=== PATIENT | male | born 1950 | race Caucasian/White ===

== ENCOUNTER → 2020-06-29 07:41 | Outpatient (BNVA) | payer BC, SELFPAY | PROVIDERS: Family Provider Electrodiagnostic Medicine; PCP Electrodiagnostic Medicine; Referring Provider Electrodiagnostic Medicine; Visit Provider Urology | DX: C61 Malignant neoplasm of prostate (principal); R39.11 Hesitancy of micturition; N40.1 Benign prostatic hyperplasia with lower urinary tract symptoms | CPT/HCPCS: 81003; 84153 ==

== ENCOUNTER 2020-08-25 13:22 | Outpatient (CLI) | payer MEDICARE, OTHER, SELFPAY ==
--- NOTE | 2020-08-25 13:41 | XR_ITS ---
WS: [id number] Exam: XR chest 2V* [id number] Date/Time of Exam: 08/25/2020 1:45 PM Reason For Exam: CAD/CONGESTIVE HEART FAILURE/HTN Comparison 10/06/2015. The lungs are clear and fully expanded. Unremarkable cardiomediastinal structures. Signs of previous CABG surgery. No pleural effusion. Moderate degenerative changes in the right shoulder. Orthopedic st aple seen in the right humeral neck. XR/XR chest 2V* [id number] IMPRESSION: 1. No acute cardiopulmonary finding. No change.
== END 2020-08-25 13:23 | disposition home or self-care (01) ==
PROVIDERS: Family Provider Electrodiagnostic Medicine; PCP Electrodiagnostic Medicine; Visit Provider Electrodiagnostic Medicine
DX: I25.10 Atherosclerotic heart disease of native coronary artery without angina pectoris (principal); I11.0 Hypertensive heart disease with heart failure; I50.9 Heart failure, unspecified
CPT/HCPCS: 71046

== ENCOUNTER 2020-09-14 09:59 | Outpatient (CLI) | payer MEDICARE, OTHER, SELFPAY ==
--- NOTE | 2020-09-14 10:02 | USCV_ITS ---
Italo Cummings Age: 70 Gender: M : 1950 Exam Date: 09/14/2020 10:20 Ordering Phys: Priyank Kaur DO Technologist: Candida Lin Exam Location: [facility] – [place] Indication: FATIGUE CAD BP: 117 / 71 HR: 96 Rhythm: Sinus Technical Quality: Adequate MEASUREMENTS (Male / Female) Normal Values 2D ECHO LV Diastolic Diameter PLAX 5.6 cm 4.2 - 5.9 / 3.9 - 5.3 cm LV Systolic Diameter PLAX 4.5 cm LV Chamber Size 3.9 cm IVS Diastolic Thickness 1.2 cm 0.6 - 1.0 / 0.6 - 0.9 cm IVS Systolic Thickness 1.2 cm LVPW Diastolic Thickness 1.3 cm 0.6 - 1.0 / 0.6 - 0.9 cm LVPW Systolic Thickness 1.7 cm RV Chamber Size 3.5 cm LVOT Diameter 2.0 cm LV Ejection Fraction 2D Teich 41.0 % LV Ejection Fraction MOD 2C 14.9 % LV Ejection Fraction 2C AL 14.6 % LA Diameter 3.6 cm LA Width 4.2 cm LA Height 5.0 cm RA Width 3.6 cm RA Height 4.2 cm Aorta at Sinotubular Diameter 3.4 cm M-MODE LV Diastolic Diameter MM 6.1 cm 4.2 - 5.9 / 3.9 - 5.3 cm LV Systolic Diameter MM 5.1 cm LV Ejection Fraction MM Teich 33.1 % IVS Diastolic Thickness MM 0.9 cm 0.6 - 1.0 / 0.6 - 0.9 cm IVS Systolic Thickness MM 1.3 cm LVPW Diastolic Thickness MM 1.4 cm 0.6 - 1.0 / 0.6 - 0.9 cm LVPW Systolic Thickness MM 1.6 cm RV Diastolic Diameter MM 1.1 cm Aortic Annulus Diameter 3.4 cm LA Ao Ratio MM 1.1 DOPPLER AV Peak Velocity 228.3 cm/s LVOT Peak Velocity 58.0 cm/s AV Area Cont Eq vti 0.8 cm squared AV Area Cont Eq pk 0.8 cm squared MV Area PHT 8.1 cm squared Mitral E to A Ratio 1.0 MV E' Velocity 43.5 cm/s Mitral E to MV E' Ratio 9.1 Mitral E to LV E' Lateral Ratio 8.4 Mitral E to LV E' Septal Ratio 10.1 TR Peak Velocity 180.6 cm/s TR Peak Gradient 13.1 mmHg TR Mean Velocity 125.9 cm/s TR Mean Gradient 8.0 mmHg TR Velocity Time Integral 39.7 cm TV Peak E Velocity 75.0 cm/s Right Atrial Pressure 3.0 mmHg Pulmonary Artery Systolic Pressu 16.1 mmHg PV Peak Velocity 69.0 cm/s RV Acceleration Time 0.2 s RV Ejection Time 0.3 s RV AcT/ET 0.5 FINDINGS Left Ventricle Diffuse hypokinesia left ventricle with ejection fraction of 41%. Mildly dilated LV cavity. Right Ventricle Normal right ventricular size and systolic function. Right Atrium Normal right atrial size. Left Atrium Mildly increased left atrial size. Mitral Valve Thickened mitral valve. Mild to moderate mitral valve regurgitation. Aortic Valve Thickened aortic valve. Tricuspid Valve Mild tricuspid valve regurgitation. Pulmonic Valve No gross abnormalities noted Pericardium No pericardial effusion. Aorta Normal aortic annulus size. CONCLUSIONS Diffuse hypokinesia left ventricle with ejection fraction of 41%. Mildly dilated left ventricle. Mildly increased left atrial size. Thickened mitral valve. Mild to moderate mitral valve regurgitation. Features of aortic valve sclerosis with a peak velocity of 2.28 m/s Mild tricuspid valve regurgitation. There is no pericardial effusion. There are no intracardiac masses. Estimated pulmonary artery peak systolic pressure of 16 mmHg. Compared to the previous study from 01/21/2018, there is a significant decline in the LV ejection fraction from 70% to 41% Dr Jose Nj MD [facility] (Electronically Signed) Final Date: 14 September 2020 23:52 S
== END 2020-09-14 10:00 | disposition home or self-care (01) ==
LOC: US 10:01
PROVIDERS: PCP Electrodiagnostic Medicine; Visit Provider Electrodiagnostic Medicine
DX: I25.10 Atherosclerotic heart disease of native coronary artery without angina pectoris (principal); R53.83 Other fatigue; I08.3 Combined rheumatic disorders of mitral, aortic and tricuspid valves
CPT/HCPCS: 93306

== ENCOUNTER → 2020-11-02 11:19 | Outpatient (BNVA) | payer MEDICARE, OTHER, SELFPAY | PROVIDERS: PCP Electrodiagnostic Medicine; Visit Provider Internal Medicine Cardiovascular Disease | DX: I50.33 Acute on chronic diastolic (congestive) heart failure (principal); R06.02 Shortness of breath; R53.1 Weakness; Z79.01 Long term (current) use of anticoagulants; I25.5 Ischemic cardiomyopathy; R07.9 Chest pain, unspecified; N18.9 Chronic kidney disease, unspecified; R60.0 Localized edema; E78.2 Mixed hyperlipidemia; E78.00 Pure hypercholesterolemia, unspecified; Z86.79 Personal history of other diseases of the circulatory system | CPT/HCPCS: 80053; 83880; 84443; 85025; 85610 ==

== ENCOUNTER 2020-12-16 07:33 | Outpatient (CLI) | payer MEDICARE, OTHER, SELFPAY ==
[2020-12-16 07:43] VITALS: BMI 29.4
--- NOTE | 2020-12-16 07:57 | ECG_ITS ---
[facility] Test Date: 2020-12-16 Pat Name: Italo Cummings Department: Room: Gender: Male Control Specialist: Lauryn Sylvester : 1950 Requested By: Jose Nj Order Number: [id number] Reddy MD: Jose Nj M.D. Interpretive Statements NAME OF STUDY: LEXISCAN SESTAMIBI STRESS TEST INDICATION: Chest Pain, PROCEDURE: At the baseline, the EKG revealed normal sinus rhythm with frequent supraventricular ectopics. No significant ST-T changes. The baseline blood pressure was 127/94 mm Hg with a heart rate of 89 beats/min. Lexiscan was infused over a period of 20 seconds. A total of 0.4 milligrams of Lexiscan was infused. The stress phase was continued for a total of 5 minutes. Heart rate at the end of the stress phase was 94 with a blood pressure 121/89. The EKG at the peak infusion revealed no significant changes. Sestamibi was injected 20 seconds after the Lexiscan infusion. Blood pressure at the end of the recovery phase was 123/89 with a heart rate of 94 per minute. CONCLUSION: 1. No significant EKG changes with the LexiScan infusion 2. No LexiScan induced chest pain or cardiac arrhythmia 3. Normal blood pressure and heart rate response 4. Sestamibi/sestamibi perfusion scan pending; see separate report. Electronically Signed On 12-17-2020 16:21:43 CDT by Jose Nj M.D. [id number]
--- NOTE | 2020-12-16 07:57 | NMCV_ITS ---
NM vandana perf SPECT r/s* [id number] Italo Cummings Age: 70 Gender: M : 1950 Exam Date: 12/16/2020 08:46 Ordering Phys: Jose Nj MD ([email or web address]) Technologist: CARLA Adams Exam Location: [facility] [place] Indications: SHORTNESS OF BREATH STRESS TEST Please see separate stress test report in [facility] for full findings IMAGE PROTOCOL Rest/Stress 1 Lexiscan Day Radiopharmaceutical Dose (mCi) Administration Site Administered by Rest: Tc-99m 10.7 IV CARLA Adams Sestamibi Stress:Tc-99m 32.8 IV CARLA Rojas Sestamibi Rest: 16-Dec-2020 60 Discovery 630 Stress: 16-Dec-2020 30 Discovery 630 0.4mg Lexiscan. Images obtained in supine and prone position. SPECT RESULTS Technical Quality: Excellent Raw Data Analysis: Normal Image Corrections: No attenuation or motion correction applied Summed Stress Score: 18 Summed Rest Score: 16 Summed Difference Score: 3 PERFUSION FINDINGS Moderate area of severely decreases uptake was noted in the basal and mid inferior and inferolateral regions. No significant reversibility was noted in these regions. Small to moderate area of slightly decreased aseptic was noted in the basal and mid anterolateral, apical lateral, apical anterior and the LV apex. Subtle areas of reversibility was noted in the anterolateral, apical lateral and apical anterior regions. FUNCTIONAL RESULTS (calculated via Gated SPECT) Stress Image LV EF (%): 31 Stress EDV (mL):249 TID: 1 Stress ESV (mL):171 FUNCTIONAL FINDINGS: Normal wall motion analysis revealed a severe hypokinesia of the septum and moderate diffuse hypokinesia of the LV apex. IMPRESSIONS 1. Myocardial perfusion may revealing moderate area of persistent decreased tracer uptake in the inferior and inferolateral regions, suggestive of myocardial scarring the distribution of the right coronary artery and circumflex artery. There is a slightly decreased tracer uptake in the anterolateral, apical lateral , apical anterior and LV apex with some reversibility, suggestive of myocardial scarring with small areas of octaviano- infarction ischemia in the distribution of the circumflex artery and distal left anterior descending artery.(Total area of fixed defect was 24% ; ischemic burden was 6%) 2. Moderately diminished LV ejection fraction of 31%. 3. LV wall motion normalities as mentioned above. 4. Moderately dilated LV cavity with an end-systolic volume of 171 ml. No similar previous studies are available for comparison Dr Jose Nj MD [facility] (Electronically Signed) Final Date: 17 December 2020 09:07 S
[2020-12-16 09:17] VITALS: BP 117/86; PULSE 95
[2020-12-16] MEDS: regadenoson 0.4 Mg/5 ml Syringe IVP (09:17)
== END 2020-12-16 07:34 | disposition home or self-care (01) ==
PROVIDERS: PCP Electrodiagnostic Medicine; Visit Provider Internal Medicine Cardiovascular Disease
DX: R07.9 Chest pain, unspecified (principal); R06.02 Shortness of breath
CPT/HCPCS: 78452; A9500; J2785

== ENCOUNTER → 2021-01-04 10:53 | Outpatient (BNVA) | payer MEDICARE, OTHER, SELFPAY | PROVIDERS: PCP Electrodiagnostic Medicine; Visit Provider Internal Medicine Cardiovascular Disease | DX: I50.33 Acute on chronic diastolic (congestive) heart failure (principal); R06.02 Shortness of breath; R53.1 Weakness; R07.9 Chest pain, unspecified; I25.5 Ischemic cardiomyopathy; Z79.01 Long term (current) use of anticoagulants; N18.9 Chronic kidney disease, unspecified; I49.9 Cardiac arrhythmia, unspecified; E78.2 Mixed hyperlipidemia | CPT/HCPCS: 80048; 80061; 82728; 83550; 83880 ==

== ENCOUNTER 2021-02-15 13:18 | Outpatient (CLI) | payer MEDICARE, OTHER, SELFPAY ==
--- NOTE | 2021-02-15 13:32 | XRR_ITS ---
PROCEDURE INFORMATION: Exam: XR Right Shoulder Exam date and time: 02/15/2021 1:32 PM Age: 70 years old Clinical indication: Condition or disease; Other: Right rotator cuff syndrome; Prior surgery; Surgery type: Bilat shoulder; Patient HX: Limited movement of RT shoulder. No known injury. PT stated he has had multiple surgeries on that shoulder and has had trouble with it for the past 2 years but the limited ability to move it has gotten worse these past TECHNIQUE: Imaging protocol: XR Right shoulder. Views: 2 or more views. COMPARISON: CR XR chest 2V* [id number] 08/25/2020 1:45 PM FINDINGS: Tubes, catheters and devices: Orthopedic staple again projecting over the proximal right humerus at the distal neck. 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 Evaluation of the glenohumeral joint is limited given positioning, no significant marginal osteophyte formation of the humerus or glenoid. No evidence of fracture. Soft tissues: Normal. XR/XR shoulder RT min 2V* [id number] IMPRESSION: Postsurgical and degenerative changes of the right shoulder as described in the body of the report.
== END 2021-02-15 13:19 | disposition home or self-care (01) ==
LOC: RAD 13:28
PROVIDERS: PCP Electrodiagnostic Medicine; Visit Provider Electrodiagnostic Medicine
DX: M75.101 Unspecified rotator cuff tear or rupture of right shoulder, not specified as traumatic (principal)
CPT/HCPCS: 73030

== ENCOUNTER 2021-03-09 06:59 | Outpatient (CLI) | payer MEDICARE, OTHER, SELFPAY ==
[2021-03-09 07:52] VITALS: BP 134/84; PULSE 99; RESP 24; TEMP 39.5; O2SAT 93; BMI 27.9
[2021-03-09 08:14] VITALS: BP 112/79; PULSE 57; RESP 20; TEMP 37.9; O2SAT 93
[2021-03-09 09:10] VITALS: BP 131/71; PULSE 53; RESP 20; TEMP 38.2; O2SAT 95
== END 2021-03-09 07:00 | disposition home or self-care (01) ==
PROVIDERS: PCP Electrodiagnostic Medicine; Visit Provider Nurse Practitioner
DX: U07.1 COVID-19 (principal)
CPT/HCPCS: 96365

== ENCOUNTER → 2021-04-06 10:01 | Outpatient (BNVA) | payer MEDICARE, OTHER, SELFPAY | PROVIDERS: PCP Electrodiagnostic Medicine; Referring Provider Electrodiagnostic Medicine; Visit Provider Specialist | DX: M25.511 Pain in right shoulder (principal); M19.011 Primary osteoarthritis, right shoulder | CPT/HCPCS: 73030 ==

== ENCOUNTER → 2021-04-19 10:20 | Outpatient (BNVA) | payer MEDICARE, OTHER, SELFPAY | PROVIDERS: PCP Electrodiagnostic Medicine; Visit Provider Internal Medicine Cardiovascular Disease | DX: R06.02 Shortness of breath (principal); R60.0 Localized edema; E78.00 Pure hypercholesterolemia, unspecified; E78.2 Mixed hyperlipidemia; I25.5 Ischemic cardiomyopathy; I50.9 Heart failure, unspecified; I42.9 Cardiomyopathy, unspecified; I10 Essential (primary) hypertension | CPT/HCPCS: 80048; 83735; 83880 ==

== ENCOUNTER → 2021-04-22 09:14 | Outpatient (BNVA) | payer MEDICARE, OTHER, SELFPAY | PROVIDERS: PCP Electrodiagnostic Medicine; Visit Provider Internal Medicine Cardiovascular Disease | DX: I48.91 Unspecified atrial fibrillation (principal); I48.92 Unspecified atrial flutter; R06.02 Shortness of breath; I50.9 Heart failure, unspecified; I49.9 Cardiac arrhythmia, unspecified; I42.9 Cardiomyopathy, unspecified | CPT/HCPCS: 85025; 85610 ==

== ENCOUNTER 2021-04-23 13:59 | Inpatient (IN) | payer MEDICARE, OTHER, SELFPAY ==
[2021-04-23] VITALS (40 sets, daily range): BP systolic 85–122; BP diastolic 45–77; PULSE 65–125; RESP 0–31; TEMP 36.6–37; O2SAT 80–97; BMI 27.2
--- NOTE | 2021-04-23 14:15 | ECG_ITS ---
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 Measurements Intervals [place] Rate: 122 P: [place]: QRS: 80 QRSD: 138 T: 269 QT: 333 QTc: 475 Interpretive Statements ATRIAL FLUTTER WITH RAPID VENTRICULAR RESPONSE INTRAVENTRICULAR CONDUCTION DELAY [130+ ms QRS DURATION] Compared to ECG 10/07/2015 00:35:45 Intraventricular conduction delay now present Sinus rhythm no longer present T-wave abnormality no longer present Electronically Signed On 04-24-2021 0:27:03 CDT by Joel Campos M.D. [email or web address].-[employer]/store/NU/[id number] f
--- NOTE | 2021-04-23 14:21 | XRR_ITS ---
PROCEDURE INFORMATION: Exam: XR Chest Exam date and time: 04/23/2021 2:21 PM Age: 70 years old Clinical indication: Cough and dyspnea; Additional info: Dyspnea/cough TECHNIQUE: Imaging protocol: XR of the chest. Views: 1 view. COMPARISON: CR XR chest 2V* [id number] 08/25/2020 1:45 PM FINDINGS: Lungs: Lungs are clear bilaterally. Pleural spaces: No pleural effusion. No pneumothorax. Heart/Mediastinum: Stable moderate enlargement of the cardiac silhouette. Mediastinal contours are unremarkable. Bones/joints: Poststernotomy changes in the chest. Degenerative changes in the spine and shoulders. Osseous findings are stable. XR/XR chest 1V portable [id number] IMPRESSION: 1. No acute cardiopulmonary process. 2. Incidental/nonacute findings are listed in the report. Radiation Dose CTDIVOL = (mGy): DLP = (mGy-cm)
[2021-04-23 14:54] LABS: Basophils % 0.2 %; Hematocrit 45.4 % (42.0-52.0); Hemoglobin 14.6 g/dL (11.7-16.6); Lymphocytes # 0.7 10^3/uL (0.8-4.8); Lymphocytes % 3.8 %; Mean Corpuscular HGB Conc 32.2 g/dL (30.0-36.0); Mean Corpuscular Hemoglobin 29.3 pg (28.0-34.0); Mean Corpuscular Volume 91.2 fl (80-94); Mean Platelet Volume 13.3 fL (7.4-10.4); Monocytes # 0.9 10^3/uL (0.2-0.9); Monocytes % 4.7 %; Neutrophils # 17.29 10^3/uL (1.8-7.7); Neutrophils % 90.7 %; Nucleated Red Blood Cells % 0 %; Platelet Count 119 10^3/cmm (130-400); Red Blood Count 4.98 10^6/uL (4.1-5.3); Red Cell Distribution Width 15.5 % (12.1-15.1); White Blood Count 19.1 10^3/uL (4.0-10.0)
[2021-04-23] MEDS: digoxin 250 mcg/ml INJ 2 mL IVP (15:00)
--- NOTE | 2021-04-23 15:01 | ED_ITS ---
HPI - Weakness General: Chief complaint: Weakness Stated complaint: N/V, WEAK, NOT SLEEPING, SENT BY DR MACHADO Time Seen by Provider: 04/23/21 14:11 History of Present Illness: HPI Narrative: 70-year-old male presents emergency room complaining of weakness shortness of breath nausea dry heaves over the last couple of days. He has a known history of atrial fibrillation his heart rate has been poorly controlled the last few weeks. He was started on amiodarone earlier this week he is taken several doses but is not controlled his heart rate. He denies any chest pain. He has been short of breath feels very bloated. He is also noticed he has been significantly orthopneic. MD Complaint: generalized weakness Onset (ago): day(s) Duration: intermittent Severity: moderate Quality: tingling Relieving factors: rest Exacerbating factors: exertion Associated symptoms: Denies chest pain, chills, confusion, melena, decreased appetite, diaphoresis, dysuria, easy bruising, fever(s), headache(s), myalgias, nausea, rash, short of breath, syncope or vomiting Review of Systems Const: Denies: fever(s), chills or diaphoresis ENMT: Denies: throat pain, ear or mastoid pain, nasal discharge or nasal congestion Card: Denies: chest pain or syncope Resp: Denies: dyspnea, productive cough or non-productive cough GI: Denies: nausea, vomiting or melena : Denies: dysuria Skin/Breast: Denies: rash or pruritus Neuro: Denies: headache(s) or confusion Butch/Lymph: Denies: easy bruising PFS ED PFSH: Medical History (Updated 04/23/21 @ 16:46 by Vadim Dominguez MD) Afib Atrial flutter BPH loc w urin obs/LUTS COVID-19 Mar 2021 Elevated PSA Essential hypertension 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 Radiation therapy. Slowly rising PSA with benign RALPH. 6.June. SOB (shortness of breath) Traumatic tear of right rotator cuff Urinary hesitancy Surgical History H/O shoulder surgery LEFT H/O total knee replacement RIGHT History of back surgery History of carpal tunnel release BILATERAL History of tonsillectomy and adenoidectomy Hx of coronary artery bypass graft Family History Father , AT AGE 91 Bowel obstruction Mother , AT AGE 84 Heart attack CAD (coronary artery disease) Hypertension Diabetes Brother Cancer Family/Other Cancer Son Chronic kidney disease (CKD) Cancer Grandfather Stroke Denies family history of Clotting disorder Dementia Suicide Anesthesia complication Bleeding disorder Lung disease Social History Alcohol intake: never Marital status: Current occupational status: employed History of recent travel: No Physical Exam Const: COMMON NORMALS: no acute distress GENERAL APPEARANCE: cooperative and comfortable ORIENTATION/CONSCIOUSNESS: Yes awake, Yes oriented to person, Yes oriented to place and Yes oriented to time HENMT: COMMON NORMALS: normocephalic, atraumatic and hearing grossly normal bilaterally HEAD & SCALP: normocephalic and atraumatic Resp: AUSCULTATION: crackles Cardio: RATE: tachycardic RHYTHM: abnormal rhythm irregularly irregular GI: COMMON NORMALS: Soft to palpation and No hepatosplenomegaly present AUSCULTATION: Yes normoactive bowel sounds PALPATION: Yes Soft to palpation, No Tenderness to palpation present (GI), No Guarding due to palpation present (GI) and Yes No hepatosplenomegaly present Extremity: COMMON NORMALS: normal to inspection, capillary refill normal, no clubbing, cyanosis or edema, no calf tenderness and no pedal edema Neuro: SENSORIUM/ORIENTATION: Yes oriented to person, Yes oriented to place and Yes oriented to time Skin: COMMON NORMALS: no rashes or lesions noted GENERAL SKIN EXAM: no rashes or lesions noted Course Vital Signs: Vital signs: Vital Signs Temperature 97.9 F 04/23/21 14:06 Pulse Rate 123 H 04/23/21 16:31 Respiratory Rate 23 H 04/23/21 16:31 Blood Pressure 105/77 04/23/21 16:31 Pulse Oximetry 96 04/23/21 16:31 MDM - Weakness MDM Narrative: Medical decision making narrative: A. fib with RVR on EKG. Patient's heart rate is poorly controlled with attempts with Cardizem with low obstructive loading with digoxin amiodarone is not an option because of his elevated LFTs. He also has significant hyperkalemia. He has hepatorenal syndrome. Discussed with cardiology nephrology and the hospitalist will admit him to the ICU cardiology is anticipating cardioversion pretty good with a small fluid bolus to improve his blood pressure additionally will use calcium gluconate insulin and glucose and Kayexalate to lower his potassium. Lab Data: Labs: Lab Results 04/23/21 04/23/21 04/23/21 14:08 14:08 14:08 WBC Cancelled Corrected WBC Cancelled RBC Cancelled Hgb Cancelled Hct Cancelled MCV Cancelled MCH Cancelled MCHC Cancelled RDW Cancelled Plt Count Cancelled MPV Cancelled Gran % Cancelled Neut % (Auto) Cancelled Lymph % (Auto) Cancelled Pershing % (Auto) Cancelled Eos % (Auto) Cancelled Baso % (Auto) Cancelled Neut # (Auto) Cancelled Lymph # (Auto) Cancelled Pershing # (Auto) Cancelled Eos # (Auto) Cancelled Baso # (Auto) Cancelled Absolute Gran (aut o) Cancelled Nucleated RBC % (a uto) Cancelled Nucleated RBCs # Cancelled Sodium Cancelled Potassium Cancelled Chloride Cancelled Carbon Dioxide Cancelled Anion Gap Cancelled BUN Cancelled Creatinine Cancelled GFR Calculation Cancelled Glucose Cancelled Calculated Osmolal ity Cancelled Calcium Cancelled Total Bilirubin Cancelled AST Cancelled ALT Cancelled Alkaline Phosphata se Cancelled Creatine Kinase Cancelled Troponin T Baselin e Cancelled NT-Pro-B Natriuret Pep Total Protein Cancelled Albumin Cancelled Globulin Cancelled 04/23/21 04/23/21 04/23/21 14:45 14:45 14:45 WBC 19.1 10^3/uL H 10 ^3/uL (4.0-10.0) Corrected WBC RBC 4.98 10^6/uL 10^6 /uL (4.1-5.3) Hgb 14.6 g/dL g/dL (11.7-16.6) Hct 45.4 % % (42.0-52.0) MCV 91.2 fl fl (80-94) MCH 29.3 pg pg (28.0-34.0) MCHC 32.2 g/dL g/dL (30.0-36.0) RDW 15.5 % H % (12.1-15.1) Plt Count 119 10^3/cmm L 10 ^3/cmm (130-400) MPV 13.3 fL H fL (7.4-10.4) Gran % Neut % (Auto) 90.7 % % Lymph % (Auto) 3.8 % % Pershing % (Auto) 4.7 % % Eos % (Auto) 0.0 % % Baso % (Auto) 0.2 % % Neut # (Auto) 17.29 10^3/uL H 1 0^3/uL (1.8-7.7) Lymph # (Auto) 0.7 10^3/uL L 10^ 3/uL (0.8-4.8) Pershing # (Auto) 0.9 10^3/uL 10^3/ uL (0.2-0.9) Eos # (Auto) 0.0 10^3/uL 10^3/ uL (0.0-0.8) Baso # (Auto) 0.0 10^3/uL 10^3/ uL (0.0-0.1) Absolute Gran (aut o) Nucleated RBC % (a uto) 0 % % Nucleated RBCs # 0.0 /100WBC /100W BC Sodium Potassium Chloride Carbon Dioxide Anion Gap BUN Creatinine GFR Calculation Glucose Calculated Osmolal ity Calcium Total Bilirubin AST ALT Alkaline Phosphata se Creatine Kinase Troponin T Baselin e 174 ng/L H* ng/L (0-15) NT-Pro-B Natriuret Pep 33921 pg/mL H pg/ mL (0-125) Total Protein Albumin Globulin 04/23/21 04/23/21 14:45 14:45 WBC Corrected WBC RBC Hgb Hct MCV MCH MCHC RDW Plt Count MPV Gran % Neut % (Auto) Lymph % (Auto) Pershing % (Auto) Eos % (Auto) Baso % (Auto) Neut # (Auto) Lymph # (Auto) Pershing # (Auto) Eos # (Auto) Baso # (Auto) Absolute Gran (aut o) Nucleated RBC % (a uto) Nucleated RBCs # Sodium 134 mmol/L L mmol /L (136-145) Potassium 6.2 mmol/L H mmol /L (3.5-5.1) Chloride 97 mmol/L L mmol/ L (98-107) Carbon Dioxide 16 mmol/L L mmol/ L (22-29) Anion Gap 27.2 H (5-19) BUN 44 mg/dL H mg/dL (8-23) Creatinine 3.0 mg/dL H mg/dL (0.7-1.2) GFR Calculation 20.9 mL/min L mL/ min (90-130) Glucose 192 mg/dL H mg/dL (65-115) Calculated Osmolal ity 294 mOsm/kg mOsm/ kg (285-295) Calcium 9.2 mg/dL mg/dL (8.5-10.5) Total Bilirubin 1.2 mg/dL mg/dL (0.15-1.2) AST 5186 U/L H U/L (0-40) ALT 3156 U/L H U/L (0-41) Alkaline Phosphata se 58 IU/L IU/L (40-130) Creatine Kinase 141 U/L U/L Cancelled (39-308) Troponin T Baselin e NT-Pro-B Natriuret Pep Total Protein 6.1 g/dL L g/dL (6.6-8.7) Albumin 4.2 g/dL g/dL (3.5-5.2) Globulin 1.9 g/dL g/dL (1.3-4.6) Discharge Plan Discharge Patient Disposition: Admitted As Inpatient Admit Provider: Vadim Dominguez Clinical Impression: Atrial fibrillation with rapid ventricular response, Acute renal failure (ARF), Hepatorenal syndrome, Hyperkalemia Condition: Stable Coding Level of Care Code ED Coil Tier for g Fwd Exam Detailed
[2021-04-23 15:08] LABS: Slide Review Slide Review Perform
[2021-04-23 15:13] LABS: Albumin Level 4.2 g/dL (3.5-5.2); Alkaline Phosphatase 58 IU/L (40-130); Blood Urea Nitrogen 44 mg/dL (8-23); Calcium 9.2 mg/dL (8.5-10.5); Carbon Dioxide 16 mmol/L (22-29); Chloride 97 mmol/L (98-107); Creatine Phosphokinase 141 U/L (39-308); Globulin 1.9 g/dL (1.3-4.6); Glomerular Filtration Rate 20.9 mL/min (90-130); Glucose 192 mg/dL (65-115); Osmolality Calculated 294 mOsm/kg (285-295); Sodium 134 mmol/L (136-145); Total Bilirubin 1.2 mg/dL (0.15-1.2); Total Protein 6.1 g/dL (6.6-8.7)
[2021-04-23 15:24] LABS: Alanine Aminotransferase 3156 U/L (0-41)
[2021-04-23 15:29] LABS: NT Pro B Type Natriuretic Pept 16722 pg/mL (0-125)
[2021-04-23] MEDS: ondansetron 2 mg/ML SDV 2 mL 4 MG IVP ×2 (15:33→19:48)
[2021-04-23 15:36] LABS: Aspartate Amino Transferase 5186 U/L (0-40)
[2021-04-23 15:37] LABS: Anion Gap 27.2 (5-19); Potassium 6.2 mmol/L (3.5-5.1)
[2021-04-23 15:39] LABS: Troponin(5th) Baseline 174 ng/L (0-15)
--- NOTE | 2021-04-23 16:12 | USCV_ITS ---
Italo Cummings Age: 70 Gender: M : 1950 Exam Date: 04/23/2021 16:38 Ordering Phys: Danny Gill DO Technologist: Exam Location: [facility] [place] Indication: CHF BP: 105 / 77 HR: 47 Rhythm: Sinus Technical Quality: Good MEASUREMENTS (Male / Female) Normal Values 2D ECHO LV Diastolic Diameter PLAX 6.3 cm 4.2 - 5.9 / 3.9 - 5.3 cm LV Systolic Diameter PLAX 5.6 cm IVS Diastolic Thickness 1.2 cm 0.6 - 1.0 / 0.6 - 0.9 cm IVS Systolic Thickness 1.6 cm LVPW Diastolic Thickness 1.2 cm 0.6 - 1.0 / 0.6 - 0.9 cm LVPW Systolic Thickness 1.0 cm LVOT Diameter 2.0 cm LV Ejection Fraction 2D Teich 24.1 % LV Ejection Fraction MOD 2C 21.6 % LV Ejection Fraction 2C AL 20.4 % LA Diameter 5.8 cm LA Width 4.7 cm LA Height 7.0 cm RA Width 6.3 cm RA Height 6.5 cm Aorta at Sinotubular Diameter 3.0 cm DOPPLER AV Peak Velocity 201.0 cm/s LVOT Peak Velocity 75.0 cm/s AV Area Cont Eq vti 1.0 cm squared AV Area Cont Eq pk 1.2 cm squared TR Peak Velocity 306.3 cm/s TR Peak Gradient 37.5 mmHg TV Peak E Velocity 87.0 cm/s Right Atrial Pressure 3.0 mmHg Pulmonary Artery Systolic Pressu 40.5 mmHg FINDINGS Left Ventricle Severe diffuse hypokinesia of the left ventricle with ejection fraction of around 20%. Mildly increased left ventricular cavity size. Right Ventricle Normal right ventricular size and systolic function. Right Atrium Mildly increased right atrial size. Left Atrium Moderately increased left atrial size. Mitral Valve Thickened mitral valve. Moderately severe mitral regurgitation Aortic Valve Thickened aortic valve. Tricuspid Valve Mild tricuspid valve regurgitation. Pulmonic Valve No gross abnormalities noted Pericardium Normal pericardium without effusion. Aorta Normal aortic annulus size. CONCLUSIONS Severe diffuse hypokinesia of the left ventricle with ejection fraction of around 20%. Mildly increased left ventricular cavity size. Moderately severe mitral regurgitation. Thickened aortic and mitral valves. Mild tricuspid valve regurgitation. Estimated pulmonary artery peak systolic pressure of 41 mm of Hg. There is no pericardial effusion. There are no intracardiac masses. Compared to the study from 09/14/2020, there is worsening of the LV systolic function and mitral regurgitation Dr Jose Nj MD [facility] (Electronically Signed) Final Date: 23 April 2021 17:30 S
--- NOTE | 2021-04-23 16:15 | ECG_ITS ---
[facility] Test Date: 2021-04-23 Pat Name: Italo Cummings Department: Room: Gender: Male Registered Nurse Obstetrics: : 1950 Requested By: Danny Larson Order Number: [id number] Reddy MD: Jose Nj M.D. Measurements Intervals [place] Rate: 124 P: [place]: QRS: 85 QRSD: 146 T: 245 QT: 322 QTc: 464 Interpretive Statements ATRIAL FLUTTER/TACHYCARDIA WITH RAPID VENTRICULAR RESPONSE INTRAVENTRICULAR CONDUCTION DELAY [130+ ms QRS DURATION] Compared to ECG 04/23/2021 14:08:16 No significant changes Electronically Signed On 04-24-2021 18:38:54 CDT by Jose Nj M.D. [email or web address] centerMobile[email or web address].[email or web address]/store/[id number]
[2021-04-23] MEDS: sodium polystyrene sulfonate 15 gm/60 mL Btl PO ×2 (16:21→20:50)
[2021-04-23] MEDS: sodium chloride 0.9% 500 ML 999 ML IV (16:23)
[2021-04-23] MEDS: calcium gluconate 0.1 gm/mL 10% SDV 10mL 1 GM IVP (16:26)
--- NOTE | 2021-04-23 16:45 | P.HP_ITS ---
Providers/Chief Complaint Primary Care Provider: Priyank Kaur DO Chief Complaint: N/V, WEAK, NOT SLEEPING, SENT BY DR MACHADO History of Present Illness Italo Cummings is a 70 year old male with history of CAD post CABG, ischemic car diomyopathy, recent diagnosis of atrial fibrillation 2 days ago for which he is undergoing oral amiodarone load, recent COVID-19 in March 2021, history of hypertension presented to the ER today complaining of difficulty in breathing which has been progressively increasing for the last 10 days and progressed to level for last 7 days when he is not even able to lie down flat in the bed along with decreased oral intake because of nausea and poor taste. Patient states he is not passing as much urine as he usually does for last 3 days which he attributed to poor oral intake. He is denying any chest pain but complaining of dizziness and palpitations. Denies any fevers, headache, dizziness complaining of increasing swelling of his lower limbs for last 4 to 5 days. In the ER he was found to be in atrial fibrillation rapid ventricular response with heart rate going up to 130s for which he received 250 mcg of digoxin, Cardizem 10 mg stat followed by drip running at 15. His mean arterial pressure has usually remained between 65-68 for which he has received up to 100 cc of normal saline. Saturating 96% on room air. Blood work in the ER showed white count 19,000, hemoglobin of 14.6, sodium 134, potassium of 6.2, chloride of 97, anion gap of 21, creatinine of 3, BUN of 44, AST/ALT of 5186/3156, proBNP of 16,000 Review of Systems General: Reports: 10 or more systems reviewed and unremarkable except in HPI and below Const: Denies: fever(s), chills, body aches, change in appetite, change in weight, malaise, night sweats, diaphoresis, change in sleep pattern, daytime sleepiness or snoring Eyes: Denies: change in vision, blurry vision, photophobia, eye discomfort or eye discharge ENMT: Denies: throat pain, enlarged tonsils, hoarseness, mouth pain, oral sores, dry mouth, tinnitus, nasal congestion or post nasal drip Card: Denies: chest pain, palpitations, irregular heart rhythm, edema, swelling of feet/ankles, lightheadedness, syncope, pre-syncope, dyspnea on exertion, orthopnea, leg pain with exertion or acrocyanosis Resp: Denies: dyspnea, productive cough, non-productive cough, wheezing, strid or, pain on inspiration, change in phlegm color, hemoptysis or chest congestion GI: Denies: abdominal pain, nausea, vomiting, hematemesis, coffee ground emesis, dysphagia, heartburn, diarrhea, constipation, bloating, GI cramping, change in bowel habits, pain on defecation, hematochezia or melena : Denies: flank pain, difficulty urinating, dysuria, urinary frequency, urinary urgency, urinary hesitancy, urinary dribbling, difficulty starting urination, change in urine stream, nocturia or hematuria Musc: Denies: neck pain, back pain, extremity pain, joint pain, joint swelling, joint redness, joint stiffness or limited range of motion Neuro: Denies: headache(s), numbness in extremities, weakness in extremities, sensory changes, lack of coordination, difficulty walking, frequent falls, dizziness, vertigo, confusion, Slurred speech present, difficulty communicating thoughts or seizure-like activity Psych: Denies: anxiety, depression, mood swings, panic attacks, hopelessness or irritability Endo: Denies: polyuria, polydipsia, tired all the time, cold intolerance, excessive sweating, flushing or heat intolerance Butch/Lymph: Denies: easy bruising or easy bleeding All/Imm: Denies: tongue swelling, facial swelling or acute wheezing Medications/Allergies Home Medications Medication Instructions Recorded Confirmed Last Taken Type cetirizine 10 mg tablet 10 mg PO DAILY PRN tab 06/29/20 04/23/21 Unknown History cholecalciferol (vitamin D3) 50 50 mcg PO DAILY 06/29/20 04/23/21 04/23/21 History mcg (2,000 unit) capsule fluticasone propionate 50 1 spray INTRANASAL DAILY 06/29/20 04/23/21 Unknown History mcg/actuation nasal spray,suspension tramadol 50 mg tablet 50 mg PO TID PRN 06/29/20 04/23/21 04/23/21 History niacin 250 mg tablet,extended 500 mg PO DAILY tab 11/02/20 04/23/21 04/23/21 History release terazosin 10 mg capsule 10 mg PO BID cap 11/02/20 04/23/21 04/23/21 History alirocumab 150 mg/mL subcutaneous 150 mg SUBCUT Q14D #2 ml 02/22/21 04/23/21 Unknown Rx pen injector amiodarone 200 mg tablet See Rx Instructions .ROUTE 04/21/21 04/23/21 04/23/21 Rx .COMPLEX #197 tab 400 mg albuterol sulfate 2 puff INHALATION Q4H PRN 04/23/21 04/23/21 Unknown History budesonide-formoterol [Symbicort] 2 puff INHALATION BID 04/23/21 04/23/21 04/23/21 History furosemide 80 mg PO DAILY 04/23/21 04/23/21 04/23/21 History montelukast 10 mg PO DAILY 04/23/21 04/23/21 04/23/21 History potassium chloride 20 meq PO BID 04/23/21 04/23/21 04/23/21 History Allergies Allergy/AdvReac Type Severity Reaction Status Date / Time Penicillins Allergy Unknown Unknown Verified 04/06/21 09:45 Vwelbti-XKT-AlA Reductase Allergy couldn't Verified 04/06/21 09:45 Inhibitor function [Aybzdfk-Wif-Uyr Reductase Inhibitor] PFSH Acute PFSH: Medical History Afib Atrial flutter BPH loc w urin obs/LUTS COVID-20 Mar 2021 Elevated PSA Essential hypertension 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 Radiation therapy. Slowly rising PSA with benign RALPH. 6.June. SOB (shortness of breath) Traumatic tear of right rotator cuff Urinary hesitancy Surgical History H/O shoulder surgery LEFT H/O total knee replacement RIGHT History of back surgery History of carpal tunnel release BILATERAL History of tonsillectomy and adenoidectomy Hx of coronary artery bypass graft Family History Father , AT AGE 91 Bowel obstruction Mother , AT AGE 84 Heart attack CAD (coronary artery disease) Hypertension Diabetes Brother Cancer Family/Other Cancer Son Chronic kidney disease (CKD) Cancer Grandfather Stroke Denies family history of Clotting disorder Dementia Suicide Anesthesia complication Bleeding disorder Lung disease Social History Alcohol intake: never Marital status: Current occupational status: employed History of recent travel: No Vitals/I&O/Wt Last Vital Signs Temp 97.9 F 04/23/21 14:06 Pulse 123 H 04/23/21 16:31 Resp 23 H 04/23/21 16:31 BP 105/77 04/23/21 16:31 Pulse Ox 96 04/23/21 16:31 04/23/21 04/23/21 04/23/21 06:59 14:59 22:59 Intake Total 5.833 / 5.833 Balance 5.833 / 5.833 Weight last 48 hrs Weight 86.183 kg Physical Exam Narrative: EXAM NARRATIVE: General: No acute distress, AO x3, sitting up in bed, on room air HEENT: PERRLA, pupils bilaterally equal and reactive Chest: Bilateral no vesicular breath sounds, crackles present up to mid chest, equal good air entry bilaterally CVS: S1-S2 regular,, JVD elevated, pansystolic murmur at apex radiating to to anterior axillary line 3/6, pansystolic murmur at fourth intercostal space left parasternal, tachycardia, gallop present, no rubs Abdomen: Soft, soft mildly tender hepatomegaly present, bowel sounds present Neuro: No focal deficits, no facial deformity, AO x3, power 5/5 in all limbs Data : 04/24/21 02:45 04/24/21 10:58 A&P Assessment and plan (1) Cardiogenic shock: Status: Acute (2) Atrial fibrillation with rapid ventricular response: Status: Acute (3) Congestive heart failure due to cardiomyopathy: Status: Acute (4) Hepatorenal syndrome: Status: Acute (5) Acute renal failure (ARF): Status: Acute (6) Hyperkalemia: Status: Acute (7) Atherosclerosis of coronary artery of [place] heart without angina pectoris: Status: Acute Qualifiers: Coronary Disease-Associated Artery/Lesion type: unspecified vessel or lesion type Qualified Code(s): I25.10 - Atherosclerotic heart disease [place] coronary artery without angina pectoris (8) Metabolic acidosis, increased anion gap: Status: Acute Additional A&P Information Cardiogenic shock: Start on dobutamine as per severe LV dysfunction on echo results. Keep mean artery pressure over 65. Can wean off accordingly. Congestive heart failure: Ischemic cardiomyopathy: h/o CABG Check ECHO IV lasix 100 mg stat, f/b 60 mg BID Fluid restriction upto 1500 cc Strict I/O, daily weight. Robertson catheter. Afib with RVR: C/w cardizem drip. Wean keeping HR less than 100bpm. BP soft. Repeat digoxin 125 mcg once. Can not do amio given elevated AST/ALT. Can not do high dose digoxin given KRYSTINA. C/d/w Dr. Machado. Most likely will need cardioversion. Start on heparin drip. Check digoxin level. Hepatorenal syndrome: Elevated Transaminases: Most likely 2/2 CHF. Check hepatitis panel, HIV Once euvoluemic will get abd/pelvis CT. Continue monitor daily. Acute renal failure: Baseline creat norrmal. Renal ultrasound. Urinanalysis, Ucx, urine lytes, urine creat, urine eosinophil Med rec done for nephrotoxic meds. Robertson, I/o High anion gap metabolic acidosis: 2/2 KRYSTINA Check ABG. Check BMP Q4h Sepsis: Likely. On admit. Met with leukocytosis, tachycardia. MRSA swab, urine legionella, bacterial antigen, Bcx, Ucx. Start emperically on vancomycin and imipenem as per creatinine clearance. Will de-escalate quickly if remains afebrile. Recent COVID: O2 supplementation keeping saturation over 90% No isolation precaution as more than 3 weeks ago. CAD: No active chest pain. C/w ASA, Repatha Check iron panel, TSH, lipid panel. Code status: Full code Heparin drip Protonix for PUD PPx Admit to ICU Attestations Medical Necessity Statement*: More than 2 midnights for management of congestive heart failure, atrial fibrillation with rapid ventricular response, hepatorenal syndrome, acute renal failure, hyperkalemia, metabolic anion gap acidosis Critical Care Time: The high probability of a clinically significant, sudden or life threatening deterioration of the patient's [cardiac, pulmonary, renal, hepatic] system(s) required my full and direct attention, intervention and personal management. The critical care time is as shown. This time is in addition to time spent performing any reported procedures but includes the following: [x] Data and vital sign review and interpretation [x] Patient assessment, examination and intervention [x] Documentation [x] Medication orders and management Critical Care Time (min): 90 Coding Level of Care Code Acute [employer] for Chg Fwd Diagnoses Cardiogenic shock R57.0 Atrial fibrillation with rapid ventricular response I48.91 Congestive heart failure due to cardiomyopathy I50.9; I42.9 Hepatorenal syndrome K76.7 Acute renal failure (ARF) N17.9 Hyperkalemia E87.5 Atherosclerosis of coronary artery of [place] heart without angina pectoris I25.10 Coronary Disease-Associated Artery/Lesion type: unspecified vessel or lesion type Metabolic acidosis, increased anion gap E87.2
[2021-04-23 17:14] LABS: ABG PCO2 25.4 mmHg (35-45); ABG PH Result 7.39 (7.35-7.45); Alveolar-Arterial Oxygen Gradi 2.8 mmHg (5-10); Arterial Blood Gas Hematocrit 45.6 % (42-52); Base Excess ABG -7.6 mmol/L (-2.0-2.0); Blood Gas Allen Test Pos; Blood Gas Operator Identificat CAK; Blood Gas Sample Site Radial, left; Blood Gas Sample Type Arterial; Carboxyhemoglobin 0.8 %THgb (0.4-20.1); HCO3 ABG 15.4 mmol/L (22-26); Ionized Calcium Level - ABG 1.2 mmol/L (1.1-1.4); Methemoglobin 0.7 % (0.4-1.5); Oxygen Device ROOM AIR; Oxygen Saturation ABG 97.5; Potassium Level - ABG 5.7 mmol/L (3.5-5.0); Total Hemoglobin 14.9 g/dL (14-18)
[2021-04-23] MEDS: FUROsemide 10 mg/mL SDV 10mL 100 MG IVP (17:16)
[2021-04-23 17:17] LABS: Add Urine Microscopic? YES; Bilirubin Urine Neg (Negative); Blood Urine 2+ (Negative); Glucose Urine UA Norm (Normal); Ketones Urine 1+ (Negative); Leukocyte Esterase Urine Negative (Negative); Nitrate Urine Negative (Negative); Protein Urine Trace (Negative); Specific Gravity, Urine 1.025 (1.005-1.030); Urine Appearance Cloudy (CLEAR); Urine Color Yellow (Yellow); Urobilinogen Urine 1 mg/dL (Negative); pH Urine 5 (5-7)
[2021-04-23 17:17] LABS: Thyroid Stimulating Hormone 2.91 uIU/mL (0.27-4.20)
[2021-04-23 17:25] LABS: Amorphous Sediment Urine 1+ /hpf; Bacteria Urine 2+ /hpf; Hyaline Casts Urine 15-25 /lpf; WBC Urine RARE /hpf (0-5)
[2021-04-23 17:26] LABS: Add Urine Culture? Yes
[2021-04-23 17:28] LABS: Iron 118 ug/dL (59-158); Percent Saturation 35.4 % (20-50); Total Iron Binding Capacity 333 mcg/dl; Unsaturated Iron Binding 215 ug/dL (112-347)
--- NOTE | 2021-04-23 17:31 | P.CONIM_ITS ---
Providers/Reason For Consult Consulting Physician/Specialty*: COLT Nj MD/cardiology Reason for Consult*: Patient with atrial flutter and rapid ventricular rate/congestive heart failure/hypertension Attending Physician: Vadim Dominguez MD Primary Care Provider: Priyank Kaur DO History of Present Illness History of Present Illness Italo Cummings is a 70 year old male with a history of atherosclerotic heart disease, status post coronary artery bypass surgery, history of systolic heart failure, now presenting with complaints of progressive shortness of breath, generalized weakness and heart palpitation. He was found to be in atrial flutter with rapid ventricular rate. He also was found to be hypotensive with a systolic blood pressure in the 80s. Cardiology consult is requested for further cardiac evaluation recommendations. This patient had a four-vessel coronary bypass surgery in 2015. He been doing okay up until the early part of this year when he started having shortness of breath. His LV ejection fraction by echocardiogram was around 41% in August of this year. He was found to have features of congestive heart failure. Subsequently had a myocardial perfusion imaging which revealed areas of fixed defect with a very small areas of reversible defect. Since the patient did not have any chest pain, it was opted to treat him medically. He has been doing okay with the medications up until recently. We recommended Entresto but the patient refused. A month ago, he apparently contracted COVID-19. Since then, he has been getting progressively more short of breath. He was finding it difficult to navigate. He has been taking the Lasix 60 mg p.o. daily. Because of the elevated BNP, the dose was recently increased to 80 mg. He also was complaining of palpitation intermittently. For this he had a event monitor 4 days ago. The event monitor revealed episodes of atrial flutter/fibrillation. For this reason, he was started on Eliquis 3 days ago and on amiodarone 2 days ago. His BUN was 19 with a creatinine of 1.3 on 04/19/2021. The patient, for the last 2 nights, he been finding very difficult to lie down because of shortness of breath and heart pounding. He did not want to come to the hospital. But because of worsening of the symptoms, he has decided to come to the emergency room. He had some chills last night. He also has been coughing up some yellowish sputum off and on. Denies any other specific complaints. He has no abdominal pain, vomiting or diarrhea. No headache or blurring of vision. No other specific complaints. Was admitted to the hospital on 10/06/2015 with a features of unstable angina and non-ST elevation myocardial infarction. 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 He had a preserved LV ejection fraction. He was transferred to [facility] in [place] for coronary artery bypass surgery. Patient apparently had a 4 vessel coronary bypass surgery. He had a DELANEY to the LAD, venous graft to the diagonal, obtuse marginal and PDA, on 10/08/2015. Review of Systems Narrative: CONSTITUTIONAL: Might have had some chills last night. Poor appetite EYES: No blurring of vision or other visual disturbances lately. ENT: No hoarseness of voice, auditory disturbances or sore throat. CARDIOVASCULAR: As mentioned above. RESPIRATORY: No significant cough. GASTROINTESTINAL: No hematemesis or melena. GENITOURINARY: No dysuria or hematuria. INTEGUMENTARY: No skin rashes or history of skin cancer. NEURO: No transient ischemic attacks or amaurosis. PSYCHIATRIC: No history of psychosis or major depression. HEMATOLOGIC: No bleeding disorders or significant anemia. ENDOCRINE: No history of polyuria or polydipsia. MUSCULOSKELETAL: No recent joint pain or swelling. ALLERGY/IMMUNOLOGY: As mentioned above. Meds/Allergies Home Medications and Allergies Home Medications Medication Instructions Recorded Confirmed Last Taken Type cetirizine 10 mg tablet 10 mg PO DAILY PRN tab 06/29/20 04/23/21 Unknown History cholecalciferol (vitamin D3) 50 50 mcg PO DAILY 06/29/20 04/23/21 04/23/21 His tory mcg (2,000 unit) capsule fluticasone propionate 50 1 spray INTRANASAL DAILY 06/29/20 04/23/21 Unknown History mcg/actuation nasal spray,suspension tramadol 50 mg tablet 50 mg PO TID PRN 06/29/20 04/23/21 04/23/21 History niacin 250 mg tablet,extended 500 mg PO DAILY tab 11/02/20 04/23/21 04/23/21 History release terazosin 10 mg capsule 10 mg PO BID cap 11/02/20 04/23/21 04/23/21 History alirocumab 150 mg/mL subcutaneous 150 mg SUBCUT Q14D #2 ml 02/22/21 04/23/21 Unknown Rx pen injector amiodarone 200 mg tablet See Rx Instructions .ROUTE 04/21/21 04/23/21 04/23/21 Rx .COMPLEX #197 tab 400 mg albuterol sulfate 2 puff INHALATION Q4H PRN 04/23/21 04/23/21 Unknown History budesonide-formoterol [Symbicort] 2 puff INHALATION BID 04/23/21 04/23/21 04/23/21 History furosemide 80 mg PO DAILY 04/23/21 04/23/21 04/23/21 History montelukast 10 mg PO DAILY 04/23/21 04/23/21 04/23/21 History potassium chloride 20 meq PO BID 04/23/21 04/23/21 04/23/21 History Allergies Allergy/AdvReac Type Severity Reaction Status Date / Time Penicillins Allergy Unknown Unknown Verified 04/06/21 09:45 Ezmrmqj-NHE-GwA Reductase Allergy couldn't Verified 04/06/21 09:45 Inhibitor function [Hqgjhsz-Hyd-Ttw Reductase Inhibitor] Current Medications Current Medications Generic Name Dose Route Start Last Admin Trade Name Freq PRN Reason Stop Dose Admin Diltiazem HCl 125 mg/ Sodium 125 mls @ 0 mls/hr 04/23/21 14:30 04/23/21 16:03 Chloride IV 15 mg/hr .Q0M LYNNE 15 mls/hr Titration Protocol Per Protocol PFSH Acute PFSH: Medical History Afib Atrial flutter BPH loc w urin obs/LUTS COVID-20 Mar 2021 Elevated PSA Essential hypertension 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 Radiation therapy. Slowly rising PSA with benign RALPH. 6.June. SOB (shortness of breath) Traumatic tear of right rotator cuff Urinary hesitancy Surgical History H/O shoulder surgery LEFT H/O total knee replacement RIGHT History of back surgery History of carpal tunnel release BILATERAL History of tonsillectomy and adenoidectomy Hx of coronary artery bypass graft Family History Father , AT AGE 91 Bowel obstruction Mother , AT AGE 84 Heart attack CAD (coronary artery disease) Hypertension Diabetes Brother Cancer Family/Other Cancer Son Chronic kidney disease (CKD) Cancer Grandfather Stroke Denies family history of Clotting disorder Dementia Suicide Anesthesia complication Bleeding disorder Lung disease Social History Alcohol intake: never Marital status: Current occupational status: employed History of recent travel: No Vitals/I&O/Wt Last Vital Signs Temp 97.9 F 04/23/21 14:06 Pulse 101 H 04/23/21 17:31 Resp 23 H 04/23/21 17:31 BP 115/67 04/23/21 17:31 Pulse Ox 94 04/23/21 17:31 04/23/21 04/23/21 04/23/21 06:59 14:59 22:59 Intake Total 5.833 / 5.833 Balance 5.833 / 5.833 Weight last 48 hrs Weight 190 lb Physical Exam Narrative: EXAM NARRATIVE: GENERAL: The patient is alert and oriented times three. Slightly tachypneic HEENT: Minimal pallor with no, icterus or lymphadenopathy. The pupils are reactant to light. Oral cavity: There are no mucous membrane lesions. Funduscopic examination: The disk margins appear to be sharp with no exudates or hemorrhages. NECK: Trachea appears to be central. No masses noted. No JVD or thyromegaly appreciated. No carotid bruit. RESPIRATORY: Chest is symmetrical. No intercostals muscle retraction or any accessory muscle activation. There is no chest wall tenderness. Breath sounds are heard bilaterally. Few fine rales at the base. BREASTS: Deferred. HEART: PMI could not be palpated. No palpable precordial events. S1 is variable. S2 is normal. Soft S3 present. No pericardial rub or any click heard. ABDOMEN: No vessel pulsations or distention. No tenderness. No organomegaly appreciated. No abdominal bruit. Bowel sounds are normally heard. : Deferred. RECTAL: Deferred. LYMPHATIC: No lymphadenopathy noted in the neck or groin. EXTREMITIES: No significant edema or cyanosis. Peripheral pulses are palpable but weak bilaterally MUSCULOSKELETAL: No acute joint deformities or swelling SKIN: There are no significant scars or skin rash noted. NEUROPSYCHIATRIC: The patient is alert and oriented x3. Appears to be in a good mood. The higher functions are grossly within normal limits. No tremors or rigidity noted. Urinary Catheter Management^: Robertson: Cath Placed During This Visit: yes Urinary Catheter Date of Insertion: 04/23/21 Urinary Catheter Time of Insertion: 17:10 Data Labs: Other Labs: Laboratory Last Values WBC 19.1 10^3/uL (4.0 -10.0) H 04/23/21 14:45 Corrected WBC Cancelled 04/23/21 14:08 RBC 4.98 10^6/uL (4.1 -5.3) 04/23/21 14:45 Hgb 14.6 g/dL (11.7-1 6.6) 04/23/21 14:45 Hct 45.4 % (42.0-52.0 ) 04/23/21 14:45 MCV 91.2 fl (80-94) 04/23/21 14:45 MCH 29.3 pg (28.0-34. 0) 04/23/21 14:45 MCHC 32.2 g/dL (30.0-3 6.0) 04/23/21 14:45 RDW 15.5 % (12.1-15.1 ) H 04/23/21 14:45 Plt Count 119 10^3/cmm (130 -400) L 04/23/21 14:45 MPV 13.3 fL (7.4-10.4 ) H 04/23/21 14:45 Gran % Cancelled 04/23/21 14:08 Neut % (Auto) 90.7 % 04/23/21 14:45 Lymph % (Auto) 3.8 % 04/23/21 14:45 [place] % (Auto) 4.7 % 04/23/21 14:45 Eos % (Auto) 0.0 % 04/23/21 14:45 Baso % (Auto) 0.2 % 04/23/21 14:45 Neut # (Auto) 17.29 10^3/uL (1. 8-7.7) H 04/23/21 14:45 Lymph # (Auto) 0.7 10^3/uL (0.8- 4.8) L 04/23/21 14:45 [place] # (Auto) 0.9 10^3/uL (0.2- 0.9) 04/23/21 14:45 Eos # (Auto) 0.0 10^3/uL (0.0- 0.8) 04/23/21 14:45 Baso # (Auto) 0.0 10^3/uL (0.0- 0.1) 04/23/21 14:45 Absolute Gran (aut o) Cancelled 04/23/21 14:08 Nucleated RBC % (a uto) 0 % 04/23/21 14:45 Nucleated RBCs # 0.0 /100WBC 04/23/21 14:45 Specimen Type Arterial 04/23/21 17:03 Sample Site Radial, left 04/23/21 17:03 ABG pH 7.39 (7.35-7.45) 04/23/21 17:03 ABG pCO2 25.4 mmHg (35-45) L 04/23/21 17:03 ABG pO2 94.0 mmHg (80.0-1 00.0) 04/23/21 17:03 ABG HCO3 15.4 mmol/L (22-2 6) L 04/23/21 17:03 ABG O2 Saturation 97.5 04/23/21 17:03 ABG Base Excess -7.6 mmol/L (-2.0 -2.0) L 04/23/21 17:03 Cody Test Pos 04/23/21 17:03 A-a O2 Gradient 2.8 mmHg (5-10) L 04/23/21 17:03 Hematocrit 45.6 % (42-52) 04/23/21 17:03 Hgb O2 Saturation 96.0 % (95-100) 04/23/21 17:03 Carboxyhemoglobin 0.8 %THgb (0.4-20 .1) 04/23/21 17:03 Methemoglobin 0.7 % (0.4-1.5) 04/23/21 17:03 Total Hemoglobin 14.9 g/dL (14-18) 04/23/21 17:03 Sodium 136.0 mmol/L (131 -143) 04/23/21 17:03 Potassium 5.7 mmol/L (3.5-5 .0) H 04/23/21 17:03 Glucose 184.0 mg/dL (70-1 15) H 04/23/21 17:03 Ionized Calcium 1.2 mmol/L (1.1-1 .4) 04/23/21 17:03 O2 Delivery Device Room air 04/23/21 17:03 FiO2 21.0 % 04/23/21 17:03 Appliance Tester ID Cak 04/23/21 17:03 Sodium 134 mmol/L (136-1 45) L 04/23/21 14:45 Potassium 6.2 mmol/L (3.5-5 .1) H 04/23/21 14:45 Chloride 97 mmol/L (98-107 ) L 04/23/21 14:45 Carbon Dioxide 16 mmol/L (22-29) L 04/23/21 14:45 Anion Gap 27.2 (5-19) H 04/23/21 14:45 BUN 44 mg/dL (8-23) H 04/23/21 14:45 Creatinine 3.0 mg/dL (0.7-1. 2) H 04/23/21 14:45 GFR Calculation 20.9 mL/min (90-1 30) L 04/23/21 14:45 Glucose 192 mg/dL (65-115 ) H 04/23/21 14:45 Calculated Osmolal ity 294 mOsm/kg (285- 295) 04/23/21 14:45 Calcium 9.2 mg/dL (8.5-10 .5) 04/23/21 14:45 Iron 118 ug/dL (59-158 ) 04/23/21 14:45 TIBC 333 mcg/dl 04/23/21 14:45 % Saturation 35.4 % (20-50) 04/23/21 14:45 Unsat Iron Binding 215 ug/dL (112-34 7) 04/23/21 14:45 Total Bilirubin 1.2 mg/dL (0.15-1 .2) 04/23/21 14:45 AST 5186 U/L (0-40) H 04/23/21 14:45 ALT 3156 U/L (0-41) H 04/23/21 14:45 Alkaline Phosphata se 58 IU/L (40-130) 04/23/21 14:45 Creatine Kinase 141 U/L (39-308) 04/23/21 14:45 Creatine Kinase Cancelled 04/23/21 14:45 Troponin T Baselin e 174 ng/L (0-15) H* 04/23/21 14:45 Delta Troponin T 5.1 ABS# (0-10) 04/23/21 16:55 NT-Pro-B Natriuret Pep 99002 pg/mL (0-12 5) H 04/23/21 14:45 Total Protein 6.1 g/dL (6.6-8.7 ) L 04/23/21 14:45 Albumin 4.2 g/dL (3.5-5.2 ) 04/23/21 14:45 Globulin 1.9 g/dL (1.3-4.6 ) 04/23/21 14:45 TSH 2.91 uIU/mL (0.27 -4.20) 04/23/21 14:45 Urine Color Yellow (Yellow) 04/23/21 17:07 Urine Appearance Cloudy (CLEAR) 04/23/21 17:07 Urine pH 5 (5-7) 04/23/21 17:07 Ur Specific Gravit y 1.025 (1.005-1.0 30) 04/23/21 17:07 Urine Protein Trace (Negative) 04/23/21 17:07 Urine Glucose (UA) Norm (Normal) 04/23/21 17:07 Urine Ketones 1+ (Negative) H 04/23/21 17:07 Urine Blood 2+ (Negative) H 04/23/21 17:07 Urine Nitrate Negative (Negati ve) 04/23/21 17:07 Urine Bilirubin Neg (Negative) 04/23/21 17:07 Urine Urobilinogen 1 mg/dL (Negative ) H 04/23/21 17:07 Ur Leukocyte Gladys ase Negative (Negati ve) 04/23/21 17:07 Urine RBC 5-10 /hpf (0-2) H 04/23/21 17:07 Urine WBC Rare /hpf (0-5) 04/23/21 17:07 Ur Squamous Epith Cells None /hpf (0-5) 04/23/21 17:07 Amorphous Sediment 1+ /hpf 04/23/21 17:07 Urine Bacteria 2+ /hpf (NONE) H 04/23/21 17:07 Hyaline Casts 15-25 /lpf H 04/23/21 17:07 Micro: Micro: Microbiology 04/23/21 16:55 Blood Culture - Pr eliminary Blood [facility] 04/23/21 16:55 Blood Culture - Pr eliminary Blood [facility] Imaging^: Myocardial perfusion imaging in November 2020: My impression: 1. Myocardial perfusion may revealing moderate area of persistent decreased tracer uptake in the inferior and inferolateral regions, suggestive of myocardial scarring the distribution of the right coronary artery and circumflex artery. There is a slightly decreased tracer uptake in the anterolateral, apical lateral , apical anterior and LV apex with some reversibility, suggestive of myocardial scarring with small areas of octaviano- infarction ischemia in the distribution of the circumflex artery and distal left anterior descending artery.(Total area of fixed defect was 24% ; ischemic burden was 6%) 2. Moderately diminished LV ejection fraction of 31%. 3. LV wall motion normalities as mentioned above. 4. Moderately dilated LV cavity with an end-systolic volume of 171 ml. No similar previous studies are available for comparison Echo: My impression: Echocardiogram from today 04/23/2021 Severe diffuse hypokinesia of the left ventricle with ejection fraction of around 20%. Mildly increased left ventricular cavity size. Moderately severe mitral regurgitation. Thickened aortic and mitral valves. Mild tricuspid valve regurgitation. Estimated pulmonary artery peak systolic pressure of 41 mm of Hg. There is no pericardial effusion. There are no intracardiac masses. Compared to the study from 09/14/2020, there is worsening of the LV systolic function and mitral regurgitation EKG^: EKG 1: My Interpretation: EKG from today revealed a atrial flutter with a 2-1 block. Heart rate 224 bpm. Nonspecific IVCD. Diffuse nonspecific ST-T changes. A&P Assessment and plan (1) Acute on chronic systolic heart failure: There is seems to be a significant drop in the LV ejection fraction. I may start him on a low-dose of Dobutrex to improve the cardiac output. We will be closely monitoring the heart rate as well. Will be carefully treated with IV diuretics. I recommended Entresto in the past. Apparently the patient refused. Status: Acute (2) Atrial fibrillation with rapid ventricular response: Patient seems to have episodes of atrial flutter/fibrillation with rapid ventricular rate. He was given a dose of digoxin in the emergency room for rate control. If he continues to be in A. fib with rapid rate with a low blood pressure, we may consider electrical cardioversion. Status: Acute (3) Acute renal failure (ARF): Most likely related to some hypotensive episodes/low output state. Status: Acute Qualifiers: Acute renal failure type: unspecified Qualified Code(s): N17.9 - Acute kidney failure, unspecified (4) Elevated liver enzymes: Most likely related to ischemic liver. He started taking the amiodarone yesterday morning. This will be held at this point. We also may hold off on the Eliquis. We will check on the PT/INR. If they are satisfactory, may con preventive medicine officer IV heparin. Status: Acute (5) Hypercholesterolemia: Patient has been on the Repatha. That may be continued. Status: Acute (6) Atherosclerosis of coronary artery of [place] heart without angina pectoris: Patient may require a repeat cardiac colorization sometime down the line once the liver and the kidney functions are appropriate. Status: Acute Qualifiers: Coronary Disease-Associated Artery/Lesion type: unspecified vessel or lesion type Qualified Code(s): I25.10 - Atherosclerotic heart disease of [place] coronary artery without angina pectoris (7) Hyperkalemia: Needs need to be closely monitored Status: Acute (8) Moderate to severe mitral regurgitation: Patient may benefit from a AMERICA sometime down the line to better evaluate the mitral valve and decide on management. Status: Acute Additional A&P Information Other problems are Elevated white cell count Statin intolerance Based on the patient's clinical progress and the results of the above, further recommendations will be made. Thank you for the opportunity to evaluate this patient make these recommendation Consult Attestations Medical Necessity Statement: Patient may require at least 2 midnight stay, for further evaluation and management of his condition. Coding Level of Care Code Acute Barkeeper for Luis Carlos De Paz History Detailed Medical Decision Making High Complexity Diagnoses Acute on chronic systolic heart failure I50.23 Atrial fibrillation with rapid ventricular response I48.91 Acute renal failure (ARF) N17.9 Acute renal failure type: unspecified Elevated liver enzymes R74.8 Hypercholesterolemia E78.00 Atherosclerosis of coronary artery of [place] heart without angina pectoris I25.10 Coronary Disease-Associated Artery/Lesion type: unspecified vessel or lesion type Hyperkalemia E87.5 Moderate to severe mitral regurgitation I34.0
[2021-04-23 17:32] LABS: Troponin 5 2HR Delta 5.1 ABS# (0-10)
[2021-04-23 17:35] LABS: Troponin 5 2HR 179.1 ng/L (0-15)
[2021-04-23 17:43] LABS: HIV 1 & 2 Antibody Non-Reactive (Non-Reactiv); HIV 1 & 2 Antigen Non-Reactive (Non-Reactiv)
[2021-04-23] MEDS: dextrose 50% syringe 50 mL IVP (17:48)
[2021-04-23] MEDS: insulin regular-human 100 units/1 mL 10 UNIT IVP (17:49)
[2021-04-23 17:50] LABS: Hepatitis A Antibody IgM Non-Reactive (Nonreactive); Hepatitis B Core AB, Total Non-Reactive (Nonreactive); Hepatitis B Surface AB 46.5 (11.5-1000); Hepatitis B Surface Antigen Non-Reactive (Nonreactive); Hepatitis C Virus Antibody Non-Reactive (Nonreactive)
[2021-04-23] MEDS: digoxin 250 mcg/ml INJ 2 mL 125 MCG IVP (18:00)
[2021-04-23 18:04] LABS: Procalcitonin 0.45 ng/mL (0-0.5)
--- NOTE | 2021-04-23 19:14 | PC.PHAR ---
Pharmacokinetic dosing service Date: 04/23/21 Time: 1929 Objective: Patient: Italo Cummings Floor: ICU-4 Age: 70 yo Serum creatinine: 3.0 mg/dL Height: 70.0 Inches Weight (kg): 86.183 Diagnosis: Relevant medical/social history: Cultures and sensitivities: Other labs: Assessment: IBW (kg): 73.00 Dosing wt(kg): 86.183 Estimated Creatinine clearance (ml/min): 24.3 CRCL method: Cockcroft and Gault using ibw(default). Drug selected: Vancomycin Loading dose (mg): 0 Vd (liters): 77.6 (factor used: 0.9 L/kg) Silver (hr-1): 0.025 Half life (hrs): 27.73 Recommended dose: 1500 mg Interval: 36 hrs Infusion time (hrs): 1.5 Predicted peak (mcg/mL): 32.0 Predicted trough (mcg/mL): 13.51 Total body weight is being used for vancomycin dosing. Renal function is stable [ ] /unstable [ ] Recommendations: Give Vancomycin 1500 mg q 36 hrs with an expected Cpeak of 32.0 mcg/ml and an expected Ctrough of 13.51 mcg/ml Renal dosing of other antibiotics (review renal dosing of other medications and list guidelines here): Thank you for the consult, will continue to follow. Signature: Soraida Gandhi [facility]
--- NOTE | 2021-04-23 19:19 | PC.NURSE ---
Shift Note: Pt arrived to ICU at 1820.. Stillin A flutter. Cardizem infusing at 15mg/hr. Dr Nj , in unit, ordered Dobutamine gtt 3-5mcg/kg/min, no igher than 5. Heparin gtt noted in transfer orders. admission completed. Report dukeen to COLE Flood. Frequent safety and comfort rounds continue. Orders and/or nursing care completed as indicated. Patient monitored for response to intervention and treatment(s). Education provided includes Dobutamine, Heparin gtt, Cardioversion. Patient and/or sales support representative verbalized understanding. Will continue to monitor.
[2021-04-23 19:20] LABS: INR 1.77 (0.8-1.2)
[2021-04-23 19:21] LABS: Partial Thromboplastin Time 35.7 SECONDS (23.9-36.7)
[2021-04-23] MEDS: DOBUTamine drip 500 MG/250 ML PREMIX 7.76 MG IV (20:14)
--- NOTE | 2021-04-23 20:15 | ECG_ITS ---
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 Measurements Intervals Kendall Rate: 71 P: MI: QRS: 56 QRSD: 131 T: 132 QT: 457 QTc: 498 Interpretive Statements ATRIAL FLUTTER/TACHYCARDIA INTRAVENTRICULAR CONDUCTION DELAY [130+ ms QRS DURATION] INFERIOR MYOCARDIAL INFARCTION , OF INDETERMINATE AGE [40+ ms Q WAVE AND/OR ST/T ABNORMALITY IN II/aVF] Compared to ECG 04/23/2021 16:11:46 Myocardial infarct finding now present Electronically Signed On 04-24-2021 18:39:29 CDT by Jose Nj M.D. [id number]
[2021-04-23] MEDS: heparin drip 25,000 UNIT/500 ML PREMIX 24.13 UNIT IV (20:25)
[2021-04-23] MEDS: famotidine 20 mg/2 mL INJ IVP (20:27)
[2021-04-23] MEDS: budesonide 0.5 mg/2 mL Neb INHALATION (20:28)
[2021-04-23] MEDS: FUROsemide 10 mg/mL SDV 10mL 60 MG IVP (20:50)
[2021-04-23] MEDS: vancomycin 1,500 MG/300 ML PIGGYBACK 200 MG IV (20:50)
[2021-04-23 21:26] LABS: Anion Gap 24.9 (5-19); Blood Urea Nitrogen 48 mg/dL (8-23); Calcium 9.3 mg/dL (8.5-10.5); Carbon Dioxide 17 mmol/L (22-29); Chloride 99 mmol/L (98-107); Glomerular Filtration Rate 20.1 mL/min (90-130); Glucose 143 mg/dL (65-115); Osmolality Calculated 295 mOsm/kg (285-295); Potassium 5.9 mmol/L (3.5-5.1); Sodium 135 mmol/L (136-145)
[2021-04-23 21:30] LABS: Troponin 5 6HR 200.8 ng/L (0-15); Troponin 5 6HR Delta 26.8 ng/L (0-12)
[2021-04-24] VITALS (141 sets, daily range): BP systolic 83–130; BP diastolic 43–77; PULSE 69–116; RESP 0–37; TEMP 36.5–37.6; O2SAT 84–97; BMI 29.0
[2021-04-24 03:26] LABS: Basophils % 0.2 %; Hematocrit 43.1 % (42.0-52.0); Hemoglobin 13.9 g/dL (11.7-16.6); Lymphocytes % 4.8 %; Mean Corpuscular HGB Conc 32.3 g/dL (30.0-36.0); Mean Corpuscular Hemoglobin 29.6 pg (28.0-34.0); Mean Corpuscular Volume 91.7 fl (80-94); Mean Platelet Volume 13.7 fL (7.4-10.4); Monocytes # 0.8 10^3/uL (0.2-0.9); Neutrophils # 17.87 10^3/uL (1.8-7.7); Nucleated Red Blood Cells % 0 %; Platelet Count 112 10^3/cmm (130-400); Red Cell Distribution Width 15.4 % (12.1-15.1); White Blood Count 19.9 10^3/uL (4.0-10.0)
[2021-04-24 03:40] LABS: INR 1.66 (0.8-1.2)
[2021-04-24 03:48] LABS: Albumin Level 3.8 g/dL (3.5-5.2); Alkaline Phosphatase 53 IU/L (40-130); Anion Gap 21.9 (5-19); Blood Urea Nitrogen 49 mg/dL (8-23); Calcium 8.3 mg/dL (8.5-10.5); Carbon Dioxide 19 mmol/L (22-29); Chloride 100 mmol/L (98-107); Globulin 2.3 g/dL (1.3-4.6); Glomerular Filtration Rate 20.9 mL/min (90-130); Glucose 128 mg/dL (65-115); Magnesium 2.1 mg/dL (1.7-2.3); Osmolality Calculated 299 mOsm/kg (285-295); Phosphorus 5.7 mg/dL (2.5-4.5); Potassium 3.9 mmol/L (3.5-5.1); Sodium 137 mmol/L (136-145); Total Protein 6.1 g/dL (6.6-8.7)
[2021-04-24 03:57] LABS: Digoxin 0.6 ng/mL (0.6-1.2); NT Pro B Type Natriuretic Pept 9693 pg/mL (0-125)
[2021-04-24 04:13] LABS: Alanine Aminotransferase 2653 U/L (0-41)
[2021-04-24 04:15] LABS: Aspartate Amino Transferase 2588 U/L (0-40)
[2021-04-24] MEDS: heparin 5,000 unit/mL INJ 1 mL IV ×2 (05:08→11:54)
--- NOTE | 2021-04-24 06:35 | PC.NURSE ---
Shift Note Shift Note Frequent safety and comfort rounds continue. Orders and/or nursing care completed as indicated. Patient monitored for response to intervention and treatment(s). Education provided includes cardizem, dobutamine, and heparin drips. Patient verbalized understanding of teaching. Patient remains A & O x4, on room air, no wounds or skin issues noted at this time. No complaints of pain overnight. Patient IV located in the left wrist and right AC. Heparin, Dobutamine, and Cardizem are infusing, please see MAR for infusion rates. Robertson catheter drained 1630 mls of dark yellow urine overnight. Will continue to monitor.
[2021-04-24 06:40] LABS: Blood Urea Nitrogen 48 mg/dL (8-23); Calcium 8.6 mg/dL (8.5-10.5); Carbon Dioxide 20 mmol/L (22-29); Chloride 102 mmol/L (98-107); Glomerular Filtration Rate 22.6 mL/min (90-130); Glucose 109 mg/dL (65-115); Osmolality Calculated 301 mOsm/kg (285-295); Sodium 139 mmol/L (136-145)
[2021-04-24 06:45] LABS: Anion Gap 21.3 (5-19); Potassium 4.3 mmol/L (3.5-5.1)
[2021-04-24] MEDS: famotidine 20 mg/2 mL INJ IVP ×2 (08:06→20:00)
[2021-04-24] MEDS: budesonide 0.5 mg/2 mL Neb INHALATION (08:29)
[2021-04-24 08:39] LABS: Urine Creatinine 210 mg/dL (39-259); Urine Random Sodium 20 mmol/L
[2021-04-24 08:44] LABS: Creatinine Urine, Random 212 mg/dL (39-259); Microalbumin Random Urine 19 ug/dL (0-20)
[2021-04-24 08:54] LABS: Microalbum Creatinine Ratio Ur 90 mg/dL (0-20)
--- NOTE | 2021-04-24 08:55 | PM.CONSULT ---
Providers/Reason For Consult Consulting Physician/Specialty*: angela cabrera md/ telenephrology Reason for Consult*: KRYSTINA on cKD stage 3, hyperkalemia Attending Physician: Vadim Dominguez MD Primary Care Provider: Priyank Kaur DO History of Present Illness History of Present Illness Italo Cummings is a 70 year old male h/o CAD s/p CABG, chronic systolic CHF - recent dx of a fib, htn, CKD stage 3 ( baseline cr 1.3 mg/dl), DM, covid-19 one month ago. Pt was admitted on 04-23-21 w/ inc sob, orthopnea, SAUCEDO. In Er found to have A fib w/ RVR. Labs significant for k of 6.2, KRYSTINA- cr 3, , na 134, wbc 19, and very high lft's ast/ alt of 5186/3156. he was also hypotensive. pt was started on digoxin, cardizem, lasix, o2 and admitted tro ICU Review of Systems General: Reports: 10 or more systems reviewed and unremarkable except in HPI and below Narrative: sob, cp, palps, orthopnea, edema. no kline, no fevers, no itching, no n/v/leg pains. chronic nocturia Meds/Allergies Home Medications and Allergies Home Medications Medication Instructions Recorded Confirmed Last Taken Type cetirizine 10 mg tablet 10 mg PO DAILY PRN tab 06/29/20 04/23/21 Unknown History cholecalciferol (vitamin D3) 50 50 mcg PO DAILY 06/29/20 04/23/21 04/23/21 History mcg (2,000 unit) capsule fluticasone propionate 50 1 spray INTRANASAL DAILY 06/29/20 04/23/21 Unknown History mcg/actuation nasal spray,suspension tramadol 50 mg tablet 50 mg PO TID PRN 06/29/20 04/23/21 04/23/21 History niacin 250 mg tablet,extended 500 mg PO DAILY tab 11/02/20 04/23/21 04/23/21 History release terazosin 10 mg capsule 10 mg PO BID cap 11/02/20 04/23/21 04/23/21 History alirocumab 150 mg/mL subcutaneous 150 mg SUBCUT Q14D #2 ml 02/22/21 04/23/21 Unknown Rx pen injector amiodarone 200 mg tablet See Rx Instructions .ROUTE 04/21/21 04/23/21 04/23/21 Rx .COMPLEX #197 tab 400 mg albuterol sulfate 2 puff INHALATION Q4H PRN 04/23/21 04/23/21 Unknown History budesonide-formoterol [Symbicort] 2 puff INHALATION BID 04/23/21 04/23/21 04/23/21 History furosemide 80 mg PO DAILY 04/23/21 04/23/21 04/23/21 History montelukast 10 mg PO DAILY 04/23/21 04/23/21 04/23/21 History potassium chloride 20 meq PO BID 04/23/21 04/23/21 04/23/21 History Allergies Allergy/AdvReac Type Severity Reaction Status Date / Time Penicillins Allergy Unknown Unknown Verified 04/06/21 09:45 Oxsphza-LLY-ByO Reductase Allergy couldn't Verified 04/06/21 09:45 Inhibitor function [Freramt-Sfy-Obj Reductase Inhibitor] Current Medications Current Medications Generic Name Dose Route Start Last Admin Trade Name Freq PRN Reason Stop Dose Admin Albuterol Sulfate 2.5 mg 04/23/21 20:00 04/24/21 08:30 Albuterol 2.5 Mg/0.5 Ml Neb INHALATION 2.5 mg Q6H.RESPIRATORY PRN Administration SHORTNESS OF BREATH Budesonide 0.5 mg 04/23/21 18:00 04/24/21 08:29 Budesonide 0.5 Mg/2 Ml Neb INHALATION 0.5 mg BID LYNNE Administration Famotidine 20 mg 04/23/21 16:45 04/24/21 08:06 Famotidine 20 Mg/2 Ml Inj IVP 20 mg Q12H LYNNE Administration Furosemide 60 mg 04/23/21 21:00 04/23/21 20:50 Furosemide 10 Mg/Ml Sdv 10ml IVP 60 mg Q12H LYNNE Administration Heparin Sodium (Porcine) 0 unit 04/23/21 16:40 04/24/21 05:08 Heparin 5,000 Unit/Ml Inj 1 Ml IV 1,800 unit PRN PRN Administration Heparin weight-base protocol Protocol Diltiazem HCl 125 mg/ Sodium 125 mls @ 0 mls/hr 04/23/21 14:30 04/24/21 02:00 Chloride IV 10 mg/hr .Q0M LYNNE 10 mls/hr Titration Protocol Per Protocol Heparin Sodium/Sodium Chloride 25,000 unit in 500 mls @ 0 mls/hr 04/23/21 16:45 04/24/21 05:03 Heparin Drip IV 15.66 unit/kg/hr .Q0M LYNNE 27 mls/hr Titration Protocol Per Protocol Dobutamine HCl/Dextrose 500 mg in 250 mls @ 0 mls/hr 04/23/21 18:45 04/23/21 20:14 Dobutamine Drip IV 3 mcg/kg/min .Q0M LYNNE 7.76 mls/hr Administration Protocol Per Protocol Vancomycin/PEG/NADA/Lysine/Water 1,500 mg in 300 mls @ 200 mls/hr 04/23/21 20:00 04/23/21 22:20 Vancocin IV Infused Q36H LYNNE Infusion Imipenem/Cilastatin Sodium 250 100 mls @ 200 mls/hr 04/23/21 19:30 04/24/21 08:06 mg/ Sodium Chloride IV 200 mls/hr Q6H LYNNE Administration Protocol Ondansetron HCl 4 mg 04/23/21 16:46 04/23/21 19:48 Ondansetron 2 Mg/Ml Sdv 2 Ml IVP 4 mg Q8H PRN Administration vomiting, or N/V if npo Sodium Polystyrene Sulfonate 15 gm 04/23/21 21:00 04/23/21 20:50 Sodium Polystyrene Sulfonate 15 Gm/60 Ml Btl PO 15 gm Q12H LYNNE Administration PFSH Acute PFSH: Medical History Afib Atrial flutter BPH loc w urin obs/LUTS COVID-20 Mar 2021 Elevated PSA Essential hypertension 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 Radiation therapy. Slowly rising PSA with benign RALPH. 6.June. SOB (shortness of breath) Traumatic tear of right rotator cuff Urinary hesitancy Surgical History H/O shoulder surgery LEFT H/O total knee replacement RIGHT History of back surgery History of carpal tunnel release BILATERAL History of tonsillectomy and adenoidectomy Hx of coronary artery bypass graft Family History Father , AT AGE 91 Bowel obstruction Mother , AT AGE 84 Heart attack CAD (coronary artery disease) Hypertension Diabetes Brother Cancer Family/Other Cancer Son Chronic kidney disease (CKD) Cancer Grandfather Stroke Denies family history of Clotting disorder Dementia Suicide Anesthesia complication Bleeding disorder Lung disease Social History Alcohol intake: never Marital status: Current occupational status: employed History of recent travel: No Vitals/I&O/Wt Last Vital Signs Temp 99.3 F 04/24/21 08:10 Pulse 79 04/24/21 08:32 Resp 16 04/24/21 08:30 BP 95/67 04/24/21 08:10 Pulse Ox 94 04/24/21 08:30 04/23/21 04/24/21 04/24/21 22:59 06:59 14:59 Intake Total 505.833 / 505.833 539.989 / 1045.822 Output Total 1630 / 1630 Balance 505.833 / 505.833 -1090.011 / -584.178 Weight last 48 hrs Weight 91.852 kg Weight 86.183 kg Physical Exam Narrative: EXAM NARRATIVE: uncomfortable, sob on 0xygen- BP low heent- nc/at, eomi, anicteric neck supple lungs b/l crackles heart - irreg irreg, +s1, S2, +VERITO abd -soft, nt, nd, + bes ext min edema neuro- a,a, o x 3 Urinary Catheter Management^: Robertson: Cath Placed During This Visit: yes Reason for Continuing Indwelling Catheter: Accurate Measurement of Urinary Output in Critically Ill Patients Urinary Catheter Date of Insertion: 04/23/21 Urinary Catheter Time of Insertion: 17:10 Data Micro: Micro: Microbiology 04/23/21 16:55 Blood Culture - Pr eliminary Blood SPECIMEN [facility] EFRA 04/23/21 16:55 Blood Culture - Pr eliminary Blood SPECIMEN [facility] EFRA A&P Additional A&P Information 70 yr old man CAD, chronic systolic CHF, htn, ckd stage 3 ( baseline cr 1.3). COVID-19 in mar 2021, recent dx w/ a fib w/ rvr on amiodarone last couple of days. 1. KRYSTINA - likely CRS from new a fib w/ RVR and hypotension vs ATN from hypotension -normal renal us -u/a w/ 1+ketones, 2+ blood, 5-10 rbc- h/o stable pros ca - 2+ bact - less likely HRS- as i think KRYSTINA and inc LFT's came from hypotension -ur na 20- c/e Prerenal azotemia 2. leukocytosis- eval for infection- ua c/w UTI- monitor vanco level 3. acid base status- inc AG met acidosis w/ resp compensation- likely from infection and KRYSTINA -met acidosis improving -ketoacidosis- Q DKA vs startvation acidosis- repeat ua 4. hyperkalemia- from KRYSTINA and on potassium at home -improving. can d/c kayexalate 5. CKD stage 3- baseline cr1.3- likely from DM, HTN 6. inc lft's - improving -hep studies negative 7. a fib and acute on chronic systolic CHF- per cardiology -monitor dig level w/ krystina -normal at 0.6 today -normal tsh seen and examine dw/ rN- telehealth visit time spent 55 minutes+ Consult Attestations Medical Necessity Statement: a fib, KRYSTINA, SOB- per medicine Time Spent in Patient Care: Greater than 35 minutes (>than 50% of time spent in counselling and/or direct pt care on unit). Coding Level of Care Code Acute Aircraft Powerplant Repairer for Luis Carlos De Paz
[2021-04-24] MEDS: FUROsemide 10 mg/mL SDV 10mL 60 MG IVP ×2 (09:27→20:00)
[2021-04-24] MEDS: montelukast sodium 10 mg Tablet PO (09:27)
[2021-04-24] MEDS: fluticasone nasal spray 16gm Btl 1 SPRAY INTRANASAL (09:28)
[2021-04-24 09:30] LABS: Urine Random Chloride < 10 mmol/L
--- NOTE | 2021-04-24 09:48 | PC.NURSE ---
Rounded with Dr. Dominguez. Decreased Cardizem to 5 per doctor order. Dobutamine will be titrated by 0.5 per doctor order.
[2021-04-24 09:57] LABS: Potassium, Radom Urine > 124 mmol/L
[2021-04-24] MEDS: dilTIAZem 30 mg Tablet PO (10:02)
[2021-04-24 10:03] LABS: Eosinophil Urine No Eosinophils Seen; Urine Eosinophil Count 0 (0-0)
--- NOTE | 2021-04-24 10:56 | PC.NURSE ---
Dr. Nj rounded and wants to do AMERICA and cardioversion. Ultrasound not available today. Planned tomorrow. Ordered Digoxin if heart rate goes about 110 for more then [address] Nj is considering geotechnical laboratory technician after AMERICA. Notified Dr. Dominguez of Dr. Nj rounding. Received order to stop IV cardizem. Ordered to call Dr. Dominguez if heart rate increase and stays about 110 over 3 minutes.
[2021-04-24 11:55] LABS: Anion Gap 22.7 (5-19); Blood Urea Nitrogen 49 mg/dL (8-23); Carbon Dioxide 17 mmol/L (22-29); Chloride 102 mmol/L (98-107); Glomerular Filtration Rate 21.7 mL/min (90-130); Glucose 237 mg/dL (65-115); Osmolality Calculated 307 mOsm/kg (285-295); Potassium 3.7 mmol/L (3.5-5.1); Sodium 138 mmol/L (136-145); Uric Acid 15.3 mg/dL (3.4-7.0)
[2021-04-24 12:26] LABS: Estmated Average Glucose 131; Hemoglobin A1C 6.2 % (4.0-6.0)
--- NOTE | 2021-04-24 12:56 | PC.NURSE ---
Dr Worley called for update. VS and medications discussed. New orders to hold Cardizem PO, start weaning Dobutamine gtt but keep MAP 65 or greater. If pt's heart rate is 100 or higher go ahead and give the digoxin [address] Nj if his heart rate increases.
--- NOTE | 2021-04-24 13:14 | PM.PN ---
Subjective Subjective: Interval history: Patient is feeling better. He has a urine output seems to be responding to the IV Dobutrex. Denies any chest pain or chest tightness. No fever or chills. The white cell count is still elevated. Etiology is not clear. Medications: Reviewed: Yes Medication Review Details: Current Medications Albuterol Sulfate (Albuterol 2.5 Mg/0.5 Ml Neb) 2.5 mg INHALATION Q6H.RESPIRATORY PRN PRN Reason: SHORTNESS OF BREATH Last Admin: 04/24/21 08:30 Dose: 2.5 mg Documented by: Bisacodyl (Bisacodyl 5 Mg Tablet) 10 mg PO DAILY PRN; Protocol PRN Reason: Constipation (see protocol) Budesonide (Budesonide 0.5 Mg/2 Ml Neb) 0.5 mg INHALATION BID [facility] Last Admin: 04/24/21 08:29 Dose: 0.5 mg Documented by: Digoxin (Digoxin 250 Mcg/Ml Inj 2 Ml) 250 mcg IVP ONCE PRN PRN Reason: heart rate Diltiazem HCl (Diltiazem 30 Mg Tablet) 30 mg PO Q6H [facility] Last Admin: 04/24/21 10:02 Dose: 30 mg Documented by: Famotidine (Famotidine 20 Mg/2 Ml Inj) 20 mg IVP Q12H LYNNE Last Admin: 04/24/21 08:06 Dose: 20 mg Documented by: Fluticasone Propionate (Fluticasone Nasal [place] 16gm Btl) 1 spray INTRANASAL DAILY [facility] Last Admin: 04/24/21 09:28 Dose: 1 spray Documented by: Furosemide (Furosemide 10 Mg/Ml Sdv 10ml) 60 mg IVP Q12H LYNNE Last Admin: 04/24/21 09:27 Dose: 60 mg Documented by: Heparin Sodium (Porcine) (Heparin 5,000 Unit/Ml Inj 1 Ml) 0 unit IV PRN PRN; Protocol PRN Reason: Heparin weight-base protocol Last Admin: 04/24/21 11:54 Dose: 1,800 unit Documented by: Diltiazem HCl 125 mg/ Sodium (Chloride) 125 mls @ 0 mls/hr IV .Q0M LYNNE; Protocol Last Titration: 04/24/21 10:42 Dose: 0 mg/hr, 0 mls/hr Documented by: Heparin Sodium/Sodium Chloride (Heparin Drip) 25,000 unit in 500 mls @ 0 mls/hr IV .Q0M LYNNE; Protocol Last Titration: 04/24/21 11:54 Dose: 16.82 unit/kg/hr, 29 mls/hr Documented by: Dobutamine HCl/Dextrose (Dobutamine Drip) 500 mg in 250 mls @ 0 mls/hr IV .Q0M LYNNE; Protocol Last Titration: 04/24/21 13:02 Dose: 2.5 mcg/kg/min, 6.46 mls/hr Documented by: Vancomycin/PEG/NADA/Lysine/Water (Vancocin) 1,500 mg in 300 mls @ 200 mls/hr IV Q36H LYNNE Last Infusion: 04/23/21 22:20 Dose: Infused Documented by: Imipenem/Cilastatin Sodium 250 (mg/ Sodium Chloride) 100 mls @ 200 mls/hr IV Q6H [facility]; Protocol Last Infusion: 04/24/21 09:41 Dose: Infused Documented by: Magnesium Hydroxide (Magnesium Hydroxide 30 Ml Udc) 30 ml PO DAILY PRN; Protocol PRN Reason: Constipation (see protocol) Montelukast Sodium (Montelukast Sodium 10 Mg Tablet) 10 mg PO DAILY [facility] Last Admin: 04/24/21 09:27 Dose: 10 mg Documented by: Morphine Sulfate (Morphine 4 Mg/Ml Sdv 1 Ml) 1 mg IVP Q4H PRN PRN Reason: SEVERE PAIN Ondansetron HCl (Ondansetron 2 Mg/Ml Sdv 2 Ml) 4 mg IVP Q8H PRN PRN Reason: vomiting, or N/V if npo Last Admin: 04/23/21 19:48 Dose: 4 mg Documented by: Sodium Polystyrene Sulfonate (Sodium Polystyrene Sulfonate 15 Gm/60 Ml Btl) 15 gm PO Q12H [facility] Last Admin: 04/23/21 20:50 Dose: 15 gm Documented by: Vitals/I&O/Wt Last Vital Signs Temp 99.6 F 04/24/21 12:10 Pulse 95 04/24/21 12:10 Resp 29 H 04/24/21 12:10 BP 101/60 04/24/21 12:10 Pulse Ox 90 04/24/21 12:10 04/23/21 04/24/21 04/24/21 22:59 06:59 14:59 Intake Total 505.833 / 505.833 539.989 / 1045.822 995.484 / 995.484 Output Total 1630 / 1630 725 / 725 Balance 505.833 / 505.833 -1090.011 / -584.178 270.484 / 270.484 Weight last 48 hrs Weight 202 lb 8 oz Weight 190 lb Physical Exam Narrative: EXAM NARRATIVE: GENERAL: The patient is alert and oriented times three. Slightly tachypneic HEENT: Minimal pallor with no, icterus or lymphadenopathy. The pupils are reactant to light. Oral cavity: There are no mucous membrane lesions. NECK: Trachea appears to be central. No masses noted. No JVD or thyromegaly appreciated. No carotid bruit. RESPIRATORY: Chest is symmetrical. No intercostals muscle retraction or any accessory muscle activation. There is no chest wall tenderness. Breath sounds are heard bilaterally. No rales or rhonchi. BREASTS: Deferred. HEART: PMI could not be palpated. No palpable precordial events. S1 is variable. S2 is normal. Soft S3 present. No pericardial rub or any click heard. Systolic murmur grade 3/6 in the left sternal border. No diastolic murmurs. ABDOMEN: No vessel pulsations or distention. No tenderness. No organomegaly appreciated. No abdominal bruit. Bowel sounds are normally heard. : Deferred. RECTAL: Deferred. LYMPHATIC: No lymphadenopathy noted in the neck or groin. EXTREMITIES: No significant edema or cyanosis. Peripheral pulses are palpable but weak bilaterally MUSCULOSKELETAL: No acute joint deformities or swelling SKIN: There are no significant scars or skin rash noted. NEUROPSYCHIATRIC: The patient is alert and oriented x3. Appears to be in a good mood. The higher functions are grossly within normal limits. No tremors or rigidity noted. Urinary Catheter Management^: Robertson: Cath Placed During This Visit: yes Reason for Continuing Indwelling Catheter: Accurate Measurement of Urinary Output in Critically Ill Patients Urinary Catheter Date of Insertion: 04/23/21 Urinary Catheter Time of Insertion: 17:10 Data : 04/24/21 02:45 04/24/21 17:28 Other Labs: Laboratory Last Values WBC 19.9 10^3/uL (4.0-10.0) H 04/24/21 02:45 Corrected WBC Cancelled 04/23/21 14:08 RBC 4.70 10^6/uL (4.1-5.3) 04/24/21 02:45 Hgb 13.9 g/dL (11.7-16.6) 04/24/21 02:45 Hct 43.1 % (42.0-52.0) 04/24/21 02:45 MCV 91.7 fl (80-94) 04/24/21 02:45 MCH 29.6 pg (28.0-34.0) 04/24/21 02:45 MCHC 32.3 g/dL (30.0-36.0) 04/24/21 02:45 RDW 15.4 % (12.1-15.1) H 04/24/21 02:45 Plt Count 112 10^3/cmm (130-400) L 04/24/21 02:45 MPV 13.7 fL (7.4-10.4) H 04/24/21 02:45 Gran % Cancelled 04/23/21 14:08 Neut % (Auto) 90.0 % 04/24/21 02:45 Lymph % (Auto) 4.8 % 04/24/21 02:45 Marshall % (Auto) 4.0 % 04/24/21 02:45 Eos % (Auto) 0.0 % 04/24/21 02:45 Baso % (Auto) 0.2 % 04/24/21 02:45 Neut # (Auto) 17.87 10^3/uL (1.8-7.7) H 04/24/21 02:45 Lymph # (Auto) 1.0 10^3/uL (0.8-4.8) 04/24/21 02:45 Marshall # (Auto) 0.8 10^3/uL (0.2-0.9) 04/24/21 02:45 Eos # (Auto) 0.0 10^3/uL (0.0-0.8) 04/24/21 02:45 Baso # (Auto) 0.0 10^3/uL (0.0-0.1) 04/24/21 02:45 Absolute Gran (auto) Cancelled 04/23/21 14:08 Nucleated RBC % (auto) 0 % 04/24/21 02:45 Nucleated RBCs # 0.0 /100WBC 04/24/21 02:45 PT 20.00 SECONDS (12.1-14.9) H 04/24/21 02:45 INR 1.66 (0.8-1.2) H 04/24/21 02:45 APTT 51.0 SECONDS (23.9-36.7) H 04/24/21 10:58 Specimen Type Arterial 04/23/21 17:03 Sample Site Radial, left 04/23/21 17:03 ABG pH 7.39 (7.35-7.45) 04/23/21 17:03 ABG pCO2 25.4 mmHg (35-45) L 04/23/21 17:03 ABG pO2 94.0 mmHg (80.0-100.0) 04/23/21 17:03 ABG HCO3 15.4 mmol/L (22-26) L 04/23/21 17:03 ABG O2 Saturation 97.5 04/23/21 17:03 ABG Base Excess -7.6 mmol/L (-2.0-2.0) L 04/23/21 17:03 Cody Test Pos 04/23/21 17:03 A-a O2 Gradient 2.8 mmHg (5-10) L 04/23/21 17:03 Hematocrit 45.6 % (42-52) 04/23/21 17:03 Hgb O2 Saturation 96.0 % (95-100) 04/23/21 17:03 Carboxyhemoglobin 0.8 %THgb (0.4-20.1) 04/23/21 17:03 Methemoglobin 0.7 % (0.4-1.5) 04/23/21 17:03 Total Hemoglobin 14.9 g/dL (14-18) 04/23/21 17:03 Sodium 136.0 mmol/L (131-143) 04/23/21 17:03 Potassium 5.7 mmol/L (3.5-5.0) H 04/23/21 17:03 Glucose 184.0 mg/dL (70-115) H 04/23/21 17:03 Ionized Calcium 1.2 mmol/L (1.1-1.4) 04/23/21 17:03 O2 Delivery Device Room air 04/23/21 17:03 FiO2 21.0 % 04/23/21 17:03 Nuclear Operations Specialist ID Cak 04/23/21 17:03 Sodium 138 mmol/L (136-145) 04/24/21 10:58 Potassium 3.7 mmol/L (3.5-5.1) 04/24/21 10:58 Chloride 102 mmol/L (98-107) 04/24/21 10:58 Carbon Dioxide 17 mmol/L (22-29) L 04/24/21 10:58 Anion Gap 22.7 (5-19) H 04/24/21 10:58 BUN 49 mg/dL (8-23) H 04/24/21 10:58 Creatinine 2.9 mg/dL (0.7-1.2) H 04/24/21 10:58 GFR Calculation 21.7 mL/min (90-130) L 04/24/21 10:58 Glucose 237 mg/dL (65-115) H 04/24/21 10:58 Estimat Average Glucose 131 04/24/21 10:58 Hemoglobin A1c 6.2 % (4.0-6.0) H 04/24/21 10:58 Calculated Osmolality 307 mOsm/kg (285-295) H 04/24/21 10:58 Uric Acid 15.3 mg/dL (3.4-7.0) H 04/24/21 10:58 Calcium 8.0 mg/dL (8.5-10.5) L 04/24/21 10:58 Phosphorus 5.7 mg/dL (2.5-4.5) H 04/24/21 02:45 Magnesium 2.1 mg/dL (1.7-2.3) 04/24/21 02:45 Iron 118 ug/dL (59-158) 04/23/21 14:45 TIBC 333 mcg/dl 04/23/21 14:45 % Saturation 35.4 % (20-50) 04/23/21 14:45 Unsat Iron Binding 215 ug/dL (112-347) 04/23/21 14:45 Total Bilirubin 1.0 mg/dL (0.15-1.2) 04/24/21 02:45 AST 2588 U/L (0-40) H 04/24/21 02:45 ALT 2653 U/L (0-41) H 04/24/21 02:45 Alkaline Phosphatase 53 IU/L (40-130) 04/24/21 02:45 Creatine Kinase 141 U/L (39-308) 04/23/21 14:45 Creatine Kinase Cancelled 04/23/21 14:45 Troponin T Baseline 174 ng/L (0-15) H* 04/23/21 14:45 Troponin T 120 Minute 179.1 ng/L (0-15) H 04/23/21 16:55 Delta Troponin T 5.1 ABS# (0-10) 04/23/21 16:55 Troponin T Hi Sens 6Hr 200.8 ng/L (0-15) H 04/23/21 20:40 Troponin T Hi Sens 6Hr Delta 26.8 ng/L (0-12) H* 04/23/21 20:40 NT-Pro-B Natriuret Pep 9693 pg/mL (0-125) H 04/24/21 02:45 Total Protein 6.1 g/dL (6.6-8.7) L 04/24/21 02:45 Albumin 3.8 g/dL (3.5-5.2) 04/24/21 02:45 Globulin 2.3 g/dL (1.3-4.6) 04/24/21 02:45 Procalcitonin 0.45 ng/mL (0-0.5) 04/23/21 14:45 TSH 2.91 uIU/mL (0.27-4.20) 04/23/21 14:45 Urine Color Yellow (Yellow) 04/23/21 17:07 Urine Appearance Cloudy (CLEAR) 04/23/21 17:07 Urine pH 5 (5-7) 04/23/21 17:07 Ur Specific [place] 1.025 (1.005-1.030) 04/23/21 17:07 Urine Protein Trace (Negative) 04/23/21 17:07 Urine Glucose (UA) Norm (Normal) 04/23/21 17:07 Urine Ketones 1+ (Negative) H 04/23/21 17:07 Urine Blood 2+ (Negative) H 04/23/21 17:07 Urine Nitrate Negative (Negative) 04/23/21 17:07 Urine Bilirubin Neg (Negative) 04/23/21 17:07 Urine Urobilinogen 1 mg/dL (Negative) H 04/23/21 17:07 Ur Leukocyte Esterase Negative (Negative) 04/23/21 17:07 Urine RBC 5-10 /hpf (0-2) H 04/23/21 17:07 Urine WBC Rare /hpf (0-5) 04/23/21 17:07 Ur Eosinophil Smear 0 (0-0) 04/23/21 17:07 Ur Squamous Epith Cells None /hpf (0-5) 04/23/21 17:07 Amorphous Sediment 1+ /hpf 04/23/21 17:07 Urine Bacteria 2+ /hpf (NONE) H 04/23/21 17:07 Hyaline Casts 15-25 /lpf H 04/23/21 17:07 Urine Eosinophils No eosinophils seen 04/23/21 17:07 Ur Random Microalbumin 19 ug/dL (0-20) 04/23/21 17:07 Ur Random Sodium 20 mmol/L 04/23/21 17:07 Ur Random Potassium > 124 mmol/L 04/23/21 17:07 Ur Random Chloride < 10 mmol/L 04/23/21 17:07 Urine Creatinine 210 mg/dL (39-259) 04/23/21 17:07 Urine Creatinine 212 mg/dL (39-259) 04/23/21 17:07 Microalb/Creat Ratio 90 mg/dL (0-20) H 04/23/21 17:07 Digoxin 0.6 ng/mL (0.6-1.2) 04/24/21 02:45 Hepatitis A IgM Ab Non-reactive (Nonreactive) 04/23/21 16:55 Hep Bs Antigen Non-reactive (Nonreactive) 04/23/21 16:55 Hep Bs Antibody 46.5 (11.5-1000) 04/23/21 16:55 Hep B Core Total Ab Non-reactive (Nonreactive) 04/23/21 16:55 Hepatitis C Antibody Non-reactive (Nonreactive) 04/23/21 16:55 HIV 1&2 Ab & HIV 1 Ag Non-reactive (Non-Reactiv) 04/23/21 16:55 HIV 1&2 Antibody Non-reactive (Non-Reactiv) 04/23/21 16:55 Micro: Microbiology 04/23/21 19:00 MRSA Culture - Final Nose 04/23/21 17:07 Legionella Urinary Antigen - Final Urine Catheterized 04/23/21 16:55 Blood Culture - Preliminary Blood SPECIMEN COLLECTED 04/23/21 16:55 Blood Culture - Preliminary Blood SPECIMEN COLLECTED A&P Assessment and plan (1) Acute on chronic systolic heart failure: The patient seems to be responding to the IV Dobutrex. We will keep him on the 5 mics per KG per minute for a total of 48 hours. Status: Acute (2) Atrial fibrillation with rapid ventricular response: Patient continues to be in atrial flutter. The systolic blood pressure is in the 90s and low 100. Will consider electrical cardioversion tomorrow. Status: Acute (3) Acute renal failure (ARF): The BUN and creatinine is improving. Appreciate the nephrology input. We will continue on the careful IV diuretics Status: Acute Qualifiers: Acute renal failure type: unspecified Qualified Code(s): N17.9 - Acute kidney failure, unspecified (4) Elevated liver enzymes: Most likely related to ischemic liver. The liver enzymes are coming down. Status: Acute (5) Hypercholesterolemia: Patient has been on the Repatha. That may be continued. Status: Acute (6) Atherosclerosis of coronary artery of [place] heart without angina pectoris: We will consider a cardiac catheterization once the renal function improves. Status: Acute Qualifiers: Coronary Disease-Associated Artery/Lesion type: unspecified vessel or lesion type Qualified Code(s): I25.10 - Atherosclerotic heart disease of [place] coronary artery without angina pectoris (7) Hyperkalemia: Currently the patient is normokalemic. We will continue the current measures Status: Acute (8) Moderate to severe mitral regurgitation: We will consider a AMERICA cardioversion tomorrow. Based on the AMERICA findings, further management decisions will be made Status: Acute Additional A&P Information Other problems are Elevated white cell count Statin intolerance Schedule for AMERICA cardioversion tomorrow. Patient continue to progress, further management decisions will be made. Attestations Medical Necessity Statement*: Patient requires continued hospital stay for close monitoring and further management Coding Level of Care Code Acute Mushroom Cutter for Luis Carlos De Paz History Detailed Medical Decision Making Moderate Complexity Diagnoses Acute on chronic systolic heart failure I50.23 Atrial fibrillation with rapid ventricular response I48.91 Acute renal failure (ARF) N17.9 Acute renal failure type: unspecified Elevated liver enzymes R74.8 Hypercholesterolemia E78.00 Atherosclerosis of coronary artery of [place] heart without angina pectoris I25.10 Coronary Disease-Associated Artery/Lesion type: unspecified vessel or lesion type Hyperkalemia E87.5 Moderate to severe mitral regurgitation I34.0
--- NOTE | 2021-04-24 13:30 | PM.PN ---
Subjective Subjective: Interval history: No acute events overnight. Today morning on examination patient laying comfortably in bed in 30 degrees head elevation position. Looking more comfortable than yesterday. States he is feeling better than yesterday. Currently on room air saturating 92%. Currently he is on dobutamine of 3, Cardizem of 15 which was weaned down to 5 during my examination and then later turned off by around 11 AM. Documented urine output since admission over 2 L. Vitals/I&O/Wt Last Vital Signs Temp 99.6 F 04/24/21 12:10 Pulse 95 04/24/21 12:10 Resp 29 H 04/24/21 12:10 BP 101/60 04/24/21 12:10 Pulse Ox 90 04/24/21 12:10 04/23/21 04/24/21 04/24/21 22:59 06:59 14:59 Intake Total 505.833 / 505.833 539.989 / 1045.822 995.484 / 995.484 Output Total 1630 / 1630 725 / 725 Balance 505.833 / 505.833 -1090.011 / -584.178 270.484 / 270.484 Weight last 48 hrs Weight 91.852 kg Weight 86.183 kg Physical Exam Narrative: EXAM NARRATIVE: General: No acute distress, AO x3, sitting up in bed, on room air HEENT: PERRLA, pupils bilaterally equal and reactive Chest: Bilateral no vesicular breath sounds, crackles present up to mid chest, equal good air entry bilaterally CVS: S1-S2 regular,, JVD elevated, pansystolic murmur at apex radiating to to anterior axillary line 3/6, pansystolic murmur at fourth intercostal space left parasternal, tachycardia, gallop present, no rubs Abdomen: Soft, soft mildly tender hepatomegaly present, bowel sounds present Neuro: No focal deficits, no facial deformity, AO x3, power 5/5 in all limbs Urinary Catheter Management^: Robertson: Cath Placed During This Visit: yes Reason for Continuing Indwelling Catheter: Accurate Measurement of Urinary Output in Critically Ill Patients Urinary Catheter Date of Insertion: 04/23/21 Urinary Catheter Time of Insertion: 17:10 Data : 04/24/21 02:45 04/24/21 10:58 Micro: Microbiology 04/23/21 19:00 MRSA Culture - Final Nose 04/23/21 17:07 Legionella Urinary Antigen - Final Urine Catheterized 04/23/21 16:55 Blood Culture - Preliminary Blood SPECIMEN COLLECTED 04/23/21 16:55 Blood Culture - Preliminary Blood SPECIMEN COLLECTED A&P Assessment and plan (1) Cardiogenic shock: Status: Acute (2) Atrial fibrillation with rapid ventricular response: Status: Acute (3) Congestive heart failure due to cardiomyopathy: Status: Acute (4) Hepatorenal syndrome: Status: Acute (5) Acute renal failure (ARF): Status: Acute Qualifiers: Acute renal failure type: unspecified Qualified Code(s): N17.9 - Acute kidney failure, unspecified (6) Hyperkalemia: Status: Acute (7) Atherosclerosis of coronary artery of [place] heart without angina pectoris: Status: Acute Qualifiers: Coronary Disease-Associated Artery/Lesion type: unspecified vessel or lesion type Qualified Code(s): I25.10 - Atherosclerotic heart disease of [place] coronary artery without angina pectoris (8) Metabolic acidosis, increased anion gap: Status: Acute (9) Sepsis: Status: Acute Additional A&P Information Shock: Likely cardiogenic. Patient has remained afebrile even though has leukocytosis. Continue to wean dobutamine keeping mean arterial pressure over 65. Congestive heart failure: Ischemic cardiomyopathy: h/o CABG Echocardiogram results appreciated with severe diffuse hypokinesia with EF of 20%, mildly increased LV cavity size, moderately severe MR, mild TR, PASP of 41 Continue with IV Lasix 60 mg twice daily. Target 1 L negative in next 24-hour Fluid restriction upto 1500 cc Strict I/O, daily weight. Afib with RVR: Stop Cardizem. As per discussion with Dr. Nj will try to hold off on Cardizem given soft blood pressures. Plan for electrocardioversion most likely tomorrow. Cannot give amiodarone given transaminitis. We will try to use digoxin very cautiously given KRYSTINA while monitoring dig levels. Digoxin level today morning 0.6. Digoxin 125 mcg stat. Can give digoxin to 50 mcg once for heart rate of 110. Continue with heparin drip. Appreciate cardiology recommendations. History of CAD: Post CABG: No active chest pain. Most likely patient will need angiogram during hospitalization. For now continue with aspirin. Hold off on statin given transaminitis. Hepatorenal syndrome: Elevated Transaminases: Most likely 2/2 CHF and shock. Resolving but still elevated. Bilirubin, alkaline phosphatase normal. Hepatitis panel, HIV negative. Once euvoluemic will get abd/pelvis CT. Continue monitor daily. Acute renal failure: Most likely cardiorenal syndrome. Baseline creat norrmal. Renal ultrasound within normal limits, urinalysis, urine lites appreciated. Medical reconciliation done for nephrotoxic drugs. Appreciate nephrology recommendations. Robertson, I/o High anion gap metabolic acidosis: 2/2 KRYSTINA BMP every 12 hourly. Sepsis: Likely. Present on admit. Met with leukocytosis, tachycardia. MRSA swab, urine Legionella negative. Pro-Clay normal. Bacterial antigen, urine culture, blood culture pending. As MRSA negative can stop vancomycin. Continue with imipenem and azithromycin for now. Will de-escalate quickly if remains afebrile. Recent COVID: O2 supplementation keeping saturation over 90% No isolation precaution as more than 3 weeks ago. CAD: No active chest pain. C/w ASA, Repatha Code status: Full code Heparin drip Protonix for PUD PPx Cardiac diet. Attestations Medical Necessity Statement*: Requires further hospitalization for management of cardiogenic shock, atrial fibrillation with rapid ventricular response, hepatorenal syndrome with high number metabolic acidosis Critical Care Time: The high probability of a clinically significant, sudden or life threatening deterioration of the patient's cardiac, renal, hepatic system(s) required my full and direct attention, intervention and personal management. The critical care time is as shown. This time is in addition to time spent performing any reported procedures but includes the following: [x] Data and vital sign review and interpretation [x] Patient assessment, examination and intervention [x] Documentation [x] Medication orders and management Critical Care Time (min): 90 Coding Level of Care Code Acute Counter Stitcher for [facility] Fwd Diagnoses Cardiogenic shock R57.0 Atrial fibrillation with rapid ventricular response I48.91 Congestive heart failure due to cardiomyopathy I50.9; I42.9 Hepatorenal syndrome K76.7 Acute renal failure (ARF) N17.9 Acute renal failure type: unspecified Hyperkalemia E87.5 Atherosclerosis of coronary artery of [place] heart without angina pectoris I25.10 Coronary Disease-Associated Artery/Lesion type: unspecified vessel or lesion type Metabolic acidosis, increased anion gap E87.2 Sepsis A41.9
[2021-04-24] MEDS: digoxin 250 mcg/ml INJ 2 mL 125 MCG IVP (13:54)
--- NOTE | 2021-04-24 14:10 | PC.NURSE ---
Patient stated that Praluent Pen is due tomorrow. Family instructed to bring home med when they visit tomorrow.
--- NOTE | 2021-04-24 14:16 | PC.NURSE ---
Dr. Nj at bedside. AMERICA will be scheduled for tomorrow. Verbal order to keep Dobutamine at 3 and not titrate.
[2021-04-24] MEDS: azithromycin 250 mg Tablet 500 MG PO (14:25)
[2021-04-24] MEDS: heparin drip 25,000 UNIT/500 ML PREMIX 29 UNIT IV (15:24)
--- NOTE | 2021-04-24 16:46 | USR_ITS ---
PROCEDURE INFORMATION: Exam: US Retroperitoneal; Complete; Kidneys and Bladder Exam date and time: 04/24/2021 4:46 PM Age: 70 years old Clinical indication: Condition or disease; Other: Arf TECHNIQUE: Imaging protocol: Real-time ultrasound of the retroperitoneum with image documentation. Complete exam focused on the kidneys and bladder. COMPARISON: CT abdomen pelvis w con* [id number] 05/30/2014 8:53 PM FINDINGS: Right kidney: The right kidney measures 10.5 cm in length. No hydronephrosis, calculi, or masses identified involving the right kidney. Left kidney: The left kidney measures 9.7 cm in length. No hydronephrosis, calculi, or masses identified involving the left kidney. Urinary bladder: The bladder cannot be evaluated (collapsed due to presence of Robertson catheter). US/US renal BI* [id number] IMPRESSION: 1. The kidneys are sonographically unremarkable. Radiation Dose CTDIVOL = (mGy): DLP = (mGy-cm)
[2021-04-24 18:10] LABS: Anion Gap 20.6 (5-19); Blood Urea Nitrogen 45 mg/dL (8-23); Carbon Dioxide 20 mmol/L (22-29); Chloride 103 mmol/L (98-107); Digoxin 0.6 ng/mL (0.6-1.2); Glomerular Filtration Rate 24.7 mL/min (90-130); Glucose 77 mg/dL (65-115); Osmolality Calculated 300 mOsm/kg (285-295); Phosphorus 4.5 mg/dL (2.5-4.5); Potassium 3.6 mmol/L (3.5-5.1); Sodium 140 mmol/L (136-145)
[2021-04-24 18:18] LABS: Partial Thromboplastin Time 68.3 SECONDS (23.9-36.7)
[2021-04-24] MEDS: fixodent 39 gm Tube 1 APPLIC DENTAL (18:19)
--- NOTE | 2021-04-24 19:04 | PC.NURSE ---
Shift Note Frequent safety and comfort rounds continue. Orders and/or nursing care completed as indicated. Patient monitored for response to intervention and treatment(s). Education provided includes medication, upcoming procedures, and care plan. Patient and/or enrollment representative voiced understanding. APPT came back at 68.3. Heparin rate was not changed. Heparin and Dobutamine running.
[2021-04-25] VITALS (146 sets, daily range): BP systolic 75–144; BP diastolic 43–87; PULSE 83–124; RESP 2–37; TEMP 36.7–37.3; O2SAT 87–100; BMI 28.1
--- NOTE | 2021-04-25 | USCV_ITS ---
Italo Cummings Age: 70 Gender: M : 1950 Exam Date: 04/25/2021 08:42 Ordering Phys: Jose Nj MD Technologist: Seven Chanel [place] [facility] [place] ATRAIL FLUTTER WITH HYPOTENSION BP: / HR: Rhythm: Other Technical Quality: Good MEASUREMENTS (Male / Female) Normal Values Medications IV Versed was given with anesthesia service. Please refer to the anesthesia report Complications None Proc. Components The patient was performed to the ICU in a fasting state after obtaining an informed consent. The AMERICA probe was passed into the posterior pharynx , mid-esophagus, distal esophagus.AMERICA was performed at multiple levels. The patient tolerated the procedure well and there were no complications. . FINDINGS Left Ventricle Found to be mildly dilated with a diffuse hypokinesia. No intracavitary masses were noted. Right Ventricle Appears to be of normal size with diminished ejection fraction. Right Atrium Mildly increased right atrial size. Left Atrium Moderately increased left atrial size. LA Appendage Normal flow velocities in the left atrial appendage. No evidence of thrombus IA Septum Appears to be intact with no evidence of any ASD or patent foramen ovale, by color-flow Doppler examination or saline contrast injection Mitral Valve Moderate prolapse of the A2 P2 scallop. Moderate mitral regurgitation Aortic Valve Thickened aortic valve. Trace aortic valve regurgitation. Tricuspid Valve Mild tricuspid valve regurgitation. Pulmonic Valve No gross abnormalities noted Pericardium No pericardial effusion. Aorta Normal aortic root size. CONCLUSIONS 1. No intracavitary masses. 2. Good contractility of the left atrial appendage. 3. Moderate prolapse of the A2 P2 scallop. Moderate mitral regurgitation. 4. Mild tricuspid valve regurgitation. 5. Moderately dilated left atrium and mildly dilated right atrium 6. No ASD or patent foramen ovale by color-flow Doppler examination or by saline contrast injection 7. Mildly dilated left ventricle with moderately diminished ejection fraction. Dr Jose Nj MD [facility] (Electronically Signed) Final Date: 25 April 2021 23:23 S
[2021-04-25 01:06] LABS: Partial Thromboplastin Time 71.3 SECONDS (23.9-36.7)
[2021-04-25] MEDS: DOBUTamine drip 500 MG/250 ML PREMIX 7.76 MG IV (02:50)
[2021-04-25 05:07] LABS: Albumin Level 3.3 g/dL (3.5-5.2); Alkaline Phosphatase 58 IU/L (40-130); Anion Gap 19.1 (5-19); Blood Urea Nitrogen 41 mg/dL (8-23); Calcium 7.8 mg/dL (8.5-10.5); Calcium 7.9 mg/dL (8.5-10.5); Carbon Dioxide 24 mmol/L (22-29); Chloride 103 mmol/L (98-107); Chol HDL Ratio 2.08 mg/dL (1.0-5.00); Cholesterol 79 mg/dL (0-200); Digoxin 0.5 ng/mL (0.6-1.2); Globulin 2.1 g/dL (1.3-4.6); Glomerular Filtration Rate 31.6 mL/min (90-130); Glucose 100 mg/dL (65-115); HDL Cholesterol 38 mg/dL (60-100); LDL Cholesterol Calculated 31 mg/dL (50-129); Magnesium 1.9 mg/dL (1.7-2.3); NT Pro B Type Natriuretic Pept 6501 pg/mL (0-125); Osmolality Calculated 306 mOsm/kg (285-295); Phosphorus 3.3 mg/dL (2.5-4.5); Potassium 3.1 mmol/L (3.5-5.1); Sodium 143 mmol/L (136-145); Total Bilirubin 1.3 mg/dL (0.15-1.2); Total Protein 5.4 g/dL (6.6-8.7); Triglycerides 51 mg/dL (0-150); VLDL Cholestrol Calculation 10 mg/dL (0-30); Vancomycin Random 5.3 ug/mL (20.0-40.0)
[2021-04-25 05:10] LABS: Creatinine Clr Calc Pharmacy 38.3528
[2021-04-25 05:17] LABS: Parathyroid Hormone 147.1 pg/mL (15-65)
[2021-04-25 05:18] LABS: Alanine Aminotransferase 1660 U/L (0-41); Aspartate Amino Transferase 689 U/L (0-40)
--- NOTE | 2021-04-25 05:25 | PC.NURSE ---
Shift Summary Shift Note Frequent safety and comfort rounds continue. Orders and/or nursing care completed as indicated. Patient monitored for response to intervention and treatment(s). Education provided includes medications, treatment plan, and upcoming procedures. Patient verbalized understanding of teaching. Patient remains alert and oriented x4, on room air, and no wounds or skin issues noted at this time. Robertson catheter drained 2000 mls of bright yellow urine overnight. Heparin and Dobutamine are infusing, please see MAR for infusion rates. Will continue to monitor.
[2021-04-25 05:50] LABS: Ferritin 2429 ng/mL (30-400)
--- NOTE | 2021-04-25 07:40 | PM.PN ---
Subjective Subjective: Interval history: feels better. had a fib and other arrhythmias overnight. no n/v/d/cp/kline. dec sob, can lay flat Medications: Reviewed: Yes Medication Review Details: Current Medications Azithromycin (Azithromycin 250 Mg Tablet) 500 mg PO DAILY LYNNE; Protocol Last Admin: 04/24/21 14:25 Dose: 500 mg Documented by: Bisacodyl (Bisacodyl 5 Mg Tablet) 10 mg PO DAILY PRN; Protocol PRN Reason: Constipation (see protocol) Denture Adhesive (Fixodent 39 Gm Tube) 1 applic DENTAL PRN PRN PRN Reason: denture adhesive Last Admin: 04/24/21 18:19 Dose: 1 appful Documented by: Digoxin (Digoxin 250 Mcg/Ml Inj 2 Ml) 250 mcg IVP ONCE PRN PRN Reason: heart rate Diltiazem HCl (Diltiazem 30 Mg Tablet) 30 mg PO Q6H [facility] Last Admin: 04/24/21 10:02 Dose: 30 mg Documented by: Famotidine (Famotidine 20 Mg/2 Ml Inj) 20 mg IVP Q12H LYNNE Last Admin: 04/24/21 20:00 Dose: 20 mg Documented by: Fluticasone Propionate (Fluticasone Nasal [place] 16gm Btl) 1 spray INTRANASAL DAILY LYNNE Last Admin: 04/24/21 09:28 Dose: 1 spray Documented by: Furosemide (Furosemide 10 Mg/Ml Sdv 10ml) 40 mg IVP Q24H [facility] Heparin Sodium (Porcine) (Heparin 5,000 Unit/Ml Inj 1 Ml) 0 unit IV PRN PRN; Protocol PRN Reason: Heparin weight-base protocol Last Admin: 04/24/21 11:54 Dose: 1,800 unit Documented by: Heparin Sodium/Sodium Chloride (Heparin Drip) 25,000 unit in 500 mls @ 0 mls/hr IV .Q0M LYNNE; Protocol Last Admin: 04/24/21 15:24 Dose: 16.82 unit/kg/hr, 29 mls/hr Documented by: Dobutamine HCl/Dextrose (Dobutamine Drip) 500 mg in 250 mls @ 0 mls/hr IV .Q0M LYNNE; Protocol Last Admin: 04/25/21 02:50 Dose: 3 mcg/kg/min, 7.76 mls/hr Documented by: Imipenem/Cilastatin Sodium 250 (mg/ Sodium Chloride) 100 mls @ 200 mls/hr IV Q8H LYNNE; Protocol Last Infusion: 04/25/21 05:44 Dose: Infused Documented by: Magnesium Hydroxide (Magnesium Hydroxide 30 Ml Udc) 30 ml PO DAILY PRN; Protocol PRN Reason: Constipation (see protocol) Montelukast Sodium (Montelukast Sodium 10 Mg Tablet) 10 mg PO DAILY LYNNE Last Admin: 04/24/21 09:27 Dose: 10 mg Documented by: Morphine Sulfate (Morphine 4 Mg/Ml Sdv 1 Ml) 1 mg IVP Q4H PRN PRN Reason: SEVERE PAIN Non-Formulary Medication (Alirocumab [Praluent Pen]) 150 mg SUBCUT Q14D LYNNE Ondansetron HCl (Ondansetron 2 Mg/Ml Sdv 2 Ml) 4 mg IVP Q8H PRN PRN Reason: vomiting, or N/V if npo Last Admin: 04/23/21 19:48 Dose: 4 mg Documented by: Potassium Chloride (Potassium Chloride Er 20 Meq Tablet) 40 meq PO Q4H LYNNE Stop: 04/25/21 12:01 Fluticasone/Salmeterol (Fluticasone-Salmeterol 250-50 Diskus) 1 puff INHALATION BID.RESPIRATORY LYNNE Last Admin: 04/24/21 20:15 Dose: 1 puff Documented by: Sodium Polystyrene Sulfonate (Sodium Polystyrene Sulfonate 15 Gm/60 Ml Btl) 15 gm PO Q12H LYNNE Last Admin: 04/23/21 20:50 Dose: 15 gm Documented by: Vitals/I&O/Wt Last Vital Signs Temp 99.1 F 04/25/21 04:00 Pulse 84 04/25/21 06:00 Resp 28 H 04/25/21 05:10 BP 104/57 04/25/21 05:10 Pulse Ox 94 04/25/21 05:10 04/24/21 04/25/21 04/25/21 22:59 06:59 14:59 Intake Total 281.5 / 1620.444 549.328 / 2169.772 Output Total 750 / 1475 1999 / 3475 Balance -468.5 / 145.444 -1450.672 / -1305.228 Weight last 48 hrs Weight 88.995 kg Weight 91.852 kg Weight 86.183 kg Physical Exam Narrative: EXAM NARRATIVE: comfortable, on 0xygen- BP low heent- nc/at, eomi, anicteric neck supple lungs b/l dec crackles and improved air movement heart - irreg irreg, +s1, S2, +VERITO abd -soft, nt, nd, + bes ext -dec to no leg edema neuro- a,a, o x 3 Urinary Catheter Management^: Robertson: Cath Placed During This Visit: yes Reason for Continuing Indwelling Catheter: Accurate Measurement of Urinary Output in Critically Ill Patients Urinary Catheter Date of Insertion: 04/23/21 Urinary Catheter Time of Insertion: 17:10 Data : 04/24/21 02:45 04/25/21 03:14 Micro: Microbiology 04/23/21 16:55 Blood Culture - Preliminary Blood NEGATIVE TO DATE 04/23/21 16:55 Blood Culture - Preliminary Blood NEGATIVE TO DATE 04/23/21 19:00 MRSA Culture - Final Nose 04/23/21 17:07 Legionella Urinary Antigen - Final Urine Catheterized A&P Additional A&P Information 70 yr old man CAD, chronic systolic CHF, htn, ckd stage 3 ( baseline cr 1.3). COVID-19 in mar 2021, recent dx w/ a fib w/ rvr on amiodarone last couple of days. 1. KRYSTINA - likely CRS from new a fib w/ RVR and hypotension vs ATN from hypotension -normal renal us -u/a w/ 1+ketones, 2+ blood, 5-10 rbc- h/o stable pros ca - 2+ bact - less likely HRS- as i think KRYSTINA and inc LFT's came from hypotension -ur na 20- c/w Prerenal azotemia -cr improving to 2.1 mg/dl -pt will likely need a cardiac cath- renal risk decreases as renal fxn improves. however, his risk is elevated 2. leukocytosis- eval for infection- ua c/w UTI- monitor vanco level 3. acid base status- inc AG met acidosis w/ resp compensation- likely from infection and KRYSTINA -met acidosis improved -1+ ur ketone- could be astartvation acidosis or DKA 4. hyperkalemia- from KRYSTINA and on potassium at home -s/p lasix and kayexalate now hypokalemic- replete k and dec lasix 5. CKD stage 3- baseline cr1.3- likely from DM, HTN -pth 147 - repeat in 4- 6 weeks -f/u vit d studies 6. inc lft's - improving- ast dec from 5186 to 689, alt 3156 to 1660 -hep studies negative 7. a fib and acute on chronic systolic CHF- per cardiology -monitor dig level w/ krystina -normal at 0.5 today -normal tsh -worsening MR and dec EF- Severe diffuse hypokinesia of the left ventricle with ejection fraction of around 20%. Mildly increased left ventricular cavity size. Moderately severe mitral regurgitation. Thickened aortic and mitral valves. Mild tricuspid valve regurgitation. Estimated pulmonary artery peak systolic pressure of 41 mm of Hg. There is no pericardial effusion. There are no intracardiac masses. Compared to the study from 09/14/2020, there is worsening of the LV systolic function and mitral regurgitation seen and examined w/ rN- telehealth visit time spent 30+ minutes+ Attestations Medical Necessity Statement*: a fib, chf, mr, KRYSTINA Time Spent in Patient Care: 16 - 35 minutes Coding Level of Care Code Acute Belt Fixer for [facility]
[2021-04-25 08:12] LABS: Partial Thromboplastin Time 82.6 SECONDS (23.9-36.7)
--- NOTE | 2021-04-25 08:14 | P.ANESASSM_ITS ---
Pre-Anesthetic Assessment Pre-Anesthetic Assessment: Height/Weight: Height 1.78 m Weight 88.995 kg Temp Pulse Resp BP Pulse Ox 99.1 F 84 28 H 104/57 94 04/25/21 04:00 04/25/21 06:00 04/25/21 05:10 04/25/21 05:10 04/25/21 05:10 Preop Diagnosis: A-Fib Proposed Procedure: AMERICA/cardioversion Was Beta Terrance taken within 24 hours: N/A Was Clonidine taken within 24 hours: N/A Social: Social History: No alcohol and No tobacco Exam: Pre-Anes Outpt Exam: alert, oriented x 3, clear to auscultation bilaterally and regular rate & rhythm Airway: Submandibular: WNL Cervical ROM: WNL MP: 1 Dentition: False Pulmonary: Pulmonary: SOB (CHF) CV/HEM: CV/HEM: Afib, CAD, CHF and ID Comments: [id number] : : Chronic renal failure and Chronic renal Insufficiency Comments: stage 3 Hepatic: Comments: liver failure GI: GI: None reported Metabolic: Metabolic: Hyperlipidemia Musc/skel: Musc/skel: Lower Back Pain (back surgery 30 year ago) Comments: tramadol for pain Neuropsych: Neuropsych: None reported Anesthetic Plan: ASA status: 4 Anesthesia: MAC Risk of > 500 ml blood loss (7ml/kg in children): No Meds/Allergies Current Medications: Current Medications Generic Name Dose Route Start Last Admin Trade Name Freq PRN Reason Stop Dose Admin Azithromycin 500 mg 04/24/21 13:55 04/24/21 14:25 Azithromycin 250 Mg Tablet PO 500 mg DAILY LYNNE Administration Protocol Denture Adhesive 1 applic 04/24/21 18:00 04/24/21 18:19 Fixodent 39 Gm T ube DENTAL 1 appful PRN PRN Administration denture adhesive Diltiazem HCl 30 mg 04/24/21 10:00 04/24/21 10:02 Diltiazem 30 Mg Tablet PO 30 mg Q6H LYNNE Administration Famotidine 20 mg 04/23/21 16:45 04/24/21 20:00 Famotidine 20 Mg /2 Ml Inj IVP 20 mg Q12H LYNNE Administration Fluticasone Propio william 1 spray 04/24/21 09:00 04/24/21 09:28 Fluticasone Nasa l [place] 16gm Btl INTRANASAL 1 spray DAILY LYNNE Administration Heparin Sodium (Po rcine) 0 unit 04/23/21 16:40 04/24/21 11:54 Heparin 5,000 Un it/Ml Inj 1 Ml IV 1,800 unit PRN PRN Administration Heparin weight-ba se protocol Protocol Heparin Sodium/Sod ium Chloride 25,000 unit in 50 0 mls @ 0 mls/hr 04/23/21 16:45 04/24/21 15:24 Heparin Drip IV 16.82 unit/kg/hr .Q0M LYNNE 29 mls/hr Administration Protocol Per Protocol Dobutamine HCl/Dex trose 500 mg in 250 mls @ 0 mls/hr 04/23/21 18:45 04/25/21 02:50 Dobutamine Drip IV 3 mcg/kg/min .Q0M LYNNE 7.76 mls/hr Administration Protocol Per Protocol Imipenem/Cilastati n Sodium 250 100 mls @ 200 mls /hr 04/24/21 22:00 04/25/21 05:44 mg/ Sodium Chlor estephania IV Infused Q8H LYNNE Infusion Protocol Montelukast Sodium 10 mg 04/24/21 09:00 04/24/21 09:27 Montelukast Sodi um 10 Mg Tablet PO 10 mg DAILY LYNNE Administration Ondansetron HCl 4 mg 04/23/21 16:46 04/23/21 19:48 Ondansetron 2 Mg /Ml Sdv 2 Ml IVP 4 mg Q8H PRN Administration vomiting, or N/V if npo Fluticasone/Salmet maria luisa 1 puff 04/24/21 20:00 04/24/21 20:15 Fluticasone-Salm eterol 250-50 Disk us INHALATION 1 puff BID.RESPIRATORY S CH Administration Sodium Polystyrene Sulfonate 15 gm 04/23/21 21:00 04/23/21 20:50 Sodium Polystyre ne Sulfonate 15 Gm /60 Ml Btl PO 15 gm Q12H LYNNE Administration Additional Medication Information: Current Medications Azithromycin (Azithromycin 250 Mg Tablet) 500 mg PO DAILY LYNNE; Protocol Last Admin: 04/24/21 14:25 Dose: 500 mg Documented by: Bisacodyl (Bisacodyl 5 Mg Tablet) 10 mg PO DAILY PRN; Protocol PRN Reason: Constipation (see protocol) Denture Adhesive (Fixodent 39 Gm Tube) 1 applic DENTAL PRN PRN PRN Reason: denture adhesive Last Admin: 04/24/21 18:19 Dose: 1 appful Documented by: Digoxin (Digoxin 250 Mcg/Ml Inj 2 Ml) 250 mcg IVP ONCE PRN PRN Reason: heart rate Diltiazem HCl (Diltiazem 30 Mg Tablet) 30 mg PO Q6H [facility] Last Admin: 04/24/21 10:02 Dose: 30 mg Documented by: Famotidine (Famotidine 20 Mg/2 Ml Inj) 20 mg IVP Q12H LYNNE Last Admin: 04/24/21 20:00 Dose: 20 mg Documented by: Fluticasone Propionate (Fluticasone Nasal [place] 16gm Btl) 1 spray INTRANASAL DAILY [facility] Last Admin: 04/24/21 09:28 Dose: 1 spray Documented by: Furosemide (Furosemide 10 Mg/Ml Sdv 10ml) 40 mg IVP Q24H [facility] Heparin Sodium (Porcine) (Heparin 5,000 Unit/Ml Inj 1 Ml) 0 unit IV PRN PRN; Protocol PRN Reason: Heparin weight-base protocol Last Admin: 04/24/21 11:54 Dose: 1,800 unit Documented by: Heparin Sodium/Sodium Chloride (Heparin Drip) 25,000 unit in 500 mls @ 0 mls/hr IV .Q0M [facility]; Protocol Last Admin: 04/24/21 15:24 Dose: 16.82 unit/kg/hr, 29 mls/hr Documented by: Dobutamine HCl/Dextrose (Dobutamine Drip) 500 mg in 250 mls @ 0 mls/hr IV .Q0M [facility]; Protocol Last Admin: 04/25/21 02:50 Dose: 3 mcg/kg/min, 7.76 mls/hr Documented by: Imipenem/Cilastatin Sodium 250 (mg/ Sodium Chloride) 100 mls @ 200 mls/hr IV Q8H [facility]; Protocol Last Infusion: 04/25/21 05:44 Dose: Infused Documented by: Magnesium Hydroxide (Magnesium Hydroxide 30 Ml Udc) 30 ml PO DAILY PRN; Protocol PRN Reason: Constipation (see protocol) Montelukast Sodium (Montelukast Sodium 10 Mg Tablet) 10 mg PO DAILY [facility] Last Admin: 04/24/21 09:27 Dose: 10 mg Documented by: Morphine Sulfate (Morphine 4 Mg/Ml Sdv 1 Ml) 1 mg IVP Q4H PRN PRN Reason: SEVERE PAIN Non-Formulary Medication (Alirocumab [Praluent Pen]) 150 mg SUBCUT Q14D LYNNE Ondansetron HCl (Ondansetron 2 Mg/Ml Sdv 2 Ml) 4 mg IVP Q8H PRN PRN Reason: vomiting, or N/V if npo Last Admin: 04/23/21 19:48 Dose: 4 mg Documented by: Potassium Chloride (Potassium Chloride Er 20 Meq Tablet) 40 meq PO Q4H LYNNE Stop: 04/25/21 12:01 Fluticasone/Salmeterol (Fluticasone-Salmeterol 250-50 Diskus) 1 puff INHALATION BID.RESPIRATORY LYNNE Last Admin: 04/24/21 20:15 Dose: 1 puff Documented by: Sodium Polystyrene Sulfonate (Sodium Polystyrene Sulfonate 15 Gm/60 Ml Btl) 15 gm PO Q12H LYNNE Last Admin: 04/23/21 20:50 Dose: 15 gm Documented by: PFSH Anesthesia PFSH: Medical History Afib Atrial flutter BPH loc w urin obs/LUTS COVID-20 Mar 2021 Elevated PSA Essential hypertension 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 Radiation therapy. Slowly rising PSA with benign RALPH. 6.June. SOB (shortness of breath) Traumatic tear of right rotator cuff Urinary hesitancy Surgical History H/O shoulder surgery LEFT H/O total knee replacement RIGHT History of back surgery History of carpal tunnel release BILATERAL History of tonsillectomy and adenoidectomy Hx of coronary artery bypass graft Family History Father , AT AGE 91 Bowel obstruction Mother , AT AGE 84 Heart attack CAD (coronary artery disease) Hypertension Diabetes Brother Cancer Family/Other Cancer Son Chronic kidney disease (CKD) Cancer Grandfather Stroke Denies family history of Clotting disorder Dementia Suicide Anesthesia complication Bleeding disorder Lung disease Social History Alcohol intake: never Marital status: Current occupational status: employed History of recent travel: No Data Anesthesia CBC & Chem 7: 04/24/21 02:45 04/25/21 03:14 Other Labs: Laboratory Results - last 48 hr 04/23/21 04/23/21 04/23/21 14:08 14:08 14:08 WBC Cancelled Corrected WBC Cancelled RBC Cancelled Hgb Cancelled Hct Cancelled MCV Cancelled MCH Cancelled MCHC Cancelled RDW Cancelled Plt Count Cancelled MPV Cancelled Gran % Cancelled Neut % (Auto) Cancelled Lymph % (Auto) Cancelled [place] % (Auto) Cancelled Eos % (Auto) Cancelled Baso % (Auto) Cancelled Neut # (Auto) Cancelled Lymph # (Auto) Cancelled [place] # (Auto) Cancelled Eos # (Auto) Cancelled Baso # (Auto) Cancelled Absolute Gran (auto) Cancelled Nucleated RBC % (auto) Cancelled Nucleated RBCs # Cancelled PT INR APTT Specimen Type Sample Site ABG pH ABG pCO2 ABG pO2 ABG HCO3 ABG O2 Saturation ABG Base Excess [place] Test A-a O2 Gradient Hematocrit Hgb O2 Saturation Carboxyhemoglobin Methemoglobin Total Hemoglobin Ionized Calcium O2 Delivery Device FiO2 Seismograph Operator ID Sodium Cancelled Potassium Cancelled Chloride Cancelled Carbon Dioxide Cancelled Anion Gap Cancelled BUN Cancelled Creatinine Cancelled GFR Calculation Cancelled Glucose Cancelled Estimat Average Glucose Hemoglobin A1c Calculated Osmolality Cancelled Uric Acid Calcium Cancelled Phosphorus Magnesium Iron TIBC % Saturation Unsat Iron Binding Ferritin Total Bilirubin Cancelled AST Cancelled ALT Cancelled Alkaline Phosphatase Cancelled Creatine Kinase Cancelled Troponin T Baseline Cancelled Troponin T 120 Minute Delta Troponin T Troponin T Hi Sens 6Hr Troponin T Hi Sens 6Hr Delta NT-Pro-B Natriuret Pep Total Protein Cancelled Albumin Cancelled Globulin Cancelled Triglycerides Cholesterol LDL Cholesterol, Calc Total VLDL Cholesterol HDL Cholesterol Cholesterol/HDL Ratio Procalcitonin TSH PTH Intact Calcium (PTH Intact) Urine Color Urine Appearance Urine pH Ur Specific [place] Urine Protein Urine Glucose (UA) Urine Ketones Urine Blood Urine Nitrate Urine Bilirubin Urine Urobilinogen Ur Leukocyte Esterase Urine RBC Urine WBC Ur Eosinophil Smear Ur Squamous Epith Cells Amorphous Sediment Urine Bacteria Hyaline Casts Urine Eosinophils Ur Random Microalbumin Ur Random Sodium Ur Random Potassium Ur Random Chloride Urine Creatinine Microalb/Creat Ratio Random Vancomycin Digoxin Hepatitis A IgM Ab Hep Bs Antigen Hep Bs Antibody Hep B Core Total Ab Hepatitis C Antibody HIV 1&2 Ab & HIV 1 Ag HIV 1&2 Antibody 04/23/21 04/23/21 04/23/21 14:45 14:45 14:45 WBC 19.1 H Corrected WBC RBC 4.98 Hgb 14.6 Hct 45.4 MCV 91.2 MCH 29.3 MCHC 32.2 RDW 15.5 H Plt Count 119 L MPV 13.3 H Gran % Neut % (Auto) 90.7 Lymph % (Auto) 3.8 [place] % (Auto) 4.7 Eos % (Auto) 0.0 Baso % (Auto) 0.2 Neut # (Auto) 17.29 H Lymph # (Auto) 0.7 L [place] # (Auto) 0.9 Eos # (Auto) 0.0 Baso # (Auto) 0.0 Absolute Gran (auto) Nucleated RBC % (auto) 0 Nucleated RBCs # 0.0 PT INR APTT Specimen Type Sample Site ABG pH ABG pCO2 ABG pO2 ABG HCO3 ABG O2 Saturation ABG Base Excess [place] Test A-a O2 Gradient Hematocrit Hgb O2 Saturation Carboxyhemoglobin Methemoglobin Total Hemoglobin Ionized Calcium O2 Delivery Device FiO2 Seismograph Operator ID Sodium Potassium Chloride Carbon Dioxide Anion Gap BUN Creatinine GFR Calculation Glucose Estimat Average Glucose Hemoglobin A1c Calculated Osmolality Uric Acid Calcium Phosphorus Magnesium Iron TIBC % Saturation Unsat Iron Binding Ferritin Total Bilirubin AST ALT Alkaline Phosphatase Creatine Kinase Troponin T Baseline 174 H* Troponin T 120 Minute Delta Troponin T Troponin T Hi Sens 6Hr Troponin T Hi Sens 6Hr Delta NT-Pro-B Natriuret Pep 71188 H Total Protein Albumin Globulin Triglycerides Cholesterol LDL Cholesterol, Calc Total VLDL Cholesterol HDL Cholesterol Cholesterol/HDL Ratio Procalcitonin TSH PTH Intact Calcium (PTH Intact) Urine Color Urine Appearance Urine pH Ur Specific [place] Urine Protein Urine Glucose (UA) Urine Ketones Urine Blood Urine Nitrate Urine Bilirubin Urine Urobilinogen Ur Leukocyte Esterase Urine RBC Urine WBC Ur Eosinophil Smear Ur Squamous Epith Cells Amorphous Sediment Urine Bacteria Hyaline Casts Urine Eosinophils Ur Random Microalbumin Ur Random Sodium Ur Random Potassium Ur Random Chloride Urine Creatinine Microalb/Creat Ratio Random Vancomycin Digoxin Hepatitis A IgM Ab Hep Bs Antigen Hep Bs Antibody Hep B Core Total Ab Hepatitis C Antibody HIV 1&2 Ab & HIV 1 Ag HIV 1&2 Antibody 04/23/21 04/23/2104/23/21 14:45 14:45 14:45 WBC Corrected WBC RBC Hgb Hct MCV MCH MCHC RDW Plt Count MPV Gran % Neut % (Auto) Lymph % (Auto) [place] % (Auto) Eos % (Auto) Baso % (Auto) Neut # (Auto) Lymph # (Auto) [place] # (Auto) Eos # (Auto) Baso # (Auto) Absolute Gran (auto) Nucleated RBC % (auto) Nucleated RBCs # PT INR APTT Specimen Type Sample Site ABG pH ABG pCO2 ABG pO2 ABG HCO3 ABG O2 Saturation ABG Base Excess [place] Test A-a O2 Gradient Hematocrit Hgb O2 Saturation Carboxyhemoglobin Methemoglobin Total Hemoglobin Ionized Calcium O2 Delivery Device FiO2 Seismograph Operator ID Sodium 134 L Potassium 6.2 H Chloride 97 L Carbon Dioxide 16 L Anion Gap 27.2 H BUN 44 H Creatinine 3.0 H GFR Calculation 20.9 L Glucose 192 H Estimat Average Glucose Hemoglobin A1c Calculated Osmolality 294 Uric Acid Calcium 9.2 Phosphorus Magnesium Iron 118 TIBC 333 % Saturation 35.4 Unsat Iron Binding 215 Ferritin Total Bilirubin 1.2 AST 5186 H ALT 3156 H Alkaline Phosphatase 58 Creatine Kinase 141 Troponin T Baseline Troponin T 120 Minute Delta Troponin T Troponin T Hi Sens 6Hr Troponin T Hi Sens 6Hr Delta NT-Pro-B Natriuret Pep Total Protein 6.1 L Albumin 4.2 Globulin 1.9 Triglycerides Cholesterol LDL Cholesterol, Calc Total VLDL Cholesterol HDL Cholesterol Cholesterol/HDL Ratio Procalcitonin 0.45 TSH 2.91 PTH Intact Calcium (PTH Intact) Urine Color Urine Appearance Urine pH Ur Specific [place] Urine Protein Urine Glucose (UA) Urine Ketones Urine Blood Urine Nitrate Urine Bilirubin Urine Urobilinogen Ur Leukocyte Esterase Urine RBC Urine WBC Ur Eosinophil Smear Ur Squamous Epith Cells Amorphous Sediment Urine Bacteria Hyaline Casts Urine Eosinophils Ur Random Microalbumin Ur Random Sodium Ur Random Potassium Ur Random Chloride Urine Creatinine Microalb/Creat Ratio Random Vancomycin Digoxin Hepatitis A IgM Ab Hep Bs Antigen Hep Bs Antibody Hep B Core Total Ab Hepatitis C Antibody HIV 1&2 Ab & HIV 1 Ag HIV 1&2 Antibody 04/23/21 04/23/21 04/23/21 14:45 14:45 16:55 WBC Corrected WBC RBC Hgb Hct MCV MCH MCHC RDW Plt Count MPV Gran % Neut % (Auto) Lymph % (Auto) [place] % (Auto) Eos % (Auto) Baso % (Auto) Neut # (Auto) Lymph # (Auto) [place] # (Auto) Eos # (Auto) Baso # (Auto) Absolute Gran (auto) Nucleated RBC % (auto) Nucleated RBCs # PT 21.00 H INR 1.77 H APTT 35.7 Specimen Type Sample Site ABG pH ABG pCO2 ABG pO2 ABG HCO3 ABG O2 Saturation ABG Base Excess Cody Test A-a O2 Gradient Hematocrit Hgb O2 Saturation Carboxyhemoglobin Methemoglobin Total Hemoglobin Ionized Calcium O2 Delivery Device FiO2 Seismograph Operator ID Sodium Potassium Chloride Carbon Dioxide Anion Gap BUN Creatinine GFR Calculation Glucose Estimat Average Glucose Hemoglobin A1c Calculated Osmolality Uric Acid Calcium Phosphorus Magnesium Iron TIBC % Saturation Unsat Iron Binding Ferritin Total Bilirubin AST ALT Alkaline Phosphatase Creatine Kinase Cancelled Troponin T Baseline Troponin T 120 Minute 179.1 H Delta Troponin T 5.1 Troponin T Hi Sens 6Hr Troponin T Hi Sens 6Hr Delta NT-Pro-B Natriuret Pep Total Protein Albumin Globulin Triglycerides Cholesterol LDL Cholesterol, Calc Total VLDL Cholesterol HDL Cholesterol Cholesterol/HDL Ratio Procalcitonin TSH PTH Intact Calcium (PTH Intact) Urine Color Urine Appearance Urine pH Ur Specific [place] Urine Protein Urine Glucose (UA) Urine Ketones Urine Blood Urine Nitrate Urine Bilirubin Urine Urobilinogen Ur Leukocyte Esterase Urine RBC Urine WBC Ur Eosinophil Smear Ur Squamous Epith Cells Amorphous Sediment Urine Bacteria Hyaline Casts Urine Eosinophils Ur Random Microalbumin Ur Random Sodium Ur Random Potassium Ur Random Chloride Urine Creatinine Microalb/Creat Ratio Random Vancomycin Digoxin Hepatitis A IgM Ab Hep Bs Antigen Hep Bs Antibody Hep B Core Total Ab Hepatitis C Antibody HIV 1&2 Ab & HIV 1 Ag HIV 1&2 Antibody 04/23/21 04/23/21 04/23/21 16:55 16:55 17:03 WBC Corrected WBC RBC Hgb Hct MCV MCH MCHC RDW Plt Count MPV Gran % Neut % (Auto) Lymph % (Auto) [place] % (Auto) Eos % (Auto) Baso % (Auto) Neut # (Auto) Lymph # (Auto) [place] # (Auto) Eos # (Auto) Baso # (Auto) Absolute Gran (auto) Nucleated RBC % (auto) Nucleated RBCs # PT INR APTT Specimen Type Arterial Sample Site Radial, left ABG pH 7.39 ABG pCO2 25.4 L ABG pO2 94.0 ABG HCO3 15.4 L ABG O2 Saturation 97.5 ABG Base Excess -7.6 L Cody Test Pos A-a O2 Gradient 2.8 L Hematocrit 45.6 Hgb O2 Saturation 96.0 Carboxyhemoglobin 0.8 Methemoglobin 0.7 Total Hemoglobin 14.9 Ionized Calcium 1.2 O2 Delivery Device Room air FiO2 21.0 Seismograph Operator ID Cak Sodium 136.0 Potassium 5.7 H Chloride Carbon Dioxide Anion Gap BUN Creatinine GFR Calculation Glucose 184.0 H Estimat Average Glucose Hemoglobin A1c Calculated Osmolality Uric Acid Calcium Phosphorus Magnesium Iron TIBC % Saturation Unsat Iron Binding Ferritin Total Bilirubin AST ALT Alkaline Phosphatase Creatine Kinase Troponin T Baseline Troponin T 120 Minute Delta Troponin T Troponin T Hi Sens 6Hr Troponin T Hi Sens 6Hr Delta NT-Pro-B Natriuret Pep Total Protein Albumin Globulin Triglycerides Cholesterol LDL Cholesterol, Calc Total VLDL Cholesterol HDL Cholesterol Cholesterol/HDL Ratio Procalcitonin TSH PTH Intact Calcium (PTH Intact) Urine Color Urine Appearance Urine pH Ur Specific [place] Urine Protein Urine Glucose (UA) Urine Ketones Urine Blood Urine Nitrate Urine Bilirubin Urine Urobilinogen Ur Leukocyte Esterase Urine RBC Urine WBC Ur Eosinophil Smear Ur Squamous Epith Cells Amorphous Sediment Urine Bacteria Hyaline Casts Urine Eosinophils Ur Random Microalbumin Ur Random Sodium Ur Random Potassium Ur Random Chloride Urine Creatinine Microalb/Creat Ratio Random Vancomycin Digoxin Hepatitis A IgM Ab Non-reactive Hep Bs Antigen Non-reactive Hep Bs Antibody 46.5 Hep B Core Total Ab Non-reactive Hepatitis C Antibody Non-reactive HIV 1&2 Ab & HIV 1 Ag Non-reactive HIV 1&2 Antibody Non-reactive 04/23/21 04/23/21 04/23/21 17:07 17:07 17:07 WBC Corrected WBC RBC Hgb Hct MCV MCH MCHC RDW Plt Count MPV Gran % Neut % (Auto) Lymph % (Auto) [place] % (Auto) Eos % (Auto) Baso % (Auto) Neut # (Auto) Lymph # (Auto) [place] # (Auto) Eos # (Auto) Baso # (Auto) Absolute Gran (auto) Nucleated RBC % (auto) Nucleated RBCs # PT INR APTT Specimen Type Sample Site ABG pH ABG pCO2 ABG pO2 ABG HCO3 ABG O2 Saturation ABG Base Excess [place] Test A-a O2 Gradient Hematocrit Hgb O2 Saturation Carboxyhemoglobin Methemoglobin Total Hemoglobin Ionized Calcium O2 Delivery Device FiO2 Seismograph Operator ID Sodium Potassium Chloride Carbon Dioxide Anion Gap BUN Creatinine GFR Calculation Glucose Estimat Average Glucose Hemoglobin A1c Calculated Osmolality Uric Acid Calcium Phosphorus Magnesium Iron TIBC % Saturation Unsat Iron Binding Ferritin Total Bilirubin AST ALT Alkaline Phosphatase Creatine Kinase Troponin T Baseline Troponin T 120 Minute Delta Troponin T Troponin T Hi Sens 6Hr Troponin T Hi Sens 6Hr Delta NT-Pro-B Natriuret Pep Total Protein Albumin Globulin Triglycerides Cholesterol LDL Cholesterol, Calc Total VLDL Cholesterol HDL Cholesterol Cholesterol/HDL Ratio Procalcitonin TSH PTH Intact Calcium (PTH Intact) Urine Color Yellow Urine Appearance Cloudy Urine pH 5 Ur Specific [place] 1.025 Urine Protein Trace Urine Glucose (UA) Norm Urine Ketones 1+ H Urine Blood 2+ H Urine Nitrate Negative Urine Bilirubin Neg Urine Urobilinogen 1 H Ur Leukocyte Esterase Negative Urine RBC 5-10 H Urine WBC Rare Ur Eosinophil Smear 0 Ur Squamous Epith Cells None Amorphous Sediment 1+ Urine Bacteria 2+ H Hyaline Casts 15-25 H Urine Eosinophils No eosinophils seen Ur Random Microalbumin 19 Ur Random Sodium 20 Ur Random Potassium > 124 Ur Random Chloride < 10 Urine Creatinine 212 210 Microalb/Creat Ratio 90 H Random Vancomycin Digoxin Hepatitis A IgM Ab Hep Bs Antigen Hep Bs Antibody Hep B Core Total Ab Hepatitis C Antibody HIV 1&2 Ab & HIV 1 Ag HIV 1&2 Antibody 04/23/21 04/23/21 04/24/21 20:40 20:40 02:45 WBC Corrected WBC RBC Hgb Hct MCV MCH MCHC RDW Plt Count MPV Gran % Neut % (Auto) Lymph % (Auto) [place] % (Auto) Eos % (Auto) Baso % (Auto) Neut # (Auto) Lymph # (Auto) [place] # (Auto) Eos # (Auto) Baso # (Auto) Absolute Gran (auto) Nucleated RBC % (auto) Nucleated RBCs # PT INR APTT Specimen Type Sample Site ABG pH ABG pCO2 ABG pO2 ABG HCO3 ABG O2 Saturation ABG Base Excess [place] Test A-a O2 Gradient Hematocrit Hgb O2 Saturation Carboxyhemoglobin Methemoglobin Total Hemoglobin Ionized Calcium O2 Delivery Device FiO2 Seismograph Operator ID Sodium 135 L Potassium 5.9 H Chloride 99 Carbon Dioxide 17 L Anion Gap 24.9 H BUN 48 H Creatinine 3.1 H GFR Calculation 20.1 L Glucose 143 H Estimat Average Glucose Hemoglobin A1c Calculated Osmolality 295 Uric Acid Calcium 9.3 Phosphorus Magnesium Iron TIBC % Saturation Unsat Iron Binding Ferritin Total Bilirubin AST ALT Alkaline Phosphatase Creatine Kinase Troponin T Baseline Troponin T 120 Minute Delta Troponin T Troponin T Hi Sens 6Hr 200.8 H Troponin T Hi Sens 6Hr Delta 26.8 H* NT-Pro-B Natriuret Pep 9693 H Total Protein Albumin Globulin Triglycerides Cholesterol LDL Cholesterol, Calc Total VLDL Cholesterol HDL Cholesterol Cholesterol/HDL Ratio Procalcitonin TSH PTH Intact Calcium (PTH Intact) Urine Color Urine Appearance Urine pH Ur Specific [place] Urine Protein Urine Glucose (UA) Urine Ketones Urine Blood Urine Nitrate Urine Bilirubin Urine Urobilinogen Ur Leukocyte Esterase Urine RBC Urine WBC Ur Eosinophil Smear Ur Squamous Epith Cells Amorphous Sediment Urine Bacteria Hyaline Casts Urine Eosinophils Ur Random Microalbumin Ur Random Sodium Ur Random Potassium Ur Random Chloride Urine Creatinine Microalb/Creat Ratio Random Vancomycin Digoxin 0.6 Hepatitis A IgM Ab Hep Bs Antigen Hep Bs Antibody Hep B Core Total Ab Hepatitis C Antibody HIV 1&2 Ab & HIV 1 Ag HIV 1&2 Antibody 04/24/21 04/24/21 04/24/21 02:45 02:45 02:45 WBC 19.9 H Corrected WBC RBC 4.70 Hgb 13.9 Hct 43.1 MCV 91.7 MCH 29.6 MCHC 32.3 RDW 15.4 H Plt Count 112 L MPV 13.7 H Gran % Neut % (Auto) 90.0 Lymph % (Auto) 4.8 [place] % (Auto) 4.0 Eos % (Auto) 0.0 Baso % (Auto) 0.2 Neut # (Auto) 17.87 H Lymph # (Auto) 1.0 [place] # (Auto) 0.8 Eos # (Auto) 0.0 Baso # (Auto) 0.0 Absolute Gran (auto) Nucleated RBC % (auto) 0 Nucleated RBCs # 0.0 PT INR APTT 50.0 H Specimen Type Sample Site ABG pH ABG pCO2 ABG pO2 ABG HCO3 ABG O2 Saturation ABG Base Excess [place] Test A-a O2 Gradient Hematocrit Hgb O2 Saturation Carboxyhemoglobin Methemoglobin Total Hemoglobin Ionized Calcium O2 Delivery Device FiO2 Seismograph Operator ID Sodium 137 Potassium 3.9 Chloride 100 Carbon Dioxide 19 L Anion Gap 21.9 H BUN 49 H Creatinine 3.0 H GFR Calculation 20.9 L Glucose 128 H Estimat Average Glucose Hemoglobin A1c Calculated Osmolality 299 H Uric Acid Calcium 8.3 L Phosphorus 5.7 H Magnesium 2.1 Iron TIBC % Saturation Unsat Iron Binding Ferritin Total Bilirubin 1.0 AST 2588 H ALT 2653 H Alkaline Phosphatase 53 Creatine Kinase Troponin T Baseline Troponin T 120 Minute Delta Troponin T Troponin T Hi Sens 6Hr Troponin T Hi Sens 6Hr Delta NT-Pro-B Natriuret Pep Total Protein 6.1 L Albumin 3.8 Globulin 2.3 Triglycerides Cholesterol LDL Cholesterol, Calc Total VLDL Cholesterol HDL Cholesterol Cholesterol/HDL Ratio Procalcitonin TSH PTH Intact Calcium (PTH Intact) Urine Color Urine Appearance Urine pH Ur Specific [place] Urine Protein Urine Glucose (UA) Urine Ketones Urine Blood Urine Nitrate Urine Bilirubin Urine Urobilinogen Ur Leukocyte Esterase Urine RBC Urine WBC Ur Eosinophil Smear Ur Squamous Epith Cells Amorphous Sediment Urine Bacteria Hyaline Casts Urine Eosinophils Ur Random Microalbumin Ur Random Sodium Ur Random Potassium Ur Random Chloride Urine Creatinine Microalb/Creat Ratio Random Vancomycin Digoxin Hepatitis A IgM Ab Hep Bs Antigen Hep Bs Antibody Hep B Core Total Ab Hepatitis C Antibody HIV 1&2 Ab & HIV 1 Ag HIV 1&2 Antibody 04/24/21 04/24/21 04/24/21 02:45 06:07 10:58 WBC Corrected WBC RBC Hgb Hct MCV MCH MCHC RDW Plt Count MPV Gran % Neut % (Auto) Lymph % (Auto) [place] % (Auto) Eos % (Auto) Baso % (Auto) Neut # (Auto) Lymph # (Auto) [place] # (Auto) Eos # (Auto) Baso # (Auto) Absolute Gran (auto) Nucleated RBC % (auto) Nucleated RBCs # PT 20.00 H INR 1.66 H APTT Specimen Type Sample Site ABG pH ABG pCO2 ABG pO2 ABG HCO3 ABG O2 Saturation ABG Base Excess [place] Test A-a O2 Gradient Hematocrit Hgb O2 Saturation Carboxyhemoglobin Methemoglobin Total Hemoglobin Ionized Calcium O2 Delivery Device FiO2 Seismograph Operator ID Sodium 139 138 Potassium 4.3 3.7 Chloride 102 102 Carbon Dioxide 20 L 17 L Anion Gap 21.3 H 22.7 H BUN 48 H 49 H Creatinine 2.8 H 2.9 H GFR Calculation 22.6 L 21.7 L Glucose 109 237 H Estimat Average Glucose Hemoglobin A1c Calculated Osmolality 301 H 307 H Uric Acid 15.3 H Calcium 8.6 8.0 L Phosphorus Magnesium Iron TIBC % Saturation Unsat Iron Binding Ferritin Total Bilirubin AST ALT Alkaline Phosphatase Creatine Kinase Troponin T Baseline Troponin T 120 Minute Delta Troponin T Troponin T Hi Sens 6Hr Troponin T Hi Sens 6Hr Delta NT-Pro-B Natriuret Pep Total Protein Albumin Globulin Triglycerides Cholesterol LDL Cholesterol, Calc Total VLDL Cholesterol HDL Cholesterol Cholesterol/HDL Ratio Procalcitonin TSH PTH Intact Calcium (PTH Intact) Urine Color Urine Appearance Urine pH Ur Specific [place] Urine Protein Urine Glucose (UA) Urine Ketones Urine Blood Urine Nitrate Urine Bilirubin Urine Urobilinogen Ur Leukocyte Esterase Urine RBC Urine WBC Ur Eosinophil Smear Ur Squamous Epith Cells Amorphous Sediment Urine Bacteria Hyaline Casts Urine Eosinophils Ur Random Microalbumin Ur Random Sodium Ur Random Potassium Ur Random Chloride Urine Creatinine Microalb/Creat Ratio Random Vancomycin Digoxin Hepatitis A IgM Ab Hep Bs Antigen Hep Bs Antibody Hep B Core Total Ab Hepatitis C Antibody HIV 1&2 Ab & HIV 1 Ag HIV 1&2 Antibody 04/24/21 04/24/21 04/24/21 10:58 10:58 17:28 WBC Corrected WBC RBC Hgb Hct MCV MCH MCHC RDW Plt Count MPV Gran % Neut % (Auto) Lymph % (Auto) [place] % (Auto) Eos % (Auto) Baso % (Auto) Neut # (Auto) Lymph # (Auto) [place] # (Auto) Eos # (Auto) Baso # (Auto) Absolute Gran (auto) Nucleated RBC % (auto) Nucleated RBCs # PT INR APTT 51.0 H 68.3 H Specimen Type Sample Site ABG pH ABG pCO2 ABG pO2 ABG HCO3 ABG O2 Saturation ABG Base Excess Cody Test A-a O2 Gradient Hematocrit Hgb O2 Saturation Carboxyhemoglobin Methemoglobin Total Hemoglobin Ionized Calcium O2 Delivery Device FiO2 Seismograph Operator ID Sodium Potassium Chloride Carbon Dioxide Anion Gap BUN Creatinine GFR Calculation Glucose Estimat Average Glucose 131 Hemoglobin A1c 6.2 H Calculated Osmolality Uric Acid Calcium Phosphorus Magnesium Iron TIBC % Saturation Unsat Iron Binding Ferritin Total Bilirubin AST ALT Alkaline Phosphatase Creatine Kinase Troponin T Baseline Troponin T 120 Minute Delta Troponin T Troponin T Hi Sens 6Hr Troponin T Hi Sens 6Hr Delta NT-Pro-B Natriuret Pep Total Protein Albumin Globulin Triglycerides Cholesterol LDL Cholesterol, Calc Total VLDL Cholesterol HDL Cholesterol Cholesterol/HDL Ratio Procalcitonin TSH PTH Intact Calcium (PTH Intact) Urine Color Urine Appearance Urine pH Ur Specific [place] Urine Protein Urine Glucose (UA) Urine Ketones Urine Blood Urine Nitrate Urine Bilirubin Urine Urobilinogen Ur Leukocyte Esterase Urine RBC Urine WBC Ur Eosinophil Smear Ur Squamous Epith Cells Amorphous Sediment Urine Bacteria Hyaline Casts Urine Eosinophils Ur Random Microalbumin Ur Random Sodium Ur Random Potassium Ur Random Chloride Urine Creatinine Microalb/Creat Ratio Random Vancomycin Digoxin Hepatitis A IgM Ab Hep Bs Antigen Hep Bs Antibody Hep B Core Total Ab Hepatitis C Antibody HIV 1&2 Ab & HIV 1 Ag HIV 1&2 Antibody 04/24/21 04/25/21 04/25/21 17:28 00:34 03:14 WBC Corrected WBC RBC Hgb Hct MCV MCH MCHC RDW Plt Count MPV Gran % Neut % (Auto) Lymph % (Auto) [place] % (Auto) Eos % (Auto) Baso % (Auto) Neut # (Auto) Lymph # (Auto) [place] # (Auto) Eos # (Auto) Baso # (Auto) Absolute Gran (auto) Nucleated RBC % (auto) Nucleated RBCs # PT INR APTT 71.3 H Specimen Type Sample Site ABG pH ABG pCO2 ABG pO2 ABG HCO3 ABG O2 Saturation ABG Base Excess Cody Test A-a O2 Gradient Hematocrit Hgb O2 Saturation Carboxyhemoglobin Methemoglobin Total Hemoglobin Ionized Calcium O2 Delivery Device FiO2 Seismograph Operator ID Sodium 140 143 Potassium 3.6 3.1 L Chloride 103 103 Carbon Dioxide 20 L 24 Anion Gap 20.6 H 19.1 H BUN 45 H 41 H Creatinine 2.6 H 2.1 H GFR Calculation 24.7 L 31.6 L Glucose 77 100 Estimat Average Glucose Hemoglobin A1c Calculated Osmolality 300 H 306 H Uric Acid Calcium 8.0 L 7.9 L Phosphorus 4.5 3.3 Magnesium 2.0 1.9 Iron TIBC % Saturation Unsat Iron Binding Ferritin 2429 H Total Bilirubin 1.3 H AST 689 H ALT 1660 H Alkaline Phosphatase 58 Creatine Kinase Troponin T Baseline Troponin T 120 Minute Delta Troponin T Troponin T Hi Sens 6Hr Troponin T Hi Sens 6Hr Delta NT-Pro-B Natriuret Pep 6501 H Total Protein 5.4 L Albumin 3.3 L Globulin 2.1 Triglycerides 51 Cholesterol 79 LDL Cholesterol, Calc 31 L Total VLDL Cholesterol 10 HDL Cholesterol 38 L Cholesterol/HDL Ratio 2.08 Procalcitonin TSH PTH Intact Calcium (PTH Intact) Urine Color Urine Appearance Urine pH Ur Specific [place] Urine Protein Urine Glucose (UA) Urine Ketones Urine Blood Urine Nitrate Urine Bilirubin Urine Urobilinogen Ur Leukocyte Esterase Urine RBC Urine WBC Ur Eosinophil Smear Ur Squamous Epith Cells Amorphous Sediment Urine Bacteria Hyaline Casts Urine Eosinophils Ur Random Microalbumin Ur Random Sodium Ur Random Potassium Ur Random Chloride Urine Creatinine Microalb/Creat Ratio Random Vancomycin Digoxin 0.6 Hepatitis A IgM Ab Hep Bs Antigen Hep Bs Antibody Hep B Core Total Ab Hepatitis C Antibody HIV 1&2 Ab & HIV 1 Ag HIV 1&2 Antibody 04/25/21 04/25/21 03:14 07:20 WBC Corrected WBC RBC Hgb Hct MCV MCH MCHC RDW Plt Count MPV Gran % Neut % (Auto) Lymph % (Auto) [place] % (Auto) Eos % (Auto) Baso % (Auto) Neut # (Auto) Lymph # (Auto) [place] # (Auto) Eos # (Auto) Baso # (Auto) Absolute Gran (auto) Nucleated RBC % (auto) Nucleated RBCs # PT INR APTT 82.6 H Specimen Type Sample Site ABG pH ABG pCO2 ABG pO2 ABG HCO3 ABG O2 Saturation ABG Base Excess Cody Test A-a O2 Gradient Hematocrit Hgb O2 Saturation Carboxyhemoglobin Methemoglobin Total Hemoglobin Ionized Calcium O2 Delivery Device FiO2 Seismograph Operator ID Sodium Potassium Chloride Carbon Dioxide Anion Gap BUN Creatinine GFR Calculation Glucose Estimat Average Glucose Hemoglobin A1c Calculated Osmolality Uric Acid Calcium Phosphorus Magnesium Iron TIBC % Saturation Unsat Iron Binding Ferritin Total Bilirubin AST ALT Alkaline Phosphatase Creatine Kinase Troponin T Baseline Troponin T 120 Minute Delta Troponin T Troponin T Hi Sens 6Hr Troponin T Hi Sens 6Hr Delta NT-Pro-B Natriuret Pep Total Protein Albumin Globulin Triglycerides Cholesterol LDL Cholesterol, Calc Total VLDL Cholesterol HDL Cholesterol Cholesterol/HDL Ratio Procalcitonin TSH PTH Intact 147.1 H Calcium (PTH Intact) 7.8 L Urine Color Urine Appearance Urine pH Ur Specific [place] Urine Protein Urine Glucose (UA) Urine Ketones Urine Blood Urine Nitrate Urine Bilirubin Urine Urobilinogen Ur Leukocyte Esterase Urine RBC Urine WBC Ur Eosinophil Smear Ur Squamous Epith Cells Amorphous Sediment Urine Bacteria Hyaline Casts Urine Eosinophils Ur Random Microalbumin Ur Random Sodium Ur Random Potassium Ur Random Chloride Urine Creatinine Microalb/Creat Ratio Random Vancomycin 5.3 L Digoxin 0.5 L Hepatitis A IgM Ab Hep Bs Antigen Hep Bs Antibody Hep B Core Total Ab Hepatitis C Antibody HIV 1&2 Ab & HIV 1 Ag HIV 1&2 Antibody Micro: Microbiology 04/23/21 17:07 Urine Culture - Preliminary Urine,Clean Catch 04/23/21 16:55 Blood Culture - Preliminary Blood NEGATIVE TO DATE 04/23/21 16:55 Blood Culture - Preliminary Blood NEGATIVE TO DATE 04/23/21 19:00 MRSA Culture - Final Nose 04/23/21 17:07 Legionella Urinary Antigen - Final Urine Catheterized Cardiac Studies: Echocardiogram 04/23/21
[2021-04-25] MEDS: heparin drip 25,000 UNIT/500 ML PREMIX 29 UNIT IV (08:30)
--- NOTE | 2021-04-25 08:50 | P.PN_ITS ---
Subjective Subjective: Interval history: The patient is feeling better. He had some nausea through the night. The dose of the Lasix was cut back by the nephrology service. Patient denies any chest pain. His shortness of breath has significantly improved. Medications: Reviewed: Yes Medication Review Details: Current Medications Azithromycin (Azithromycin 250 Mg Tablet) 500 mg PO DAILY [facility]; Protocol Last Admin: 04/24/21 14:25 Dose: 500 mg Documented by: Bisacodyl (Bisacodyl 5 Mg Tablet) 10 mg PO DAILY PRN; Protocol PRN Reason: Constipation (see protocol) Denture Adhesive (Fixodent 39 Gm Tube) 1 applic DENTAL PRN PRN PRN Reason: denture adhesive Last Admin: 04/24/21 18:19 Dose: 1 appful Documented by: Digoxin (Digoxin 250 Mcg/Ml Inj 2 Ml) 250 mcg IVP ONCE PRN PRN Reason: heart rate Diltiazem HCl (Diltiazem 30 Mg Tablet) 30 mg PO Q6H [facility] Last Admin: 04/24/21 10:02 Dose: 30 mg Documented by: Famotidine (Famotidine 20 Mg/2 Ml Inj) 20 mg IVP Q12H [facility] Last Admin: 04/24/21 20:00 Dose: 20 mg Documented by: Fluticasone Propionate (Fluticasone Nasal [place] 16gm Btl) 1 spray INTRANASAL DAILY [facility] Last Admin: 04/24/21 09:28 Dose: 1 spray Documented by: Furosemide (Furosemide 10 Mg/Ml Sdv 10ml) 40 mg IVP Q24H [facility] Heparin Sodium (Porcine) (Heparin 5,000 Unit/Ml Inj 1 Ml) 0 unit IV PRN PRN; Protocol PRN Reason: Heparin weight-base protocol Last Admin: 04/24/21 11:54 Dose: 1,800 unit Documented by: Heparin Sodium/Sodium Chloride (Heparin Drip) 25,000 unit in 500 mls @ 0 mls/hr IV .Q0M [facility]; Protocol Last Admin: 04/25/21 08:30 Dose: 16.82 unit/kg/hr, 29 mls/hr Documented by: Dobutamine HCl/Dextrose (Dobutamine Drip) 500 mg in 250 mls @ 0 mls/hr IV .Q0M [facility]; Protocol Last Admin: 04/25/21 02:50 Dose: 3 mcg/kg/min, 7.76 mls/hr Documented by: Imipenem/Cilastatin Sodium 250 (mg/ Sodium Chloride) 100 mls @ 200 mls/hr IV Q8H [facility]; Protocol Last Infusion: 04/25/21 05:44 Dose: Infused Documented by: Magnesium Hydroxide (Magnesium Hydroxide 30 Ml Udc) 30 ml PO DAILY PRN; Protocol PRN Reason: Constipation (see protocol) Montelukast Sodium (Montelukast Sodium 10 Mg Tablet) 10 mg PO DAILY [facility] Last Admin: 04/24/21 09:27 Dose: 10 mg Documented by: Morphine Sulfate (Morphine 4 Mg/Ml Sdv 1 Ml) 1 mg IVP Q4H PRN PRN Reason: SEVERE PAIN Non-Formulary Medication (Alirocumab [Praluent Pen]) 150 mg SUBCUT Q14D [facility] Ondansetron HCl (Ondansetron 2 Mg/Ml Sdv 2 Ml) 4 mg IVP Q8H PRN PRN Reason: vomiting, or N/V if npo Last Admin: 04/23/21 19:48 Dose: 4 mg Documented by: Potassium Chloride (Potassium Chloride Er 20 Meq Tablet) 40 meq PO Q4H [facility] Stop: 04/25/21 12:01 Fluticasone/Salmeterol (Fluticasone-Salmeterol 250-50 Diskus) 1 puff INHALATION BID.RESPIRATORY [facility] Last Admin: 04/24/21 20:15 Dose: 1 puff Documented by: Sodium Polystyrene Sulfonate (Sodium Polystyrene Sulfonate 15 Gm/60 Ml Btl) 15 gm PO Q12H [facility] Last Admin: 04/23/21 20:50 Dose: 15 gm Documented by: Vitals/I&O/Wt Last Vital Signs Temp 98.4 F 04/25/21 08:00 Pulse 84 04/25/21 08:30 Resp 27 H 04/25/21 08:30 BP 100/58 04/25/21 08:30 Pulse Ox 94 04/25/21 08:30 04/24/21 04/25/21 04/25/21 22:59 06:59 14:59 Intake Total 281.5 / 1620.444 549.328 / 2169.772 495.9 / 495.9 Output Total 750 / 1475 2000 / 3475 Balance -468.5 / 145.444 -1450.672 / -1305.228 495.9 / 495.9 Weight last 48 hrs Weight 196 lb 3.2 oz Weight 202 lb 8 oz Weight 190 lb Physical Exam Narrative: EXAM NARRATIVE: GENERAL: The patient is alert and oriented times three. Slightly tachypneic HEENT: Minimal pallor with no, icterus or lymphadenopathy. The pupils are symmetrical. Oral cavity: There are no mucous membrane lesions. NECK: Trachea appears to be central. No masses noted. No JVD or thyromegaly appreciated. No carotid bruit. RESPIRATORY: Chest is symmetrical. No intercostals muscle retraction or any accessory muscle activation. There is no chest wall tenderness. Breath sounds are heard bilaterally. No rales or rhonchi. BREASTS: Deferred. HEART: PMI could not be palpated. No palpable precordial events. S1 is variable. S2 is normal. Soft S3 present. No pericardial rub or any click heard. Systolic murmur grade 3/6 in the left sternal border. No diastolic murmurs. ABDOMEN: No vessel pulsations or distention. No tenderness. No organomegaly appreciated. No abdominal bruit. Bowel sounds are normally heard. : Deferred. RECTAL: Deferred. LYMPHATIC: No lymphadenopathy noted in the neck or groin. EXTREMITIES: No significant edema or cyanosis. Peripheral pulses are palpable but weak bilaterally MUSCULOSKELETAL: No acute joint deformities or swelling SKIN: There are no significant scars or skin rash noted. NEUROPSYCHIATRIC: The patient is alert and oriented x3. Appears to be in a good mood. The higher functions are grossly within normal limits. No tremors or rigidity noted. Urinary Catheter Management^: Robertson: Cath Placed During This Visit: yes Reason for Continuing Indwelling Catheter: Accurate Measurement of Urinary Output in Critically Ill Patients Urinary Catheter Date of Insertion: 04/23/21 Urinary Catheter Time of Insertion: 17:10 Data : 04/24/21 02:45 04/25/21 03:14 Micro: Microbiology 04/23/21 17:07 Bacterial Antigens - Final Urine Kidney 04/23/21 17:07 Urine Culture - Preliminary Urine,Clean Catch 04/23/21 16:55 Blood Culture - Preliminary Blood NEGATIVE TO DATE 04/23/21 16:55 Blood Culture - Preliminary Blood NEGATIVE TO DATE 04/23/21 19:00 MRSA Culture - Final Nose 04/23/21 17:07 Legionella Urinary Antigen - Final Urine Catheterized A&P Assessment and plan (1) Acute on chronic systolic heart failure: We may taper him off the Dobutrex Status: Acute (2) Atrial fibrillation with rapid ventricular response: Patient had a AMERICA cardioversion today. He is back into sinus rhythm with a PACs and PVCs. We will start him on amiodarone. Status: Acute (3) Acute renal failure (ARF): The BUN and creatinine is improving. Appreciate the nephrology input. We will continue on the careful IV diuretics Status: Acute Qualifiers: Acute renal failure type: unspecified Qualified Code(s): N17.9 - Acute kidney failure, unspecified (4) Elevated liver enzymes: The liver enzymes continue to trend down. Status: Acute (5) Hypercholesterolemia: Patient has been on the Repatha. That may be continued. Status: Acute (6) Atherosclerosis of coronary artery of [place] heart without angina pectoris: We will consider a cardiac catheterization once the renal function improves. Status: Acute Qualifiers: Coronary Disease-Associated Artery/Lesion type: unspecified vessel or lesion type Qualified Code(s): I25.10 - Atherosclerotic heart disease of [place] coronary artery without angina pectoris (7) Hyperkalemia: Currently the patient is normokalemic. We will continue the current measures Status: Acute (8) Moderate to severe mitral regurgitation: The mitral regurgitation appears to be moderate by the AMERICA. Status: Acute Additional A&P Information Other problems are Elevated white cell count Statin intolerance Hypokalemia need to be corrected We will taper off the Dobutrex. If he continues to remain stable, may be transferred out of the ICU. The persistent white cell count elevation is a concern. Need to discuss. Attestations Medical Necessity Statement*: Patient requires continued hospital stay for close monitoring and further management Coding Level of Care Code Acute Interpreter Translator for Rafaelag Fwd History Detailed Exam Detailed Medical Decision Making Moderate Complexity Diagnoses Acute on chronic systolic heart failure I50.23 Atrial fibrillation with rapid ventricular response I48.91 Acute renal failure (ARF) N17.9 Acute renal failure type: unspecified Elevated liver enzymes R74.8 Hypercholesterolemia E78.00 Atherosclerosis of coronary artery of [place] heart without angina pectoris I25.10 Coronary Disease-Associated Artery/Lesion type: unspecified vessel or lesion type Hyperkalemia E87.5 Moderate to severe mitral regurgitation I34.0
--- NOTE | 2021-04-25 09:28 | PC.CHAP ---
Pastoral Care Encounter/Spiritual Assessment Type of Contact [] Declined renewable energy trader visit [] Patient/Family/Request visit [] Outpatient visit [] Follow-up visit [] Physician referral [] Code/Alert [x] Routine visit [] Staff referral [] Actively dying [] Patient sleeping [x] Family support [] [] Out of room [] Palliative care [] [x] Receiving care in room [] Pre-surgical visit [] Trauma [] Long length of stay [x] ICU visit [] Other: Relational/Emotional Strength [] Patient feels connected with others/family/visitors/staff [] Distress [] Loneliness/isolation [] Abandonment Spirituality of Patient [] Person of Delia [] Attends Yarsani of their Delia [] Believes in Prayer [] Reads Bible or Jewish materials [] There are Spiritual issues to be addressed 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 [x] Prayer [x] Active listening [x] Non-anxious presence [x] Spiritual/emotional support [] Crisis/trauma care [] Spiritual counseling [] Bereavement support [] Provided bereavement packet [] Provided Bible/devotional materials [] Provided toy/stuffed animal, coloring book to patient or family member [] Provided Communion [] Anointing/[place] [] Salvation [x] Completed spiritual assessment [] Other: Impact on Illness or Injury [] Angry [] Fearful [] Anxious [] Often cries [] Exhaustion [] Unable to work [] Unable to attend roman catholic [] Unable to walk/stand [] Unable to read [] Unable to drive [] Unable to eat/drink [] Unable to sleep [] Unable to be with family [] Patient intubated [] Other: Summary families presence giving patient comfort... doing some imaging in room Time spent with patient 5 min
--- NOTE | 2021-04-25 09:31 | ECG_ITS ---
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 Measurements Intervals [place] Rate: 100 P: 63 TX: 156 QRS: 80 QRSD: 131 T: 84 QT: 330 QTc: 427 Interpretive Statements SINUS TACHYCARDIA WITH OCCASIONAL SUPRAVENTRICULAR PREMATURE COMPLEXES INTRAVENTRICULAR CONDUCTION DELAY [130+ ms QRS DURATION] Diffuse nonspecific T wave changes Compared to ECG 04/23/2021 21:57:51 Atrial flutter no longer present Myocardial infarct finding no longer present Electronically Signed On 04-25-2021 23:44:21 CDT by Jose Nj M.D. [id number]
--- NOTE | 2021-04-25 09:31 | ANE.PACU2 ---
Inpatient post-anesthesia follow up: Airway intact: Yes Vital signs: Temperature 98.4 F Pulse Rate [Monito r] 123 Pulse Rate 84 Respiratory Rate 27 Blood Pressure [Le ft Arm] 92/74 Blood Pressure 100/58 Pulse Oximetry 94 Oxygen Delivery Me thod Room Air Oxygen Flow Rate Fraction of Inspir ed Oxygen Hydration adequate: Yes Nausea and vomiting: No
[2021-04-25] MEDS: fluticasone nasal spray 16gm Btl 1 SPRAY INTRANASAL (09:59)
[2021-04-25] MEDS: lidocaine 1% 5 ML in potassium chloride premix 100 ML 25 ML IV ×2 (10:01→14:39)
[2021-04-25] MEDS: FUROsemide 10 mg/mL SDV 10mL 40 MG IVP (10:01)
[2021-04-25] MEDS: famotidine 20 mg/2 mL INJ IVP ×2 (10:01→19:48)
--- NOTE | 2021-04-25 14:54 | PM.PN ---
Subjective Subjective: Interval history: No acute events overnight. Today morning patient was successfully cardioverted back to normal sinus rhythm after AMERICA. Dobutamine was weaned off keeping mean arterial pressure over 65. Patient continues to remain on room air. Mean arterial pressures have remained over 65. Documented urine output in last 24 hours around 3.4 L. Vitals/I&O/Wt Last Vital Signs Temp 98.1 F 04/25/21 12:20 Pulse 94 04/25/21 14:00 Resp 31 H 04/25/21 12:20 BP 109/73 04/25/21 12:20 Pulse Ox 98 04/25/21 12:20 04/24/21 04/25/21 04/25/21 22:59 06:59 14:59 Intake Total 281.5 / 1620.444 549.328 / 2169.772 1125.841 / 1125.841 Output Total 750 / 1475 2000 / 3475 Balance -468.5 / 145.444 -1450.672 / -4307.400 1655.841 / 1125.841 Weight last 48 hrs Weight 88.995 kg Weight 91.852 kg Physical Exam Narrative: EXAM NARRATIVE: General: No acute distress, AO x3, sitting up in bed, on room air HEENT: PERRLA, pupils bilaterally equal and reactive Chest: Bilateral no vesicular breath sounds, crackles present up to mid chest, equal good air entry bilaterally CVS: S1-S2 regular,, JVD elevated, pansystolic murmur at apex radiating to to anterior axillary line 3/6, pansystolic murmur at fourth intercostal space left parasternal, tachycardia, gallop present, no rubs Abdomen: Soft, soft mildly tender hepatomegaly present, bowel sounds present Neuro: No focal deficits, no facial deformity, AO x3, power 5/5 in all limbs Urinary Catheter Management^: Robertson: Cath Placed During This Visit: yes Reason for Continuing Indwelling Catheter: Accurate Measurement of Urinary Output in Critically Ill Patients Urinary Catheter Date of Insertion: 04/23/21 Urinary Catheter Time of Insertion: 17:10 Data : 04/24/21 02:45 04/25/21 03:14 Micro: Microbiology 04/23/21 17:07 Bacterial Antigens - Final Urine Kidney 04/23/21 17:07 Urine Culture - Preliminary Urine,Clean Catch 04/23/21 16:55 Blood Culture - Preliminary Blood NEGATIVE TO DATE 04/23/21 16:55 Blood Culture - Preliminary Blood NEGATIVE TO DATE 04/23/21 19:00 MRSA Culture - Final Nose A&P Assessment and plan (1) Cardiogenic shock: Status: Acute (2) Atrial fibrillation with rapid ventricular response: Status: Acute (3) Congestive heart failure due to cardiomyopathy: Status: Acute (4) Hepatorenal syndrome: Status: Acute (5) Acute renal failure (ARF): Status: Acute Qualifiers: Acute renal failure type: unspecified Qualified Code(s): N17.9 - Acute kidney failure, unspecified (6) Hyperkalemia: Status: Acute (7) Atherosclerosis of coronary artery of [place] heart without angina pectoris: Status: Acute Qualifiers: Coronary Disease-Associated Artery/Lesion type: unspecified vessel or lesion type Qualified Code(s): I25.10 - Atherosclerotic heart disease of [place] coronary artery without angina pectoris (8) Metabolic acidosis, increased anion gap: Status: Acute (9) Sepsis: Status: Acute Additional A&P Information Shock: Likely cardiogenic. Patient has remained afebrile even though has leukocytosis. Keep mean artery pressure 65 mmHg. Dobutamine weaned off. Oxygen supplementation keeping saturation over 90%. Congestive heart failure: Ischemic cardiomyopathy: h/o CABG Echocardiogram results appreciated with severe diffuse hypokinesia with EF of 20%, mildly increased LV cavity size, moderately severe MR, mild TR, PASP of 41 Continue with IV Lasix 40 mg twice daily. Target 1 L negative in next 24-hour. If continues to do well with improvement in KRYSTINA and liver functions can plan to wean down further tomorrow. Fluid restriction upto 1500 cc Strict I/O, daily weight. Afib with RVR: Post cardioversion April 25. Given remarkable improvement in liver functions with AST and ALT improving can start patient on amiodarone drip while monitoring LFTs. Digoxin level 0.5 today. Continue with heparin drip. Appreciate cardiology recommendations. History of CAD: Post CABG: No active chest pain. Most likely patient will need angiogram during hospitalization. For now continue with aspirin. Hold off on statin given transaminitis. Continue with home dose of Repatha Hepatorenal syndrome: Elevated Transaminases: Most likely 2/2 CHF and shock. Resolving but still elevated. AST down to 689 from more than 5000 on admission, ALT down to 1660 from more than 3000 on admission. Hepatitis panel, HIV negative. Check liver ultrasound. Continue monitor daily. Acute renal failure: Most likely cardiorenal syndrome. Baseline creat norrmal. Creatinine trending down. 2.1 today. Renal ultrasound within normal limits, urinalysis, urine lites appreciated. Medical reconciliation done for nephrotoxic drugs. Appreciate nephrology recommendations. Robertson, I/o Replete magnesium, calcium, potassium. Recheck BMP and magnesium in evening. High anion gap metabolic acidosis: 2/2 KRYSTINA BMP every 12 hourly. Sepsis: Unknown source currently. Present on admit. Criteria met with leukocytosis, tachycardia. MRSA swab, urine Legionella negative. Pro-Clay normal. Bacterial antigen, urine culture, blood culture pending. As MRSA negative can stop vancomycin. Continue with imipenem and azithromycin for now. Will de-escalate quickly if remains afebrile. If remains afebrile for next 24 hours can stop antibiotics and monitor. Recent COVID: O2 supplementation keeping saturation over 90% No isolation precaution as more than 3 weeks ago. CAD: No active chest pain. C/w ASA, Repatha Most likely patient has undiagnosed obstructive sleep apnea: Nightly oxygen as needed keeping saturation over 90%. Patient will benefit from sleep study as an outpatient. Code status: Full code Heparin drip Protonix for PUD PPx Cardiac diet. Attestations Medical Necessity Statement*: Further hospitalization for management of cardiogenic shock, congestive heart failure in setting of ischemic cardiomyopathy, A. fib with RVR post cardioversion, hepatorenal syndrome Critical Care Time: The high probability of a clinically significant, sudden or life threatening deterioration of the patient's [cardiac, renal, hepatic] system(s) required my full and direct attention, intervention and personal management. The critical care time is as shown. 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
[2021-04-25 14:58] LABS: Partial Thromboplastin Time 56.9 SECONDS (23.9-36.7)
[2021-04-25 19:47] LABS: Anion Gap 16.4 (5-19); Blood Urea Nitrogen 35 mg/dL (8-23); Calcium 7.8 mg/dL (8.5-10.5); Carbon Dioxide 23 mmol/L (22-29); Chloride 105 mmol/L (98-107); Glomerular Filtration Rate 46.5 mL/min (90-130); Glucose 143 mg/dL (65-115); Osmolality Calculated 302 mOsm/kg (285-295); Potassium 3.4 mmol/L (3.5-5.1); Sodium 141 mmol/L (136-145)
[2021-04-25 21:23] LABS: Partial Thromboplastin Time 59.9 SECONDS (23.9-36.7)
[2021-04-25 21:27] LABS: Total Bilirubin 1.1 mg/dL (0.15-1.2)
[2021-04-26] VITALS (42 sets, daily range): BP systolic 80–118; BP diastolic 45–79; PULSE 86–101; RESP 10–36; TEMP 36.6–37.2; O2SAT 87–99; BMI 28.3
[2021-04-26] MEDS: guaiFENesin 100 mg/5 mL UDC 10 mL 200 MG PO ×2 (00:31→23:27)
[2021-04-26] MEDS: heparin drip 25,000 UNIT/500 ML PREMIX 27 UNIT IV (02:15)
[2021-04-26] MEDS: FUROsemide 10 mg/mL SDV 4mL 40 MG IVP (05:20)
[2021-04-26 06:05] LABS: Basophils % 0.3 %; Eosinophils # 0.1 10^3/uL (0.0-0.8); Eosinophils % 0.9 %; Hematocrit 42.5 % (42.0-52.0); Hemoglobin 13.1 g/dL (11.7-16.6); Lymphocytes % 8.9 %; Mean Corpuscular HGB Conc 30.8 g/dL (30.0-36.0); Mean Corpuscular Hemoglobin 29.5 pg (28.0-34.0); Mean Corpuscular Volume 95.7 fl (80-94); Mean Platelet Volume 12.5 fL (7.4-10.4); Monocytes # 0.5 10^3/uL (0.2-0.9); Monocytes % 4.6 %; Neutrophils # 9.81 10^3/uL (1.8-7.7); Neutrophils % 84.6 %; Nucleated Red Blood Cells % 0 %; Platelet Count 104 10^3/cmm (130-400); Red Blood Count 4.44 10^6/uL (4.1-5.3); Red Cell Distribution Width 15.2 % (12.1-15.1); White Blood Count 11.6 10^3/uL (4.0-10.0)
--- NOTE | 2021-04-26 06:09 | PC.NURSE ---
Shift Note Frequent safety and comfort rounds continue. Orders and/or nursing care completed as indicated. Patient monitored for response to intervention and treatment(s). Education provided includes amiodarone and need for NPO diet. Patient verbalizes understanding of teaching. Patient remains A & O x4, on 2LNC, and has no wounds or skin issues. Right AC IV infusing Heparin and left wrist IV infusing Amiodarone please see MAR for infusion rates. Robertson catheter drained 750 mls of dark cayla urine overnight. Will continue to monitor.
[2021-04-26 06:25] LABS: Partial Thromboplastin Time 52.8 SECONDS (23.9-36.7)
[2021-04-26] MEDS: heparin 5,000 unit/mL INJ 1 mL IV ×2 (06:39→14:13)
--- NOTE | 2021-04-26 07:56 | P.PN_ITS ---
Subjective Subjective: Interval history: feels better. less sob, dec edema Medications: Reviewed: Yes Medication Review Details: Current Medications Azithromycin (Azithromycin 250 Mg Tablet) 500 mg PO DAILY LYNNE; Protocol Last Admin: 04/25/21 10:14 Dose: Not Given Documented by: Bisacodyl (Bisacodyl 5 Mg Tablet) 10 mg PO DAILY PRN; Protocol PRN Reason: Constipation (see protocol) Denture Adhesive (Fixodent 39 Gm Tube) 1 applic DENTAL PRN PRN PRN Reason: denture adhesive Last Admin: 04/24/21 18:19 Dose: 1 appful Documented by: Digoxin (Digoxin 250 Mcg/Ml Inj 2 Ml) 250 mcg IVP ONCE PRN PRN Reason: heart rate Famotidine (Famotidine 20 Mg/2 Ml Inj) 20 mg IVP Q12H LYNNE Last Admin: 04/25/21 19:48 Dose: 20 mg Documented by: Fluticasone Propionate (Fluticasone Nasal [place] 16gm Btl) 1 spray INTRANASAL DAILY [facility] Last Admin: 04/25/21 09:59 Dose: 1 spray Documented by: Furosemide (Furosemide 10 Mg/Ml Sdv 4ml) 40 mg IVP Q24H LYNNE Last Admin: 04/26/21 05:20 Dose: 40 mg Documented by: Guaifenesin (Guaifenesin 100 Mg/5 Ml Udc 10 Ml) 200 mg PO Q4H PRN PRN Reason: COUGH AND CONGESTION Last Admin: 04/26/21 00:31 Dose: 200 mg Documented by: Heparin Sodium (Porcine) (Heparin 5,000 Unit/Ml Inj 1 Ml) 0 unit IV PRN PRN; Protocol PRN Reason: Heparin weight-base protocol Last Admin: 04/26/21 06:39 Dose: 1,800 unit Documented by: Heparin Sodium/Sodium Chloride (Heparin Drip) 25,000 unit in 500 mls @ 0 mls/hr IV .Q0M LYNNE; Protocol Last Titration: 04/26/21 06:41 Dose: 16.82 unit/kg/hr, 29 mls/hr Documented by: Dobutamine HCl/Dextrose (Dobutamine Drip) 500 mg in 250 mls @ 0 mls/hr IV .Q0M LYNNE; Protocol Last Titration: 04/25/21 11:15 Dose: 0 mcg/kg/min, 0 mls/hr Documented by: Imipenem/Cilastatin Sodium 250 (mg/ Sodium Chloride) 100 mls @ 200 mls/hr IV Q8H LYNNE; Protocol Last Infusion: 04/26/21 05:59 Dose: Infused Documented by: Amiodarone HCl 900 mg/Dextrose/ IV Miscellaneous Supplies 518 mls @ 17.267 mls/hr IV CONT LYNNE Last Admin: 04/25/21 09:54 Dose: 0.5 mg/min, 17.27 mls/hr Documented by: Magnesium Hydroxide (Magnesium Hydroxide 30 Ml Udc) 30 ml PO DAILY PRN; Protocol PRN Reason: Constipation (see protocol) Montelukast Sodium (Montelukast Sodium 10 Mg Tablet) 10 mg PO DAILY LYNNE Last Admin: 04/25/21 09:43 Dose: Not Given Documented by: Morphine Sulfate (Morphine 4 Mg/Ml Sdv 1 Ml) 1 mg IVP Q4H PRN PRN Reason: SEVERE PAIN Non-Formulary Medication (Alirocumab [Praluent Pen]) 150 mg SUBCUT Q14D LYNNE Last Admin: 04/25/21 12:32 Dose: 150 mg Documented by: Ondansetron HCl (Ondansetron 2 Mg/Ml Sdv 2 Ml) 4 mg IVP Q8H PRN PRN Reason: vomiting, or N/V if npo Last Admin: 04/23/21 19:48 Dose: 4 mg Documented by: Fluticasone/Salmeterol (Fluticasone-Salmeterol 250-50 Diskus) 1 puff INHALATION BID.RESPIRATORY LYNNE Last Admin: 04/25/21 20:15 Dose: 1 puff Documented by: Vitals/I&O/Wt Last Vital Signs Temp 98.9 F 04/26/21 04:00 Pulse 87 04/26/21 06:00 Resp 16 04/26/21 05:20 BP 102/74 04/26/21 05:20 Pulse Ox 98 04/26/21 05:20 04/25/21 04/26/21 04/26/21 22:59 06:59 14:59 Intake Total 1246.5 / 2375.963 615.2 / 2991.163 Output Total 2250 / 2250 750 / 3000 Balance -1003.5 / 125.963 -134.8 / -8.837 Weight last 48 hrs Weight 89.443 kg Weight 88.995 kg Physical Exam Narrative: EXAM NARRATIVE: comfortable, on 0xygen- BP low heent- nc/at, eomi, anicteric neck supple lungs b/l improved air movement heart - irreg irreg, +s1, S2, +VERITO abd -soft, nt, nd, + bes ext -dec to no leg edema neuro- a,a, o x 3 Urinary Catheter Management^: Robertson: Cath Placed During This Visit: yes Reason for Continuing Indwelling Catheter: Accurate Measurement of Urinary Output in Critically Ill Patients Urinary Catheter Date of Insertion: 04/23/21 Urinary Catheter Time of Insertion: 17:10 Data : 04/26/21 05:04 04/25/21 18:58 Micro: Microbiology 04/23/21 17:07 Bacterial Antigens - Final Urine Kidney 04/23/21 17:07 Urine Culture - Preliminary Urine,Clean Catch A&P Additional A&P Information 70 yr old man CAD, chronic systolic CHF, htn, ckd stage 3 ( baseline cr 1.3). COVID-19 in mar 2021, recent dx w/ a fib w/ rvr on amiodarone last couple of days. 1. KRYSTINA - likely CRS from new a fib w/ RVR and hypotension vs ATN from hypotension -normal renal us -u/a w/ 1+ketones, 2+ blood, 5-10 rbc- h/o stable pros ca - 2+ bact - less likely HRS- as i think KRYSTINA and inc LFT's came from hypotension -ur na 20- c/w Prerenal azotemia -cr improving to 1.5 mg/dl - close to his baseline -pt will likely need a cardiac cath- renal risk decreases as renal fxn improves. however, his risk is still above normal 2. leukocytosis- eval for infection- ua c/w UTI- monitor vanco level -wbc improving 3. acid base status- inc AG met acidosis w/ resp compensation- likely from infection and KRYSTINA -met acidosis improved -1+ ur ketone- could be a startvation acidosis or DKA 4. hyperkalemia- from KRYSTINA and on potassium at home -s/p lasix and kayexalate now hypokalemic- replete k as needed 5. CKD stage 3- baseline cr1.3- likely from DM, HTN -pth 147 - repeat in 4- 6 weeks -f/u vit d studies 6. inc lft's - improving- ast dec from 5186 to 689, alt 3156 to 1660 -hep studies negative 7. a fib and acute on chronic systolic CHF- per cardiology -monitor dig level w/ krystina -normal at 0.5 today -normal tsh -worsening MR and dec EF- Severe diffuse hypokinesia of the left ventricle with ejection fraction of around 20%. Mildly increased left ventricular cavity size. Moderately severe mitral regurgitation. Thickened aortic and mitral valves. Mild tricuspid valve regurgitation. Estimated pulmonary artery peak systolic pressure of 41 mm of Hg. There is no pericardial effusion. There are no intracardiac masses. Compared to the study from 09/14/2020, there is worsening of the LV systolic function and mitral regurgitation seen and examined w/ rN- telehealth visit time spent 30+ minutes+ Attestations Medical Necessity Statement*: per medicine Time Spent in Patient Care: 16 - 35 minutes (>than 50% of time spent in counselling and/or direct pt care on unit) . 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
[2021-04-26 08:09] LABS: Albumin Level 3.2 g/dL (3.5-5.2); Alkaline Phosphatase 49 IU/L (40-130); Aspartate Amino Transferase 266 U/L (0-40); Blood Urea Nitrogen 34 mg/dL (8-23); Calcium 8.3 mg/dL (8.5-10.5); Carbon Dioxide 17 mmol/L (22-29); Chloride 103 mmol/L (98-107); Globulin 2.4 g/dL (1.3-4.6); Glomerular Filtration Rate 54.9 mL/min (90-130); Glucose 95 mg/dL (65-115); Magnesium 2.2 mg/dL (1.7-2.3); Osmolality Calculated 293 mOsm/kg (285-295); Phosphorus 1.7 mg/dL (2.5-4.5); Sodium 138 mmol/L (136-145); Total Bilirubin 1.7 mg/dL (0.15-1.2); Total Protein 5.6 g/dL (6.6-8.7)
[2021-04-26 08:11] LABS: Anion Gap 21.6 (5-19); Potassium 3.6 mmol/L (3.5-5.1)
[2021-04-26] MEDS: azithromycin 250 mg Tablet 500 MG PO (08:18)
[2021-04-26] MEDS: montelukast sodium 10 mg Tablet PO (08:18)
[2021-04-26] MEDS: famotidine 20 mg/2 mL INJ IVP (08:18)
[2021-04-26 08:21] LABS: Alanine Aminotransferase 1263 U/L (0-41)
[2021-04-26] MEDS: fluticasone nasal spray 16gm Btl 1 SPRAY INTRANASAL (08:22)
--- NOTE | 2021-04-26 09:39 | PM.PN ---
Subjective Subjective: Interval history: Patient is feeling okay. He continues to remain in sinus rhythm after the cardioversion. He is on amiodarone. So far it is tolerated well. Liver enzymes and the kidney functions continues to improve. No chest pain. Medications: Reviewed: Yes Medication Review Details: Current Medications Azithromycin (Azithromycin 250 Mg Tablet) 500 mg PO DAILY LYNNE; Protocol Last Admin: 04/26/21 08:18 Dose: 500 mg Documented by: Bisacodyl (Bisacodyl 5 Mg Tablet) 10 mg PO DAILY PRN; Protocol PRN Reason: Constipation (see protocol) Denture Adhesive (Fixodent 39 Gm Tube) 1 applic DENTAL PRN PRN PRN Reason: denture adhesive Last Admin: 04/24/21 18:19 Dose: 1 appful Documented by: Digoxin (Digoxin 250 Mcg/Ml Inj 2 Ml) 250 mcg IVP ONCE PRN PRN Reason: heart rate Famotidine (Famotidine 20 Mg/2 Ml Inj) 20 mg IVP Q12H LYNNE Last Admin: 04/26/21 08:18 Dose: 20 mg Documented by: Fluticasone Propionate (Fluticasone Nasal [place] 16gm Btl) 1 spray INTRANASAL DAILY [facility] Last Admin: 04/26/21 08:22 Dose: 1 spray Documented by: Furosemide (Furosemide 10 Mg/Ml Sdv 4ml) 40 mg IVP Q24H [facility] Last Admin: 04/26/21 05:20 Dose: 40 mg Documented by: Guaifenesin (Guaifenesin 100 Mg/5 Ml Udc 10 Ml) 200 mg PO Q4H PRN PRN Reason: COUGH AND CONGESTION Last Admin: 04/26/21 00:31 Dose: 200 mg Documented by: Heparin Sodium (Porcine) (Heparin 5,000 Unit/Ml Inj 1 Ml) 0 unit IV PRN PRN; Protocol PRN Reason: Heparin weight-base protocol Last Admin: 04/26/21 06:39 Dose: 1,800 unit Documented by: Heparin Sodium/Sodium Chloride (Heparin Drip) 25,000 unit in 500 mls @ 0 mls/hr IV .Q0M [facility]; Protocol Last Titration: 04/26/21 06:41 Dose: 16.82 unit/kg/hr, 29 mls/hr Documented by: Amiodarone HCl 900 mg/Dextrose/ IV Miscellaneous Supplies 518 mls @ 17.267 mls/hr IV CONT LYNNE Last Admin: 04/25/21 09:54 Dose: 0.5 mg/min, 17.27 mls/hr Documented by: Imipenem/Cilastatin Sodium 250 (mg/ Sodium Chloride) 100 mls @ 200 mls/hr IV Q6H LYNNE; Protocol Stop: 04/27/21 23:59 Magnesium Hydroxide (Magnesium Hydroxide 30 Ml Udc) 30 ml PO DAILY PRN; Protocol PRN Reason: Constipation (see protocol) Montelukast Sodium (Montelukast Sodium 10 Mg Tablet) 10 mg PO DAILY [facility] Last Admin: 04/26/21 08:18 Dose: 10 mg Documented by: Morphine Sulfate (Morphine 4 Mg/Ml Sdv 1 Ml) 1 mg IVP Q4H PRN PRN Reason: SEVERE PAIN Non-Formulary Medication (Alirocumab [Praluent Pen]) 150 mg SUBCUT Q14D [facility]YNNE Last Admin: 04/25/21 12:32 Dose: 150 mg Documented by: Ondansetron HCl (Ondansetron 2 Mg/Ml Sdv 2 Ml) 4 mg IVP Q8H PRN PRN Reason: vomiting, or N/V if npo Last Admin: 04/23/21 19:48 Dose: 4 mg Documented by: Fluticasone/Salmeterol (Fluticasone-Salmeterol 250-50 Diskus) 1 puff INHALATION BID.RESPIRATORY [facility] Last Admin: 04/26/21 09:29 Dose: 1 puff Documented by: Trazodone HCl (Trazodone 50 Mg Tablet) 50 mg PO BEDTIME PRN PRN Reason: INSOMNIA Vitals/I&O/Wt Last Vital Signs Temp 98.7 F 04/26/21 08:00 Pulse 89 04/26/21 09:35 Resp 16 04/26/21 09:29 BP 106/79 04/26/21 08:00 Pulse Ox 95 04/26/21 09:29 04/25/21 04/26/21 04/26/21 22:59 06:59 14:59 Intake Total 1246.5 / 2375.963 615.2 / 2991.163 387 / 387 Output Total 2250 / 2250 750 / 3000 Balance -1003.5 / 125.963 -134.8 / -8.837 387 / 387 Weight last 48 hrs Weight 197 lb 3 oz Weight 196 lb 3.2 oz Physical Exam Narrative: EXAM NARRATIVE: GENERAL: The patient is alert and oriented times three. Slightly tachypneic HEENT: Minimal pallor with no, icterus or lymphadenopathy. The pupils are symmetrical. Oral cavity: There are no mucous membrane lesions. NECK: Trachea appears to be central. No masses noted. No JVD or thyromegaly appreciated. No carotid bruit. RESPIRATORY: Chest is symmetrical. No intercostals muscle retraction or any accessory muscle activation. There is no chest wall tenderness. Breath sounds are heard bilaterally. No rales or rhonchi. BREASTS: Deferred. HEART: PMI could not be palpated. No palpable precordial events. S1 is variable. S2 is normal. Soft S3 present. No pericardial rub or any click heard. Systolic murmur grade 3/6 in the left sternal border. No diastolic murmurs. ABDOMEN: No vessel pulsations or distention. No tenderness. No organomegaly appreciated. No abdominal bruit. Bowel sounds are normally heard. : Deferred. RECTAL: Deferred. LYMPHATIC: No lymphadenopathy noted in the neck or groin. EXTREMITIES: No significant edema or cyanosis. Peripheral pulses are palpable but weak bilaterally MUSCULOSKELETAL: No acute joint deformities or swelling SKIN: There are no significant scars or skin rash noted. NEUROPSYCHIATRIC: The patient is alert and oriented x3. Appears to be in a good mood. The higher functions are grossly within normal limits. No tremors or rigidity noted. Urinary Catheter Management^: Robertson: Cath Placed During This Visit: yes Reason for Continuing Indwelling Catheter: Accurate Measurement of Urinary Output in Critically Ill Patients Urinary Catheter Date of Insertion: 04/23/21 Urinary Catheter Time of Insertion: 17:10 Data : 04/27/21 01:38 04/27/21 01:38 Other Labs: Laboratory Last Values WBC 11.6 10^3/uL (4.0-10.0) H 04/26/21 05:04 Corrected WBC Cancelled 04/23/21 14:08 RBC 4.44 10^6/uL (4.1-5.3) 04/26/21 05:04 Hgb 13.1 g/dL (11.7-16.6) 04/26/21 05:04 Hct 42.5 % (42.0-52.0) 04/26/21 05:04 MCV 95.7 fl (80-94) H 04/26/21 05:04 MCH 29.5 pg (28.0-34.0) 04/26/21 05:04 MCHC 30.8 g/dL (30.0-36.0) 04/26/21 05:04 RDW 15.2 % (12.1-15.1) H 04/26/21 05:04 Plt Count 104 10^3/cmm (130-400) L 04/26/21 05:04 MPV 12.5 fL (7.4-10.4) H 04/26/21 05:04 Gran % Cancelled 04/23/21 14:08 Neut % (Auto) 84.6 % 04/26/21 05:04 Lymph % (Auto) 8.9 % 04/26/21 05:04 [place] % (Auto) 4.6 % 04/26/21 05:04 Eos % (Auto) 0.9 % 04/26/21 05:04 Baso % (Auto) 0.3 % 04/26/21 05:04 Neut # (Auto) 9.81 10^3/uL (1.8-7.7) H 04/26/21 05:04 Lymph # (Auto) 1.0 10^3/uL (0.8-4.8) 04/26/21 05:04 [place] # (Auto) 0.5 10^3/uL (0.2-0.9) 04/26/21 05:04 Eos # (Auto) 0.1 10^3/uL (0.0-0.8) 04/26/21 05:04 Baso # (Auto) 0.0 10^3/uL (0.0-0.1) 04/26/21 05:04 Absolute Gran (auto) Cancelled 04/23/21 14:08 Nucleated RBC % (auto) 0 % 04/26/21 05:04 Nucleated RBCs # 0.0 /100WBC 04/26/21 05:04 PT 20.00 SECONDS (12.1-14.9) H 04/24/21 02:45 INR 1.66 (0.8-1.2) H 04/24/21 02:45 APTT 52.8 SECONDS (23.9-36.7) H 04/26/21 05:04 Specimen Type Arterial 04/23/21 17:03 Sample Site Radial, left 04/23/21 17:03 ABG pH 7.39 (7.35-7.45) 04/23/21 17:03 ABG pCO2 25.4 mmHg (35-45) L 04/23/21 17:03 ABG pO2 94.0 mmHg (80.0-100.0) 04/23/21 17:03 ABG HCO3 15.4 mmol/L (22-26) L 04/23/21 17:03 ABG O2 Saturation 97.5 04/23/21 17:03 ABG Base Excess -7.6 mmol/L (-2.0-2.0) L 04/23/21 17:03 Cody Test Pos 04/23/21 17:03 A-a O2 Gradient 2.8 mmHg (5-10) L 04/23/21 17:03 Hematocrit 45.6 % (42-52) 04/23/21 17:03 Hgb O2 Saturation 96.0 % (95-100) 04/23/21 17:03 Carboxyhemoglobin 0.8 %THgb (0.4-20.1) 04/23/21 17:03 Methemoglobin 0.7 % (0.4-1.5) 04/23/21 17:03 Total Hemoglobin 14.9 g/dL (14-18) 04/23/21 17:03 Sodium 136.0 mmol/L (131-143) 04/23/21 17:03 Potassium 5.7 mmol/L (3.5-5.0) H 04/23/21 17:03 Glucose 184.0 mg/dL (70-115) H 04/23/21 17:03 Ionized Calcium 1.2 mmol/L (1.1-1.4) 04/23/21 17:03 O2 Delivery Device Room air 04/23/21 17:03 FiO2 21.0 % 04/23/21 17:03 Cyber Forensics Analyst ID Cak 04/23/21 17:03 Sodium 138 mmol/L (136-145) 04/26/21 05:04 Potassium 3.6 mmol/L (3.5-5.1) 04/26/21 05:04 Chloride 103 mmol/L (98-107) 04/26/21 05:04 Carbon Dioxide 17 mmol/L (22-29) L 04/26/21 05:04 Anion Gap 21.6 (5-19) H 04/26/21 05:04 BUN 34 mg/dL (8-23) H 04/26/21 05:04 Creatinine 1.3 mg/dL (0.7-1.2) H 04/26/21 05:04 GFR Calculation 54.9 mL/min (90-130) L 04/26/21 05:04 Glucose 95 mg/dL (65-115) 04/26/21 05:04 Estimat Average Glucose 131 04/24/21 10:58 Hemoglobin A1c 6.2 % (4.0-6.0) H 04/24/21 10:58 Calculated Osmolality 293 mOsm/kg (285-295) 04/26/21 05:04 Uric Acid 15.3 mg/dL (3.4-7.0) H 04/24/21 10:58 Calcium 8.3 mg/dL (8.5-10.5) L 04/26/21 05:04 Phosphorus 1.7 mg/dL (2.5-4.5) L 04/26/21 05:04 Magnesium 2.2 mg/dL (1.7-2.3) 04/26/21 05:04 Iron 118 ug/dL (59-158) 04/23/21 14:45 TIBC 333 mcg/dl 04/23/21 14:45 % Saturation 35.4 % (20-50) 04/23/21 14:45 Unsat Iron Binding 215 ug/dL (112-347) 04/23/21 14:45 Ferritin 2429 ng/mL (30-400) H 04/25/21 03:14 Total Bilirubin 1.7 mg/dL (0.15-1.2) H 04/26/21 05:04 Direct Bilirubin 0.40 mg/dL (0.00-0.30) H 04/25/21 18:58 Indirect Bilirubin 0.70 04/25/21 18:58 AST 266 U/L (0-40) H 04/26/21 05:04 ALT 1263 U/L (0-41) H 04/26/21 05:04 Alkaline Phosphatase 49 IU/L (40-130) 04/26/21 05:04 Creatine Kinase 141 U/L (39-308) 04/23/21 14:45 Creatine Kinase Cancelled 04/23/21 14:45 Troponin T Baseline 174 ng/L (0-15) H* 04/23/21 14:45 Troponin T 120 Minute 179.1 ng/L (0-15) H 04/23/21 16:55 Delta Troponin T 5.1 ABS# (0-10) 04/23/21 16:55 Troponin T Hi Sens 6Hr 200.8 ng/L (0-15) H 04/23/21 20:40 Troponin T Hi Sens 6Hr Delta 26.8 ng/L (0-12) H* 04/23/21 20:40 NT-Pro-B Natriuret Pep 6501 pg/mL (0-125) H 04/25/21 03:14 Total Protein 5.6 g/dL (6.6-8.7) L 04/26/21 05:04 Albumin 3.2 g/dL (3.5-5.2) L 04/26/21 05:04 Globulin 2.4 g/dL (1.3-4.6) 04/26/21 05:04 Triglycerides 51 mg/dL (0-150) 04/25/21 03:14 Cholesterol 79 mg/dL (0-200) 04/25/21 03:14 LDL Cholesterol, Calc 31 mg/dL (50-129) L 04/25/21 03:14 Total VLDL Cholesterol 10 mg/dL (0-30) 04/25/21 03:14 HDL Cholesterol 38 mg/dL (60-100) L 04/25/21 03:14 Cholesterol/HDL Ratio 2.08 mg/dL (1.0-5.00) 04/25/21 03:14 Procalcitonin 0.45 ng/mL (0-0.5) 04/23/21 14:45 TSH 2.91 uIU/mL (0.27-4.20) 04/23/21 14:45 PTH Intact 147.1 pg/mL (15-65) H 04/25/21 03:14 Calcium (PTH Intact) 7.8 mg/dL (8.5-10.5) L 04/25/21 03:14 Urine Color Yellow (Yellow) 04/23/21 17:07 Urine Appearance Cloudy (CLEAR) 04/23/21 17:07 Urine pH 5 (5-7) 04/23/21 17:07 Ur Specific [place] 1.025 (1.005-1.030) 04/23/21 17:07 Urine Protein Trace (Negative) 04/23/21 17:07 Urine Glucose (UA) Norm (Normal) 04/23/21 17:07 Urine Ketones 1+ (Negative) H 04/23/21 17:07 Urine Blood 2+ (Negative) H 04/23/21 17:07 Urine Nitrate Negative (Negative) 04/23/21 17:07 Urine Bilirubin Neg (Negative) 04/23/21 17:07 Urine Urobilinogen 1 mg/dL (Negative) H 04/23/21 17:07 Ur Leukocyte Esterase Negative (Negative) 04/23/21 17:07 Urine RBC 5-10 /hpf (0-2) H 04/23/21 17:07 Urine WBC Rare /hpf (0-5) 04/23/21 17:07 Ur Eosinophil Smear 0 (0-0) 04/23/21 17:07 Ur Squamous Epith Cells None /hpf (0-5) 04/23/21 17:07 Amorphous Sediment 1+ /hpf 04/23/21 17:07 Urine Bacteria 2+ /hpf (NONE) H 04/23/21 17:07 Hyaline Casts 15-25 /lpf H 04/23/21 17:07 Urine Eosinophils No eosinophils seen 04/23/21 17:07 Ur Random Microalbumin 19 ug/dL (0-20) 04/23/21 17:07 Ur Random Sodium 20 mmol/L 04/23/21 17:07 Ur Random Potassium > 124 mmol/L 04/23/21 17:07 Ur Random Chloride < 10 mmol/L 04/23/21 17:07 Urine Creatinine 210 mg/dL (39-259) 04/23/21 17:07 Urine Creatinine 212 mg/dL (39-259) 04/23/21 17:07 Microalb/Creat Ratio 90 mg/dL (0-20) H 04/23/21 17:07 Random Vancomycin 5.3 ug/mL (20.0-40.0) L 04/25/21 03:14 Digoxin 0.5 ng/mL (0.6-1.2) L 04/25/21 03:14 Hepatitis A IgM Ab Non-reactive (Nonreactive) 04/23/21 16:55 Hep Bs Antigen Non-reactive (Nonreactive) 04/23/21 16:55 Hep Bs Antibody 46.5 (11.5-1000) 04/23/21 16:55 Hep B Core Total Ab Non-reactive (Nonreactive) 04/23/21 16:55 Hepatitis C Antibody Non-reactive (Nonreactive) 04/23/21 16:55 HIV 1&2 Ab & HIV 1 Ag Non-reactive (Non-Reactiv) 04/23/21 16:55 HIV 1&2 Antibody Non-reactive (Non-Reactiv) 04/23/21 16:55 Micro: Microbiology 04/23/21 17:07 Urine Culture - Final Urine,Clean Catch 04/23/21 17:07 Bacterial Antigens - Final Urine Kidney A&P Assessment and plan (1) Acute on chronic systolic heart failure: . switch the IV to p.o. Lasix. Status: Acute (2) Atrial fibrillation with rapid ventricular response: May start on p.o. amiodarone once the IV amiodarone is finished. May start him on 400 mg p.o. twice daily Status: Acute (3) Acute renal failure (ARF): Patient has significant improvement of the kidney function we will continue to monitor the kidney function closely. Status: Acute Qualifiers: Acute renal failure type: unspecified Qualified Code(s): N17.9 - Acute kidney failure, unspecified (4) Elevated liver enzymes: The liver enzymes continue to trend down. Status: Acute (5) Hypercholesterolemia: Patient has been on the Repatha. That may be continued. Status: Acute (6) Atherosclerosis of coronary artery of [place] heart without angina pectoris: Consider cardiac colorization tomorrow. 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 Status: Acute Qualifiers: Coronary Disease-Associated Artery/Lesion type: unspecified vessel or lesion type Qualified Code(s): I25.10 - Atherosclerotic heart disease of [place] coronary artery without angina pectoris (7) Hyperkalemia: Currently the patient is normokalemic. We will continue the current measures Status: Acute (8) Moderate to severe mitral regurgitation: The mitral regurgitation appears to be moderate by the [place]. Status: Acute Additional A&P Information Other problems are Elevated white cell count-improving. Statin intolerance Hypokalemia -currently normokalemic. Possible cardiac catheterization tomorrow. The risk of bleeding, hematoma, vascular injury, myocardial infarction, CVA, renal failure and other concomitant complications were explained in detail. Patient understood this well and consented to proceed. Attestations Medical Necessity Statement*: Patient requires continued hospital stay for close monitoring and further management Coding Level of Care Code Acute Training Associate for Rafaelag Fwd Diagnoses Acute on chronic systolic heart failure I50.23 Atrial fibrillation with rapid ventricular response I48.91 Acute renal failure (ARF) N17.9 Acute renal failure type: unspecified Elevated liver enzymes R74.8 Hypercholesterolemia E78.00 Atherosclerosis of coronary artery of [place] heart without angina pectoris I25.10 Coronary Disease-Associated Artery/Lesion type: unspecified vessel or lesion type Hyperkalemia E87.5 Moderate to severe mitral regurgitation I34.0
--- NOTE | 2021-04-26 09:54 | PC.SOCIAL ---
IMM Update Pg. 2 of IMM updated and reviewed with patient and his at bedside. Verbalized understanding. Copy provided.
--- NOTE | 2021-04-26 13:30 | PC.NURSE ---
Transfer Note Patient transferred to C[facility] 112-1 from ICu via wheelchair. Handoff received from Bib GALVAN. Patient oriented to environment and equipment. Covering service notified. Orders reviewed and will continue to monitor. Family and/or major account representative notified.
--- NOTE | 2021-04-26 13:38 | PC.NUTR ---
Nutrition note: Received verbal request from nurse to change supplement to chocolate Ensure Plus with meals per pt preference. Pt on renal diet, however given poor po intakes, agree with supplementation at this time. See full RD assessment from 04/25/21 for further details. Will follow up as appropriate.
--- NOTE | 2021-04-26 14:28 | PM.PN ---
Subjective Subjective: Interval history: No acute events overnight. Patient continues to remain in normal sinus rhythm post cardioversion so still having occasional VPCs. Continued on amnio drip. States he is feeling better. Sitting up in chair with family at bedside. Denies any nausea, vomiting, headache. Has remained hemodynamically stable off dobutamine drip. Continues to remain on room air. Vitals/I&O/Wt Last Vital Signs Temp 98.7 F 04/26/21 08:00 Pulse 89 04/26/21 09:35 Resp 16 04/26/21 09:29 BP 106/79 04/26/21 08:00 Pulse Ox 95 04/26/21 09:29 04/25/21 04/26/21 04/26/21 22:59 06:59 14:59 Intake Total 1246.5 / 2375.963 615.2 / 2991.163 587 / 587 Output Total 2250 / 2250 750 / 3000 1300 / 1300 Balance -1003.5 / 125.963 -134.8 / -8.837 -713 / -713 Weight last 48 hrs Weight 89.443 kg Weight 88.995 kg Physical Exam Narrative: EXAM NARRATIVE: General: No acute distress, AO x3, sitting up in bed, on room air HEENT: PERRLA, pupils bilaterally equal and reactive Chest: Bilateral normal vesicular breath sounds, fine crackles present in lower zones bilaterally, equal good air entry bilaterally CVS: S1-S2 regular, pansystolic murmur at apex radiating to to anterior axillary line 3/6, pansystolic murmur at fourth intercostal space left parasternal, tachycardia, gallop present, no rubs Abdomen: Soft, soft mildly tender hepatomegaly present, bowel sounds present Neuro: No focal deficits, no facial deformity, AO x3, power 5/5 in all limbs Urinary Catheter Management^: Robertson: Cath Placed During This Visit: yes Reason for Continuing Indwelling Catheter: Accurate Measurement of Urinary Output in Critically Ill Patients Urinary Catheter Date of Insertion: 04/23/21 Urinary Catheter Time of Insertion: 17:10 Data : 04/26/21 05:04 04/26/21 05:04 Micro: Microbiology 04/23/21 17:07 Urine Culture - Final Urine,Clean Catch A&P Assessment and plan (1) Cardiogenic shock: Status: Acute (2) Atrial fibrillation with rapid ventricular response: Status: Acute (3) Congestive heart failure due to cardiomyopathy: Status: Acute (4) Hepatorenal syndrome: Status: Acute (5) Acute renal failure (ARF): Status: Acute Qualifiers: Acute renal failure type: unspecified Qualified Code(s): N17.9 - Acute kidney failure, unspecified (6) Hyperkalemia: Status: Acute (7) Atherosclerosis of coronary artery of [place] heart without angina pectoris: Status: Acute Qualifiers: Coronary Disease-Associated Artery/Lesion type: unspecified vessel or lesion type Qualified Code(s): I25.10 - Atherosclerotic heart disease of [place] coronary artery without angina pectoris (8) Metabolic acidosis, increased anion gap: Status: Acute (9) Sepsis: Status: Acute Additional A&P Information Shock: Resolved. Likely cardiogenic. Patient has remained afebrile even though has leukocytosis. Keep mean artery pressure 65 mmHg. Dobutamine weaned off. Oxygen supplementation keeping saturation over 90%. Congestive heart failure: Ischemic cardiomyopathy: h/o CABG Echocardiogram results appreciated with severe diffuse hypokinesia with EF of 20%, mildly increased LV cavity size, moderately severe MR, mild TR, PASP of 41 Lasix 40 mg IV daily. We will try to switch over to oral tomorrow. Fluid restriction upto 1500 cc Strict I/O, daily weight. Afib with RVR: Post cardioversion April 25. Amiodarone 200 mg oral daily. Will wean off amiodarone drip as per protocol. Digoxin level 0.5 on April 25. Continue with heparin drip. Appreciate cardiology recommendations. History of CAD: Post CABG: No active chest pain. Most likely patient will need angiogram tomorrow. For now continue with aspirin. Hold off on statin given transaminitis. Continue with home dose of Repatha Hepatorenal syndrome: Elevated Transaminases: Most likely 2/2 CHF and shock. Resolving but still elevated. Hepatitis panel, HIV negative. Liver ultrasound appreciated. Continue monitor daily. Acute renal failure: Resolved. Creatinine down to baseline. Most likely cardiorenal syndrome. Baseline creat 1.2. Renal ultrasound within normal limits, urinalysis, urine lites appreciated. Medical reconciliation done for nephrotoxic drugs. Appreciate nephrology recommendations. Robertson, I/o Replete magnesium, calcium, potassium. Recheck BMP and magnesium in evening. High anion gap metabolic acidosis: 2/2 KRYSTINA BMP every 12 hourly. Sepsis: Unknown source currently. Present on admit. Criteria met with leukocytosis, tachycardia. MRSA swab, urine Legionella negative. Pro-Clay normal. Bacterial antigen, urine culture, blood culture pending. Continue with imipenem to finish a 5-day course. Imipenem as per creatinine clearance. Recent COVID: O2 supplementation keeping saturation over 90% No isolation precaution as more than 3 weeks ago. CAD: No active chest pain. C/w ASA, Repatha Most likely patient has undiagnosed obstructive sleep apnea: Nightly oxygen as needed keeping saturation over 90%. Patient will benefit from sleep study as an outpatient. Code status: Full code Heparin drip Protonix for PUD PPx Renal nondialysis diet. Transfer out of ICU. Attestations Medical Necessity Statement*: Requires further hospitalization for management of congestive heart failure with new EF of 20%, atrial fibrillation with rapid ventricular response, post cardioversion, hepatorenal syndrome Time Spent in Patient Care: Greater than 35 minutes (>than 50% of time spent in counselling and/or direct pt care on unit). Coding Level of Care Code Acute Historical Society Director for Chg Fwd Diagnoses Cardiogenic shock R57.0 Atrial fibrillation with rapid ventricular response I48.91 Congestive heart failure due to cardiomyopathy I50.9; I42.9 Hepatorenal syndrome K76.7 Acute renal failure (ARF) N17.9 Acute renal failure type: unspecified Hyperkalemia E87.5 Atherosclerosis of coronary artery of [place] heart without angina pectoris I25.10 Coronary Disease-Associated Artery/Lesion type: unspecified vessel or lesion type Metabolic acidosis, increased anion gap E87.2 Sepsis A41.9
--- NOTE | 2021-04-26 14:39 | PC.NURSE ---
call placed to Dr Nj to confirm amioderone instructions received by hospitalist instructions received to place patient on 400mg po BID and stop gtt 1 hour after admin of po
[2021-04-26] MEDS: amiodarone 200 mg Tablet 400 MG PO ×2 (15:06→21:14)
--- NOTE | 2021-04-26 15:15 | US_ITS ---
WS: [id number] RIGHT UPPER QUADRANT ULTRASOUND HISTORY: transaminitis COMPARISON: None available. Liver: 13.2 cm in length. Normal size liver. No bile duct dilatation or mass. Gallbladder: Very slightly contracted gallbladder. Stones within the gallbladder are identified. Ther e is mild diffuse wall thickening measuring 0.6 mm. CBD: 0.5 cm Pancreas: Not well visualized. Right kidney: 10.7 cm in length. Normal size and echogenicity. No hydronephrosis or mass. Aorta and IVC: Unremarkable abdominal aorta and IVC. No ascites. US/US liver [id number] IMPRESSION: 1. Cholelithiasis with diffusely thickened gallbladder wall. Thickened gallbla dder wall can be seen with acute and chronic etiologies and also liver disease. 2. No evidence for bile duct dilatation.
[2021-04-26] MEDS: famotidine 20 mg Tablet PO (18:38)
[2021-04-26 19:16] LABS: Partial Thromboplastin Time 63.8 SECONDS (23.9-36.7)
--- NOTE | 2021-04-26 19:49 | PC.NURSE ---
call placed to Dr Nj about next due amioderone po due now instructions to give 1800 dose at 2100
[2021-04-26] MEDS: temazepam 15 mg Capsule PO (21:14)
[2021-04-26] MEDS: heparin drip 25,000 UNIT/500 ML PREMIX 31 UNIT IV (23:59)
[2021-04-27] VITALS (71 sets, daily range): BP systolic 73–132; BP diastolic 60–98; PULSE 84–102; RESP 18–24; TEMP 36.6–36.9; O2SAT 80–100
[2021-04-27 01:47] LABS: Basophils % 0.4 %; Eosinophils # 0.2 10^3/uL (0.0-0.8); Eosinophils % 1.4 %; Hematocrit 40.6 % (42.0-52.0); Hemoglobin 13.2 g/dL (11.7-16.6); Lymphocytes % 9.1 %; Mean Corpuscular HGB Conc 32.5 g/dL (30.0-36.0); Mean Corpuscular Hemoglobin 29.1 pg (28.0-34.0); Mean Corpuscular Volume 89.6 fl (80-94); Mean Platelet Volume 12.4 fL (7.4-10.4); Monocytes # 0.7 10^3/uL (0.2-0.9); Monocytes % 6.6 %; Neutrophils # 8.97 10^3/uL (1.8-7.7); Nucleated Red Blood Cells % 0 %; Platelet Count 131 10^3/cmm (130-400); Red Blood Count 4.53 10^6/uL (4.1-5.3); White Blood Count 10.9 10^3/uL (4.0-10.0)
[2021-04-27 02:04] LABS: Partial Thromboplastin Time 68.2 SECONDS (23.9-36.7)
[2021-04-27] MEDS: zolpidem 5 mg Tablet PO ×2 (02:10→20:40)
[2021-04-27 02:12] LABS: Albumin Level 3.5 g/dL (3.5-5.2); Alkaline Phosphatase 54 IU/L (40-130); Anion Gap 12.1 (5-19); Aspartate Amino Transferase 127 U/L (0-40); Blood Urea Nitrogen 31 mg/dL (8-23); Calcium 8.6 mg/dL (8.5-10.5); Carbon Dioxide 27 mmol/L (22-29); Chloride 107 mmol/L (98-107); Globulin 2.1 g/dL (1.3-4.6); Glomerular Filtration Rate 60.2 mL/min (90-130); Glucose 120 mg/dL (65-115); Magnesium 2.2 mg/dL (1.7-2.3); Osmolality Calculated 304 mOsm/kg (285-295); Potassium 3.1 mmol/L (3.5-5.1); Sodium 143 mmol/L (136-145); Total Bilirubin 1.5 mg/dL (0.15-1.2); Total Protein 5.6 g/dL (6.6-8.7)
[2021-04-27 02:24] LABS: Alanine Aminotransferase 845 U/L (0-41)
--- NOTE | 2021-04-27 06:46 | PC.NURSE ---
Around 2030:Patient c/o difficulty getting sleep. Notified Dr. Nj. Orders received, see MAR. Per Dr. Nj, if patient continues to c/o difficulty with sleep, notify the Hospitalist. Around 129: Patient c/o difficulty sleeping. Notified Dr. Lino, Hospitalist. Order received, see MAR.
--- NOTE | 2021-04-27 07:36 | P.PN_ITS ---
Subjective Subjective: Interval history: still sob and cp- but oxygenating well. no other complains. 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 Medications: Reviewed: Yes Medication Review Details: Current Medications Amiodarone HCl (Amiodarone 200 Mg Tablet) 400 mg PO BID [facility] Last Admin: 04/26/21 21:14 Dose: 400 mg Documented by: Azithromycin (Azithromycin 250 Mg Tablet) 500 mg PO DAILY [facility]; Protocol Last Admin: 04/26/21 08:18 Dose: 500 mg Documented by: Bisacodyl (Bisacodyl 5 Mg Tablet) 10 mg PO DAILY PRN; Protocol PRN Reason: Constipation (see protocol) Denture Adhesive (Fixodent 39 Gm Tube) 1 applic DENTAL PRN PRN PRN Reason: denture adhesive Last Admin: 04/24/21 18:19 Dose: 1 appful Documented by: Digoxin (Digoxin 250 Mcg/Ml Inj 2 Ml) 250 mcg IVP ONCE PRN PRN Reason: heart rate Diphenhydramine HCl (Diphenhydramine 50 Mg Capsule) 50 mg PO ONCE ONE Stop: 04/27/21 15:31 Famotidine (Famotidine 20 Mg Tablet) 20 mg PO BID [facility] Last Admin: 04/26/21 18:38 Dose: 20 mg Documented by: Fluticasone Propionate (Fluticasone Nasal [place] 16gm Btl) 1 spray INTRANASAL DAILY [facility] Last Admin: 04/26/21 08:22 Dose: 1 spray Documented by: Furosemide (Furosemide 40 Mg Tablet) 40 mg PO DAILY@0800 [facility] Guaifenesin (Guaifenesin 100 Mg/5 Ml Udc 10 Ml) 200 mg PO Q4H PRN PRN Reason: COUGH AND CONGESTION Last Admin: 04/26/21 23:27 Dose: 200 mg Documented by: Heparin Sodium (Porcine) (Heparin 5,000 Unit/Ml Inj 1 Ml) 0 unit IV PRN PRN; Protocol PRN Reason: Heparin weight-base protocol Last Admin: 04/26/21 14:13 Dose: 1,800 unit Documented by: Heparin Sodium/Sodium Chloride (Heparin Drip) 25,000 unit in 500 mls @ 0 mls/hr IV .Q0M [facility]; Protocol Last Admin: 04/26/21 23:59 Dose: 17.98 unit/kg/hr, 31 mls/hr Documented by: Amiodarone HCl 900 mg/Dextrose/ IV Miscellaneous Supplies 518 mls @ 17.267 mls/hr IV CONT [facility]ENDING S[facility] TO [facility] Last Infusion: 04/26/21 16:30 Dose: Infused Documented by: Imipenem/Cilastatin Sodium 500 (mg/ Sodium Chloride) 100 mls @ 200 mls/hr IV Q8H [facility] Last Infusion: 04/27/21 01:57 Dose: Infused Documented by: Sodium Chloride (Sodium Chloride 0.9%) 1,000 mls @ 50 mls/hr IV .Q20H ONE Stop: 04/28/21 05:59 Magnesium Hydroxide (Magnesium Hydroxide 30 Ml Udc) 30 ml PO DAILY PRN; Protocol PRN Reason: Constipation (see protocol) Montelukast Sodium (Montelukast Sodium 10 Mg Tablet) 10 mg PO DAILY [facility] Last Admin: 04/26/21 08:18 Dose: 10 mg Documented by: Morphine Sulfate (Morphine 4 Mg/Ml Sdv 1 Ml) 1 mg IVP Q4H PRN PRN Reason: SEVERE PAIN Non-Formulary Medication (Alirocumab [Praluent Pen]) 150 mg SUBCUT Q14D [facility] Last Admin: 04/25/21 12:32 Dose: 150 mg Documented by: Ondansetron HCl (Ondansetron 2 Mg/Ml Sdv 2 Ml) 4 mg IVP Q8H PRN PRN Reason: vomiting, or N/V if npo Last Admin: 04/23/21 19:48 Dose: 4 mg Documented by: Fluticasone/Salmeterol (Fluticasone-Salmeterol 250-50 Diskus) 1 puff INHALATION BID.RESPIRATORY [facility] Last Admin: 04/26/21 21:04 Dose: 1 puff Documented by: Temazepam (Temazepam 15 Mg Capsule) 15 mg PO BEDTIME [facility] Last Admin: 04/26/21 21:14 Dose: 15 mg Documented by: Trazodone HCl (Trazodone 50 Mg Tablet) 50 mg PO BEDTIME PRN PRN Reason: INSOMNIA Zolpidem Tartrate (Zolpidem 5 Mg Tablet) 5 mg PO BEDTIME PRN PRN Reason: Insomnia after temazepam Last Admin: 04/27/21 02:10 Dose: 5 mg Documented by: Vitals/I&O/Wt Last Vital Signs Temp 98 F 04/27/21 04:00 Pulse 84 04/27/21 06:00 Resp 20 H 04/27/21 04:00 BP 112/76 04/27/21 04:00 Pulse Ox 94 04/27/21 04:00 04/26/21 04/27/21 04/27/21 22:59 06:59 14:59 Intake Total 1259.833 / 2065.300 100 / 2165.300 Output Total 600 / 1900 Balance 659.833 / 165.300 100 / 265.300 Weight last 48 hrs Weight 89.811 kg Weight 89.443 kg Physical Exam Narrative: EXAM NARRATIVE: uncomfortable, not on 0xygen- oxygensting well VSS heent- nc/at, eomi, anicteric neck supple lungs -diminshed bases b/l heart - irreg irreg, +s1, S2, +VERITO abd -soft, nt, nd, + bs ext -b/l trace leg edema neuro- a,a, o x 3 Urinary Catheter Management^: Robertson: Cath Placed During This Visit: yes Reason for Continuing Indwelling Catheter: Accurate Measurement of Urinary Output in Critically Ill Patients Urinary Catheter Date of Insertion: 04/23/21 Urinary Catheter Time of Insertion: 17:10 Data : 04/27/21 01:38 04/27/21 01:38 Micro: Microbiology 04/23/21 17:07 Urine Culture - Final Urine,Clean Catch A&P Additional A&P Information 70 yr old man CAD, chronic systolic CHF, htn, ckd stage 3 ( baseline cr 1.3). COVID-19 in mar 2021, recent dx w/ a fib w/ rvr on amiodarone last couple of days. 1. KRYSTINA - likely CRS from new a fib w/ RVR and hypotension vs ATN from hypotension -normal renal us -u/a w/ 1+ketones, 2+ blood, 5-10 rbc- h/o stable pros ca - 2+ bact - less likely HRS- as i think KRYSTINA and inc LFT's came from hypotension -ur na 20- c/w Prerenal azotemia -cr improving to 1.2 mg/dl - better than his baseline -pt is for cardiac cath today- I explained to him as he is DM w/ CKD and recent KRYSTINA- he is at in creased renal risk w/ cardiac cath. However, he is currently optimized for cardiac cath. Given persistent CP, low EF of 20%, and SOB- benefits of cardiac cath outweigh renal risk -fluids and lasix as per cardiology -aim for euvolemia 2. now in nsr -monitor dig level 3. replace k and mag 4. leukocytosis-wbc improving -on imipenim 5. CKD stage 3- baseline cr1.3- likely from DM, HTN -pth 147 - repeat in 4- 6 weeks -f/u vit d studies 6. inc lft's - improving- ast dec from 5186 to 127, alt 3156 to 845 -hep studies negative 7. a fib and acute on chronic systolic CHF- per cardiology -monitor dig level w/ ckd -normal tsh -worsening MR and dec EF- Severe diffuse hypokinesia of the left ventricle with ejection fraction of around 20%. Mildly increased left ventricular cavity size. Moderately severe mitral regurgitation. Thickened aortic and mitral valves. Mild tricuspid valve regurgitation. Estimated pulmonary artery peak systolic pressure of 41 mm of Hg. There is no pericardial effusion. There are no intracardiac masses. Compared to the study from 09/14/2020, there is worsening of the LV systolic function and mitral regurgitation seen and examined w/ rN- telehealth visit time spent 30 minutes Attestations Medical Necessity Statement*: chf per cardiology, electrolyte abnormalities on lasix Time Spent in Patient Care: 16 - 35 minutes Coding Level of Care Code Acute Sales Data Analyst for Chg Zandra
[2021-04-27 08:14] LABS: Partial Thromboplastin Time 72.4 SECONDS (23.9-36.7)
[2021-04-27 08:17] LABS: Vancomycin Random < 4.0 ug/mL (20.0-40.0)
--- NOTE | 2021-04-27 08:48 | PM.PN ---
Subjective Subjective: Interval history: Transfer to [facility] yesterday. Overnight no acute events. State he did have a rough night if not able to sleep. Denies any shortness of breath, chest pain. Has remained hemodynamically stable. Remains in sinus rhythm. Heart rate controlled under 100. Continues to remain on room air. This complain of occasional shortness of breath on lying down flat in bed. Vitals/I&O/Wt Last Vital Signs Temp 98 F 04/27/21 04:00 Pulse 84 04/27/21 06:00 Resp 20 H 04/27/21 04:00 BP 112/76 04/27/21 04:00 Pulse Ox 94 04/27/21 04:00 04/26/21 04/27/21 04/27/21 22:59 06:59 14:59 Intake Total 1259.833 / 2065.300 100 / 2165.300 Output Total 600 / 1900 Balance 659.833 / 165.300 100 / 265.300 Weight last 48 hrs Weight 89.811 kg Weight 89.443 kg Physical Exam Narrative: EXAM NARRATIVE: General: No acute distress, AO x3, sitting up in bed, on room air HEENT: PERRLA, pupils bilaterally equal and reactive Chest: Bilateral normal vesicular breath sounds, fine crackles present in lower zones bilaterally, equal good air entry bilaterally CVS: S1-S2 regular, pansystolic murmur at apex radiating to to anterior axillary line 3/6, pansystolic murmur at fourth intercostal space left parasternal, tachycardia, gallop present, no rubs Abdomen: Soft, soft mildly tender hepatomegaly present, bowel sounds present Neuro: No focal deficits, no facial deformity, AO x3, power 5/5 in all limbs Urinary Catheter Management^: Robertson: Cath Placed During This Visit: yes Reason for Continuing Indwelling Catheter: Accurate Measurement of Urinary Output in Critically Ill Patients Urinary Catheter Date of Insertion: 04/23/21 Urinary Catheter Time of Insertion: 17:10 Data : 04/27/21 01:38 04/27/21 01:38 Micro: Microbiology 04/23/21 17:07 Urine Culture - Final Urine,Clean Catch A&P Assessment and plan (1) Cardiogenic shock: Status: Acute (2) Atrial fibrillation with rapid ventricular response: Status: Acute (3) Congestive heart failure due to cardiomyopathy: Status: Acute (4) Hepatorenal syndrome: Status: Acute (5) Acute renal failure (ARF): Status: Acute Qualifiers: Acute renal failure type: unspecified Qualified Code(s): N17.9 - Acute kidney failure, unspecified (6) Hyperkalemia: Status: Acute (7) Atherosclerosis of coronary artery of [place] heart without angina pectoris: Status: Acute Qualifiers: Coronary Disease-Associated Artery/Lesion type: unspecified vessel or lesion type Qualified Code(s): I25.10 - Atherosclerotic heart disease of [place] coronary artery without angina pectoris (8) Metabolic acidosis, increased anion gap: Status: Acute (9) Sepsis: Status: Acute Additional A&P Information Shock: Resolved. Likely cardiogenic. Patient has remained afebrile even though has leukocytosis. Keep mean artery pressure 65 mmHg. Dobutamine weaned off. Oxygen supplementation keeping saturation over 90%. Congestive heart failure: Ischemic cardiomyopathy: h/o CABG Echocardiogram results appreciated with severe diffuse hypokinesia with EF of 20%, mildly increased LV cavity size, moderately severe MR, mild TR, PASP of 41 Lasix 40 mg oral daily. If creatinine remains stable post cardiac catheterization can even increase it to twice daily. Fluid restriction upto 1500 cc Strict I/O, daily weight. Afib with RVR: Post cardioversion April 25. Amiodarone 400 mg twice daily as per cardiology service. Digoxin level 0.5 on April 25. Continue with heparin drip. Appreciate cardiology recommendations. History of CAD: Post CABG: No active chest pain. Plan for cardiac angiogram today. For now continue with aspirin. Hold off on statin given transaminitis. Continue with home dose of Repatha Hepatorenal syndrome: Elevated Transaminases: Most likely 2/2 CHF and shock. Resolving but still elevated. Hepatitis panel, HIV negative. Liver ultrasound appreciated. Continue monitor daily. Acute renal failure: Resolved. Cardiorenal syndrome. Renal ultrasound within normal limits, urinalysis, urine lites appreciated. Medical reconciliation done for nephrotoxic drugs. Appreciate nephrology recommendations. Robertson, I/o Replete magnesium, calcium, potassium. Recheck BMP and magnesium in evening. High anion gap metabolic acidosis: Resolved. Sepsis: Unknown source currently. Present on admit. Criteria met with leukocytosis, tachycardia. MRSA swab, urine Legionella negative. Pro-Clay normal. Bacterial antigen, urine culture, blood culture pending. Continue with imipenem to finish a 5-day course. Imipenem as per creatinine clearance. Last dose April 28 Recent COVID: O2 supplementation keeping saturation over 90% No isolation precaution as more than 3 weeks ago. CAD: No active chest pain. C/w ASA, Repatha Most likely patient has undiagnosed obstructive sleep apnea: Nightly oxygen as needed keeping saturation over 90%. Patient will benefit from sleep study as an outpatient. Code status: Full code Heparin drip Protonix for PUD PPx Renal nondialysis diet. Out of bed to chair. Ambulate. Physical therapy evaluation. Attestations Medical Necessity Statement*: Requires further hospitalization for management of ischemic cardiomyopathy with an EF of 20%, atrial fibrillation with RVR, resolving hepatorenal syndrome, congestive heart failure Time Spent in Patient Care: Greater than 35 minutes (>than 50% of time spent in counselling and/or direct pt care on unit). Coding Level of Care Code Acute Credit Operations Processor for Chg Fwd Diagnoses Cardiogenic shock R57.0 Atrial fibrillation with rapid ventricular response I48.91 Congestive heart failure due to cardiomyopathy I50.9; I42.9 Hepatorenal syndrome K76.7 Acute renal failure (ARF) N17.9 Acute renal failure type: unspecified Hyperkalemia E87.5 Atherosclerosis of coronary artery of [place] heart without angina pectoris I25.10 Coronary Disease-Associated Artery/Lesion type: unspecified vessel or lesion type Metabolic acidosis, increased anion gap E87.2 Sepsis A41.9
[2021-04-27] MEDS: fluticasone nasal spray 16gm Btl 1 SPRAY INTRANASAL (10:12)
[2021-04-27] MEDS: FUROsemide 40 mg Tablet PO (10:12)
[2021-04-27] MEDS: famotidine 20 mg Tablet PO (10:12)
[2021-04-27] MEDS: amiodarone 200 mg Tablet 400 MG PO (10:13)
[2021-04-27] MEDS: potassium chloride ER 20 mEq Tablet 40 MEQ PO ×2 (10:14)
[2021-04-27] MEDS: montelukast sodium 10 mg Tablet PO (10:16)
[2021-04-27] MEDS: sodium chloride 0.9% 1,000 ML 50 ML IV ×3 (10:16→18:44)
--- NOTE | 2021-04-27 13:07 | PC.NURSE ---
Pt sitting in chair talking to and staff. Pt on Heparin drip at 31 ml/hr. IV patent no redness or swelling noted. Pts resp even and non-labored no distress noted. Pt had no c/o pain or discomfort at the present time. Call light in reach. at bedside. Will continue to monitor.
[2021-04-27 15:29] LABS: Partial Thromboplastin Time 64.2 SECONDS (23.9-36.7)
[2021-04-27] MEDS: diphenhydrAMINE 50 mg Capsule PO (16:09)
--- NOTE | 2021-04-27 16:24 | P.PN_ITS ---
Subjective Subjective: Interval history: Patient is feeling okay. He got some sleep last night. Denies any chest pain. Telemetry shows sinus rhythm. No recurrence of atrial fibrillation, since the cardioversion. Medications: Reviewed: Yes Medication Review Details: Current Medications Amiodarone HCl (Amiodarone 200 Mg Tablet) 400 mg PO BID [facility] Last Admin: 04/27/21 10:13 Dose: 400 mg Documented by: Bisacodyl (Bisacodyl 5 Mg Tablet) 10 mg PO DAILY PRN; Protocol PRN Reason: Constipation (see protocol) Denture Adhesive (Fixodent 39 Gm Tube) 1 applic DENTAL PRN PRN PRN Reason: denture adhesive Last Admin: 04/24/21 18:19 Dose: 1 appful Documented by: Digoxin (Digoxin 250 Mcg/Ml Inj 2 Ml) 250 mcg IVP ONCE PRN PRN Reason: heart rate Famotidine (Famotidine 20 Mg Tablet) 20 mg PO BID [facility] Last Admin: 04/27/21 10:12 Dose: 20 mg Documented by: Fluticasone Propionate (Fluticasone Nasal [place] 16gm Btl) 1 spray INTRANASAL DAILY [facility] Last Admin: 04/27/21 10:12 Dose: 1 spray Documented by: Furosemide (Furosemide 40 Mg Tablet) 40 mg PO DAILY@0800 [facility] Last Admin: 04/27/21 10:12 Dose: 40 mg Documented by: Guaifenesin (Guaifenesin 100 Mg/5 Ml Udc 10 Ml) 200 mg PO Q4H PRN PRN Reason: COUGH AND CONGESTION Last Admin: 04/26/21 23:27 Dose: 200 mg Documented by: Heparin Sodium (Porcine) (Heparin 5,000 Unit/Ml Inj 1 Ml) 0 unit IV PRN PRN; Protocol PRN Reason: Heparin weight-base protocol Last Admin: 04/26/21 14:13 Dose: 1,800 unit Documented by: Heparin Sodium/Sodium Chloride (Heparin Drip) 25,000 unit in 500 mls @ 0 mls/hr IV .Q0M [facility]; Protocol Last Admin: 04/26/21 23:59 Dose: 17.98 unit/kg/hr, 31 mls/hr Documented by: Imipenem/Cilastatin Sodium 500 (mg/ Sodium Chloride) 100 mls @ 200 mls/hr IV Q8H [facility] Stop: 04/28/21 23:59 Last Infusion: 04/27/21 10:44 Dose: Infused Documented by: Sodium Chloride (Sodium Chloride 0.9%) 1,000 mls @ 50 mls/hr IV .Q20H ONE Stop: 04/28/21 05:59 Last Infusion: 04/27/21 12:24 Dose: 0 mls/hr Documented by: Magnesium Hydroxide (Magnesium Hydroxide 30 Ml Udc) 30 ml PO DAILY PRN; Protocol PRN Reason: Constipation (see protocol) Montelukast Sodium (Montelukast Sodium 10 Mg Tablet) 10 mg PO DAILY [facility] Last Admin: 04/27/21 10:16 Dose: 10 mg Documented by: Morphine Sulfate (Morphine 4 Mg/Ml Sdv 1 Ml) 1 mg IVP Q4H PRN PRN Reason: SEVERE PAIN Non-Formulary Medication (Alirocumab [Praluent Pen]) 150 mg SUBCUT Q14D [facility] Last Admin: 04/25/21 12:32 Dose: 150 mg Documented by: Ondansetron HCl (Ondansetron 2 Mg/Ml Sdv 2 Ml) 4 mg IVP Q8H PRN PRN Reason: vomiting, or N/V if npo Last Admin: 04/23/21 19:48 Dose: 4 mg Documented by: Fluticasone/Salmeterol (Fluticasone-Salmeterol 250-50 Diskus) 1 puff INHALATION BID.RESPIRATORY [facility] Last Admin: 04/27/21 09:42 Dose: Not Given Documented by: Temazepam (Temazepam 15 Mg Capsule) 15 mg PO BEDTIME [facility] Last Admin: 04/26/21 21:14 Dose: 15 mg Documented by: Zolpidem Tartrate (Zolpidem 5 Mg Tablet) 5 mg PO BEDTIME PRN PRN Reason: Insomnia after temazepam Last Admin: 04/27/21 02:10 Dose: 5 mg Documented by: Vitals/I&O/Wt Last Vital Signs Temp 98.2 F 04/27/21 16:00 Pulse 91 04/27/21 16:00 Resp 20 H 04/27/21 16:00 BP 118/86 04/27/21 16:00 Pulse Ox 97 04/27/21 16:00 04/27/21 04/27/21 04/27/21 06:59 14:59 22:59 Intake Total 100 / 2165.300 206.667 / 206.667 Output Total 1000 / 1000 Balance 100 / 265.300 -793.333 / -793.333 Weight last 48 hrs Weight 198 lb Weight 197 lb 3 oz Physical Exam Narrative: EXAM NARRATIVE: GENERAL: The patient is alert and oriented times three. Slightly tachypneic HEENT: Minimal pallor with no, icterus or lymphadenopathy. The pupils are symmetrical. Oral cavity: There are no mucous membrane lesions. NECK: Trachea appears to be central. No masses noted. No JVD or thyromegaly appreciated. No carotid bruit. RESPIRATORY: Chest is symmetrical. No intercostals muscle retraction or any accessory muscle activation. There is no chest wall tenderness. Breath sounds are heard bilaterally. No rales or rhonchi. BREASTS: Deferred. HEART: PMI could not be palpated. No palpable precordial events. S1 is variable. S2 is normal. Soft S3 present. No pericardial rub or any click heard. Systolic murmur grade 3/6 in the left sternal border. No diastolic murmurs. ABDOMEN: No vessel pulsations or distention. No tenderness. No organomegaly appreciated. No abdominal bruit. Bowel sounds are normally heard. : Deferred. RECTAL: Deferred. LYMPHATIC: No lymphadenopathy noted in the neck or groin. EXTREMITIES: No significant edema or cyanosis. Peripheral pulses are palpable but weak bilaterally MUSCULOSKELETAL: No acute joint deformities or swelling SKIN: There are no significant scars or skin rash noted. NEUROPSYCHIATRIC: The patient is alert and oriented x3. Appears to be in a good mood. The higher functions are grossly within normal limits. No tremors or rigidity noted. Urinary Catheter Management^: Robertson: Cath Placed During This Visit: yes Reason for Continuing Indwelling Catheter: Accurate Measurement of Urinary Output in Critically Ill Patients Urinary Catheter Date of Insertion: 04/23/21 Urinary Catheter Time of Insertion: 17:10 Data : 04/27/21 01:38 04/27/21 01:38 A&P Assessment and plan (1) Acute on chronic systolic heart failure: The heart failure seems to be fairly compensated at this time. We will continue on the p.o. Lasix Status: Acute (2) Atrial fibrillation with rapid ventricular response: Will give amiodarone 400 mg p.o. twice daily for a week followed by daily for a week followed by 200 mg p.o. daily. Status: Acute (3) Acute renal failure (ARF): Patient has significant improvement of the kidney function we will continue to monitor the kidney function closely. Status: Acute Qualifiers: Acute renal failure type: unspecified Qualified Code(s): N17.9 - Acute kidney failure, unspecified (4) Elevated liver enzymes: The liver enzymes continue to trend down. Status: Acute (5) Hypercholesterolemia: Patient has been on the Repatha. That may be continued. Status: Acute (6) Atherosclerosis of coronary artery of [place] heart without angina pectoris: Patient had a DELANEY to the LAD, venous graft to the obtuse marginal ,diagonal and to the PDA. Based on the angiogram findings, further management decisions will be made Status: Acute Qualifiers: Coronary Disease-Associated Artery/Lesion type: unspecified vessel or lesion type Qualified Code(s): I25.10 - Atherosclerotic heart disease of [place] coronary artery without angina pectoris (7) Hyperkalemia: Potassium supplement Status: Acute (8) Moderate to severe mitral regurgitation: The mitral regurgitation appears to be moderate by the [place]. We may do an LV gram to evaluate the mitral regurgitation Status: Acute Additional A&P Information Other problems are Elevated white cell count-improving. Statin intolerance Based on the angiogram findings and the clinical progress, further management decisions will be made. We may start him on Entresto. Attestations Medical Necessity Statement*: Patient requires continued hospital stay for close monitoring and further management Coding Level of Care Code Acute Whipped Topping Finisher for Chg Fwd History Detailed Exam Detailed Medical Decision Making Moderate Complexity Diagnoses Acute on chronic systolic heart failure I50.23 Atrial fibrillation with rapid ventricular response I48.91 Acute renal failure (ARF) N17.9 Acute renal failure type: unspecified Elevated liver enzymes R74.8 Hypercholesterolemia E78.00 Atherosclerosis of coronary artery of [place] heart without angina pectoris I25.10 Coronary Disease-Associated Artery/Lesion type: unspecified vessel or lesion type Hyperkalemia E87.5 Moderate to severe mitral regurgitation I34.0
--- NOTE | 2021-04-27 16:30 | XACV_ITS ---
Exam Room: [facility] Ht: 178 cm Wt: 90 kg BSA: 2.12 m2 Gender: Male : 1950 Any Known Allergies: Other Exam Priority: Routine Procedure(s): Procedure Description: Diagnostic procedure Procedure Description: Left Heart Catheterization Procedure Description: Left ventriculography Procedure Description: Miscellaneous Procedure Description: ACT Procedure Description: Coronary Angiography Clem KAUR; Diagnostic Cath Status: Elective Diagnostic Findings * Left main is a medium caliber vessel with a mild to moderate diffuse disease. * The left anterior descending artery appears to be totally occluded at the ostium. * The left circumflex artery appears to be totally occluded at the ostium. * A small intermedius artery is present which was found to be bifurcating proximally. Diffuse disease was noted in this vessel. * The right coronary artery was found to have mild to moderate diffuse disease proximally. Right after the first RV branch, the artery appears to be totally occluded. * The saphenous venous graft to the PDA branches found to be totally occluded. * The saphenous venous graft to the obtuse marginal artery appears to be totally occluded proximally. * The saphenous venous graft to the diagonal artery was found to be widely patent. It appears to give left to left collaterals to the obtuse marginal arteries. Retrograde filling of the first diagonal moderate to severe ostial stenosis noted in these vessels. The mid LAD also was found to have severe diffuse disease.. * The DELANEY to the LAD was found to be patent. The distal LAD was found to have mild diffuse disease. Conclusions 1. Patient has prior CABG. 2. Severe left ventricular systolic dysfunction. Ejection fraction of 25%. 3. This is a 70-year-old white male four-vessel coronary bypass surgery, presenting with progressive shortness of breath, new onset of atrial fibrillation with rapid ventricular rate. His LV ejection fraction was markedly decreased based on the echocardiogram. He had a myocardial perfusion imaging done few months ago which revealed extensive myocardial scarring with a small areas of octaviano-infarction ischemia. In view of the markedly diminished LV ejection fraction, new onset of atrial fibrillation rapid ventricular rate and congestive heart failure, in order to further evaluate his coronary status as well as the graft status, a cardiac catheterization was recommended. Patient underwent left heart catheterization with left and right coronary angiogram, graft angiogram and LV gram today. The findings are as follows.. 4. Total occlusion of the left anterior descending artery and circumflex artery at the ostium. Mild to moderate diffuse disease in the left main. Small intermedius artery with a mild to moderate diffuse disease. Total occlusion of the right coronary artery after the first RV branch. Occlusion of the venous graft to the PDA and to the obtuse marginal artery. Patent venous graft to the diagonal with left to left collaterals. Patent DELANEY to the LAD. Gzqw-jc-[id number] collaterals also were noted. LV ejection fraction 25%. LVEDP of 26 mmHg. Based on the above angiographic findings, it was opted to treat her medically. Recommendations * Continue current medical management and risk factor modification. Diagnostic RX Recommendation: medical therapy and/or counseling LV EDP: 26 mmHg Ventriculography Ejection Fraction: 25.0 % Left Ventriculography Findings: * The LV gram was performed in the CROCKETT view. The LV cavity appeared to be dilated. There was diffuse hypokinesia of the left ventricle. LV ejection fraction was around 25%. Moderate to moderately severe mitral regurgitation was noted. The LVEDP was 26 mm Hg. the LV gram was a suboptimal quality. Pressures Phase:Rest AO : 102 / 68 ( 84 ) @ 4:01:00 PM 106 / 70 ( 85 ) @ 4:11:00 PM 113 / 61 ( 86 ) @ 4:11:00 PM LV : 127 / -6 / 26 @ 4:09:00 PM 127 / -7 / 26 @ 4:09:00 PM 125 / -5 / 27 @ 4:11:00 PM 124 / - @ 4:11:00 PM Valves Phase:DefaultPhase AV : 15.0 @ 5:18:14 PM 15.0 @ 5:18:14 PM AV Mean Gradient: 14.0 @ 5:18:14 PM Clinical Evaluation EBL: 5mL-10mL Procedural Details Current Diagnosis : NSTEMI. Pre-Procedure Time Out. Identified patient by full name and date of as verbalized by the patient/guarantor. Does the consent match the physician's order: Yes. Accurate & Complete Informed Consent: Yes. Inpatient/Outpatient History & Physical on Chart: Yes. If H&P is completed, is and addenduem needed: N/A; If yes, is the addendum complete: N/A. Relevant Radiology Images available: N/A. Pre-op teaching completed and patient verbalized understanding. The risks, benefits, and alternatives of sedation and/or procedure were discussed by physician. The patient agrees to continue. Procedure started. [facility] Clinical Fraility Score: 4: Vulnerable. Bobbin Disker Indications: Worsening Angina. Chest Pain Symptom Assessment: Atypical Angina. Cardiovascular Instability: No, if yes, Persistant Ischemic Symptoms. Correct patient, site and procedure confirmed by cath team. PERRLA. Strong, equal hand flatwork finisher bilaterally. Lungs clear x 5 lobes. IV Site on Arrival: 20 gauge in the left anticubital. IV Fluids: 0.9% NaCl at KVO. 100 mL infused prior to quality assurance lab technician. Oxygen started at 2liters/min via nasal canula. Pre Procedural Pulses: bilateral dorsalis pedis was 2+. right groin was prepped with chloroprep then draped in the usual sterile fashion. Physician notified. Baseline sample Acquired. HR: 88 BPM. Physician arrived. Physician scrubbed in. Immediate Pre-Procedure Time Out. Correct Patient: Yes; Correct Procedure: Yes; Correct Site: Yes; Correct Patient Position: Yes; Correct Supplies: Yes; Dried Flammable Prep: Yes; Blood Products Available: N/A;. Lidocaine 1% infiltrated to the right groin. Arterial access obtained with micropuncture set. A 5 [place] citizen JL4 catheter in over wire. ACT drawn. Results 130 seconds. Therapeutic limits - pre-heparin administration 90-150 seconds and monitoring heparin during a vascular procedure >250 seconds. Multiple views taken of left coronary artery. Catheter removed over the exchange wire. A 5 [place] citizen JR4 catheter in over wire. Multiple views taken of right coronary artery. SVG's to RCA occluded. SVG's to OM occluded. SVG's to Diaganol visualized and patent. Catheter out. A 5 [place] citizen IM catheter in over wire. DELANEY to LAD visualized. Catheter removed over the exchange wire. A 5 [place] citizen Angled Pig catheter in over wire. EDP Sample taken: LV 127/-8,26; HR: 85 BPM; SpO2: 96%. LV gram performed in CROCKETT @ 10 mL/second for a total of 30 mL. EDP Sample taken: LV 125/-6,27; HR: 83 BPM; SpO2: 96%. Pullback taken: LV 124/-6,27; AO 106/70(85); Mean: 14mmHg, Peak to Peak: 15mmHg, SEP: 17sec/min; HR: 84 BPM; SpO2: 96%. Catheter out. A Suture was successful obtaining hemostatsis at the Right Femoral artery insertion site. Sheath(s) sutured into position with 2-0 silk and sterile 4x4's and Op-site applied over the site. No oozing or signs and symptoms of hematoma noted. Post Procedure: Pulses reassessed and unchanged. PERRLA. Strong, equal hand flatwork finisher bilaterally. No VTE prophylaxis required. Medication's Wasted: Lidocaine 1% = 10 mL. Medication's Wasted: Heparin = 4000u. Total IV fluids: 48 mL. Complications: none. Estimated blood loss: 5mL-10mL. Procedure completed. Patient transferred by stretcher to 1st floor. Vital chart was stopped. Access Site Site: Right Femoral artery Sheath Size: 6 Fr Hemostasis Method: Suture Hemostasis Success: Successful Procedure Medications Start: 4:38 PM Stop: 4:38 PM Medication: Versed Amount: 1 mg Route: I.V. Start: 4:38 PM Stop: 4:38 PM Medication: Fentanyl Amount: 50 mcg Start: 4:44 PM Stop: 4:44 PM Medication: Fentanyl Amount: 50 mcg Route: I.V. Start: 4:44 PM Stop: 4:44 PM Medication: Versed Amount: 1 mg Route: I.V. Start: 4:50 PM Stop: 4:50 PM Medication: Versed Amount: 1 mg Route: I.V. Start: 4:56 PM Stop: 4:56 PM Medication: Versed Amount: 1 mg Route: I.V. I, the attending physician, have reviewed and verified all procedure medications. Yes, all medications given per verbal order History/Risk Factors Hypertension: Yes Dyslipidemia: Yes Peripheral Arterial Disease (PAD): No Myocardial Infarction (NE): Yes Obesity: No Renal Disease: No Tobacco Use: Never Prior Interventions PCI: No CABG: Yes Valve Surgery: No Report Signatures Finalized by Dr Jose Nj MD [facility] on 04/28/2021 10:01 AM
--- NOTE | 2021-04-27 16:31 | W.PM.OPSUD ---
Surgery/Procedure H&P Update DATE OF PROCEDURE: April 27, 2021 DATE H&P PERFORMED: 04/27/21 H&P UPDATE INFORMATION: I have reviewed H&P completed within last 30 days, I have examined patient prior to procedure and No changes to prior documentation PREOP DIAGNOSIS: ASHD PRIMARY INDICATION FOR PROCEDURE: CHF/ Abnormal stress test/ Cardiomyopathy PLANNED PROCEDURE: Operation Date: 04/27/21 16:30 Proposed Procedures p Cardiac Catheterization(Not Applicable) - Jose Nj MD PATIENT REASSESSED PRIOR TO SEDATION, WITH NO CHANGE NOTED: Yes PHYSICAL EXAM: alert, clear to auscultation bilaterally and regular rate & rhythm AIRWAY EVAL/ANESTHESIA PLAN: normal airway, see other exam findings, ASA III, Monitored Anesthesia, Local Anesthesia and Patient agrees to continue as planned
--- NOTE | 2021-04-27 16:59 | PC.NURSE ---
Pt was transferred to lab technician at approximately 1625.
--- NOTE | 2021-04-27 18:30 | PC.NURSE ---
Pt returned from geotechnical laboratory technician at approximately 1705. Pts had cardiac sheath to right groin connected to pressure bag. Drsg dry and intact no swelling, hematoma or bleeding noted at the present time. Pt had no c/o pain or discomfort at the present time. Pt teaching was done on the importance of keeping right leg flat and still and lying flat and still in bed. Pt verbalized understanding. Call light in reach. Will continue to monitor.
--- NOTE | 2021-04-27 19:21 | PC.NURSE ---
Patient requesting something to help with sleep tonight. Dr Nj present on the floor at this time. Received verbal or to give Restoril 15mg PO PRN bedtime. RBVO
[2021-04-27] MEDS: sacubitril/valsartan 24-26 mg Tablet 1 EACH PO (19:34)
[2021-04-27 20:22] LABS: Partial Thromboplastin Time 29.9 SECONDS (23.9-36.7)
[2021-04-27] MEDS: temazepam 15 mg Capsule PO (20:39)
[2021-04-27] MEDS: guaiFENesin 100 mg/5 mL UDC 10 mL 200 MG PO (20:39)
--- NOTE | 2021-04-27 20:43 | PC.NURSE ---
Initiated sheath removal as ordered per Dr Nj at 2008. Hemostasis achieved immediately. Maintained pressure to site for 20min. Patient tolerated well. VS remained WNL. Covered site with folded 4x4 and bio-occlusive dressing. No s/s of bleeding or hematoma formation observed. Administered medications as ordered and documented. Will continue to monitor.
--- NOTE | 2021-04-27 23:16 | PC.NURSE ---
Patient not leaving BP cuff in place. Patient reports feeling hot. Provided fan for comfort. Patient stated, I cannot get comfortable and sleep. Repositioned for comfort. Will continue to monitor.
--- NOTE | 2021-04-27 23:17 | PC.NURSE ---
Patient unable to lie still. Post LHC with right femoral access. Dressing to right groin remains c,d,i with no s/s of bleeding or hematoma formation. Patient denies pain to site. Will continue to monitor.
[2021-04-28] VITALS (53 sets, daily range): BP systolic 99–131; BP diastolic 34–90; PULSE 78–101; RESP 18–22; TEMP 36.6; O2SAT 89–98
[2021-04-28 05:43] LABS: Basophils % 0.4 %; Eosinophils # 0.2 10^3/uL (0.0-0.8); Eosinophils % 1.5 %; Hematocrit 43.4 % (42.0-52.0); Hemoglobin 13.6 g/dL (11.7-16.6); Lymphocytes # 1.1 10^3/uL (0.8-4.8); Lymphocytes % 11.2 %; Mean Corpuscular HGB Conc 31.3 g/dL (30.0-36.0); Mean Corpuscular Hemoglobin 28.2 pg (28.0-34.0); Mean Corpuscular Volume 89.9 fl (80-94); Mean Platelet Volume 12.5 fL (7.4-10.4); Monocytes # 0.8 10^3/uL (0.2-0.9); Monocytes % 8.2 %; Neutrophils # 7.69 10^3/uL (1.8-7.7); Nucleated Red Blood Cells % 0 %; Platelet Count 142 10^3/cmm (130-400); Red Blood Count 4.83 10^6/uL (4.1-5.3); Red Cell Distribution Width 15.4 % (12.1-15.1); White Blood Count 9.9 10^3/uL (4.0-10.0)
--- NOTE | 2021-04-28 05:44 | PC.NURSE ---
Shift Note Frequent safety and comfort rounds continue. Orders and/or nursing care completed as indicated. Patient monitored for response to intervention and treatment(s). Education provided includes post [facility] site care. Patient verbalized understanding. Patient had restless night. Patient unable to lie flat and was found to be sitting on edge of bed ~3hours post sheath removal. Dressing to right groin remains c,d,i with NO s/s of bleeding or hematoma formation observed. Patient finally got comfortable around midnight and was able to sleep until lab in this am. Patient denies pain or needs. No distress observed. Will continue to monitor.
[2021-04-28 06:13] LABS: Alanine Aminotransferase 541 U/L (0-41); Albumin Level 3.4 g/dL (3.5-5.2); Alkaline Phosphatase 51 IU/L (40-130); Anion Gap 14.3 (5-19); Aspartate Amino Transferase 73 U/L (0-40); Blood Urea Nitrogen 23 mg/dL (8-23); Calcium 8.8 mg/dL (8.5-10.5); Carbon Dioxide 24 mmol/L (22-29); Chloride 111 mmol/L (98-107); Globulin 2.1 g/dL (1.3-4.6); Glomerular Filtration Rate 74.3 mL/min (90-130); Glucose 118 mg/dL (65-115); Magnesium 2.2 mg/dL (1.7-2.3); Osmolality Calculated 307 mOsm/kg (285-295); Phosphorus 2.4 mg/dL (2.5-4.5); Potassium 3.3 mmol/L (3.5-5.1); Sodium 146 mmol/L (136-145); Total Bilirubin 1.1 mg/dL (0.15-1.2); Total Protein 5.5 g/dL (6.6-8.7)
[2021-04-28 07:28] LABS: Digoxin 0.3 ng/mL (0.6-1.2)
[2021-04-28] MEDS: sacubitril/valsartan 24-26 mg Tablet 1 EACH PO (08:00)
--- NOTE | 2021-04-28 08:21 | PM.PN ---
Subjective Subjective: Interval history: Patient is feeling much better. He is ambulating on telemetry. No arrhythmias are noted on monitor. Continues to remain in sinus rhythm. Had the cardiac catheterization yesterday. 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 Patent DELANEY to the LAD and venous graft to the diagonal. Left to left and left to right collaterals also were noted Medications: Reviewed: Yes Medication Review Details: Current Medications Acetaminophen (Acetaminophen 325 Mg Tablet) 650 mg PO Q6H PRN PRN Reason: MILD PAIN Al Hydrox/Mg Hydrox/Simethicone (Edbw-Fye-Jirxaptva-Nely 30 Ml Udc) 30 ml PO Q15M PRN PRN Reason: INDIGESTION Amiodarone HCl (Amiodarone 200 Mg Tablet) 400 mg PO BID [facility] Last Admin: 04/27/21 10:13 Dose: 400 mg Documented by: Atropine Sulfate (Atropine 1 Mg/Ml Sdv 1 Ml) 0.5 mg IVP PRN PRN PRN Reason: Symptomatic bradycardia Bisacodyl (Bisacodyl 5 Mg Tablet) 10 mg PO DAILY PRN; Protocol PRN Reason: Constipation (see protocol) Denture Adhesive (Fixodent 39 Gm Tube) 1 applic DENTAL PRN PRN PRN Reason: denture adhesive Last Admin: 04/24/21 18:19 Dose: 1 appful Documented by: Digoxin (Digoxin 250 Mcg/Ml Inj 2 Ml) 250 mcg IVP ONCE PRN PRN Reason: heart rate Famotidine (Famotidine 20 Mg Tablet) 20 mg PO BID [facility] Last Admin: 04/27/21 10:12 Dose: 20 mg Documented by: Fluticasone Propionate (Fluticasone Nasal [place] 16gm Btl) 1 spray INTRANASAL DAILY [facility] Last Admin: 04/27/21 10:12 Dose: 1 spray Documented by: Furosemide (Furosemide 40 Mg Tablet) 40 mg PO DAILY@0800 [facility] Last Admin: 04/27/21 10:12 Dose: 40 mg Documented by: Guaifenesin (Guaifenesin 100 Mg/5 Ml Udc 10 Ml) 200 mg PO Q4H PRN PRN Reason: COUGH AND CONGESTION Last Admin: 04/27/21 20:39 Dose: 200 mg Documented by: Heparin Sodium (Porcine) (Heparin 5,000 Unit/Ml Inj 1 Ml) 0 unit IV PRN PRN; Protocol PRN Reason: Heparin weight-base protocol Last Admin: 04/26/21 14:13 Dose: 1,800 unit Documented by: Heparin Sodium/Sodium Chloride (Heparin Drip) 25,000 unit in 500 mls @ 0 mls/hr IV .Q0M LYNNE; Protocol Last Admin: 04/26/21 23:59 Dose: 17.98 unit/kg/hr, 31 mls/hr Documented by: Imipenem/Cilastatin Sodium 500 (mg/ Sodium Chloride) 100 mls @ 200 mls/hr IV Q8H LYNNE Stop: 04/28/21 23:59 Last Infusion: 04/27/21 10:44 Dose: Infused Documented by: Magnesium Hydroxide (Magnesium Hydroxide 30 Ml Udc) 30 ml PO DAILY PRN; Protocol PRN Reason: Constipation (see protocol) Magnesium Hydroxide (Magnesium Hydroxide 30 Ml Udc) 30 ml PO DAILY PRN PRN Reason: CONSTIPATION Montelukast Sodium (Montelukast Sodium 10 Mg Tablet) 10 mg PO DAILY [facility] Last Admin: 04/27/21 10:16 Dose: 10 mg Documented by: Morphine Sulfate (Morphine 4 Mg/Ml Sdv 1 Ml) 1 mg IVP Q4H PRN PRN Reason: SEVERE PAIN Naloxone HCl (Naloxone 0.4 Mg/Ml Sdv) 0.1 mg IVP Q2M PRN PRN Reason: RESPIRATORY RATE < 8/MIN Nitroglycerin (Nitroglycerin 0.4 Mg Sublingual Tablet) 0.4 mg SUBLINGUAL Q5M PRN PRN Reason: CHEST PAIN Non-Formulary Medication (Alirocumab [Praluent Pen]) 150 mg SUBCUT Q14D [facility] Last Admin: 04/25/21 12:32 Dose: 150 mg Documented by: Ondansetron HCl (Ondansetron 2 Mg/Ml Sdv 2 Ml) 4 mg IVP Q8H PRN PRN Reason: vomiting, or N/V if npo Last Admin: 04/23/21 19:48 Dose: 4 mg Documented by: Sacubitril/Valsartan (Sacubitril/Valsartan 24-26 Mg Tablet) 1 each PO BID [facility] Last Admin: 04/28/21 08:00 Dose: 1 each Documented by: Fluticasone/Salmeterol (Fluticasone-Salmeterol 250-50 Diskus) 1 puff INHALATION BID.RESPIRATORY [facility] Last Admin: 04/27/21 09:42 Dose: Not Given Documented by: Temazepam (Temazepam 15 Mg Capsule) 15 mg PO BEDTIME [facility] Last Admin: 04/27/21 20:39 Dose: 15 mg Documented by: Zolpidem Tartrate (Zolpidem 5 Mg Tablet) 5 mg PO BEDTIME PRN PRN Reason: Insomnia after temazepam Last Admin: 04/27/21 20:40 Dose: 5 mg Documented by: Vitals/I&O/Wt Last Vital Signs Temp 98 F 04/28/21 04:00 Pulse 91 04/28/21 07:12 Resp 18 04/28/21 07:12 BP 128/86 04/28/21 07:12 Pulse Ox 97 04/28/21 07:12 04/27/21 04/28/21 04/28/21 22:59 06:59 14:59 Intake Total 480 / 986.426 7578.833 / 1902.500 Output Total 900 / 1900 Balance 480 / -313.333 315.833 / 2.500 Weight last 48 hrs Weight 197 lb Weight 198 lb Physical Exam Narrative: EXAM NARRATIVE: GENERAL: The patient is alert and oriented times three. Slightly tachypneic HEENT: Minimal pallor with no, icterus or lymphadenopathy. The pupils are symmetrical. Oral cavity: There are no mucous membrane lesions. NECK: Trachea appears to be central. No masses noted. No JVD or thyromegaly appreciated. No carotid bruit. RESPIRATORY: Chest is symmetrical. No intercostals muscle retraction or any accessory muscle activation. There is no chest wall tenderness. Breath sounds are heard bilaterally. No rales or rhonchi. BREASTS: Deferred. HEART: PMI could not be palpated. No palpable precordial events. S1 is variable. S2 is normal. Soft S3 present. No pericardial rub or any click heard. Systolic murmur grade 3/6 in the left sternal border. No diastolic murmurs. ABDOMEN: No vessel pulsations or distention. No tenderness. No organomegaly appreciated. No abdominal bruit. Bowel sounds are normally heard. : Deferred. RECTAL: Deferred. LYMPHATIC: No lymphadenopathy noted in the neck or groin. EXTREMITIES: No significant edema or cyanosis. Peripheral pulses are palpable but weak bilaterally MUSCULOSKELETAL: No acute joint deformities or swelling SKIN: There are no significant scars or skin rash noted. NEUROPSYCHIATRIC: The patient is alert and oriented x3. Appears to be in a good mood. The higher functions are grossly within normal limits. No tremors or rigidity noted. Const: COMMON NORMALS: alert Resp: COMMON NORMALS: clear to auscultation bilaterally AUSCULTATION: clear to auscultation bilaterally Neuro: SENSORIUM/ORIENTATION: Yes alert Urinary Catheter Management^: Robertson: Cath Placed During This Visit: yes Reason for Continuing Indwelling Catheter: Acute Urinary Retention or Obstruction Urinary Catheter Date of Insertion: 04/23/21 Urinary Catheter Time of Insertion: 17:10 Data : 04/28/21 04:20 04/28/21 04:20 Other Labs: Laboratory Last Values WBC 9.9 10^3/uL (4.0-10.0) 04/28/21 04:20 Corrected WBC Cancelled 04/23/21 14:08 RBC 4.83 10^6/uL (4.1-5.3) 04/28/21 04:20 Hgb 13.6 g/dL (11.7-16.6) 04/28/21 04:20 Hct 43.4 % (42.0-52.0) 04/28/21 04:20 MCV 89.9 fl (80-94) 04/28/21 04:20 MCH 28.2 pg (28.0-34.0) 04/28/21 04:20 MCHC 31.3 g/dL (30.0-36.0) 04/28/21 04:20 RDW 15.4 % (12.1-15.1) H 04/28/21 04:20 Plt Count 142 10^3/cmm (130-400) 04/28/21 04:20 MPV 12.5 fL (7.4-10.4) H 04/28/21 04:20 Gran % Cancelled 04/23/21 14:08 Neut % (Auto) 78.0 % 04/28/21 04:20 Lymph % (Auto) 11.2 % 04/28/21 04:20 [place] % (Auto) 8.2 % 04/28/21 04:20 Eos % (Auto) 1.5 % 04/28/21 04:20 Baso % (Auto) 0.4 % 04/28/21 04:20 Neut # (Auto) 7.69 10^3/uL (1.8-7.7) 04/28/21 04:20 Lymph # (Auto) 1.1 10^3/uL (0.8-4.8) 04/28/21 04:20 [place] # (Auto) 0.8 10^3/uL (0.2-0.9) 04/28/21 04:20 Eos # (Auto) 0.2 10^3/uL (0.0-0.8) 04/28/21 04:20 Baso # (Auto) 0.0 10^3/uL (0.0-0.1) 04/28/21 04:20 Absolute Gran (auto) Cancelled 04/23/21 14:08 Nucleated RBC % (auto) 0 % 04/28/21 04:20 Nucleated RBCs # 0.0 /100WBC 04/28/21 04:20 PT 20.00 SECONDS (12.1-14.9) H 04/24/21 02:45 INR 1.66 (0.8-1.2) H 04/24/21 02:45 APTT 29.9 SECONDS (23.9-36.7) D 04/27/21 20:00 Specimen Type Arterial 04/23/21 17:03 Sample Site Radial, left 04/23/21 17:03 ABG pH 7.39 (7.35-7.45) 04/23/21 17:03 ABG pCO2 25.4 mmHg (35-45) L 04/23/21 17:03 ABG pO2 94.0 mmHg (80.0-100.0) 04/23/21 17:03 ABG HCO3 15.4 mmol/L (22-26) L 04/23/21 17:03 ABG O2 Saturation 97.5 04/23/21 17:03 ABG Base Excess -7.6 mmol/L (-2.0-2.0) L 04/23/21 17:03 [place] Test Pos 04/23/21 17:03 A-a O2 Gradient 2.8 mmHg (5-10) L 04/23/21 17:03 Hematocrit 45.6 % (42-52) 04/23/21 17:03 Hgb O2 Saturation 96.0 % (95-100) 04/23/21 17:03 Carboxyhemoglobin 0.8 %THgb (0.4-20.1) 04/23/21 17:03 Methemoglobin 0.7 % (0.4-1.5) 04/23/21 17:03 Total Hemoglobin 14.9 g/dL (14-18) 04/23/21 17:03 Sodium 136.0 mmol/L (131-143) 04/23/21 17:03 Potassium 5.7 mmol/L (3.5-5.0) H 04/23/21 17:03 Glucose 184.0 mg/dL (70-115) H 04/23/21 17:03 Ionized Calcium 1.2 mmol/L (1.1-1.4) 04/23/21 17:03 O2 Delivery Device Room air 04/23/21 17:03 FiO2 21.0 % 04/23/21 17:03 Planishing Press Operator ID Cak 04/23/21 17:03 Sodium 146 mmol/L (136-145) H 04/28/21 04:20 Potassium 3.3 mmol/L (3.5-5.1) L 04/28/21 04:20 Chloride 111 mmol/L (98-107) H 04/28/21 04:20 Carbon Dioxide 24 mmol/L (22-29) 04/28/21 04:20 Anion Gap 14.3 (5-19) 04/28/21 04:20 BUN 23 mg/dL (8-23) 04/28/21 04:20 Creatinine 1.0 mg/dL (0.7-1.2) 04/28/21 04:20 GFR Calculation 74.3 mL/min (90-130) L 04/28/21 04:20 Glucose 118 mg/dL (65-115) H 04/28/21 04:20 Estimat Average Glucose 131 04/24/21 10:58 Hemoglobin A1c 6.2 % (4.0-6.0) H 04/24/21 10:58 Calculated Osmolality 307 mOsm/kg (285-295) H 04/28/21 04:20 Uric Acid 15.3 mg/dL (3.4-7.0) H 04/24/21 10:58 Calcium 8.8 mg/dL (8.5-10.5) 04/28/21 04:20 Phosphorus 2.4 mg/dL (2.5-4.5) L 04/28/21 04:20 Magnesium 2.2 mg/dL (1.7-2.3) 04/28/21 04:20 Iron 118 ug/dL (59-158) 04/23/21 14:45 TIBC 333 mcg/dl 04/23/21 14:45 % Saturation 35.4 % (20-50) 04/23/21 14:45 Unsat Iron Binding 215 ug/dL (112-347) 04/23/21 14:45 Ferritin 2429 ng/mL (30-400) H 04/25/21 03:14 Total Bilirubin 1.1 mg/dL (0.15-1.2) 04/28/21 04:20 Direct Bilirubin 0.40 mg/dL (0.00-0.30) H 04/25/21 18:58 Indirect Bilirubin 0.70 04/25/21 18:58 AST 73 U/L (0-40) H 04/28/21 04:20 ALT 541 U/L (0-41) H 04/28/21 04:20 Alkaline Phosphatase 51 IU/L (40-130) 04/28/21 04:20 Creatine Kinase 141 U/L (39-308) 04/23/21 14:45 Creatine Kinase Cancelled 04/23/21 14:45 Troponin T Baseline 174 ng/L (0-15) H* 04/23/21 14:45 Troponin T 120 Minute 179.1 ng/L (0-15) H 04/23/21 16:55 Delta Troponin T 5.1 ABS# (0-10) 04/23/21 16:55 Troponin T Hi Sens 6Hr 200.8 ng/L (0-15) H 04/23/21 20:40 Troponin T Hi Sens 6Hr Delta 26.8 ng/L (0-12) H* 04/23/21 20:40 NT-Pro-B Natriuret Pep 6501 pg/mL (0-125) H 04/25/21 03:14 Total Protein 5.5 g/dL (6.6-8.7) L 04/28/21 04:20 Albumin 3.4 g/dL (3.5-5.2) L 04/28/21 04:20 Globulin 2.1 g/dL (1.3-4.6) 04/28/21 04:20 Triglycerides 51 mg/dL (0-150) 04/25/21 03:14 Cholesterol 79 mg/dL (0-200) 04/25/21 03:14 LDL Cholesterol, Calc 31 mg/dL (50-129) L 04/25/21 03:14 Total VLDL Cholesterol 10 mg/dL (0-30) 04/25/21 03:14 HDL Cholesterol 38 mg/dL (60-100) L 04/25/21 03:14 Cholesterol/HDL Ratio 2.08 mg/dL (1.0-5.00) 04/25/21 03:14 Procalcitonin 0.45 ng/mL (0-0.5) 04/23/21 14:45 TSH 2.91 uIU/mL (0.27-4.20) 04/23/21 14:45 PTH Intact 147.1 pg/mL (15-65) H 04/25/21 03:14 Calcium (PTH Intact) 7.8 mg/dL (8.5-10.5) L 04/25/21 03:14 Urine Color Yellow (Yellow) 04/23/21 17:07 Urine Appearance Cloudy (CLEAR) 04/23/21 17:07 Urine pH 5 (5-7) 04/23/21 17:07 Ur Specific [place] 1.025 (1.005-1.030) 04/23/21 17:07 Urine Protein Trace (Negative) 04/23/21 17:07 Urine Glucose (UA) Norm (Normal) 04/23/21 17:07 Urine Ketones 1+ (Negative) H 04/23/21 17:07 Urine Blood 2+ (Negative) H 04/23/21 17:07 Urine Nitrate Negative (Negative) 04/23/21 17:07 Urine Bilirubin Neg (Negative) 04/23/21 17:07 Urine Urobilinogen 1 mg/dL (Negative) H 04/23/21 17:07 Ur Leukocyte Esterase Negative (Negative) 04/23/21 17:07 Urine RBC 5-10 /hpf (0-2) H 04/23/21 17:07 Urine WBC Rare /hpf (0-5) 04/23/21 17:07 Ur Eosinophil Smear 0 (0-0) 04/23/21 17:07 Ur Squamous Epith Cells None /hpf (0-5) 04/23/21 17:07 Amorphous Sediment 1+ /hpf 04/23/21 17:07 Urine Bacteria 2+ /hpf (NONE) H 04/23/21 17:07 Hyaline Casts 15-25 /lpf H 04/23/21 17:07 Urine Eosinophils No eosinophils seen 04/23/21 17:07 Ur Random Microalbumin 19 ug/dL (0-20) 04/23/21 17:07 Ur Random Sodium 20 mmol/L 04/23/21 17:07 Ur Random Potassium > 124 mmol/L 04/23/21 17:07 Ur Random Chloride < 10 mmol/L 04/23/21 17:07 Urine Creatinine 210 mg/dL (39-259) 04/23/21 17:07 Urine Creatinine 212 mg/dL (39-259) 04/23/21 17:07 Microalb/Creat Ratio 90 mg/dL (0-20) H 04/23/21 17:07 Random Vancomycin < 4.0 ug/mL (20.0-40.0) L 04/27/21 07:35 Digoxin 0.3 ng/mL (0.6-1.2) L 04/28/21 04:20 Hepatitis A IgM Ab Non-reactive (Nonreactive) 04/23/21 16:55 Hep Bs Antigen Non-reactive (Nonreactive) 04/23/21 16:55 Hep Bs Antibody 46.5 (11.5-1000) 04/23/21 16:55 Hep B Core Total Ab Non-reactive (Nonreactive) 04/23/21 16:55 Hepatitis C Antibody Non-reactive (Nonreactive) 04/23/21 16:55 HIV 1&2 Ab & HIV 1 Ag Non-reactive (Non-Reactiv) 04/23/21 16:55 HIV 1&2 Antibody Non-reactive (Non-Reactiv) 04/23/21 16:55 A&P Assessment and plan (1) Acute on chronic systolic heart failure: The heart failure seems to be fairly compensated at this time. We will continue on the p.o. Lasix 60 mg daily. Continue the Entresto twice daily. Status: Resolved (2) Atrial fibrillation with rapid ventricular response: Will give amiodarone 400 mg p.o. twice daily for a week followed by daily for a week followed by 200 mg p.o. daily. Status: Acute (3) Acute renal failure (ARF): Patient has significant improvement of the kidney function we will continue to monitor the kidney function closely. Status: Acute Qualifiers: Acute renal failure type: unspecified Qualified Code(s): N17.9 - Acute kidney failure, unspecified (4) Elevated liver enzymes: The liver enzymes continue to trend down. Status: Acute (5) Hypercholesterolemia: Patient has been on the Repatha. That may be continued. Status: Acute (6) Atherosclerosis of coronary artery of [place] heart without angina pectoris: Since the patient has no revascularizable lesions, optimizing the medical treatment would be the plan of action. Status: Acute Qualifiers: Coronary Disease-Associated Artery/Lesion type: unspecified vessel or lesion type Qualified Code(s): I25.10 - Atherosclerotic heart disease of [place] coronary artery without angina pectoris (7) Hyperkalemia: Potassium supplement Status: Acute (8) Moderate to severe mitral regurgitation: The mitral regurgitation is moderate to moderately severe. At this point, patient may not require any specific intervention. Status: Acute (9) Ischemic cardiomyopathy: Optimize treatment as mentioned above. Status: Acute Additional A&P Information Other problems are Elevated white cell count-improving. Statin intolerance If the patient continues to remain stable, may be discharged home from a cardiac standpoint. We will see him in the clinic in a month. Will be seen by the nurse practitioner [facility] next week. Attestations Medical Necessity Statement*: Patient requires continued hospital stay for close monitoring and further management Coding Level of Care Code Acute Recovery Operator for [facility] Fwd History Detailed Exam Detailed Medical Decision Making Moderate Complexity Diagnoses Acute on chronic systolic heart failure I50.23 Atrial fibrillation with rapid ventricular response I48.91 Acute renal failure (ARF) N17.9 Acute renal failure type: unspecified Elevated liver enzymes R74.8 Hypercholesterolemia E78.00 Atherosclerosis of coronary artery of [place] heart without angina pectoris I25.10 Coronary Disease-Associated Artery/Lesion type: unspecified vessel or lesion type Hyperkalemia E87.5 Moderate to severe mitral regurgitation I34.0 Ischemic cardiomyopathy I25.5
--- NOTE | 2021-04-28 09:57 | PC.SOCIAL ---
IMM update: pg 2 of IMM updated and reviewed w/ patient. Copy provided.
--- NOTE | 2021-04-28 10:45 | PC.CHAP ---
Pastoral Care Encounter/Spiritual Assessment Type of Contact [] Declined pi/senior research associate visit [] Patient/Family/Request visit [] Outpatient visit [] Follow-up visit [] Physician referral [] Code/Alert [x] Routine visit [] Staff referral [] Actively dying [] Patient sleeping [] Family support [] [] Out of room [] Palliative care [] [x] Receiving care in room [] Pre-surgical visit [] Trauma [x] Long length of stay [] ICU visit [] Other: Relational/Emotional Strength [x] Patient feels connected with others/family/visitors/staff [] Distress [] Loneliness/isolation [] Abandonment Spirituality of Patient [x] Person of Delia [] Attends Catholic of their Delia [x] Believes in Prayer [] Reads Bible or Hinduism materials [] There are Spiritual issues to be addressed Sample Processor Interventions [x] Prayer [x] Active listening [x] Non-anxious presence [x] Spiritual/emotional support [] Crisis/trauma care [x] Spiritual counseling [] Bereavement support [] Provided bereavement packet [] Provided Bible/devotional materials [] Provided toy/stuffed animal, coloring book to patient or family member [] Provided Communion [] Anointing/[place] [] Salvation [x] Completed spiritual assessment [] Other: Impact on Illness or Injury [] Angry [] Fearful [x] Anxious [] Often cries [] Exhaustion [x] Unable to work [] Unable to attend advent [] Unable to walk/stand [] Unable to read [] Unable to drive [] Unable to eat/drink [] Unable to sleep [] Unable to be with family [] Patient intubated [] Other: Summary Weak had stent proceedsure feels better has a good attitude and is going home Time spent with patient 10 mins
[2021-04-28] MEDS: apixaban 5 mg Tablet PO (10:52)
--- NOTE | 2021-04-28 12:29 | P.DS_ITS ---
Discharge Providers Date of Admission: 04/23/21 16:28 Date of Discharge: April 28, 2021 Attending Provider at Admission: Vadim Dominguez MD Attending Provider at Discharge: Nathaniel Madrid MD Primary Care Provider: Priyank Kaur DO Diagnoses at Discharge Discharge Diagnosis (1) Acute on chronic systolic heart failure: Status: Resolved (2) Atrial fibrillation with rapid ventricular response: Status: Acute (3) Acute renal failure (ARF): Status: Acute Qualifiers: Acute renal failure type: unspecified Qualified Code(s): N17.9 - Acute kidney failure, unspecified (4) Elevated liver enzymes: Status: Acute (5) Hypercholesterolemia: Status: Acute (6) Atherosclerosis of coronary artery of [place] heart without angina pectoris: Status: Acute Qualifiers: Coronary Disease-Associated Artery/Lesion type: unspecified vessel or lesion type Qualified Code(s): I25.10 - Atherosclerotic heart disease of [place] coronary artery without angina pectoris (7) Hyperkalemia: Status: Acute (8) Moderate to severe mitral regurgitation: Status: Acute Reason for Visit Reason for Visit: N/V, WEAK, NOT SLEEPING, SENT BY DR MACHADO [facility] Course Hospital Course 70 year old male with history of CAD post CABG, ischemic cardiomyopathy, recent diagnosis of atrial fibrillation 2 days ago for which he is undergoing oral amiodarone load, recent COVID-19 in March 2021, history of hypertension presented to the ER today complaining of difficulty in breathing which has been progressively increasing for the last 10 days and progressed to level for last 7 days when he is not even able to lie down flat in the bed along with decreased oral intake because of nausea and poor taste. Patient states he is not passing as much urine as he usually does for last 3 days which he attributed to poor oral intake. He is denying any chest pain but complaining of dizziness and palpitations. Denies any fevers, headache, dizziness complaining of increasing swelling of his lower limbs for last 4 to 5 days. In the ER he was found to be in atrial fibrillation rapid ventricular response with heart rate going up to 130s for which he received 250 mcg of digoxin, Cardizem 10 mg stat followed by drip running at 15. His mean arterial pressure has usually remained between 65-68 for which he has received up to 100 cc of normal saline. Saturating 96% on room air. Blood work in the ER showed white count 19,000, hemoglobin of 14.6, sodium 134, potassium of 6.2, chloride of 97, anion gap of 21, creatinine of 3, BUN of 44, AST/ALT of 5186/3156, proBNP of 16,000. 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 Liver ultrasound: Cholelithiasis with diffusely thickened gallbladder wall. No evidence for bile duct dilatation. , Decompensated HFrEF resolved patient was euvolemic at the time of discharge, saturating well on room air, Echocardiogram results appreciated with severe diffuse hypokinesia with EF of 20%, mildly increased LV cavity size, moderately severe MR, mild TR, PASP of 41.He was discahrged on lasix 60 mg PO daily as well as entresto was started,lRadha is the process of arrangement. Afib with RVR: Post cardioversion. Is being discharged on po amiodarone as well as eliqiuis. For his h/o CAD: Post CABG:Underwent CAG : showed severe [place] three-vessel disease. Out of 4/4 seem to be chronically occluded.Plan is to continue medical management. For Sepsis: Unknown source . MRSA swab, urine Legionella negative. Pro-Clay normal. Bacterial antigen, urine culture, blood culture negative. Was on broad spectrum abxs.Patient responded well to the above medical management and is being discharged in stable condition to home.He will continue to follow cardiology as outpatient. Physical Exam Const: COMMON NORMALS: patient oriented x3 HENMT: COMMON NORMALS: normocephalic and atraumatic HEAD & SCALP: normocephalic and atraumatic Resp: COMMON NORMALS: clear to auscultation bilaterally EFFORT & INSPECTION: Yes symmetric chest movement AUSCULTATION: clear to auscultation bilaterally Cardio: COMMON NORMALS: regular rate, regular rhythm, S1 normal heart sound present, S2 normal heart sound present, No gallops present (Cardio), No murmurs present (Cardio), No rub (Cardio) and Peripheral pulses 2+ throughout RATE: regular rate RHYTHM: regular rhythm HEART SOUNDS: S1 normal heart sound present and S2 normal heart sound present PERIPHERAL PULSES: Peripheral pulses 2+ throughout GI: COMMON NORMALS: Normal to inspection, nondistended, normoactive bowel sounds present, Soft to palpation, non-tender, No hepatosplenomegaly present and no masses AUSCULTATION: Yes normoactive bowel sounds PALPATION: Yes Soft to palpation and Yes No hepatosplenomegaly present RECTAL EXAM: Yes deferred Extremity: COMMON NORMALS: no clubbing, cyanosis or edema and no pedal edema Neuro: COMMON NORMALS: patient oriented x3 Urinary Catheter Management^: Robertson: Cath Placed During This Visit: yes, but has since been removed by the nurse Reason for Continuing Indwelling Catheter: Not indwelling catheter Urinary Catheter Date of Insertion: 04/23/21 Urinary Catheter Time of Insertion: 17:10 Date Urinary Catheter Removed: 04/28/21 Time Urinary Catheter Discontinued: 10:35 Discharge Data Data Completed and Pending: Completed Studies During Hospitalization Category Date Time Status [employer]ER request for service Routin e Exams 04/27/21 16:30 Completed XR chest 1V oralia ble [id number] Stat Exams 04/23/21 14:21 Completed CV. echo complete * [id number] Stat Ultrasound 04/23/21 16:12 Completed CV. echo transeso phageal [id number] Rout ine Ultrasound 04/25/21 Completed US liver [id number] Ro utine Ultrasound 04/26/21 15:15 Completed US renal BI* [id number] Routine Ultrasound 04/24/21 16:46 Completed Pending at discharge Category Date Time Status Blood Culture Sta t Lab 04/23/21 16:55 Results Complete Blood Co unt w/Auto AM LABS Lab 04/29/21 04:00 Ordered Complete Blood Co unt w/Auto AM LABS Lab 04/30/21 04:00 Ordered Complete Blood Co unt w/Auto AM LABS Lab 05/01/21 04:00 Ordered Comprehensive Met abolic Panel AM LA BS Lab 04/29/21 04:00 Ordered Comprehensive Met abolic Panel AM LA BS Lab 04/30/21 04:00 Ordered Digoxin AM LABS Lab 04/29/21 04:00 Ordered Magnesium AM LABS Lab 04/29/21 04:00 Ordered Magnesium AM LABS Lab 04/30/21 04:00 Ordered Phosphorus AM LAB S Lab 04/29/21 04:00 Ordered Phosphorus AM LAB S Lab 04/30/21 04:00 Ordered Vitamin D 1,25 Di hydroxy Routine Lab 04/24/21 10:58 Received Labs from last 24 hours 04/28/21 04/28/21 04/27/21 04:20 04:20 20:00 WBC 9.9 RBC 4.83 Hgb 13.6 Hct 43.4 MCV 89.9 MCH 28.2 MCHC 31.3 RDW 15.4 H Plt Count 142 MPV 12.5 H Neut % (Auto) 78.0 Lymph % (Auto) 11.2 [place] % (Auto) 8.2 Eos % (Auto) 1.5 Baso % (Auto) 0.4 Neut # (Auto) 7.69 Lymph # (Auto) 1.1 [place] # (Auto) 0.8 Eos # (Auto) 0.2 Baso # (Auto) 0.0 Nucleated RBC % (a uto) 0 Nucleated RBCs # 0.0 APTT 29.9 D Sodium 146 H Potassium 3.3 L Chloride 111 H Carbon Dioxide 24 Anion Gap 14.3 BUN 23 Creatinine 1.0 GFR Calculation 74.3 L Glucose 118 H Calculated Osmolal ity 307 H Calcium 8.8 Phosphorus 2.4 L Magnesium 2.2 Total Bilirubin 1.1 AST 73 H ALT 541 H Alkaline Phosphata se 51 Total Protein 5.5 L Albumin 3.4 L Globulin 2.1 Digoxin 0.3 L 04/27/21 14:38 WBC RBC Hgb Hct MCV MCH MCHC RDW Plt Count MPV Neut % (Auto) Lymph % (Auto) [place] % (Auto) Eos % (Auto) Baso % (Auto) Neut # (Auto) Lymph # (Auto) [place] # (Auto) Eos # (Auto) Baso # (Auto) Nucleated RBC % (a uto) Nucleated RBCs # APTT 64.2 H Sodium Potassium Chloride Carbon Dioxide Anion Gap BUN Creatinine GFR Calculation Glucose Calculated Osmolal ity Calcium Phosphorus Magnesium Total Bilirubin AST ALT Alkaline Phosphata se Total Protein Albumin Globulin Digoxin Vitals: Last Vital Signs Temp 98 F 04/28/21 04:00 Pulse 91 04/28/21 07:12 Resp 18 04/28/21 07:12 BP 128/86 04/28/21 07:12 Pulse Ox 97 04/28/21 07:12 Discharge Plan Discharge Patient Disposition: Home Condition: Stable Prescriptions: New Eliquis 5 mg Tablet 5 mg PO BID@0900,2100 Qty: 60 RF: 3 Entresto 24-26 mg Tablet 1 tab PO BID Qty: 60 RF: 3 Lasix 40 mg tablet 60 mg PO DAILY Qty: 30 RF: 3 Continued tramadol 50 mg tablet 50 mg PO TID PRN (Reason: Pain) RF: 0 cetirizine 10 mg tablet 10 mg PO DAILY PRN (Reason: allergy symptoms) RF: 0 fluticasone propionate [Flonase Allergy Relief] 50 mcg/actuation spray,suspension 1 spray intranasal DAILY RF: 0 cholecalciferol (vitamin D3) 50 mcg (2,000 unit) capsule 50 mcg PO DAILY RF: 0 niacin [Slo-Niacin] 250 mg tablet extended release 500 mg PO DAILY RF: 0 terazosin 10 mg capsule 10 mg PO BID RF: 0 Praluent Pen 150 mg/mL pen injector 150 mg SUBCUT Q14D Qty: 2 RF: 11 amiodarone 200 mg tablet See Rx Instructions .ROUTE .COMPLEX Qty: 197 RF: 0 montelukast 10 mg Tablet 10 mg PO DAILY RF: 0 albuterol sulfate 90 mcg/actuation Hfa Aerosol Inhaler 2 puff INHALATION Q4H PRN (Reason: Shortness Of Breath) RF: 0 Symbicort 160-4.5 mcg/actuation Hfa Aerosol Inhaler 2 puff INHALATION BID RF: 0 potassium chloride 20 mEq tablet,ER particles/crystals 20 meq PO BID RF: 0 Discontinued furosemide 80 mg tablet 80 mg PO DAILY RF: 0 Discharge Orders: Discharge Order (Routine); Ordered 04/28/21 Ordered By: Nathaniel Madrid Other Ambulatory Orders: DME: Axel (Order) Location: None Selected Ordered By: Vadim Dominguez Referrals: Jose Machado MD [Physician] - 05/03/21 10:00 am (You have a followup with Dr. Machado on May.03 at 10:00 at [facility] ) Priyank Kaur DO [Primary Care Provider] - 05/04/21 8:20 am (You have a hosp ital followup with [facility]. Kaur at [facility] on May 04 at 8:20am) Discharge Diet: Cardiac Discharge Activity: Resume usual activity Patient Instructions: Furosemide (By mouth), Apixaban (By mouth), Sacubitril/Valsartan (By mouth), Opioid Safety Discharge Attestations Time Spent in Discharge Care*: less than 30 min Specific Discharge Activities: educating patient, educating and/or supporting family/caregiver, discussing with pcp/other providers, discussing with comp field case manager/social workers/dc planners, documenting/other paperwork and evaluating patient/reviewing data Status at Discharge: Cognitive status at discharge: cognitively intact , Behavioral status at discharge: cooperative , Functional status at discharge: independent ambulation Overall status at discharge: patient is back to baseline Quality Metrics Clinical Quality Measures During this hospital stay, did patient experience: None Coding Level of Care Code Acute Chg FW DC note Diagnoses Acute on chronic systolic heart failure I50.23 Atrial fibrillation with rapid ventricular response I48.91 Acute renal failure (ARF) N17.9 Acute renal failure type: unspecified Elevated liver enzymes R74.8 Hypercholesterolemia E78.00 Atherosclerosis of coronary artery of [place] heart without angina pectoris I25.10 Coronary Disease-Associated Artery/Lesion type: unspecified vessel or lesion type Hyperkalemia E87.5 Moderate to severe mitral regurgitation I34.0
[2021-04-28 14:57] LABS: Vit D 1,25 (Oh)2, Total 25 pg/mL (18-72); Vit D2 1,25 (Oh)2 <8 pg/mL; Vit D3 1,25 (Oh)2 25 pg/mL
== END 2021-04-28 14:25 | disposition home or self-care (01) | DRG 871 ==
LOC: ER 16:34 → ICU 16:48 → CSU 04-26 13:08
PROVIDERS: Hospitalist; Internal Medicine Cardiovascular Disease; Internal Medicine Nephrology; Student in an Organized Health Care Education/Training Program; Admitting Provider Student in an Organized Health Care Education/Training Program; Emergency Provider Family Medicine; PCP Electrodiagnostic Medicine; Visit Provider Internal Medicine
PROC: 4A023N7 Measurement of Cardiac Sampling and Pressure, Left Heart, Percutaneous Approach (ICD-10-PCS; principal; 2021-04-27 16:30)
DX: A41.9 Sepsis, unspecified organism (principal); R57.0 Cardiogenic shock; I50.23 Acute on chronic systolic (congestive) heart failure; K76.7 Hepatorenal syndrome; N13.8 Other obstructive and reflux uropathy; I13.0 Hypertensive heart and chronic kidney disease with heart failure and stage 1 through stage 4 chronic kidney disease, or unspecified chronic kidney disease; N17.9 Acute kidney failure, unspecified; I48.91 Unspecified atrial fibrillation; Z86.16 Personal history of COVID-19; N40.1 Benign prostatic hyperplasia with lower urinary tract symptoms; R39.11 Hesitancy of micturition; R35.1 Nocturia; N18.30 Chronic kidney disease, stage 3 unspecified; E11.22 Type 2 diabetes mellitus with diabetic chronic kidney disease; I25.10 Atherosclerotic heart disease of native coronary artery without angina pectoris; Z95.1 Presence of aortocoronary bypass graft; E78.00 Pure hypercholesterolemia, unspecified; I25.5 Ischemic cardiomyopathy; E78.2 Mixed hyperlipidemia; I08.1 Rheumatic disorders of both mitral and tricuspid valves; Z96.651 Presence of right artificial knee joint; E87.5 Hyperkalemia; Z79.51 Long term (current) use of inhaled steroids; G47.33 Obstructive sleep apnea (adult) (pediatric); I95.9 Hypotension, unspecified
CPT/HCPCS: 36415; 36600; 51702; 71045; 76705; 76770; 80048; 80051; 80053; 80061; 80162; 80202; 81001; 82044; 82247; 82248; 82310; 82330; 82436; 82550; 82570; 82652; 82728; 82805; 83036; 83540; 83550; 83735; 83880; 83970; 84100; 84133; 84145; 84300; 84443; 84484; 84550; 85025; 85347; 85610; 85730; 85999; 86403; 86705; 86706; 86709; 86803; 87040; 87086; 87340; 87449; 87641; 87806; 93005; 93306; 93312; 93320; 93325; 93459; 94640; 94664; 96372; 96374; 96375; 97161; 99291; C1769; C1887; C1894; J0282; J0610; J0743; J1160; J1250; J1644; J1815; J1940; J2250; J2370; J2405; J3010; J3370; J3475; J3480; J3490; J7030; J7040; J7060; J7611; J7626; Q0144; Q0163; Q3014; Q9967

== ENCOUNTER → 2021-05-03 11:09 | Outpatient (BNVA) | payer MEDICARE, OTHER, SELFPAY | PROVIDERS: PCP Electrodiagnostic Medicine; Visit Provider Internal Medicine Cardiovascular Disease | DX: I50.23 Acute on chronic systolic (congestive) heart failure (principal); E78.2 Mixed hyperlipidemia; I48.0 Paroxysmal atrial fibrillation; I25.10 Atherosclerotic heart disease of native coronary artery without angina pectoris; R60.0 Localized edema; R06.02 Shortness of breath | CPT/HCPCS: 80048; 83880 ==

== ENCOUNTER → 2021-06-02 08:40 | Outpatient (BNVA) | payer MEDICARE, OTHER, SELFPAY | PROVIDERS: PCP Electrodiagnostic Medicine; Visit Provider Internal Medicine Cardiovascular Disease | DX: R06.02 Shortness of breath (principal); R60.0 Localized edema; E78.2 Mixed hyperlipidemia | CPT/HCPCS: 80048; 83880 ==

== ENCOUNTER 2021-07-19 07:44 | Outpatient (CLI) | payer MEDICARE, OTHER, SELFPAY ==
--- NOTE | 2021-07-19 07:55 | USCV_ITS ---
Italo Cummings Age: 71 Gender: M : 1950 Exam Date: 07/19/2021 08:14 Ordering Phys: Jose Nj MD ([email or web address]) Technologist: Seven Chanle Exam Location: [facility] – [place] Indication: HX AK BP: 123 / 74 HR: 89 Rhythm: Sinus Technical Quality: Adequate MEASUREMENTS (Male / Female) Normal Values 2D ECHO LV Diastolic Diameter PLAX 5.4 cm 4.2 - 5.9 / 3.9 - 5.3 cm LV Systolic Diameter PLAX 4.5 cm IVS Diastolic Thickness 1.0 cm 0.6 - 1.0 / 0.6 - 0.9 cm IVS Systolic Thickness 1.6 cm LVPW Diastolic Thickness 1.2 cm 0.6 - 1.0 / 0.6 - 0.9 cm LVPW Systolic Thickness 1.3 cm LVOT Diameter 2.0 cm LV Ejection Fraction 2D Teich 32.8 % LV Ejection Fraction MOD 2C 47.0 % LV Ejection Fraction 2C AL 48.2 % LA Diameter 4.1 cm LA Width 5.2 cm LA Height 5.6 cm RA Width 3.9 cm RA Height 4.7 cm Aorta at Sinotubular Diameter 3.0 cm M-MODE LV Diastolic Diameter MM 5.6 cm 4.2 - 5.9 / 3.9 - 5.3 cm LV Systolic Diameter MM 4.6 cm LV Ejection Fraction MM Teich 36.9 % IVS Diastolic Thickness MM 1.1 cm 0.6 - 1.0 / 0.6 - 0.9 cm IVS Systolic Thickness MM 1.6 cm LVPW Diastolic Thickness MM 1.5 cm 0.6 - 1.0 / 0.6 - 0.9 cm LVPW Systolic Thickness MM 1.1 cm RV Diastolic Diameter MM 2.1 cm Aortic Annulus Diameter 3.4 cm LA Ao Ratio MM 1.0 MV E Point Septal Separation 2.0 cm DOPPLER AV Peak Velocity 264.0 cm/s LVOT Peak Velocity 84.0 cm/s AV Area Cont Eq vti 0.9 cm squared AV Area Cont Eq pk 1.0 cm squared MV Area PHT 5.0 cm squared Mitral E to A Ratio 0.5 MV E' Velocity 30.0 cm/s Mitral E to MV E' Ratio 5.9 Mitral E to LV E' Lateral Ratio 6.2 Mitral E to LV E' Septal Ratio 5.7 TR Peak Velocity 182.0 cm/s TR Peak Gradient 13.2 mmHg TV Peak E Velocity 119.0 cm/s Right Atrial Pressure 3.0 mmHg Pulmonary Artery Systolic Pressu 16.2 mmHg FINDINGS Left Ventricle Diffuse hypokinesia of the left ventricular ejection fraction of 35 to 40%(visual). LV cavity is mildly dilated Right Ventricle Normal right ventricular size and systolic function. Right Atrium Mildly increased right atrial size. Left Atrium Mildly increased left atrial size. Mitral Valve Thickened mitral valve. Mild-moderate mitral valve regurgitation. Aortic Valve Thickened aortic valve. Moderate calcification aortic valve.moderate aortic valve stenosis, mean gradient 11.1 mmHg, GIOVANNA 1.0 cm squared. Tricuspid Valve Trace tricuspid valve regurgitation. Pulmonic Valve Thickened pulmonic valve. Pericardium Normal pericardium without effusion. Aorta Plaque seen in the ascending aorta. CONCLUSIONS Diffuse hypokinesia of the left ventricular ejection fraction of 35 to 40%(visual). LV cavity is mildly dilated. Mild biatrial enlargement Moderate aortic valve stenosis, mean gradient 11.1 mmHg, GIOVANNA 1.0 cm squared-peak velocity of 2.64 m/s with a peak gradient of 28 mmHg and a mean gradient of 11 mmHg. Trace tricuspid valve regurgitation. Thickened mitral valve. Mild-moderate mitral valve regurgitation. Compared to the previous study of 04/23/2021, the LV size is decreased from 6.3-5.4cm Significant improvement of the LV ejection fraction (from 20% to 35-40%). Dr Jose Nj MD [facility] (Electronically Signed) Final Date: 20 July 2021 10:26 S
== END 2021-07-19 07:45 | disposition home or self-care (01) ==
LOC: RAD 07:46
PROVIDERS: PCP Electrodiagnostic Medicine; Visit Provider Internal Medicine Cardiovascular Disease
DX: I50.23 Acute on chronic systolic (congestive) heart failure (principal); I48.0 Paroxysmal atrial fibrillation; R06.02 Shortness of breath; I25.2 Old myocardial infarction; I08.3 Combined rheumatic disorders of mitral, aortic and tricuspid valves
CPT/HCPCS: 93306

== ENCOUNTER → 2021-11-30 10:39 | Outpatient (BNVA) | payer MEDICARE, OTHER, SELFPAY | PROVIDERS: PCP Electrodiagnostic Medicine; Visit Provider Internal Medicine Cardiovascular Disease | DX: I50.43 Acute on chronic combined systolic (congestive) and diastolic (congestive) heart failure (principal); I25.10 Atherosclerotic heart disease of native coronary artery without angina pectoris; I48.91 Unspecified atrial fibrillation; E78.2 Mixed hyperlipidemia | CPT/HCPCS: 80048; 83880; 99214 ==

== ENCOUNTER → 2022-06-06 11:09 | Outpatient (BNVA) | payer MEDICARE, OTHER, SELFPAY | PROVIDERS: PCP Electrodiagnostic Medicine; Visit Provider Internal Medicine Rheumatology | DX: Z79.899 Other long term (current) drug therapy (principal); M19.90 Unspecified osteoarthritis, unspecified site; M19.041 Primary osteoarthritis, right hand; M19.042 Primary osteoarthritis, left hand; E79.0 Hyperuricemia without signs of inflammatory arthritis and tophaceous disease; N18.30 Chronic kidney disease, stage 3 unspecified; M21.611 Bunion of right foot | CPT/HCPCS: 36415; 72170; 73130; 73630; 84550; 85651; 86140; 99204 ==

== ENCOUNTER → 2022-06-12 13:35 | Outpatient (BNVA) | payer MEDICARE, OTHER, SELFPAY | PROVIDERS: PCP Electrodiagnostic Medicine; Visit Provider Internal Medicine Cardiovascular Disease | DX: I13.0 Hypertensive heart and chronic kidney disease with heart failure and stage 1 through stage 4 chronic kidney disease, or unspecified chronic kidney disease (principal); N18.30 Chronic kidney disease, stage 3 unspecified; I50.23 Acute on chronic systolic (congestive) heart failure; I25.10 Atherosclerotic heart disease of native coronary artery without angina pectoris; I48.91 Unspecified atrial fibrillation; E78.5 Hyperlipidemia, unspecified; Z95.1 Presence of aortocoronary bypass graft | CPT/HCPCS: 99214 ==

== ENCOUNTER 2022-06-22 13:04 | Outpatient (CLI) | payer MEDICARE, OTHER, SELFPAY ==
--- NOTE | 2022-06-22 15:00 | USCV_ITS ---
Italo Cummings Age: 72 Gender: M : 1950 Exam Date: 06/22/2022 13:20 Ordering Phys: Jose Nj MD ([email or web address]) Technologist: Exam Location: [facility] [place] Indication: hx cad BP: 120 / 80 HR: 91 Rhythm: Sinus Technical Quality: Adequate MEASUREMENTS (Male / Female) Normal Values 2D ECHO LV Diastolic Diameter PLAX 5.4 cm 4.2 - 5.9 / 3.9 - 5.3 cm LV Systolic Diameter PLAX 4.3 cm IVS Diastolic Thickness 1.1 cm 0.6 - 1.0 / 0.6 - 0.9 cm IVS Systolic Thickness 1.3 cm LVPW Diastolic Thickness 1.2 cm 0.6 - 1.0 / 0.6 - 0.9 cm LVPW Systolic Thickness 1.4 cm LVOT Diameter 1.9 cm LV Ejection Fraction 2D Teich 40.4 % LV Ejection Fraction MOD 2C 44.9 % LV Ejection Fraction 2C AL 46.1 % LA Diameter 4.7 cm M-MODE Aortic Annulus Diameter 3.8 cm LA Ao Ratio MM 1.4 MV E Point Septal Separation 1.8 cm DOPPLER AV Peak Velocity 244.0 cm/s LVOT Peak Velocity 76.0 cm/s AV Area Cont Eq vti 1.4 cm squared AV Area Cont Eq pk 0.9 cm squared MV E' Velocity 5.0 cm/s TR Peak Velocity 235.7 cm/s TR Peak Gradient 22.2 mmHg TV Peak E Velocity 144.0 cm/s Right Atrial Pressure 3.0 mmHg Pulmonary Artery Systolic Pressu 25.2 mmHg FINDINGS Left Ventricle Diffuse hypokinesia of the left ventricle with an ejection fraction of 40%. Mildly dilated LV cavity. Right Ventricle Possibly of normal size ejection fraction Right Atrium Right atrium not well visualized. Left Atrium Mildly increased left atrial size. Mitral Valve Thickened mitral valve. Mild-moderate mitral valve regurgitation. Aortic Valve Thickened aortic valve. Tricuspid Valve Trace to mild tricuspid valve regurgitation. Pulmonic Valve Pulmonic valve not well visualized. Pericardium No pericardial effusion. Aorta Normal aortic annulus size. IVC Inferior vena cava not visualized. CONCLUSIONS Diffuse hypokinesia of the left ventricle with an ejection fraction of 40%. Mildly increased left atrial size. Thickened mitral valve. Mild-moderate mitral valve regurgitation. Trace to mild tricuspid valve regurgitation. Thickened aortic valve. Mildly dilated LV cavity. There is no pericardial effusion. There are no intracardiac masses. Compared to the study from 07/19/2021, there may not be significant change Dr Jose Nj MD [facility] (Electronically Signed) Final Date: 22 June 2022 21:01 S
== END 2022-06-22 13:05 | disposition home or self-care (01) ==
LOC: RAD 13:05
PROVIDERS: PCP Electrodiagnostic Medicine; Visit Provider Internal Medicine Cardiovascular Disease
DX: I50.9 Heart failure, unspecified (principal); I08.3 Combined rheumatic disorders of mitral, aortic and tricuspid valves
CPT/HCPCS: 93306

== ENCOUNTER → 2022-12-25 14:13 | Outpatient (BNVA) | payer MEDICARE, OTHER, SELFPAY | PROVIDERS: PCP Electrodiagnostic Medicine; Visit Provider Internal Medicine Cardiovascular Disease | DX: E78.2 Mixed hyperlipidemia (principal); I48.0 Paroxysmal atrial fibrillation; I25.10 Atherosclerotic heart disease of native coronary artery without angina pectoris; I13.0 Hypertensive heart and chronic kidney disease with heart failure and stage 1 through stage 4 chronic kidney disease, or unspecified chronic kidney disease; I50.23 Acute on chronic systolic (congestive) heart failure; N18.30 Chronic kidney disease, stage 3 unspecified; N17.9 Acute kidney failure, unspecified; Z79.01 Long term (current) use of anticoagulants | CPT/HCPCS: 99214 ==

== ENCOUNTER 2023-06-26 09:47 | Outpatient (CLI) | payer MEDICARE, OTHER, SELFPAY ==
--- NOTE | 2023-06-26 09:52 | CTR_ITS ---
PROCEDURE INFORMATION: Exam: CT Abdomen And Pelvis Without Contrast Exam date and time: 06/26/2023 10:54 AM Age: 73 years old Clinical indication: Other: Flank hematuria; Patient HX: HX of stones; Additional info: Flank hematuria, stat TECHNIQUE: Imaging protocol: Computed tomography of the abdomen and pelvis without contrast. Radiation optimization: All CT scans at this facility use at least one of these dose optimization techniques: automated exposure control; mA and/or kV adjustment per patient size (includes targeted exams where dose is matched to clinical indication); or iterative reconstruction. REPORTING DATA: Count of CT and Cardiac NM exams in prior 12 months: This patient has received 0 known CTs and 0 known cardiac nuclear medicine studies in the 12 months prior to the current study. COMPARISON: CR XR pelvis 1-2V* [id number] 06/06/2022 11:13 AM RADIATION DOSE METRICS: Total DLP (mGy-cm): 468.9 FINDINGS: Lungs: Lung bases are clear. Liver: There are few small hypodensities within the liver too small to adequately characterize but statistically likely representing small liver cysts. Gallbladder and bile ducts: There are multiple gallstones otherwise gallbladder is unremarkable. Bile ducts are not dilated. Pancreas: Unremarkable. Main pancreatic duct is not significantly dilated. Spleen: Spleen is borderline enlarged with scattered granulomatous calcifications. Adrenal glands: Normal. No mass. Kidneys and ureters: There are 2 distal ureteral stones situated just above the right ureterovesical junction largest which measures 6 mm without significant hydronephrosis. There are additional small nonobstructing left renal stones. Stomach and bowel: There are multiple diverticula sigmoid colon with some accompanying circumferential thickening of the colonic wall. There is a small irregular shaped air collection extending from the left lateral wall the sigmoid colon believed secondary to contained perforation from diverticulitis. There is also evidence of a colovesical fistula extending to the bladder dome resulting in asymmetric wall thickening of the bladder dome and moderate amount of intravesicular air. There is also mild diffuse bladder wall thickening that may be secondary to cystitis or chronic bladder outlet obstruction syndrome. Appendix: No evidence of appendicitis. Intraperitoneal space: Unremarkable. No free air. No significant fluid collection. Vasculature: Scattered atherosclerotic changes of the abdominal aorta and iliac vessels. No aortic aneurysm. Lymph nodes: Unremarkable. No enlarged lymph nodes. Urinary bladder: See Stomach and bowel finding. Reproductive: Prostate gland is mildly enlarged. Bones/joints: Moderate-advanced multilevel degenerative changes throughout the lumbar spine. No acute bony abnormalities detected. Soft tissues: Unremarkable. CT/CT kidney stone [id number] IMPRESSION: 1. Two nonobstructing ureteral stones right distal ureter just above the right ureterovesical junction. Additional small nonobstructing left renal stones. 2. Sigmoid diverticulitis with colovesical fistula and accompanying bladder wall thickening. 3. Small extraluminal air collection adjacent to the sigmoid colon likely secondary to perforated diverticulum. 4. Cholelithiasis without evidence of acute cholecystitis.
== END 2023-06-26 09:48 | disposition home or self-care (01) ==
LOC: RAD 09:48
PROVIDERS: PCP Electrodiagnostic Medicine; Visit Provider Family Medicine
DX: N20.2 Calculus of kidney with calculus of ureter (principal); R31.0 Gross hematuria; K57.32 Diverticulitis of large intestine without perforation or abscess without bleeding; N32.1 Vesicointestinal fistula; K80.20 Calculus of gallbladder without cholecystitis without obstruction
CPT/HCPCS: 74176

== ENCOUNTER → 2023-07-03 12:35 | Outpatient (BNVA) | payer MEDICARE, OTHER, SELFPAY | PROVIDERS: PCP Electrodiagnostic Medicine; Visit Provider Internal Medicine Cardiovascular Disease | DX: R07.9 Chest pain, unspecified (principal); I25.10 Atherosclerotic heart disease of native coronary artery without angina pectoris; I48.0 Paroxysmal atrial fibrillation; I25.5 Ischemic cardiomyopathy; I11.0 Hypertensive heart disease with heart failure; I50.23 Acute on chronic systolic (congestive) heart failure; E78.2 Mixed hyperlipidemia; I45.9 Conduction disorder, unspecified; R00.0 Tachycardia, unspecified | CPT/HCPCS: 93005; 99214 ==

== ENCOUNTER 2023-07-05 12:36 | Outpatient (CLI) | payer MEDICARE, OTHER, SELFPAY ==
--- NOTE | 2023-07-05 13:00 | USCV_ITS ---
Emiliano Italo Age: 73 Gender: M : 1950 Exam Date: 07/05/2023 13:08 Ordering Phys: Jose Nj MD ([email or web address]) Technologist: CHAN Exam Location: [facility] – [place] Indication: CARDIOMYOPATHY BP: 138 / 92 HR: 95 Rhythm: Sinus Technical Quality: Adequate MEASUREMENTS (Male / Female) Normal Values 2D ECHO LVOT Diameter 2.0 cm LV Ejection Fraction MOD 2C 32.8 % LV Ejection Fraction 2C AL 34.6 % LA Diameter 4.2 cm LA Width 3.9 cm LA Height 5.4 cm RA Width 3.2 cm RA Height 5.3 cm Aorta at Sinotubular Diameter 2.5 cm IVC Diameter 1.4 cm M-MODE Aortic Annulus Diameter 2.5 cm LA Ao Ratio MM 1.8 MV E Point Septal Separation 1.6 cm DOPPLER AV Peak Velocity 277.0 cm/s LVOT Peak Velocity 101.0 cm/s AV Area Cont Eq vti 1.1 cm squared AV Area Cont Eq pk 1.1 cm squared MV Peak Velocity 119.0 cm/s MV Area PHT 5.5 cm squared Mitral E to A Ratio 0.6 MV E' Velocity 35.0 cm/s Mitral E to MV E' Ratio 8.4 Mitral E to LV E' Lateral Ratio 6.9 Mitral E to LV E' Septal Ratio 10.8 TR Peak Velocity 232.8 cm/s TR Peak Gradient 21.7 mmHg TR Mean Velocity 205.1 cm/s TR Mean Gradient 17.0 mmHg TR Velocity Time Integral 62.4 cm TV Peak E Velocity 68.0 cm/s Right Atrial Pressure 3.0 mmHg Pulmonary Artery Systolic Pressu 24.7 mmHg PV Peak Velocity 127.0 cm/s RV Acceleration Time 0.1 s RV Ejection Time 0.2 s RV AcT/ET 0.5 FINDINGS Left Ventricle Mildly dilated left-ventricular left ventricle. Severe diffuse hypokinesia of the septum, anteroseptum and inferior wall segments. LV ejection fraction is around 34%.Grade I/IV diastolic dysfunction (abnormal relaxation filling pattern), normal to mildly elevated filling pressures. Right Ventricle Normal right ventricular size and systolic function. Right Atrium Normal right atrial size. No gross abnormalities noted Left Atrium Mildly increased left atrial size. Mitral Valve Moderate mitral valve regurgitation. Aortic Valve Moderate aortic valve stenosis, mean gradient 18.5 mmHg, GIOVANNA 1.1 cm squared. Tricuspid Valve No gross abnormalities noted Pulmonic Valve Pulmonic valve not well visualized. Pericardium No pericardial effusion. Aorta Normal aortic annulus size. IVC Normal inferior vena cava. CONCLUSIONS Mildly dilated left-ventricular with a moderately depressed ejection fraction of 34%. Multiple wall motion normalities as mentioned above. Mildly increased left atrial size. Moderate mitral valve regurgitation. Estimated pulmonary artery peak systolic pressure of 25 mmHg There is no pericardial effusion. There are no intracardiac masses. Compared to the study from 06/22/2022, the LV systolic function has slightly decreased Dr Jose Nj MD [facility] (Electronically Signed) Final Date: 06 July 2023 18:55 S
== END 2023-07-05 12:37 | disposition home or self-care (01) ==
LOC: RAD 12:37
PROVIDERS: PCP Electrodiagnostic Medicine; Visit Provider Internal Medicine Cardiovascular Disease
DX: R06.09 Other forms of dyspnea (principal); I42.9 Cardiomyopathy, unspecified; I51.7 Cardiomegaly; I34.0 Nonrheumatic mitral (valve) insufficiency
CPT/HCPCS: 93306

== ENCOUNTER → 2024-03-17 15:16 | Outpatient (BNVA) | payer MEDICARE, OTHER, SELFPAY | PROVIDERS: PCP Electrodiagnostic Medicine; Visit Provider Internal Medicine Cardiovascular Disease | DX: R07.9 Chest pain, unspecified (principal); I49.8 Other specified cardiac arrhythmias; I49.3 Ventricular premature depolarization; I45.89 Other specified conduction disorders | CPT/HCPCS: 93005; 99214 ==

== ENCOUNTER 2024-03-30 13:35 | Inpatient (IN) | payer MEDICARE, OTHER, SELFPAY ==
[2024-03-30] VITALS (22 sets, daily range): BP systolic 91–117; BP diastolic 68–97; PULSE 122–145; RESP 12–35; TEMP 36.7–38.8; O2SAT 91–97; BMI 30.2; BMI 30.4
--- NOTE | 2024-03-30 13:37 | ECG_ITS ---
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 Measurements Intervals [place] Rate: 145 P: 0 MA: 0 QRS: 105 QRSD: 113 T: 43 QT: 322 QTc: 501 Interpretive Statements ATRIAL FIBRILLATION WITH RAPID VENTRICULAR RESPONSE RIGHT AXIS DEVIATION [QRS AXIS > 100] MODERATE INTRAVENTRICULAR CONDUCTION DELAY [110+ ms QRS DURATION] ST ELEVATION, PROBABLY EARLY REPOLARIZATION [ST ELEVATION WITH NORMALLY INFLECTED T-WAVE] ST DEVIATION AND MODERATE T-WAVE ABNORMALITY, CONSIDER INFERIOR ISCHEMIA [-0.1+ mV T-WAVE IN II/aVF] Compared to ECG 03/17/2024 15:21:24 ST (T wave) deviation now present Early repolarization now present Possible ischemia now present Sinus rhythm no longer present Electronically Signed On 03-31-2024 18:47:24 CDT by Joel Campos M.D. [id number]
--- NOTE | 2024-03-30 13:55 | XRR_ITS ---
PROCEDURE INFORMATION: Exam: XR Chest Exam date and time: 03/30/2024 2:25 PM Age: 73 years old Clinical indication: Shortness of breath; Additional info: SOB TECHNIQUE: Imaging protocol: Radiologic exam of the chest. Views: 1 view. COMPARISON: CR (CHEST, ) 04/23/2021 2:53 PM FINDINGS: Lungs: Lungs are clear bilaterally. Pleural spaces: No pleural effusion. No pneumothorax. Heart/Mediastinum: Stable moderate enlargement of the cardiac silhouette. Mediastinal contours are unremarkable. Vasculature: Stable vascular calcifications in the aorta. Bones/joints: Patient has had a right reverse shoulder arthroplasty. Poststernotomy changes in the chest. Multilevel degenerative changes of varying severity in the visualized spine. Degenerative changes at the left shoulder. XR/XR chest 1V portable [id number] IMPRESSION: 1. No acute cardiopulmonary process. 2. Incidental/nonacute findings are listed in the report.
--- NOTE | 2024-03-30 14:10 | ED_ITS ---
HPI - Arrhythmia/Palpitations 2 General: Chief Complaint: Arrhythmia/Palpitations Stated Complaint: fast heart rate Time Seen by Provider: 03/30/24 13:46 Source: patient Mode of arrival: ambulatory Limitations: no limitations History of Present Illness: 73-year-old male has a history of A-fib he states he drank an energy drink on and he has been tachycardic since he states that he feels his heart racing he denies any chest pain or shortness of breath currently. He does take amiodarone. He denies any vomiting Associated symptoms: Deny nausea or vomiting Related Data Home Medications Medication Instructions Recorded Confirmed cetirizine 10 mg tablet 10 mg PO DAILY PRN allergy symptoms 06/29/20 06/12/22 fluticasone propionate 50 1 spray intranasal DAILY 06/29/20 06/12/22 mcg/actuation nasal spray,suspension (Flonase Allergy Relief) tramadol 50 mg tablet 50 mg PO TID PRN Pain 06/29/20 06/12/22 niacin 250 mg tablet,extended 500 mg PO DAILY 11/02/20 06/12/22 release (Slo-Niacin) terazosin 10 mg capsule 10 mg PO BID 11/02/20 06/12/22 Previous Rx's Medication Instructions Recorded furosemide 40 mg tablet 80 mg (2 x 40 mg) PO DAILY #180 04/09/23 tabs alirocumab 150 mg/mL subcutaneous 150 mg SUBCUT Q14D #2 mL 08/06/23 pen injector (Praluent Pen) amiodarone 200 mg tablet See Rx Instructions .Route 09/04/23 .COMPLEX #90 tabs montelukast 10 mg tablet See Rx Instructions .Route 10/12/23 .COMPLEX #90 tabs rivaroxaban 15 mg tablet (Xarelto) See Rx Instructions .Route 11/27/23 .COMPLEX #90 tabs potassium chloride 20 mEq See Rx Instructions .Route 01/01/24 tablet,extended release(part/cryst) .COMPLEX #180 tabs Allergies Allergy/AdvReac Type Severity Reaction Status Date / Time Penicillins Allergy Unknown Unknown Verified 03/17/24 14:31 Njxlklw-RNT-ToE Reductase Allergy couldn't Verified 03/17/24 14:31 Inhibitor function [Mmykeuv-Ejy-Wag Reductase Inhibitor] metoprolol AdvReac low bp Verified 03/17/24 14:31 Review of Systems 2 Const: Denies: fever(s), chills, body aches or change in appetite ENMT: Denies: throat pain or dental pain Card: Reports: palpitations; Denies: chest pain Resp: Denies: dyspnea GI: Denies: abdominal pain, nausea, vomiting or diarrhea Musc: Denies: neck pain or back pain Skin/Breast: Denies: rash Neuro: Denies: headache(s) PFSH ED 2 PFSH: Medical History CKD (chronic kidney disease) stage 3, GFR 30-59 ml/min Hyperuricemia Polyarthralgia Sepsis Cardiogenic shock Moderate to severe mitral regurgitation Acute on chronic systolic heart failure Elevated liver enzymes Metabolic acidosis, increased anion gap COVID-20 Mar 2021 Atrial flutter Hyperkalemia Hepatorenal syndrome Acute renal failure (ARF) Atrial fibrillation with rapid ventricular response Traumatic tear of right rotator cuff Fracture of glenoid process of right scapula with nonunion Congestive heart failure due to cardiomyopathy Atherosclerosis of coronary artery of [place] heart without angina pectoris Ischemic cardiomyopathy SOB (shortness of breath) Hx of coronary atherosclerosis Essential hypertension Non-rheumatic mitral regurgitation Mixed hyperlipidemia Afib Prostate cancer Diagnosed 2006. Radiation therapy. Slowly rising PSA with benign RALPH. 6.June. BPH loc w urin obs/LUTS Hypercholesterolemia Ischemic heart disease Elevated PSA Nocturia Urinary hesitancy Surgical History History of tonsillectomy and adenoidectomy Hx of coronary artery bypass graft H/O total knee replacement RIGHT H/O shoulder surgery LEFT History of back surgery History of carpal tunnel release BILATERAL Family History Father , AT AGE 91 Bowel obstruction Mother , AT AGE 84 Heart attack CAD (coronary artery disease) Hypertension Diabetes Brother Cancer Family/Other Cancer Son Chronic kidney disease (CKD) Cancer Grandfather Stroke Denies family history of Clotting disorder Dementia Suicide Anesthesia complication Bleeding disorder Lung disease Social History Smoking and tobacco/nicotine status: never used tobacco/nicotine Alcohol intake: never Substance/Drug Use: never Marital status: Current occupational status: employed Physical Exam 2 Const: COMMON NORMALS: no acute distress, patient oriented x3 and healthy appearing HENMT: COMMON NORMALS: normocephalic and atraumatic HEAD & SCALP: n ormocephalic and atraumatic Eye: COMMON NORMALS: conjunctivae normal CONJUNCTIVA: Yes conjunctivae normal Neck/C-Spine: COMMON NORMALS: full ROM and supple Chest: COMMONS NORMALS: normal inspection of the chest Resp: COMMON NORMALS: normal respiratory effort, No retractions, No use of accessory muscles and clear to auscultation bilaterally AUSCULTATION: clear to auscultation bilaterally Cardio: COMMON NORMALS: No murmurs present (Cardio) RATE: tachycardic R HYTHM: abnormal rhythm irregularly irregular Extremity: COMMON NORMALS: normal to inspection and full ROM Neuro: COMMON NORMALS: patient oriented x3, moves all extremities and no focal motor deficits Psych: COMMON NORMALS: mental status grossly normal, Normal thought process present and cooperative THOUGHT PROCESS: Normal thought process present Skin: COMMON NORMALS: no rashes or lesions noted and no wounds GENERAL SKIN EXAM: no rashes or lesions noted Course 2 Vital Signs: Vital signs: Vital Signs Temperature 98.1 F 03/30/24 13:42 Pulse Rate 141 H 03/30/24 14:46 Respiratory Rate 15 03/30/24 14:46 Blood Pressure 106/80 03/30/24 14:46 Pulse Oximetry 94 03/30/24 14:46 Oxygen Delivery Me thod Room Air 03/30/24 14:46 MDM - Arrhythmia/Palpitations Medical Decision Making Patient presents with A-fib with RVR he is continue to have heart rate in the 140s even after Cardizem bolus we will start him on amiodarone and amiodarone drip spoke to the hospitalist will admit at this time he has had no chest pain or shortness of breath. Medical Records I reviewed the patient's medical records. Lab Data 03/30/24 14:10 03/30/24 14:10 Laboratory Results WBC 8.14 10^3/uL (3.29-11.43) 03/30/24 14:10 RBC 4.88 10^6/uL (3.85-5.65) 03/30/24 14:10 Hgb 13.80 g/dL (11.27-16.99) 03/30/24 14:10 Hct 43.5 % (37-53) 03/30/24 14:10 MCV 89.1 fl (82-101) 03/30/24 14:10 MCH 28.3 pg (27-33) 03/30/24 14:10 MCHC 31.7 g/dL (30-55) 03/30/24 14:10 RDW 14.2 % (12.1-15.1) 03/30/24 14:10 Plt Count 118 10^3/cmm (157-399) L 03/30/24 14:10 MPV 13.4 fL (7.4-10.4) H 03/30/24 14:10 Neut % (Auto) 79.4 % 03/30/24 14:10 Lymph % (Auto) 8.5 % 03/30/24 14:10 [place] % (Auto) 11.5 % 03/30/24 14:10 Eos % (Auto) 0.0 % 03/30/24 14:10 Baso % (Auto) 0.4 % 03/30/24 14:10 Neut # (Auto) 6.46 10^3/uL (1.8-7.7) 03/30/24 14:10 Lymph # (Auto) 0.7 10^3/uL (0.8-4.8) L 03/30/24 14:10 [place] # (Auto) 0.9 10^3/uL (0.2-0.9) 03/30/24 14:10 Eos # (Auto) 0.0 10^3/uL (0.0-0.8) 03/30/24 14:10 Baso # (Auto) 0.0 10^3/uL (0.0-0.1) 03/30/24 14:10 Nucleated RBC % (auto) 0 % 03/30/24 14:10 Nucleated RBCs # 0.0 /100WBC 03/30/24 14:10 Sodium 139 mmol/L (136-145) 03/30/24 14:10 Potassium 4.1 mmol/L (3.5-5.1) 03/30/24 14:10 Chloride 101 mmol/L (98-107) 03/30/24 14:10 Carbon Dioxide 25 mmol/L (22-29) 03/30/24 14:10 Anion Gap 17.1 (5-19) 03/30/24 14:10 GFR Calculation Not Reportable 03/30/24 14:10 Calculated Osmolality 294 mOsm/kg (285-295) 03/30/24 14:10 Calcium 9.0 mg/dL (8.5-10.5) 03/30/24 14:10 Total Bilirubin 0.8 mg/dL (0.15-1.2) 03/30/24 14:10 AST 23 U/L (0-40) 03/30/24 14:10 ALT 14 U/L (0-41) 03/30/24 14:10 Alkaline Phosphatase 70 U/L (40-130) 03/30/24 14:10 Total Protein 7.0 g/dL (6.6-8.7) 03/30/24 14:10 Albumin 4.5 g/dL (3.5-5.2) 03/30/24 14:10 Globulin 2.5 g/dL (1.3-4.6) 03/30/24 14:10 All radiology interpretation(s) finalized by discharge EKG Data EKG 1: I personally reviewed and interpreted this EKG as follows: EKG interpretation date: 03/30/24 EKG interpretation time: 13:35 Interpretation: afib with rvr hr [address] elevation qrs 113 qtc 406 Discharge Plan Discharge Patient Disposition: Admitted As Inpatient Clinical Impression: Atrial fibrillation with RVR Condition: Stable Coding Level of Care Code ED [place] [employer] Group Leader for Luis Carlos De Paz
[2024-03-30] MEDS: sodium chloride 0.9% 1,000 ML 999 ML IV (14:11)
[2024-03-30] MEDS: dilTIAZem 5 mg/mL SDV 5 mL 10 MG IVP (14:14)
[2024-03-30 14:49] LABS: Basophils % 0.4 %; Hematocrit 43.5 % (37-53); Lymphocytes # 0.7 10^3/uL (0.8-4.8); Lymphocytes % 8.5 %; Mean Corpuscular HGB Conc 31.7 g/dL (30-55); Mean Corpuscular Hemoglobin 28.3 pg (27-33); Mean Corpuscular Volume 89.1 fl (82-101); Mean Platelet Volume 13.4 fL (7.4-10.4); Monocytes # 0.9 10^3/uL (0.2-0.9); Monocytes % 11.5 %; Neutrophils # 6.46 10^3/uL (1.8-7.7); Neutrophils % 79.4 %; Nucleated Red Blood Cells % 0 %; Platelet Count 118 10^3/cmm (157-399); Red Blood Count 4.88 10^6/uL (3.85-5.65); Red Cell Distribution Width 14.2 % (12.1-15.1); White Blood Count 8.14 10^3/uL (3.29-11.43)
[2024-03-30] MEDS: amiodarone 150 MG/100 ML PREMIX 400 MG IV (14:57)
[2024-03-30 15:05] LABS: Alanine Aminotransferase 14 U/L (0-41); Albumin Level 4.5 g/dL (3.5-5.2); Alkaline Phosphatase 70 U/L (40-130); Anion Gap 17.1 (5-19); Aspartate Amino Transferase 23 U/L (0-40); Blood Urea Nitrogen 25 mg/dL (8-23); Carbon Dioxide 25 mmol/L (22-29); Chloride 101 mmol/L (98-107); Creatinine Clr Calc Pharmacy 42.3873; Globulin 2.5 g/dL (1.3-4.6); Glucose 130 mg/dL (65-115); Osmolality Calculated 294 mOsm/kg (285-295); Potassium 4.1 mmol/L (3.5-5.1); Sodium 139 mmol/L (136-145); Total Bilirubin 0.8 mg/dL (0.15-1.2)
[2024-03-30 15:10] LABS: INR 3.29 (0.8-1.2)
--- NOTE | 2024-03-30 15:35 | PC.NURSE ---
Report called to Hyacinth Miryam at 1530.
--- NOTE | 2024-03-30 15:46 | P.HP_ITS ---
Providers/Chief Complaint 2 Admitting Physician: Nurys Smith MD Primary Care Provider: Priyank Kaur DO Chief Complaint: fast heart rate History of Present Illness Italo Cummings is a 73 year old male with past medical history of atrial fibrillation on amiodarone and Xarelto, s/p cardioversion 2020 CKD, hyperlipidemia, hypertension, ischemic cardiomyopathy, congestive heart failure, ischemic heart disease s/p CABG 2015, hepatorenal syndrome, BPH presented with complaint of heart rate in 140s to 170. As per the patient he started having increased heart rate on evening post Monster energy drink. Since then he has been varying between 1 40-1 70, associated with shortness of breath and orthopnea but no chest pain, palpitations, dizziness, nausea or vomiting. Denies any history of fever, cough, abdominal pain, diarrhea or urinary complaints. He has history of hypertension but has been hypertensive recently and off metoprolol for the same. He reports his blood pressure being sometimes as low as 80/60 and asymptomatic. He follows Dr. Nj, cardiology and was last seen 1 week ago. On arrival in ER he was found to have INR of 3.2, creatinine of 1.8, baseline is 1.5-2, BNP 1767 Chest x-ray showed no acute findings Review of Systems 2 General: Reports: 10 or more systems reviewed and unremarkable except in HPI and below Medications/Allergies Home Medications Medication Instructions Recorded Confirmed Last Taken Type cetirizine 10 mg tablet 10 mg PO DAILY PRN allergy symptoms 06/29/20 06/12/22 Unknown History fluticasone propionate 50 1 spray intranasal DAILY 06/29/20 06/12/22 Unknown History mcg/actuation nasal spray,suspension (Flonase Allergy Relief) tramadol 50 mg tablet 50 mg PO TID PRN Pain 06/29/20 06/12/22 04/23/21 History niacin 250 mg tablet,extended 500 mg PO DAILY 11/02/20 06/12/22 04/23/21 History release (Slo-Niacin) terazosin 10 mg capsule 10 mg PO BID 11/02/20 06/12/22 04/23/21 History furosemide 40 mg tablet 80 mg (2 x 40 mg) PO DAILY #180 04/09/23 Unknown Rx tabs alirocumab 150 mg/mL subcutaneous 150 mg SUBCUT Q14D #2 mL 08/06/23 Unknown Rx pen injector (Praluent Pen) amiodarone 200 mg tablet See Rx Instructions .Route 09/04/23 Unknown Rx .COMPLEX #90 tabs montelukast 10 mg tablet See Rx Instructions .Route 10/12/23 Unknown Rx .COMPLEX #90 tabs rivaroxaban 15 mg tablet (Xarelto) See Rx Instructions .Route 11/27/23 Unknown Rx .COMPLEX #90 tabs potassium chloride 20 mEq See Rx Instructions .Route 01/01/24 Unknown Rx tablet,extended release(part/cryst) .COMPLEX #180 tabs Allergies Allergy/AdvReac Type Severity Reaction Status Date / Time Penicillins Allergy Unknown Unknown Verified 03/17/24 14:31 Usetang-DLS-WoK Reductase Allergy couldn't Verified 03/17/24 14:31 Inhibitor function [Zzyqfod-Rkd-Duh Reductase Inhibitor] metoprolol AdvReac low bp Verified 03/17/24 14:31 PFSH Acute 2 PFSH: Medical History CKD (chronic kidney disease) stage 3, GFR 30-59 ml/min Hyperuricemia Polyarthralgia Sepsis Cardiogenic shock Moderate to severe mitral regurgitation Acute on chronic systolic heart failure Elevated liver enzymes Metabolic acidosis, increased anion gap COVID-20 Mar 2021 Atrial flutter Hyperkalemia Hepatorenal syndrome Acute renal failure (ARF) Atrial fibrillation with rapid ventricular response Traumatic tear of right rotator cuff Fracture of glenoid process of right scapula with nonunion Congestive heart failure due to cardiomyopathy Atherosclerosis of coronary artery of [place] heart without angina pectoris Ischemic cardiomyopathy SOB (shortness of breath) Hx of coronary atherosclerosis Essential hypertension Non-rheumatic mitral regurgitation Mixed hyperlipidemia Afib Prostate cancer Diagnosed 2006. Radiation therapy. Slowly rising PSA with benign RALPH. 6.June. BPH loc w urin obs/LUTS Hypercholesterolemia Ischemic heart disease Elevated PSA Nocturia Urinary hesitancy Surgical History History of tonsillectomy and adenoidectomy Hx of coronary artery bypass graft H/O total knee replacement RIGHT H/O shoulder surgery LEFT History of back surgery History of carpal tunnel release BILATERAL Family History Father , AT AGE 91 Bowel obstruction Mother , AT AGE 84 Heart attack CAD (coronary artery disease) Hypertension Diabetes Brother Cancer Family/Other Cancer Son Chronic kidney disease (CKD) Cancer Grandfather Stroke Denies family history of Clotting disorder Dementia Suicide Anesthesia complication Bleeding disorder Lung disease Social History Smoking and tobacco/nicotine status: never used tobacco/nicotine Alcohol intake: never Substance/Drug Use: never Marital status: Current occupational status: employed Vitals/I&O/Wt Last Vital Signs Temp 98.1 F 03/30/24 13:42 Pulse 141 H 03/30/24 14:46 Resp 15 03/30/24 14:46 BP 106/80 03/30/24 14:46 Pulse Ox 94 03/30/24 14:46 O2 Del Method Room Air 03/30/24 14:46 03/30/24 03/30/24 03/30/24 06:59 14:59 22:59 Intake Total 1000 / 1000 100 / 1100 Balance 1000 / 1000 100 / 1100 Weight last 48 hrs Weight 92.986 kg Physical Exam 2 Narrative: He is alert awake oriented x 3, not in acute distress Chest clear to auscultation bilaterally Cardiovascular normal heart sounds Abdomen soft nontender nondistended normal bowel sounds Extremities no edema noted bilateral lower extremities Data 03/30/24 14:10 03/30/24 14:10 A&P Assessment and plan (1) Atrial fibrillation with RVR: (2) Ischemic cardiomyopathy: (3) Dyslipidemia: (4) CKD (chronic kidney disease) stage 3, GFR 30-59 ml/min: (5) Hypotension: Qualifiers: Hypotension type: hypotension due to drug Qualified Code(s): I95.2 - Hypotension due to drugs (6) Congestive heart failure: Qualifiers: Heart failure type: systolic Heart failure chronicity: acute on chronic Qualified Code(s): I50.23 - Acute on chronic systolic (congestive) heart failure (7) Atherosclerosis of coronary artery of [place] heart without angina pectoris: Qualifiers: Coronary Disease-Associated Artery/Lesion type: unspecified vessel or lesion type Qualified Code(s): I25.10 - Atherosclerotic heart disease of [place] coronary artery without angina pectoris (8) BPH loc w urin obs/LUTS: Plan Italo Cummings is a 73 year old male with past medical history of atrial fibrillation on amiodarone and Xarelto, s/p cardioversion 2020 CKD, hyperlipidemia, hypertension, ischemic cardiomyopathy, congestive heart failure, ischemic heart disease s/p CABG 2016, hepatorenal syndrome, BPH presented with complaint of heart rate in 140s to 170 after ingestion of Monster energy drink, associated with shortness of breath and orthopnea and found to have atrial fibrillation with RVR. #Atrial fibrillation with RVR-admit to CSU current heart rate 135 Received IV Cardizem 20 mg in ER with no response Started on amiodarone drip, will continue. 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 Check troponin and serial EKG panel. Will monitor for now Last echo 07/25--Diffuse hypokinesia of the left ventricular ejection fraction of 35 to 40%(visual). LV cavity is mildly dilated. Mild biatrial enlargement Moderate aortic valve stenosis, mean gradient 11.1 mmHg, GIOVANNA 1.0 cm squared-peak velocity of 2.64 m/s with a peak gradient of 28 mmHg and a mean gradient of 11 mmHg. Trace tricuspid valve regurgitation. Thickened mitral valve. Mild-moderate mitral valve regurgitation. Compared to the previous study of 04/23/2021, the LV size is decreased from 6.3-5.4cm Significant improvement of the LV ejection fraction (from 20% to 35-40%). 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 He had a preserved LV ejection fraction.? He was transferred to [facility] in [place] for coronary artery bypass surgery #IHD/CHF/CABG-continue OPTICAL ENGINEERING MANAGER Lasix but at 40 mg daily, potassium chloride # Dyslipidemia-continue OPTICAL ENGINEERING MANAGER alirocumab # BPH-continue OPTICAL ENGINEERING MANAGER terazosin DVT prophylaxis-already on Xarelto GI prophylaxis with IV Pepcid 20 mg twice daily CODE STATUS discussed with patient and his , he is full code for now Diet-will do n.p.o. except chips sips and meds Attestations 2 Medical Necessity Statement*: He needs continued hospitalization likely crossing 2 midnights for management of atrial fibrillation with RVR Time Spent in Patient Care: 40 minutes Coding Level of Care Code Acute Code for Chg Fwd Diagnoses Atrial fibrillation with RVR I48.91 Ischemic cardiomyopathy I25.5 Dyslipidemia E78.5 CKD (chronic kidney disease) stage 3, GFR 30-59 ml/min N18.30 Hypotension due to drugs I95.2 Hypotension type: hypotension due to drug Acute on chronic systolic congestive heart failure I50.23 Heart failure type: systolic Heart failure chronicity: acute on chronic Atherosclerosis of coronary artery of [place] heart without angina pectoris, unspecified vessel or lesion type I25.10 Coronary Disease-Associated Artery/Lesion type: unspecified vessel or lesion type BPH loc w urin obs/LUTS N40.1 Time Spent (min) 40
[2024-03-30 16:22] LABS: Troponin(5th) Baseline 108 ng/L (0-15)
[2024-03-30 16:40] LABS: Troponin 5 2HR Delta -2.6 ABS# (0-10)
[2024-03-30 16:41] LABS: Troponin 5 2HR 105.4 ng/L (0-15)
[2024-03-30] MEDS: terazosin 5 mg Capsule 10 MG PO (17:28)
[2024-03-30] MEDS: famotidine 20 mg/2 mL INJ IVP (17:28)
[2024-03-30] MEDS: potassium chloride ER 20 mEq Tablet PO (17:31)
--- NOTE | 2024-03-30 17:56 | ECG_ITS ---
[facility] Test Date: 2024-03-30 Pat Name: Italo Cummings Department: Room: 107 Gender: Male Patient Service Associate: : 1950 Requested By: Nurys Smith Order Number: [id number] Reddy MD: Joel Campos M.D. Measurements Intervals [place] Rate: 137 P: 0 TN: 0 QRS: 105 QRSD: 149 T: -46 QT: 320 QTc: 484 Interpretive Statements ATRIAL FLUTTER/TACHYCARDIA WITH RAPID VENTRICULAR RESPONSE WITH ABERRANT CONDUCTION OR VENTRICULAR PREMATURE COMPLEXES RIGHT AXIS DEVIATION [QRS AXIS > 100] INTRAVENTRICULAR CONDUCTION DELAY [130+ ms QRS DURATION] Compared to ECG 03/30/2024 13:35:50 Ventricular premature complex(es) now present Aberrant conduction of supraventricular beat(s) now present Atrial fibrillation no longer present ST (T wave) deviation no longer present Early repolarization no longer present T-wave abnormality no longer present Possible ischemia no longer present Electronically Signed On 03-31-2024 18:56:29 CDT by Joel Campos M.D. [id number]
[2024-03-30] MEDS: ipratropium-albuterol 3 mL Neb INHALATION (18:08)
[2024-03-30 20:38] LABS: Troponin 5 6HR Delta 5.8 ng/L (0-12)
[2024-03-30 20:43] LABS: Troponin 5 6HR 113.8 ng/L (0-15)
--- NOTE | 2024-03-30 21:10 | ECG_ITS ---
[facility] Test Date: 2024-03-30 Pat Name: Italo Cummings Department: Room: 107 Gender: Male Microbiology Lab Technician: : 1950 Requested By: Nurys Smith Order Number: [id number] Reddy MD: Joel Campos M.D. Measurements Intervals [place] Rate: 138 P: 0 IA: 0 QRS: 80 QRSD: 145 T: 259 QT: 315 QTc: 479 Interpretive Statements ATRIAL FLUTTER/TACHYCARDIA WITH RAPID VENTRICULAR RESPONSE INTRAVENTRICULAR CONDUCTION DELAY [130+ ms QRS DURATION] Compared to ECG 03/30/2024 17:57:02 Ventricular premature complex(es) no longer present Aberrant conduction of supraventricular beat(s) no longer present Right-axis deviation no longer present Electronically Signed On 03-31-2024 18:56:11 CDT by Joel Campos M.D. [id number]
[2024-03-30 21:37] LABS: Lactic Sepsis W/Reflex 2.8 mmol/L (0.5-2.2)
[2024-03-30 22:32] LABS: Bilirubin Urine Negative (Negative); Blood Urine Negative (Negative); Glucose Urine UA Negative (Normal); Ketones Urine Trace (Negative); Leukocyte Esterase Urine 1+ (Negative); Nitrate Urine Negative (Negative); Protein Urine Negative (Negative); Specific Gravity, Urine 1.019 (1.005-1.030); Urine Appearance Clear (CLEAR); Urine Color Yellow (Yellow); Urobilinogen Urine 0.2 mg/dL (Negative)
[2024-03-30 22:37] LABS: Add Urine Microscopic? YES; Bacteria Urine None Seen /hpf; Hyaline Casts Urine 5.36 /lpf; RBC Urine 0-2 /hpf (0-2); Rapid Strep A Test Negative (Negative); Squamous Epithelial Cell Urine 0-5 /hpf (0-5); WBC Urine 0-5 /hpf (0-5)
[2024-03-30] MEDS: levoFLOXacin 750 mg Tablet PO (22:38)
[2024-03-30] MEDS: digoxin 250 mcg/ml INJ 2 mL IVP (22:39)
[2024-03-30 23:06] LABS: Reflex Lactate Order REFLEX LACTIC ORDERD
[2024-03-30 23:09] LABS: Influenza A NEGATIVE (Negative); Influenza B NEGATIVE (Negative); Respiratory Syncytial Virus Ce NEGATIVE (Negative)
[2024-03-30 23:11] LABS: Covid PCR Positive (Negative)
[2024-03-31] VITALS (17 sets, daily range): BP systolic 101–188; BP diastolic 68–93; PULSE 116–140; RESP 17–27; TEMP 36.8–37.6; O2SAT 91–98
[2024-03-31 00:45] LABS: Basophils % 0.5 %; Eosinophils % 0.1 %; Hematocrit 40.8 % (37-53); Lymphocytes # 0.7 10^3/uL (0.8-4.8); Lymphocytes % 8.4 %; Mean Corpuscular HGB Conc 32.4 g/dL (30-55); Mean Corpuscular Hemoglobin 28.7 pg (27-33); Mean Corpuscular Volume 88.7 fl (82-101); Mean Platelet Volume 13.5 fL (7.4-10.4); Monocytes # 0.9 10^3/uL (0.2-0.9); Monocytes % 11.3 %; Neutrophils % 79.5 %; Nucleated Red Blood Cells % 0 %; Platelet Count 116 10^3/cmm (157-399); Red Cell Distribution Width 14.3 % (12.1-15.1); White Blood Count 8.31 10^3/uL (3.29-11.43)
[2024-03-31] MEDS: remdesivir 200 MG in sodium chloride 0.9% (100 ml) 60 ML 100 MG IV (00:45)
[2024-03-31 00:58] LABS: Anion Gap 16.2 (5-19); Blood Urea Nitrogen 33 mg/dL (8-23); Calcium 8.9 mg/dL (8.5-10.5); Carbon Dioxide 22 mmol/L (22-29); Chloride 104 mmol/L (98-107); Creatinine Clr Calc Pharmacy 42.5261; Glucose 125 mg/dL (65-115); Magnesium 2.1 mg/dL (1.7-2.3); Osmolality Calculated 295 mOsm/kg (285-295); Phosphorus 2.5 mg/dL (2.5-4.5); Potassium 4.2 mmol/L (3.5-5.1); Sodium 138 mmol/L (136-145)
[2024-03-31 00:59] LABS: Lactic Acid level (Lactate) 1.9 mmol/L (0.5-2.2)
[2024-03-31] MEDS: famotidine 20 mg/2 mL INJ IVP ×2 (05:29→17:11)
[2024-03-31] MEDS: montelukast sodium 10 mg Tablet PO (08:33)
[2024-03-31] MEDS: potassium chloride ER 20 mEq Tablet PO ×2 (08:33→17:12)
[2024-03-31] MEDS: terazosin 5 mg Capsule 10 MG PO ×2 (08:34→17:12)
[2024-03-31] MEDS: rivaroxaban 10 mg Tablet PO (08:35)
[2024-03-31] MEDS: FUROsemide 40 mg Tablet PO (08:35)
[2024-03-31] MEDS: fluticasone nasal spray 16gm Btl 1 SPRAY INTRANASAL (08:35)
--- NOTE | 2024-03-31 11:05 | PC.NURSE ---
Provider is notified that patient is complaining that he is having a hard time breathing. His O2 is 94% on 2L. Nursing staff did turn the temperature is the patients room down since it was paragliding instructor there. He is currently sitting in a chair. Provider came to see patient and ordered Xanax 0.5mg TID PRN one right now. Also ordered Ambien 5mg at bedtime to help him sleep and to discontinue the remdesivir.
[2024-03-31] MEDS: ALPRAZolam 0.5 mg Tablet PO ×2 (11:19→22:03)
--- NOTE | 2024-03-31 13:13 | PM.PN ---
Subjective Subjective: No acute overnight events noted. He was found to be short of breath likely secondary to anxiety. Chest was clear to auscultation and chest x-ray was negative for acute findings. No history of asthma or COPD as per the patient. Medications: Reviewed: Yes Vitals/I&O/Wt Last Vital Signs Temp 98.4 F 03/31/24 11:47 Pulse 119 H 03/31/24 11:47 Resp 18 03/31/24 11:47 BP 123/68 03/31/24 11:47 Pulse Ox 97 03/31/24 11:47 O2 Del Method Nasal Cannula 03/31/24 11:47 O2 Flow Rate 2 03/31/24 11:47 03/30/24 03/31/24 03/31/24 22:59 06:59 14:59 Intake Total 640 / 1640 100 / 1740 800 / 800 Output Total 510 / 510 550 / 1060 350 / 350 Balance 130 / 1130 -450 / 680 450 / 450 Weight last 48 hrs Weight 93.638 kg Weight 92.986 kg Physical Exam Narrative: He is alert awake oriented x 3, not in acute distress Chest clear to auscultation bilaterally Cardiovascular normal heart sounds Abdomen soft nontender nondistended normal bowel sounds Extremities no edema noted bilateral lower extremities Data 03/31/24 00:21 03/31/24 00:21 Micro: Microbiology 03/30/24 21:14 Blood Culture - Preliminary Blood SPECIMEN COLLECTED 03/30/24 21:12 Blood Culture - Preliminary Blood SPECIMEN COLLECTED A&P Assessment and plan (1) Atrial fibrillation with RVR: (2) Ischemic cardiomyopathy: (3) Dyslipidemia: (4) CKD (chronic kidney disease) stage 3, GFR 30-59 ml/min: (5) Hypotension: Qualifiers: Hypotension type: hypotension due to drug Qualified Code(s): I95.2 - Hypotension due to drugs (6) Congestive heart failure: Qualifiers: Heart failure type: systolic Heart failure chronicity: acute on chronic Qualified Code(s): I50.23 - Acute on chronic systolic (congestive) heart failure (7) Atherosclerosis of coronary artery of [place] heart without angina pectoris: Qualifiers: Coronary Disease-Associated Artery/Lesion type: unspecified vessel or lesion type Qualified Code(s): I25.10 - Atherosclerotic heart disease of [place] coronary artery without angina pectoris (8) BPH loc w urin obs/LUTS: Plan Italo J Cummings is a 73 year old male with past medical history of atrial fibrillation on amiodarone and Xarelto, s/p cardioversion 2020 CKD, hyperlipidemia, hypertension, ischemic cardiomyopathy, congestive heart failure, ischemic heart disease s/p CABG 2015, hepatorenal syndrome, BPH presented with complaint of heart rate in 140s to 170 after ingestion of [employer] energy drink, associated with shortness of breath and orthopnea and found to have atrial fibrillation with RVR. #Atrial fibrillation with RVR-admit to [facility] current heart rate 135 Received IV Cardizem 20 mg in ER with no response Started on amiodarone drip, will continue. Hold [employer] amiodarone INR 3.2 today, on home medication Xarelto 15 mg daily Will reduce to Xarelto 10 mg daily. Check troponin and serial EKG panel. Will monitor for now Last echo 07/25--Diffuse hypokinesia of the left ventricular ejection fraction of 35 to 40%(visual). LV cavity is mildly dilated. Mild biatrial enlargement Moderate aortic valve stenosis, mean gradient 11.1 mmHg, GIOVANNA 1.0 cm squared-peak velocity of 2.64 m/s with a peak gradient of 28 mmHg and a mean gradient of 11 mmHg. Trace tricuspid valve regurgitation. Thickened mitral valve. Mild-moderate mitral valve regurgitation. Compared to the previous study of 04/23/2021, the LV size is decreased from 6.3-5.4cm Significant improvement of the LV ejection fraction (from 20% to 35-40%). 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 He had a preserved LV ejection fraction.? He was transferred to [facility] in [place] for coronary artery bypass surgery #IHD/CHF/CABG-continue [employer] Lasix but at 40 mg daily, potassium chloride # Dyslipidemia-continue [employer]ACH alirocumab # BPH-continue [employer] terazosin DVT prophylaxis-already on Xarelto GI prophylaxis with IV Pepcid 20 mg twice daily CODE STATUS discussed with patient and his , he is full code for now Diet-will do n.p.o. except chips sips and meds 03/31--Labs reviewed and are acceptable. Heart rate improved with IV amiodarone drip to 100-110's. Plan to call cardiology consult for further recommendations. He was also found to have COVID-19 infection, was started on remdesivir. . He was found to be short of breath this morning sitting at bedside, likely secondary to anxiety. Heart rate was in 132. Chest examination was clear to auscultation. With continuous discussion, he seemed to calm down and heart rate decreased to 110. But patient apprehensive about his CKD and does not intend to continue with remdesivir. Hence will discontinue remdesivir and continue to monitor respiratory status for now. Admission chest x-ray has been negative for any acute findings. Attestations Medical Necessity Statement*: He needs continued hospitalization likely crossing 2 midnights for management of atrial fibrillation with RVR Time Spent in Patient Care: 20 minutes Coding Level of Care Code Acute Code for [facility] Fwd Diagnoses Atrial fibrillation with RVR I48.91 Ischemic cardiomyopathy I25.5 Dyslipidemia E78.5 CKD (chronic kidney disease) stage 3, GFR 30-59 ml/min N18.30 Hypotension due to drugs I95.2 Hypotension type: hypotension due to drug Acute on chronic systolic congestive heart failure I50.23 Heart failure type: systolic Heart failure chronicity: acute on chronic Atherosclerosis of coronary artery of [place] heart without angina pectoris, unspecified vessel or lesion type I25.10 Coronary Disease-Associated Artery/Lesion type: unspecified vessel or lesion type BPH loc w urin obs/LUTS N40.1 Time Spent (min) 20
--- NOTE | 2024-03-31 17:06 | P.CONIM_ITS ---
Providers/Reason For Consult 2 Attending Physician: Nurys Smith MD Primary Care Provider: Priyank Kaur DO History of Present Illness History of Present Illness Italo Cummings is a 73 year old male Medications/Allergies Home Medications Medication Instructions Recorded Confirmed Last Taken Type cetirizine 10 mg tablet 10 mg PO DAILY PRN allergy symptoms 06/29/20 03/31/24 03/30/24 History fluticasone propionate 50 1 spray intranasal DAILY 06/29/20 03/31/24 03/30/24 History mcg/actuation nasal spray,suspension (Flonase Allergy Relief) tramadol 50 mg tablet 50 mg PO TID PRN Pain 06/29/20 03/31/24 03/30/24 History terazosin 10 mg capsule 10 mg PO BID 11/02/20 03/31/24 03/30/24 History furosemide 40 mg tablet 80 mg (2 x 40 mg) PO DAILY #180 04/09/23 03/31/24 03/30/24 Rx tabs alirocumab 150 mg/mL subcutaneous 150 mg SUBCUT Q14D #2 mL 08/06/23 03/31/24 03/30/24 Rx pen injector (Praluent Pen) amiodarone 200 mg tablet See Rx Instructions .Route 09/04/23 03/31/24 03/30/24 Rx .COMPLEX #90 tabs montelukast 10 mg tablet See Rx Instructions .Route 10/12/23 03/31/24 03/30/24 Rx .COMPLEX #90 tabs rivaroxaban 15 mg tablet (Xarelto) See Rx Instructions .Route 11/27/23 03/31/24 03/30/24 Rx .COMPLEX #90 tabs potassium chloride 20 mEq See Rx Instructions .Route 01/01/24 03/31/24 03/30/24 Rx tablet,extended release(part/cryst) .COMPLEX #180 tabs Allergies Allergy/AdvReac Type Severity Reaction Status Date / Time Penicillins Allergy Unknown Unknown Verified 03/17/24 14:31 Bdbncfc-PCP-YeO Reductase Allergy couldn't Verified 03/17/24 14:31 Inhibitor function [Itscouv-Ezz-Tfu Reductase Inhibitor] metoprolol AdvReac low bp Verified 03/17/24 14:31 Current Medications Generic Name Dose Route Start Last Admin Trade Name Freq PRN Reason Stop Dose Admin Albuterol/Ipratropium 3 ml 03/30/24 18:01 03/30/24 18:08 Ipratropium-Albuterol 3 Ml Neb INHALATION 3 ml Q6H PRN Administration SHORTNESS OF BREATH Alprazolam 0.5 mg 03/31/24 11:11 03/31/24 11:19 Alprazolam 0.5 Mg Tablet PO 0.5 mg TID PRN Administration ANXIETY Famotidine 20 mg 03/30/24 18:00 03/31/24 05:29 Famotidine 20 Mg/2 Ml Inj IVP 20 mg Q12H LYNNE Administration Fluticasone Propionate 1 spray 03/31/24 09:00 03/31/24 08:35 Fluticasone Nasal [place] 16gm Btl INTRANASAL 1 spray DAILY LYNNE Administration Furosemide 40 mg 03/31/24 09:00 03/31/24 08:35 Furosemide 40 Mg Tablet PO 40 mg DAILY LYNNE Administration Amiodarone HCl/Dextrose 360 mg in 200 mls @ 0 mls/hr 03/30/24 14:52 03/31/24 16:13 Nexterone IV Infused .Q0M LYNNE Titration Protocol Per Protocol Montelukast Sodium 1 mg 03/31/24 09:00 03/31/24 08:33 Montelukast Sodium 10 Mg Tablet PO 1 mg DAILY LYNNE Administration Non-Formulary Medication 150 mg 03/30/24 16:15 03/30/24 16:10 Alirocumab [Praluent Pen] SUBCUT Not Given Q14D LYNNE Potassium Chloride 20 meq 03/30/24 18:00 03/31/24 08:33 Potassium Chloride Er 20 Meq Tablet PO 20 meq BID LYNNE Administration Rivaroxaban 10 mg 03/31/24 09:00 03/31/24 08:35 Rivaroxaban 10 Mg Tablet PO 10 mg DAILY LYNNE Administration Terazosin HCl 10 mg 03/30/24 18:00 03/31/24 08:34 Terazosin 5 Mg Capsule PO 10 mg BID LYNNE Administration PFSH Acute 2 PFSH: Medical History CKD (chronic kidney disease) stage 3, GFR 30-59 ml/min Hyperuricemia Polyarthralgia Sepsis Cardiogenic shock Moderate to severe mitral regurgitation Acute on chronic systolic heart failure Elevated liver enzymes Metabolic acidosis, increased anion gap COVID-19 Mar 2021 Atrial flutter Hyperkalemia Hepatorenal syndrome Acute renal failure (ARF) Atrial fibrillation with rapid ventricular response Traumatic tear of right rotator cuff 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 Radiation therapy. Slowly rising PSA with benign RALPH. 6.June. BPH loc w urin obs/LUTS Hypercholesterolemia Ischemic heart disease Elevated PSA Nocturia Urinary hesitancy Surgical History History of tonsillectomy and adenoidectomy Hx of coronary artery bypass graft H/O total knee replacement RIGHT H/O shoulder surgery LEFT History of back surgery History of carpal tunnel release BILATERAL Family History Father , AT AGE 91 Bowel obstruction Mother , AT AGE 84 Heart attack CAD (coronary artery disease) Hypertension Diabetes Brother Cancer Family/Other Cancer Son Chronic kidney disease (CKD) Cancer Grandfather Stroke Denies family history of Clotting disorder Dementia Suicide Anesthesia complication Bleeding disorder Lung disease Social History Smoking and tobacco/nicotine status: never used tobacco/nicotine Alcohol intake: never Substance/Drug Use: never Marital status: Current occupational status: employed Vitals/I&O/Wt Last Vital Signs Temp 98.4 F 03/31/24 11:47 Pulse 119 H 03/31/24 11:47 Resp 18 03/31/24 11:47 BP 123/68 03/31/24 11:47 Pulse Ox 97 03/31/24 11:47 O2 Del Method Nasal Cannula 03/31/24 11:47 O2 Flow Rate 2 03/31/24 11:47 03/31/24 03/31/24 03/31/24 06:59 14:59 22:59 Intake Total 100 / 1740 920 / 920 0 / 920 Output Total 550 / 1060 350 / 350 Balance -450 / 680 570 / 570 0 / 570 Weight last 48 hrs Weight 206 lb 7 oz Weight 205 lb Data 03/31/24 00:21 03/31/24 00:21 Micro: Microbiology 03/30/24 21:14 Blood Culture - Preliminary Blood SPECIMEN COLLECTED 03/30/24 21:12 Blood Culture - Preliminary Blood SPECIMEN COLLECTED Coding Level of Care Code Acute Code for [facility]
--- NOTE | 2024-03-31 17:27 | PC.NURSE ---
Dr Campos ordered metoprolol 25mg BID. order entered.
[2024-03-31] MEDS: metoprolol tartrate 25 mg Tablet PO (21:00)
[2024-03-31 21:15] LABS: INR 2.19 (0.8-1.2)
[2024-04-01] VITALS (10 sets, daily range): BP systolic 93–117; BP diastolic 60–87; PULSE 67–142; RESP 19–43; TEMP 36.5–37; O2SAT 94–100
[2024-04-01] MEDS: famotidine 20 mg/2 mL INJ IVP ×2 (05:10→17:07)
[2024-04-01 05:17] LABS: Anion Gap 16.9 (5-19); Blood Urea Nitrogen 28 mg/dL (8-23); Calcium 8.6 mg/dL (8.5-10.5); Carbon Dioxide 24 mmol/L (22-29); Chloride 105 mmol/L (98-107); Creatinine Clr Calc Pharmacy 45.0277; Glucose 114 mg/dL (65-115); Magnesium 2.2 mg/dL (1.7-2.3); Osmolality Calculated 300 mOsm/kg (285-295); Potassium 3.9 mmol/L (3.5-5.1); Sodium 142 mmol/L (136-145)
--- NOTE | 2024-04-01 07:22 | PM.CONSULT ---
Providers/Reason For Consult Consulting Physician/Specialty*: Joel Campos MD/ Cardiology Reason for Consult*: Atrial fibrillation with RVR Requesting Physician: Dr Smith Attending Physician: Nurys Smith MD Primary Care Provider: Priyank Kaur DO History of Present Illness History of Present Illness Italo Cummings is a 73 year old male with past medical history of ischemic cardiomyopathy, history of CABG, atrial fibrillation on Eliquis and amiodarone who presented to hospital with palpitations and heart rates in 130s to 140s. He feels he had an energy drink and since then started having this problem. Currently heart rate is in 130s. Denies chest pain. Troponin is elevated but has not trended up significantly. He has CKD. Patient also found to have COVID. Review of Systems General: Reports: 10 or more systems reviewed and unremarkable except in HPI and below Medications/Allergies Home Medications Medication Instructions Recorded Confirmed Last Taken Type cetirizine 10 mg tablet 10 mg PO DAILY PRN allergy symptoms 06/29/20 03/31/24 03/30/24 History fluticasone propionate 50 1 spray intranasal DAILY 06/29/20 03/31/24 03/30/24 History mcg/actuation nasal spray,suspension (Flonase Allergy Relief) tramadol 50 mg tablet 50 mg PO TID PRN Pain 06/29/20 03/31/24 03/30/24 History terazosin 10 mg capsule 10 mg PO BID 11/02/20 03/31/24 03/30/24 History furosemide 40 mg tablet 80 mg (2 x 40 mg) PO DAILY #180 04/09/23 03/31/24 03/30/24 Rx tabs alirocumab 150 mg/mL subcutaneous 150 mg SUBCUT Q14D #2 mL 08/06/23 03/31/24 03/30/24 Rx pen injector (Praluent Pen) amiodarone 200 mg tablet See Rx Instructions .Route 09/04/23 03/31/24 03/30/24 Rx .COMPLEX #90 tabs montelukast 10 mg tablet See Rx Instructions .Route 10/12/23 03/31/24 03/30/24 Rx .COMPLEX #90 tabs rivaroxaban 15 mg tablet (Xarelto) See Rx Instructions .Route 11/27/23 03/31/24 03/30/24 Rx .COMPLEX #90 tabs potassium chloride 20 mEq See Rx Instructions .Route 01/01/24 03/31/24 03/30/24 Rx tablet,extended release(part/cryst) .COMPLEX #180 tabs Allergies Allergy/AdvReac Type Severity Reaction Status Date / Time Penicillins Allergy Unknown Unknown Verified 03/17/24 14:31 Touitlz-CTE-KtX Reductase Allergy couldn't Verified 03/17/24 14:31 Inhibitor function [Nasxind-Bxz-Grj Reductase Inhibitor] metoprolol AdvReac low bp Verified 03/17/24 14:31 Current Medications Generic Name Dose Route Start Last Admin Trade Name Freq PRN Reason Stop Dose Admin Albuterol/Ipratropium 3 ml 03/30/24 18:01 03/30/24 18:08 Ipratropium-Albuterol 3 Ml Neb INHALATION 3 ml Q6H PRN Administration SHORTNESS OF BREATH Alprazolam 0.5 mg 03/31/24 11:11 03/31/24 22:03 Alprazolam 0.5 Mg Tablet PO 0.5 mg TID PRN Administration ANXIETY Famotidine 20 mg 03/30/24 18:00 04/01/24 05:10 Famotidine 20 Mg/2 Ml Inj IVP 20 mg Q12H LYNNE Administration Fluticasone Propionate 1 spray 03/31/24 09:00 03/31/24 08:35 Fluticasone Nasal [place] 16gm Btl INTRANASAL 1 spray DAILY LYNNE Administration Furosemide 40 mg 03/31/24 09:00 03/31/24 08:35 Furosemide 40 Mg Tablet PO 40 mg DAILY LYNNE Administration Amiodarone HCl/Dextrose 360 mg in 200 mls @ 0 mls/hr 03/30/24 14:52 03/31/24 16:13 Nexterone IV Infused .Q0M LYNNE Titration Protocol Per Protocol Metoprolol Tartrate 25 mg 03/31/24 21:00 03/31/24 21:00 Metoprolol Tartrate 25 Mg Tablet PO 25 mg BID@0900,2100 LYNNE Administration Montelukast Sodium 1 mg 03/31/24 09:00 03/31/24 08:33 Montelukast Sodium 10 Mg Tablet PO 1 mg DAILY LYNNE Administration Non-Formulary Medication 150 mg 03/30/24 16:15 03/30/24 16:10 Alirocumab [Praluent Pen] SUBCUT Not Given Q14D [facility] Potassium Chloride 20 meq 03/30/24 18:00 03/31/24 17:12 Potassium Chloride Er 20 Meq Tablet PO 20 meq BID LYNNE Administration Rivaroxaban 10 mg 03/31/24 09:00 03/31/24 08:35 Rivaroxaban 10 Mg Tablet PO 10 mg DAILY LYNNE Administration Terazosin HCl 10 mg 03/30/24 18:00 03/31/24 17:12 Terazosin 5 Mg Capsule PO 10 mg BID LYNNE Administration PFSH Acute PFSH: Medical History CKD (chronic kidney disease) stage 3, GFR 30-59 ml/min Hyperuricemia Polyarthralgia Sepsis Cardiogenic shock Moderate to severe mitral regurgitation Acute on chronic systolic heart failure Elevated liver enzymes Metabolic acidosis, increased anion gap COVID-20 Mar 2021 Atrial flutter Hyperkalemia Hepatorenal syndrome Acute renal failure (ARF) Atrial fibrillation with rapid ventricular response Traumatic tear of right rotator cuff Fracture of glenoid process of right scapula with nonunion Congestive heart failure due to cardiomyopathy Atherosclerosis of coronary artery of [place] heart without angina pectoris Ischemic cardiomyopathy SOB (shortness of breath) Hx of coronary atherosclerosis Essential hypertension Non-rheumatic mitral regurgitation Mixed hyperlipidemia Afib Prostate cancer Diagnosed 2006. Radiation therapy. Slowly rising PSA with benign RALPH. 6.June. BPH loc w urin obs/LUTS Hypercholesterolemia Ischemic heart disease Elevated PSA Nocturia Urinary hesitancy Surgical History History of tonsillectomy and adenoidectomy Hx of coronary artery bypass graft H/O total knee replacement RIGHT H/O shoulder surgery LEFT History of back surgery History of carpal tunnel release BILATERAL Family History Father , AT AGE 91 Bowel obstruction Mother , AT AGE 84 Heart attack CAD (coronary artery disease) Hypertension Diabetes Brother Cancer Family/Other Cancer Son Chronic kidney disease (CKD) Cancer Grandfather Stroke Denies family history of Clotting disorder Dementia Suicide Anesthesia complication Bleeding disorder Lung disease Social History Smoking and tobacco/nicotine status: never used tobacco/nicotine Alcohol intake: never Substance/Drug Use: never Marital status: Current occupational status: employed Vitals/I&O/Wt Last Vital Signs Temp 98.3 F 04/01/24 04:00 Pulse 67 04/01/24 05:16 Resp 20 H 04/01/24 04:00 BP 95/69 04/01/24 04:00 Pulse Ox 100 04/01/24 04:00 O2 Del Method Nasal Cannula 04/01/24 04:00 O2 Flow Rate 2 03/31/24 16:00 03/31/24 04/01/24 04/01/24 22:59 06:59 14:59 Intake Total 240 / 1160 Output Total 250 / 600 Balance 240 / 810 -250 / 560 Weight last 48 hrs Weight 208 lb 2 oz Weight 206 lb 7 oz Weight 205 lb Physical Exam Narrative: GENERAL: Patient is alert, awake and oriented x3. [] NECK: No jugular vein distension. [] HEENT: No cyanosis. No icterus. No pallor. [] HEART: Tachycardic LUNGS: Clear to auscultate bilaterally. [] CENTRAL NERVOUS SYSTEM: Grossly nonfocal. [] EXTREMITIES: Lower extremities with 1+ edema bilaterally Data 03/31/24 00:21 04/01/24 04:33 Micro: Microbiology 03/30/24 21:14 Blood Culture - Preliminary Blood NEGATIVE TO DATE 03/30/24 21:12 Blood Culture - Preliminary Blood NEGATIVE TO DATE A&P Assessment and plan (1) Atrial fibrillation with RVR: (2) Dyslipidemia: (3) Ischemic cardiomyopathy: (4) Hx of coronary atherosclerosis: (5) Essential hypertension: (6) Mixed hyperlipidemia: Plan Patient is in atrial fibrillation with RVR. Continue amiodarone gtt. I will avoid digoxin with his creatinine being elevated. Can start metoprolol 25 mg twice daily. It is listed as allergy however patient denies any allergic reaction to it. He only had hypotension with that. Continue anticoagulation If heart rate does not improve by tomorrow. We will plan for cardioversion. NPO past midnight. Troponin elevation likely secondary to demand ischemia in setting of elevated heart rate and CKD. He denies chest pain Thank you for involving us with care of this patient. We will continue to follow. Please call with questions. Consult Attestations Medical Necessity Statement: Care expected to cross 2 midnights. Coding Level of Care Code Acute Code for Chg Fwd Diagnoses Atrial fibrillation with RVR I48.91 Dyslipidemia E78.5 Ischemic cardiomyopathy I25.5 Hx of coronary atherosclerosis Z86.79 Essential hypertension I10 Mixed hyperlipidemia E78.2
[2024-04-01] MEDS: FUROsemide 40 mg Tablet PO (08:50)
[2024-04-01] MEDS: potassium chloride ER 20 mEq Tablet PO ×2 (08:50→17:07)
[2024-04-01] MEDS: metoprolol tartrate 25 mg Tablet PO (08:51)
[2024-04-01] MEDS: terazosin 5 mg Capsule 10 MG PO (08:51)
[2024-04-01] MEDS: montelukast sodium 10 mg Tablet PO (08:51)
[2024-04-01] MEDS: rivaroxaban 10 mg Tablet PO ×2 (08:51→19:04)
[2024-04-01] MEDS: sodium chloride 0.9% 500 ML 999 ML IV (12:07)
--- NOTE | 2024-04-01 12:08 | P.PN_ITS ---
Subjective 2 Subjective: Seen him at bedside this morning. Reports he slept well last night. As per the nurse his amiodarone drip was discontinued yesterday afternoon 4 PM because of the protocol. He was in atrial flutter overnight but denies any complaint of dizziness or shortness of breath or palpitations. Medications: Reviewed: Yes Vitals/I&O/Wt Last Vital Signs Temp 97.7 F 04/01/24 11:26 Pulse 95 04/01/24 11:26 Resp 24 H 04/01/24 11:26 BP 106/60 04/01/24 11:26 Pulse Ox 94 04/01/24 11:26 O2 Del Method Room Air 04/01/24 11:26 O2 Flow Rate 2 03/31/24 16:00 03/31/24 04/01/24 04/01/24 22:59 06:59 14:59 Intake Total 240 / 1160 Output Total 250 / 600 200 / 200 Balance 240 / 810 -250 / 560 -200 / -200 Weight last 48 hrs Weight 94.404 kg Weight 93.638 kg Weight 92.986 kg Physical Exam 2 Narrative: He is alert awake oriented x 3, not in acute distress Chest clear to auscultation bilaterally Cardiovascular normal heart sounds, tachycardic irregular pulse Abdomen soft nontender nondistended normal bowel sounds Extremities no edema noted bilateral lower extremities Data 03/31/24 00:21 04/01/24 04:33 Micro: Microbiology 03/30/24 21:14 Blood Culture - Preliminary Blood NEGATIVE TO DATE 03/30/24 21:12 Blood Culture - Preliminary Blood NEGATIVE TO DATE A&P Assessment and plan (1) Atrial fibrillation with RVR: (2) Ischemic cardiomyopathy: (3) Dyslipidemia: (4) CKD (chronic kidney disease) stage 3, GFR 30-59 ml/min: (5) Hypotension: Qualifiers: Hypotension type: hypotension due to drug Qualified Code(s): I95.2 - Hypotension due to drugs (6) Congestive heart failure: Qualifiers: Heart failure type: systolic Heart failure chronicity: acute on chronic Qualified Code(s): I50.23 - Acute on chronic systolic (congestive) heart failure (7) Atherosclerosis of coronary artery of [place] heart without angina pectoris: Qualifiers: Coronary Disease-Associated Artery/Lesion type: unspecified vessel or lesion type Qualified Code(s): I25.10 - Atherosclerotic heart disease of [place] coronary artery without angina pectoris (8) BPH loc w urin obs/LUTS: Nicholas Cummings is a 73 year old male with past medical history of atrial fibrillation on amiodarone and Xarelto, s/p cardioversion 2020 CKD, hyperlipidemia, hypertension, ischemic cardiomyopathy, congestive heart failure, ischemic heart disease s/p CABG 2016, hepatorenal syndrome, BPH presented with complaint of heart rate in 140s to 170 after ingestion of [employer] energy drink, associated with shortness of breath and orthopnea and found to have atrial fibrillation with RVR. #Atrial fibrillation with RVR-admit to [facility] current heart rate 135 Received IV Cardizem 20 mg in ER with no response Started on amiodarone drip, will continue. Hold UPHOLSTERY ESTIMATOR amiodarone INR 3.2 today, on home medication Xarelto 15 mg daily Will reduce to Xarelto 10 mg daily. Check troponin and serial EKG panel. Will monitor for now Last echo 07/25--Diffuse hypokinesia of the left ventricular ejection fraction of 35 to 40%(visual). LV cavity is mildly dilated. Mild biatrial enlargement Moderate aortic valve stenosis, mean gradient 11.1 mmHg, GIOVANNA 1.0 cm squared-peak velocity of 2.64 m/s with a peak gradient of 28 mmHg and a mean gradient of 11 mmHg. Trace tricuspid valve regurgitation. Thickened mitral valve. Mild-moderate mitral valve regurgitation. Compared to the previous study of 04/23/2021, the LV size is decreased from 6.3-5.4cm Significant improvement of the LV ejection fraction (from 20% to 35-40%). 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 He had a preserved LV ejection fraction.? He was transferred to [facility] in [place] for coronary artery bypass surgery #IHD/CHF/CABG-continue UPHOLSTERY ESTIMATOR Lasix but at 40 mg daily, potassium chloride # Dyslipidemia-continue UPHOLSTERY ESTIMATOR alirocumab # BPH-continue UPHOLSTERY ESTIMATOR terazosin DVT prophylaxis-already on Xarelto GI prophylaxis with IV Pepcid 20 mg twice daily CODE STATUS discussed with patient and his , he is full code for now Diet-will do n.p.o. except chips sips and meds 03/31--Labs reviewed and are acceptable. Heart rate improved with IV amiodarone drip to 100-110's. Plan to call cardiology consult for further recommendations. He was also found to have COVID-19 infection, was started on remdesivir. . He was found to be short of breath this morning sitting at bedside, likely secondary to anxiety. Heart rate was in 132. Chest examination was clear to auscultation. With continuous discussion, he seemed to calm down and heart rate decreased to 110. But patient apprehensive about his CKD and does not intend to continue with remdesivir. Hence will discontinue remdesivir and continue to monitor respiratory status for now. Admission chest x-ray has been negative for any acute findings. 04/01--cardiology consult appreciated. Was started on p.o. metoprolol 25 mg twice daily, has been off amiodarone drip but still in a flutter. Plan for cardioversion. He is n.p.o. for now. Restarted amiodarone drip his blood pressure was found to be systolic of 85. Will do 500 mL bolus x 1 and discontinue metoprolol. Follow-up cardiology recommendations. Still getting p.o. levofloxacin 750 mg every other day for COVID-19 infection. Attestations 2 Medical Necessity Statement*: He needs continued hospitalization likely crossing 2 midnights for management of atrial fibrillation with RVR with amiodarone drip and possible cardioversion Time Spent in Patient Care: 20 minutes Coding Level of Care Code Acute Code for [facility] Diagnoses Atrial fibrillation with RVR I48.91 Ischemic cardiomyopathy I25.5 Dyslipidemia E78.5 CKD (chronic kidney disease) stage 3, GFR 30-59 ml/min N18.30 Hypotension due to drugs I95.2 Hypotension type: hypotension due to drug Acute on chronic systolic congestive heart failure I50.23 Heart failure type: systolic Heart failure chronicity: acute on chronic Atherosclerosis of coronary artery of [place] heart without angina pectoris, unspecified vessel or lesion type I25.10 Coronary Disease-Associated Artery/Lesion type: unspecified vessel or lesion type BPH loc w urin obs/LUTS N40.1 Time Spent (min) 20
[2024-04-01] MEDS: TRAMadol 50 mg Tablet PO ×2 (13:15→13:41)
[2024-04-01] MEDS: fluticasone nasal spray 16gm Btl 1 SPRAY INTRANASAL (13:15)
--- NOTE | 2024-04-01 13:51 | P.PN_ITS ---
Subjective 2 Subjective: Patient with a history of atrial fibrillation/flutter, status post cardioversion in the past, he is admitted to the hospital with complaints of palpitation, shortness of breath and generalized weakness. He was found to be little fibrillation with rapid ventricular rate. He was started on IV amiodarone. He also was given p.o. metoprolol for rate control. His blood pressure seems to be soft with a systolic in the 90s. The heart rate seems to be slowly getting under control. But it goes up with the activities. Patient is still complaining of generalized weakness/fatigue. He is also diagnosed with a COVID-19 positive. Has a history of atherosclerotic heart diseas, cardiomyopathy with LV ejection fraction around 40% Apparently he has not been feeling well since last . He is coughing up whitish/bloody sputum. Medications: Medication Review Details: Current Medications Albuterol/Ipratropium (Ipratropium-Albuterol 3 Ml Neb) 3 ml INHALATION Q6H PRN PRN Reason: SHORTNESS OF BREATH Last Admin: 03/30/24 18:08 Dose: 3 ml Alprazolam (Alprazolam 0.5 Mg Tablet) 0.5 mg PO TID PRN PRN Reason: ANXIETY Last Admin: 03/31/24 22:03 Dose: 0.5 mg Denture Adhesive (Fixodent 39 Gm Tube) 1 applic DENTAL PRN PRN PRN Reason: denture adhesive Famotidine (Famotidine 20 Mg/2 Ml Inj) 20 mg IVP Q12H [facility] Last Admin: 04/01/24 05:10 Dose: 20 mg Fluticasone Propionate (Fluticasone Nasal [place] 16gm Btl) 1 spray INTRANASAL DAILY [facility] Last Admin: 04/01/24 13:15 Dose: 1 spray Furosemide (Furosemide 40 Mg Tablet) 40 mg PO DAILY [facility] Last Admin: 04/01/24 08:50 Dose: 40 mg Amiodarone HCl/Dextrose (Nexterone) 360 mg in 200 mls @ 0 mls/hr IV .Q0M [facility]; Protocol Last Admin: 04/01/24 08:17 Dose: 0.5 mg/min, 16.67 mls/hr Levofloxacin (Levofloxacin 750 Mg Tablet) 750 mg PO Q48H [facility]; Protocol Montelukast Sodium (Montelukast Sodium 10 Mg Tablet) 1 mg PO DAILY [facility] Last Admin: 04/01/24 08:51 Dose: 1 mg Non-Formulary Medication (Alirocumab [Praluent Pen]) 150 mg SUBCUT Q14D [facility] Last Admin: 03/30/24 16:10 Dose: Not Given Ondansetron HCl (Ondansetron 2 Mg/Ml Sdv 2 Ml) 4 mg IVP Q8H PRN PRN Reason: vomiting, or N/V if npo Potassium Chloride (Potassium Chloride Er 20 Meq Tablet) 20 meq PO BID [facility] Last Admin: 04/01/24 08:50 Dose: 20 meq Rivaroxaban (Rivaroxaban 10 Mg Tablet) 10 mg PO DAILY [facility] Last Admin: 04/01/24 08:51 Dose: 10 mg Terazosin HCl (Terazosin 5 Mg Capsule) 10 mg PO BID [facility] Last Admin: 04/01/24 08:51 Dose: 10 mg Tramadol HCl (Tramadol 50 Mg Tablet) 100 mg PO TID PRN PRN Reason: Pain Zolpidem Tartrate (Zolpidem 5 Mg Tablet) 5 mg PO BEDTIME PRN PRN Reason: INSOMNIA Vitals/I&O/Wt Last Vital Signs Temp 97.7 F 04/01/24 11:26 Pulse 95 04/01/24 11:26 Resp 24 H 04/01/24 11:26 BP 106/60 04/01/24 11:26 Pulse Ox 94 04/01/24 11:26 O2 Del Method Room Air 04/01/24 11:26 O2 Flow Rate 2 03/31/24 16:00 03/31/24 04/01/24 04/01/24 22:59 06:59 14:59 Intake Total 240 / 1160 Output Total 250 / 600 200 / 200 Balance 240 / 810 -250 / 560 -200 / -200 Weight last 48 hrs Weight 208 lb 2 oz Weight 206 lb 7 oz Physical Exam 2 Narrative: GENERAL: The patient is alert and oriented times three. Not in any acute distress. HEENT: No significant pallor, icterus or lymphadenopathy.Oral cavity: There are no mucous membrane lesions. NECK: Trachea appears to be central. No masses noted. No JVD or thyromegaly appreciated. RESPIRATORY: Chest is symmetrical. No intercostals muscle retraction or any accessory muscle activation. There is no chest wall tenderness. Breath sounds are heard bilaterally. No rales or rhonchi heard. No evidence of any consolidation. BREASTS: Deferred. HEART: The heart sounds are normal. No S3 or S4. No significant murmurs. No pericardial rub ABDOMEN: No vessel pulsations or distention. No tenderness. No organomegaly appreciated. Bowel sounds are normally heard. : Deferred. RECTAL: Deferred. LYMPHATIC: No lymphadenopathy noted in the neck. EXTREMITIES: No edema or cyanosis. No clubbing. MUSCULOSKELETAL: No acute joint deformities or swelling SKIN: There are no significant rashes or ecchymosis NEUROPSYCHIATRIC: The patient is alert and oriented x3. Appears to be in a good mood. No tremors or rigidity noted. Data 03/31/24 00:21 04/01/24 04:33 Other Labs: Laboratory Last Values WBC 8.31 10^3/uL (3.29-11.43) 03/31/24 00:21 RBC 4.60 10^6/uL (3.85-5.65) 03/31/24 00:21 Hgb 13.20 g/dL (11.27-16.99) 03/31/24 00:21 Hct 40.8 % (37-53) 03/31/24 00:21 MCV 88.7 fl (82-101) 03/31/24 00:21 MCH 28.7 pg (27-33) 03/31/24 00:21 MCHC 32.4 g/dL (30-55) 03/31/24 00:21 RDW 14.3 % (12.1-15.1) 03/31/24 00:21 Plt Count 116 10^3/cmm (157-399) L 03/31/24 00:21 MPV 13.5 fL (7.4-10.4) H 03/31/24 00:21 Neut % (Auto) 79.5 % 03/31/24 00:21 Lymph % (Auto) 8.4 % 03/31/24 00:21 Jay % (Auto) 11.3 % 03/31/24 00:21 Eos % (Auto) 0.1 % 03/31/24 00:21 Baso % (Auto) 0.5 % 03/31/24 00:21 Neut # (Auto) 6.60 10^3/uL (1.8-7.7) 03/31/24 00:21 Lymph # (Auto) 0.7 10^3/uL (0.8-4.8) L 03/31/24 00:21 Jay # (Auto) 0.9 10^3/uL (0.2-0.9) 03/31/24 00:21 Eos # (Auto) 0.0 10^3/uL (0.0-0.8) 03/31/24 00:21 Baso # (Auto) 0.0 10^3/uL (0.0-0.1) 03/31/24 00:21 Nucleated RBC % (auto) 0 % 03/31/24 00:21 Nucleated RBCs # 0.0 /100WBC 03/31/24 00:21 PT 25.10 SECONDS (12.1-14.9) H 03/31/24 20:04 INR 2.19 (0.8-1.2) H 03/31/24 20:04 Sodium 142 mmol/L (136-145) 04/01/24 04:33 Potassium 3.9 mmol/L (3.5-5.1) 04/01/24 04:33 Chloride 105 mmol/L (98-107) 04/01/24 04:33 Carbon Dioxide 24 mmol/L (22-29) 04/01/24 04:33 Anion Gap 16.9 (5-19) 04/01/24 04:33 BUN 28 mg/dL (8-23) H 04/01/24 04:33 Creatinine 1.7 mg/dL (0.7-1.2) H 04/01/24 04:33 GFR Calculation Not Reportable 04/01/24 04:33 Glucose 114 mg/dL (65-115) 04/01/24 04:33 Calculated Osmolality 300 mOsm/kg (285-295) H 04/01/24 04:33 Lactic Acid 2.8 mmol/L (0.5-2.2) H 03/30/24 21:14 Lactic Acid (Sepsis) 1.9 mmol/L (0.5-2.2) 03/31/24 00:21 Calcium 8.6 mg/dL (8.5-10.5) 04/01/24 04:33 Phosphorus 3.0 mg/dL (2.5-4.5) 04/01/24 04:33 Magnesium 2.2 mg/dL (1.7-2.3) 04/01/24 04:33 Total Bilirubin 0.8 mg/dL (0.15-1.2) 03/30/24 14:10 AST 23 U/L (0-40) 03/30/24 14:10 ALT 14 U/L (0-41) 03/30/24 14:10 Alkaline Phosphatase 70 U/L (40-130) 03/30/24 14:10 Troponin T Baseline 108 ng/L (0-15) H* 03/30/24 14:10 Troponin T 120 Minute 105.4 ng/L (0-15) H 03/30/24 16:15 Delta Troponin T -2.6 ABS# (0-10) L 03/30/24 16:15 Troponin T Hi Sens 6Hr 113.8 ng/L (0-15) H 03/30/24 20:03 Troponin T Hi Sens 6Hr Delta 5.8 ng/L (0-12) 03/30/24 20:03 Total Protein 7.0 g/dL (6.6-8.7) 03/30/24 14:10 Albumin 4.5 g/dL (3.5-5.2) 03/30/24 14:10 Globulin 2.5 g/dL (1.3-4.6) 03/30/24 14:10 Urine Color Yellow (Yellow) 03/30/24 22:06 Urine Appearance Clear (CLEAR) 03/30/24 22:06 Urine pH 5.0 (5-7) 03/30/24 22:06 Ur Specific [place] 1.019 (1.005-1.030) 03/30/24 22:06 Urine Protein Negative (Negative) 03/30/24 22:06 Urine Glucose (UA) Negative (Normal) 03/30/24 22:06 Urine Ketones Trace (Negative) 03/30/24 22:06 Urine Blood Negative (Negative) 03/30/24 22:06 Urine Nitrate Negative (Negative) 03/30/24 22:06 Urine Bilirubin Negative (Negative) 03/30/24 22:06 Urine Urobilinogen 0.2 mg/dL (Negative) 03/30/24 22:06 Ur Leukocyte Esterase 1+ (Negative) A 03/30/24 22:06 Urine RBC 0-2 /hpf (0-2) 03/30/24 22:06 Urine WBC 0-5 /hpf (0-5) 03/30/24 22:06 Ur Squamous Epith Cells 0-5 /hpf (0-5) 03/30/24 22:06 Amorphous Sediment Not Reportable 03/30/24 22:06 Urine Bacteria None seen /hpf (NONE) 03/30/24 22:06 Hyaline Casts 5.36 /lpf 03/30/24 22:06 Coronavirus (PCR) Positive (Negative) A 03/30/24 22:07 Influenza A (PCR) Negative (Negative) 03/30/24 22:07 Influenza Type B (PCR) Negative (Negative) 03/30/24 22:07 RSV (PCR) Negative (Negative) 03/30/24 22:07 Group A Strep Rapid Negative (Negative) 03/30/24 22:06 Micro: Microbiology 03/30/24 21:14 Blood Culture - Preliminary Blood NEGATIVE TO DATE 03/30/24 21:12 Blood Culture - Preliminary Blood NEGATIVE TO DATE Other data: Echocardiogram in July 2023 Mildly dilated left-ventricular with a moderately depressed ejection fraction of 34%. Multiple wall motion normalities as mentioned above. Mildly increased left atrial size. Moderate mitral valve regurgitation. Estimated pulmonary artery peak systolic pressure of 25 mmHg There is no pericardial effusion. There are no intracardiac masses. Compared to the study from 06/22/2022, the LV systolic function has slightly decreased Cardiac catheterization in April 2021 . Patient has prior CABG. 2. Severe left ventricular systolic dysfunction. Ejection fraction of 25%. 3. This is a 70-year-old white male four-vessel coronary bypass surgery,presenting with progressive shortness of breath, new onset of atrial fibrillation with rapid ventricular rate. His LV ejection fraction was markedly decreased based on the echocardiogram. He had a myocardial perfusion imaging done few months ago which revealed extensive myocardial scarring with a small areas of octaviano-infarction ischemia. In view of the markedly diminished and congestive heart failure, in order to further evaluate his coronary status as well as the graft status, a cardiac catheterization was recommended. Patient underwent left heart catheterization with left and right coronary angiogram, graft angiogram and LV gram today. The findings are as follows.. 4. Total occlusion of the left anterior descending artery and circumflex artery at the ostium. Mild to moderate diffuse disease in the left main.Small intermedius artery with a mild to moderate diffuse disease. Total occlusion of the right coronary artery after the first RV branch. Occlusion of the venous graft to the PDA and to the obtuse marginal artery. Patent venous graft to the diagonal with left to left collaterals. Patent DELANEY to the LAD. [id number] collaterals also were noted. LV ejection fraction 25%. LVEDP of 26 mmHg. Based on the above angiographic findings, it was opted to treat her medically. A&P Assessment and plan (1) Atrial fibrillation with RVR: Patient apparently is very symptomatic with the atrial fibrillation. His blood pressure also is soft with the arrhythmia. He has been staying in the atrial fibrillation with rapid ventricular rate for more than 48 hours. Currently he has no fever . He has been afebrile for more than 4 hours. (2) Dyslipidemia: (3) Atherosclerosis of coronary artery of [place] heart without angina pectoris: He has no evidence of any coronary event. Had PCI in the past. Qualifiers: Coronary Disease-Associated Artery/Lesion type: unspecified vessel or lesion type Qualified Code(s): I25.10 - Atherosclerotic heart disease of [place] coronary artery without angina pectoris (4) Ischemic cardiomyopathy: Colitis LV ejection fraction was 34% by echocardiogram. Patient apparently refused to have defibrillator. Currently has no evidence of any medical injury. Denies any chest pain. (5) Mixed hyperlipidemia: May continue on the current medications. Plan Because of the symptomatic atrial fibrillation with a low blood pressure, it may be appropriate to go ahead with an electrical cardioversion. This was discussed with the patient in detail, which is understood well and consented to proceed The risk of malignant ventricular arrhythmia, stroke, aspiration, heart blocks and other concomitant complications were explained in detail. We may go ahead and do schedule the cardioversion this evening with anesthesia. Attestations 2 Medical Necessity Statement*: Patient requires continued hospital stay for close monitoring and further management Coding Level of Care Code 10747 Diagnoses Atrial fibrillation with RVR I48.91 Dyslipidemia E78.5 Atherosclerosis of coronary artery of [place] heart without angina pectoris, unspecified vessel or lesion type I25.10 Coronary Disease-Associated Artery/Lesion type: unspecified vessel or lesion type Ischemic cardiomyopathy I25.5 Mixed hyperlipidemia E78.2
--- NOTE | 2024-04-01 14:50 | P.ANESASSM_ITS ---
Pre-Anesthetic Assessment Height/Weight: Height 5 ft 9 in Weight 208 lb 2 oz Temp Pulse Resp BP Pulse Ox O2 Del Method O2 Flow Rate 97.7 F 95 24 H 106/60 94 Room Air 2 04/01/24 11:26 04/01/24 11:26 04/01/24 11:26 04/01/24 11:26 04/01/24 11:26 04/01/24 11:26 03/31/24 16:00 Preop Diagnosis: A-fib Was Beta Terrance taken within 24 hours: N/A Was Clonidine taken within 24 hours: N/A Social No alcohol and No tobacco Exam alert, oriented x 3 and clear to auscultation bilaterally Airway Submandibular: within normal limits Cervical ROM: within normal limits Mallampati: Class III Dentition: full Anesthetic Plan ASA status: 3 Anesthesia: MAC Other: No prior issues with anesthesia Patient ate scrambled eggs at 10 AM today Admitted 03/30/2024 with COVID and A-fib. Patient had a cardioversion 3 years ago which was successful and has not been in A-fib since that time S/p CABG, echo 2023 showing EF 34% with diastolic dysfunction. Moderate aortic stenosis at that time aortic valve area 1.1. PA pressures of 25 Labs 03/31/2024 reviewed and acceptable for procedure today CKD stage III METs greater than 4 Plan for MAC anesthesia Medications/Allergies Home Medications Medication Instructions Recorded Confirmed Last Taken Type cetirizine 10 mg tablet 10 mg PO DAILY PRN allergy symptoms 06/29/20 03/31/24 03/30/24 History fluticasone propionate 50 1 spray intranasal DAILY 06/29/20 03/31/24 03/30/24 History mcg/actuation nasal spray,suspension (Flonase Allergy Relief) tramadol 50 mg tablet 50 mg PO TID PRN Pain 06/29/20 03/31/24 03/30/24 History terazosin 10 mg capsule 10 mg PO BID 11/02/20 03/31/24 03/30/24 History furosemide 40 mg tablet 80 mg (2 x 40 mg) PO DAILY #180 04/09/23 03/31/24 03/30/24 Rx tabs alirocumab 150 mg/mL subcutaneous 150 mg SUBCUT Q14D #2 mL 08/06/23 04/01/24 03/22/24 Rx pen injector (Praluent Pen) amiodarone 200 mg tablet See Rx Instructions .Route 09/04/23 03/31/24 03/30/24 Rx .COMPLEX #90 tabs montelukast 10 mg tablet See Rx Instructions .Route 10/12/23 03/31/24 03/30/24 Rx .COMPLEX #90 tabs rivaroxaban 15 mg tablet (Xarelto) See Rx Instructions .Route 11/27/23 03/31/24 03/30/24 Rx .COMPLEX #90 tabs potassium chloride 20 mEq See Rx Instructions .Route 01/01/24 03/31/24 03/30/24 Rx tablet,extended release(part/cryst) .COMPLEX #180 tabs Allergies Allergy/AdvReac Type Severity Reaction Status Date / Time Penicillins Allergy Unknown Unknown Verified 03/17/24 14:31 [id number] Reductase Allergy couldn't Verified 03/17/24 14:31 Inhibitor function [[id number] Reductase Inhibitor] metoprolol AdvReac low bp Verified 03/17/24 14:31 Current Medications Generic Name Dose Route Start Last Admin Trade Name Freq PRN Reason Stop Dose Admin Albuterol/Ipratropium 3 ml 03/30/24 18:01 03/30/24 18:08 Ipratropium-Albuterol 3 Ml Neb INHALATION 3 ml Q6H PRN Administration SHORTNESS OF BREATH Alprazolam 0.5 mg 03/31/24 11:11 03/31/24 22:03 Alprazolam 0.5 Mg Tablet PO 0.5 mg TID PRN Administration ANXIETY Famotidine 20 mg 03/30/24 18:00 04/01/24 05:10 Famotidine 20 Mg/2 Ml Inj IVP 20 mg Q12H L[facility]NE Administration Fluticasone Propionate 1 spray 03/31/24 09:00 04/01/24 13:15 Fluticasone Nasal [place] 16gm Btl INTRANASAL 1 spray DAILY LYNNE Administration Furosemide 40 mg 03/31/24 09:00 04/01/24 08:50 Furosemide 40 Mg Tablet PO 40 mg DAILY LYNNE Administration Amiodarone HCl/Dextrose 360 mg in 200 mls @ 0 mls/hr 03/30/24 14:52 04/01/24 08:17 Nexterone IV 0.5 mg/min .Q0M LYNNE 16.67 mls/hr Administration Protocol Per Protocol Montelukast Sodium 1 mg 03/31/24 09:00 04/01/24 08:51 Montelukast Sodium 10 Mg Tablet PO 1 mg DAILY [facility] Administration Non-Formulary Medication 150 mg 03/30/24 16:15 03/30/24 16:10 Alirocumab [Praluent Pen] SUBCUT Not Given Q14D [facility]YNNE Potassium Chloride 20 meq 03/30/24 18:00 04/01/24 08:50 Potassium Chloride Er 20 Meq Tablet PO 20 meq BID LYNNE Administration Rivaroxaban 10 mg 03/31/24 09:00 04/01/24 08:51 Rivaroxaban 10 Mg Tablet PO 10 mg DAILY [facility] Administration Terazosin HCl 10 mg 03/30/24 18:00 04/01/24 08:51 Terazosin 5 Mg Capsule PO 10 mg BID LYNNE Administration Additional Medication Information Current Medications Albuterol/Ipratropium (Ipratropium-Albuterol 3 Ml Neb) 3 ml INHALATION Q6H PRN PRN Reason: SHORTNESS OF BREATH Last Admin: 03/30/24 18:08 Dose: 3 ml Alprazolam (Alprazolam 0.5 Mg Tablet) 0.5 mg PO TID PRN PRN Reason: ANXIETY Last Admin: 03/31/24 22:03 Dose: 0.5 mg Denture Adhesive (Fixodent 39 Gm Tube) 1 applic DENTAL PRN PRN PRN Reason: denture adhesive Famotidine (Famotidine 20 Mg/2 Ml Inj) 20 mg IVP Q12H [facility] Last Admin: 04/01/24 05:10 Dose: 20 mg Fluticasone Propionate (Fluticasone Nasal [place] 16gm Btl) 1 spray INTRANASAL DAILY [facility]YNNE Last Admin: 04/01/24 13:15 Dose: 1 spray Furosemide (Furosemide 40 Mg Tablet) 40 mg PO DAILY [facility] Last Admin: 04/01/24 08:50 Dose: 40 mg Amiodarone HCl/Dextrose (Nexterone) 360 mg in 200 mls @ 0 mls/hr IV .Q0M [facility]YNNE; Protocol Last Admin: 04/01/24 08:17 Dose: 0.5 mg/min, 16.67 mls/hr Levofloxacin (Levofloxacin 750 Mg Tablet) 750 mg PO Q48H LYNNE; Protocol Montelukast Sodium (Montelukast Sodium 10 Mg Tablet) 1 mg PO DAILY [facility] Last Admin: 04/01/24 08:51 Dose: 1 mg Non-Formulary Medication (Alirocumab [Praluent Pen]) 150 mg SUBCUT Q14D [facility] Last Admin: 03/30/24 16:10 Dose: Not Given Ondansetron HCl (Ondansetron 2 Mg/Ml Sdv 2 Ml) 4 mg IVP Q8H PRN PRN Reason: vomiting, or N/V if npo Potassium Chloride (Potassium Chloride Er 20 Meq Tablet) 20 meq PO BID [facility] Last Admin: 04/01/24 08:50 Dose: 20 meq Rivaroxaban (Rivaroxaban 10 Mg Tablet) 10 mg PO DAILY [facility] Last Admin: 04/01/24 08:51 Dose: 10 mg Terazosin HCl (Terazosin 5 Mg Capsule) 10 mg PO BID [facility] Last Admin: 04/01/24 08:51 Dose: 10 mg Tramadol HCl (Tramadol 50 Mg Tablet) 100 mg PO TID PRN PRN Reason: Pain Zolpidem Tartrate (Zolpidem 5 Mg Tablet) 5 mg PO BEDTIME PRN PRN Reason: INSOMNIA PFSH Anesthesia Medical History CKD (chronic kidney disease) stage 3, GFR 30-59 ml/min Hyperuricemia Polyarthralgia Sepsis Cardiogenic shock Moderate to severe mitral regurgitation Acute on chronic systolic heart failure Elevated liver enzymes Metabolic acidosis, increased anion gap COVID-20 Mar 2021 Atrial flutter Hyperkalemia Hepatorenal syndrome Acute renal failure (ARF) Atrial fibrillation with rapid ventricular response Traumatic tear of right rotator cuff 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 Radiation therapy. Slowly rising PSA with benign RALPH. 6.June. BPH loc w urin obs/LUTS Hypercholesterolemia Ischemic heart disease Elevated PSA Nocturia Urinary hesitancy Surgical History History of tonsillectomy and adenoidectomy Hx of coronary artery bypass graft H/O total knee replacement RIGHT H/O shoulder surgery LEFT History of back surgery History of carpal tunnel release BILATERAL Family History Father , AT AGE 91 Bowel obstruction Mother , AT AGE 84 Heart attack CAD (coronary artery disease) Hypertension Diabetes Brother Cancer Family/Other Cancer Son Chronic kidney disease (CKD) Cancer Grandfather Stroke Denies family history of Clotting disorder Dementia Suicide Anesthesia complication Bleeding disorder Lung disease Social History Smoking and tobacco/nicotine status: never used tobacco/nicotine Alcohol intake: never Substance/Drug Use: never Marital status: Current occupational status: employed Data Anesthesia 03/31/24 00:21 04/01/24 04:33 Short CBC 03/30/24 03/31/24 Range/Units 14:10 00:21 WBC 8.14 8.31 (3.29-11.43) 10^3/uL Hgb 13.80 13.20 (11.27-16.99) g/dL Hct 43.5 40.8 (37-53) % MCV 89.1 88.7 (82-101) fl Plt Count 118 L 116 L (157-399) 10^3/cmm Neut % (Auto) 79.4 79.5 % Neut # (Auto) 6.46 6.60 (1.8-7.7) 10^3/uL BMP 03/30/24 03/31/24 04/01/24 14:10 00:21 04:33 Sodium 139 138 142 Potassium 4.1 4.2 3.9 Chloride 101 104 105 Carbon Dioxide 25 22 24 BUN 25 H 33 H 28 H Creatinine 1.8 H 1.8 H 1.7 H Glucose 130 H 125 H 114 Calcium 9.0 8.9 8.6 Cardiac Enzymes 03/30/24 03/30/24 03/30/24 Range/Units 14:10 16:15 20:03 Troponin T Baseline 108 H* (0-15) ng/L Troponin T 120 Minute 105.4 H (0-15) ng/L Delta Troponin T -2.6 L (0-10) ABS# Troponin T Hi Sens 6Hr 113.8 H (0-15) ng/L Troponin T Hi Sens 6Hr Delta 5.8 (0-12) ng/L Liver Function 03/30/24 Range/Units 14:10 Total Bilirubin 0.8 (0.15-1.2) mg/dL AST 23 (0-40) U/L ALT 14 (0-41) U/L Alkaline Phosphatase 70 (40-130) U/L Albumin 4.5 (3.5-5.2) g/dL Urine 03/30/24 Range/Units 22:06 Urine Color Yellow (Yellow) Urine Appearance Clear (CLEAR) Urine pH 5.0 (5-7) Ur Specific [place] 1.019 (1.005-1.030) Urine Protein Negative (Negative) Urine Glucose (UA) Negative (Normal) Urine Ketones Trace (Negative) Urine Nitrate Negative (Negative) Urine Bilirubin Negative (Negative) Ur Leukocyte Esterase 1+ A (Negative) Urine RBC 0-2 (0-2) /hpf Urine WBC 0-5 (0-5) /hpf COVID Results 03/30/24 22:07 Coronavirus (PCR) Positive A Coags 03/30/24 03/31/24 14:10 20:04 PT 34.70 H 25.10 H INR 3.29 H 2.19 H Microbiology 03/30/24 21:14 Blood Culture - Preliminary Blood NEGATIVE TO DATE 03/30/24 21:12 Blood Culture - Preliminary Blood NEGATIVE TO DATE Cardiac Studies: 2 Echocardiogram 07/05/23 Echocardiogram Ultrasound 09/14/20 Transesophageal Echocardiogram 04/25/21 Sestamibi Stress Test (Cardiology) 12/16 Cardiac Event Monitor 04/20/21
[2024-04-01] MEDS: sodium chloride 0.9% 250 ML 10 ML IV (18:34)
--- NOTE | 2024-04-01 18:35 | PC.NURSE ---
Patient was successfully cardioverted by Dr. Negrete. Doctor ordered to let the amiodarone drip finish and to not start another bag and change the patient to Amiodarone Po 200 mg.
[2024-04-01 18:57] LABS: INR 2.45 (0.8-1.2)
[2024-04-01] MEDS: amiodarone 200 mg Tablet PO (19:04)
[2024-04-01] MEDS: levoFLOXacin 750 mg Tablet PO (20:13)
[2024-04-01] MEDS: ALPRAZolam 0.5 mg Tablet PO (23:59)
[2024-04-02] VITALS (8 sets, daily range): BP systolic 108–143; BP diastolic 60–100; PULSE 89–97; RESP 18–31; TEMP 36.6–36.7; O2SAT 91–99
[2024-04-02 05:15] LABS: Basophils % 0.4 %; Eosinophils # 0.1 10^3/uL (0.0-0.8); Eosinophils % 1.4 %; Lymphocytes # 1.1 10^3/uL (0.8-4.8); Lymphocytes % 19.9 %; Mean Corpuscular HGB Conc 31.5 g/dL (30-55); Mean Corpuscular Hemoglobin 28.4 pg (27-33); Mean Corpuscular Volume 90.1 fl (82-101); Mean Platelet Volume 13.7 fL (7.4-10.4); Monocytes # 0.6 10^3/uL (0.2-0.9); Monocytes % 10.1 %; Neutrophils # 3.81 10^3/uL (1.8-7.7); Neutrophils % 67.8 %; Nucleated Red Blood Cells % 0 %; Platelet Count 105 10^3/cmm (157-399); Red Blood Count 4.44 10^6/uL (3.85-5.65); Red Cell Distribution Width 14.5 % (12.1-15.1); White Blood Count 5.62 10^3/uL (3.29-11.43)
[2024-04-02 05:33] LABS: Anion Gap 14.3 (5-19); Blood Urea Nitrogen 31 mg/dL (8-23); Calcium 8.4 mg/dL (8.5-10.5); Carbon Dioxide 25 mmol/L (22-29); Chloride 107 mmol/L (98-107); Creatinine Clr Calc Pharmacy 42.6893; Glucose 97 mg/dL (65-115); Osmolality Calculated 300 mOsm/kg (285-295); Potassium 4.3 mmol/L (3.5-5.1); Sodium 142 mmol/L (136-145)
[2024-04-02 05:34] LABS: Magnesium 2.2 mg/dL (1.7-2.3); Phosphorus 3.5 mg/dL (2.5-4.5)
[2024-04-02] MEDS: famotidine 20 mg/2 mL INJ IVP (05:59)
[2024-04-02] MEDS: TRAMadol 50 mg Tablet 100 MG PO (07:02)
[2024-04-02] MEDS: terazosin 5 mg Capsule 10 MG PO (07:53)
[2024-04-02] MEDS: montelukast sodium 10 mg Tablet PO (07:53)
[2024-04-02] MEDS: rivaroxaban 10 mg Tablet 15 MG PO (07:53)
[2024-04-02] MEDS: potassium chloride ER 20 mEq Tablet PO (07:53)
[2024-04-02] MEDS: amiodarone 200 mg Tablet PO (07:54)
[2024-04-02] MEDS: fluticasone nasal spray 16gm Btl 1 SPRAY INTRANASAL (07:54)
--- NOTE | 2024-04-02 07:57 | PC.NURSE ---
Addendum entered by Narcisa Wu RN 04/02/24 09:01: Both Dr Nj and Dr Smith spoke with patient and attempted educating regarding dosing changes. Patient continued to insist. MDs agreed patient may have his Lasix 80mg daily. Will continue with attempted education and will monitor BP. Original Note: Patient very upset this am regarding Lasix dosing. Patient reports he has to have 80mg or he does not want any. States I cannot breathe without it. Patient want to talk to Dr Nj prior to taking anything and/or discharge. Informed Dr Nj that patient wants to see him. MD in procedure. Will come to see patient.
[2024-04-02] MEDS: FUROsemide 40 mg Tablet 80 MG PO (09:00)
--- NOTE | 2024-04-02 09:21 | P.PN_ITS ---
Subjective 2 Subjective: Patient had the electrical cardioversion yesterday. He was cardioverted to normal sinus rhythm with a single shock of 120 J of biphasic current.. He is currently staying in the sinus rhythm. Vitals are stable. Medications: Medication Review Details: Current Medications Albuterol/Ipratropium (Ipratropium-Albuterol 3 Ml Neb) 3 ml INHALATION Q6H PRN PRN Reason: SHORTNESS OF BREATH Last Admin: 03/30/24 18:08 Dose: 3 ml Alprazolam (Alprazolam 0.5 Mg Tablet) 0.5 mg PO TID PRN PRN Reason: ANXIETY Last Admin: 04/01/24 23:59 Dose: 0.5 mg Amiodarone HCl (Amiodarone 200 Mg Tablet) 200 mg PO DAILY [facility] Last Admin: 04/02/24 07:54 Dose: 200 mg Denture Adhesive (Fixodent 39 Gm Tube) 1 applic DENTAL PRN PRN PRN Reason: denture adhesive Famotidine (Famotidine 20 Mg/2 Ml Inj) 20 mg IVP Q12H [facility] Last Admin: 04/02/24 05:59 Dose: 20 mg Fluticasone Propionate (Fluticasone Nasal [place] 16gm Btl) 1 spray INTRANASAL DAILY [facility] Last Admin: 04/02/24 07:54 Dose: 1 spray Furosemide (Furosemide 40 Mg Tablet) 80 mg PO DAILY [facility] Last Admin: 04/02/24 09:00 Dose: 80 mg Sodium Chloride (Sodium Chloride 0.9%) 250 mls @ 10 mls/hr IV .Q24H [facility] Last Titration: 04/01/24 20:29 Dose: 0 mls/hr Levofloxacin (Levofloxacin 750 Mg Tablet) 750 mg PO Q48H [facility]; Protocol Last Admin: 04/01/24 20:13 Dose: 750 mg Montelukast Sodium (Montelukast Sodium 10 Mg Tablet) 1 mg PO DAILY [facility] Last Admin: 04/02/24 07:53 Dose: 1 mg Non-Formulary Medication (Alirocumab [Praluent Pen]) 150 mg SUBCUT Q14D [facility] Last Admin: 03/30/24 16:10 Dose: Not Given Ondansetron HCl (Ondansetron 2 Mg/Ml Sdv 2 Ml) 4 mg IVP Q8H PRN PRN Reason: vomiting, or N/V if npo Potassium Chloride (Potassium Chloride Er 20 Meq Tablet) 20 meq PO BID [facility] Last Admin: 04/02/24 07:53 Dose: 20 meq Rivaroxaban (Rivaroxaban 10 Mg Tablet) 15 mg PO DAILY [facility] Last Admin: 04/02/24 07:53 Dose: 15 mg Terazosin HCl (Terazosin 5 Mg Capsule) 10 mg PO BID [facility] Last Admin: 04/02/24 07:53 Dose: 10 mg Tramadol HCl (Tramadol 50 Mg Tablet) 100 mg PO TID PRN PRN Reason: Pain Last Admin: 04/02/24 07:02 Dose: 100 mg Zolpidem Tartrate (Zolpidem 5 Mg Tablet) 5 mg PO BEDTIME PRN PRN Reason: INSOMNIA Vitals/I&O/Wt Last Vital Signs Temp 97.8 F 04/02/24 08:00 Pulse 95 04/02/24 08:00 Resp 31 H 04/02/24 08:00 BP 143/100 04/02/24 08:00 Pulse Ox 99 04/02/24 08:05 O2 Del Method Room Air 04/02/24 08:04 O2 Flow Rate 2 03/31/24 16:00 04/01/24 04/02/24 04/02/24 22:59 06:59 14:59 Intake Total 1190 / 1190 360 / 360 Output Total 450 / 650 300 / 950 Balance 740 / 540 -300 / 240 360 / 360 Weight last 48 hrs Weight 208 lb 2 oz Weight 208 lb 2 oz Physical Exam 2 Narrative: GENERAL: The patient is alert and oriented times three. Not in any acute distress. HEENT: No significant pallor, icterus or lymphadenopathy.Oral cavity: There are no mucous membrane lesions. NECK: Trachea appears to be central. No masses noted. No JVD or thyromegaly appreciated. RESPIRATORY: Chest is symmetrical. No intercostals muscle retraction or any accessory muscle activation. There is no chest wall tenderness. Breath sounds are heard bilaterally. No rales or rhonchi heard. No evidence of any consolidation. BREASTS: Deferred. HEART: The heart sounds are normal. No S3 or S4. No significant murmurs. No pericardial rub ABDOMEN: No vessel pulsations or distention. No tenderness. No organomegaly appreciated. Bowel sounds are normally heard. : Deferred. RECTAL: Deferred. LYMPHATIC: No lymphadenopathy noted in the neck. EXTREMITIES: No edema or cyanosis. No clubbing. MUSCULOSKELETAL: No acute joint deformities or swelling SKIN: There are no significant rashes or ecchymosis NEUROPSYCHIATRIC: The patient is alert and oriented x3. Appears to be in a good mood. No tremors or rigidity noted. Data 04/02/24 04:27 04/02/24 04:27 Other Labs: Laboratory Last Values WBC 5.62 10^3/uL (3.29-11.43) 04/02/24 04:27 RBC 4.44 10^6/uL (3.85-5.65) 04/02/24 04:27 Hgb 12.60 g/dL (11.27-16.99) 04/02/24 04:27 Hct 40.0 % (37-53) 04/02/24 04:27 MCV 90.1 fl (82-101) 04/02/24 04: MCH 28.4 pg (27-33) 04/02/24 04: MCHC 31.5 g/dL (30-55) 04/02/24 04:27 RDW 14.5 % (12.1-15.1) 04/02/24 04:27 Plt Count 105 10^3/cmm (157-399) L 04/02/24 04:27 MPV 13.7 fL (7.4-10.4) H 04/02/24 04:27 Neut % (Auto) 67.8 % 04/02/24 04:27 Lymph % (Auto) 19.9 % 04/02/24 04:27 [place] % (Auto) 10.1 % 04/02/24 04:27 Eos % (Auto) 1.4 % 04/02/24 04:27 Baso % (Auto) 0.4 % 04/02/24 04:27 Neut # (Auto) 3.81 10^3/uL (1.8-7.7) 04/02/24 04:27 Lymph # (Auto) 1.1 10^3/uL (0.8-4.8) 04/02/24 04:27 [place] # (Auto) 0.6 10^3/uL (0.2-0.9) 04/02/24 04:27 Eos # (Auto) 0.1 10^3/uL (0.0-0.8) 04/02/24 04:27 Baso # (Auto) 0.0 10^3/uL (0.0-0.1) 04/02/24 04:27 Nucleated RBC % (auto) 0 % 04/02/24 04:27 Nucleated RBCs # 0.0 /100WBC 04/02/24 04:27 PT 27.50 SECONDS (12.1-14.9) H 04/01/24 18:30 INR 2.45 (0.8-1.2) H 04/01/24 18:30 Sodium 142 mmol/L (136-145) 04/02/24 04:27 Potassium 4.3 mmol/L (3.5-5.1) 04/02/24 04:27 Chloride 107 mmol/L (98-107) 04/02/24 04:27 Carbon Dioxide 25 mmol/L (22-29) 04/02/24 04:27 Anion Gap 14.3 (5-19) 04/02/24 04:27 BUN 31 mg/dL (8-23) H 04/02/24 04:27 Creatinine 1.8 mg/dL (0.7-1.2) H 04/02/24 04:27 GFR Calculation Not Reportable 04/02/24 04:27 Glucose 97 mg/dL (65-115) 04/02/24 04:27 Calculated Osmolality 300 mOsm/kg (285-295) H 04/02/24 04:27 Lactic Acid 2.8 mmol/L (0.5-2.2) H 03/30/24 21:14 Lactic Acid (Sepsis) 1.9 mmol/L (0.5-2.2) 03/31/24 00:21 Calcium 8.4 mg/dL (8.5-10.5) L 04/02/24 04:27 Phosphorus 3.5 mg/dL (2.5-4.5) 04/02/24 04:27 Magnesium 2.2 mg/dL (1.7-2.3) 04/02/24 04:27 Total Bilirubin 0.8 mg/dL (0.15-1.2) 03/30/24 14:10 AST 23 U/L (0-40) 03/30/24 14:10 ALT 14 U/L (0-41) 03/30/24 14:10 Alkaline Phosphatase 70 U/L (40-130) 03/30/24 14:10 Troponin T Baseline 108 ng/L (0-15) H* 03/30/24 14:10 Troponin T 120 Minute 105.4 ng/L (0-15) H 03/30/24 16:15 Delta Troponin T -2.6 ABS# (0-10) L 03/30/24 16:15 Troponin T Hi Sens 6Hr 113.8 ng/L (0-15) H 03/30/24 20:03 Troponin T Hi Sens 6Hr Delta 5.8 ng/L (0-12) 03/30/24 20:03 Total Protein 7.0 g/dL (6.6-8.7) 03/30/24 14:10 Albumin 4.5 g/dL (3.5-5.2) 03/30/24 14:10 Globulin 2.5 g/dL (1.3-4.6) 03/30/24 14:10 Urine Color Yellow (Yellow) 03/30/24 22:06 Urine Appearance Clear (CLEAR) 03/30/24 22:06 Urine pH 5.0 (5-7) 03/30/24 22:06 Ur Specific [place] 1.019 (1.005-1.030) 03/30/24 22:06 Urine Protein Negative (Negative) 03/30/24 22:06 Urine Glucose (UA) Negative (Normal) 03/30/24 22:06 Urine Ketones Trace (Negative) 03/30/24 22:06 Urine Blood Negative (Negative) 03/30/24 22:06 Urine Nitrate Negative (Negative) 03/30/24 22:06 Urine Bilirubin Negative (Negative) 03/30/24 22:06 Urine Urobilinogen 0.2 mg/dL (Negative) 03/30/24 22:06 Ur Leukocyte Esterase 1+ (Negative) A 03/30/24 22:06 Urine RBC 0-2 /hpf (0-2) 03/30/24 22:06 Urine WBC 0-5 /hpf (0-5) 03/30/24 22:06 Ur Squamous Epith Cells 0-5 /hpf (0-5) 03/30/24 22:06 Amorphous Sediment Not Reportable 03/30/24 22:06 Urine Bacteria None seen /hpf (NONE) 03/30/24 22:06 Hyaline Casts 5.36 /lpf 03/30/24 22:06 Coronavirus (PCR) Positive (Negative) A 03/30/24 22:07 Influenza A (PCR) Negative (Negative) 03/30/24 22:07 Influenza Type B (PCR) Negative (Negative) 03/30/24 22:07 RSV (PCR) Negative (Negative) 03/30/24 22:07 Group A Strep Rapid Negative (Negative) 03/30/24 22:06 Micro: Microbiology 03/30/24 22:06 Group A Streptococcus Rapid Screen - Preliminary Throat A&P Assessment and plan (1) Atrial fibrillation with RVR: Patient status post cardioversion. Currently remaining in sinus rhythm. May continue on the amiodarone 200 mg p.o. daily. Patient apparently was consuming energy drinks and caffeine containing products prior to the current episode of atrial fibrillation. He is strongly advised to avoid any caffeine or caffeine containing products. Importance of compliance to dietary instructions were discussed. (2) Dyslipidemia: May continue on the current management (3) Atherosclerosis of coronary artery of [place] heart without angina pectoris: He has no evidence of any coronary event. Had PCI in the past. May continue on the current medications Qualifiers: Coronary Disease-Associated Artery/Lesion type: unspecified vessel or lesion type Qualified Code(s): I25.10 - Atherosclerotic heart disease of [place] coronary artery without angina pectoris (4) Ischemic cardiomyopathy: Colitis LV ejection fraction was 34% by echocardiogram. Patient apparently refused to have defibrillator. Currently has no evidence of any medical injury. May continue on the current management (5) Mixed hyperlipidemia: May continue on the current medications. Plan If the patient continues to remain stable, he may be discharged home myocardial standpoint. He may resume all his home medications. [facility]-up appointment [facility] to be seen by the nurse practitioner in 1 week. Appoint with me in the office as scheduled Attestations 2 Medical Necessity Statement*: Possible discharge home today Coding Level of Care Code 58373 Diagnoses Atrial fibrillation with RVR I48.91 Dyslipidemia E78.5 Atherosclerosis of coronary artery of [place] heart without angina pectoris, unspecified vessel or lesion type I25.10 Coronary Disease-Associated Artery/Lesion type: unspecified vessel or lesion type Ischemic cardiomyopathy I25.5 Mixed hyperlipidemia E78.2
--- NOTE | 2024-04-02 10:12 | P.DS_ITS ---
Discharge Providers Date of Admission: 03/30/24 14:58 Date of Discharge: April 02, 2024 Attending Provider at Admission: Nurys Smith MD Attending Provider at Discharge: Nurys Smith MD Primary Care Provider: Priyank Kaur DO Diagnoses at Discharge Discharge Diagnosis (1) Atrial fibrillation with RVR: Status: Acute (2) Dyslipidemia: Status: Acute (3) Atherosclerosis of coronary artery of [place] heart without angina pectoris: Status: Acute Qualifiers: Coronary Disease-Associated Artery/Lesion type: unspecified vessel or lesion type Qualified Code(s): I25.10 - Atherosclerotic heart disease of [place] coronary artery without angina pectoris (4) Ischemic cardiomyopathy: Status: Acute (5) Mixed hyperlipidemia: Status: Acute Reason for Visit Reason for Visit: fast heart rate Brief History: Italo Cummings is a 73 year old male with past medical history of atrial fibrillation on amiodarone and Xarelto, s/p cardioversion 2020 CKD, hyperlipidemia, hypertension, ischemic cardiomyopathy, congestive heart failure, ischemic heart disease s/p CABG 2015, hepatorenal syndrome, BPH presented with complaint of heart rate in 140s to 170. As per the patient he started having increased heart rate on evening post Monster energy drink. Since then he has been varying between 1 40-1 70, associated with shortness of breath and orthopnea but no chest pain, palpitations, dizziness, nausea or vomiting. Denies any history of fever, cough, abdominal pain, diarrhea or urinary complaints. He has history of hypertension but has been hypertensive recently and off metoprolol for the same. He reports his blood pressure being sometimes as low as 80/60 and asymptomatic. He follows Dr. Nj, cardiology and was last seen 1 week ago. Hospital Course Hospital Course #Atrial fibrillation with RVR-admit to [facility] current heart rate 135 Received IV Cardizem 20 mg in ER with no response Started on amiodarone drip, will continue. Hold [employer]PER[employer] amiodarone INR 3.2 today, on home medication Xarelto 15 mg daily Will reduce to Xarelto 10 mg daily. Check troponin and serial EKG panel. Will monitor for now Last echo 07/25--Diffuse hypokinesia of the left ventricular ejection fraction of 35 to 40%(visual). LV cavity is mildly dilated. Mild biatrial enlargement Moderate aortic valve stenosis, mean gradient 11.1 mmHg, GIOVANNA 1.0 cm squared-peak velocity of 2.64 m/s with a peak gradient of 28 mmHg and a mean gradient of 11 mmHg. Trace tricuspid valve regurgitation. Thickened mitral valve. Mild-moderate mitral valve regurgitation. Compared to the previous study of 04/23/2021, the LV size is decreased from 6.3-5.4cm Significant improvement of the LV ejection fraction (from 20% to 35-40%). 03/31--Labs reviewed and are acceptable. Heart rate improved with IV amiodarone drip to 100-110's. Plan to call cardiology consult for further recommendations. He was also found to have COVID-19 infection, was started on remdesivir. . He was found to be short of breath this morning sitting at bedside, likely secondary to anxiety. Heart rate was in 132. Chest examination was clear to auscultation. With continuous discussion, he seemed to calm down and heart rate decreased to 110. But patient apprehensive about his CKD and does not intend to continue with remdesivir. Hence will discontinue remdesivir and continue to monitor respiratory status for now. Admission chest x-ray has been negative for any acute findings. 04/01--cardiology consult appreciated. Was started on p.o. metoprolol 25 mg twice daily, has been off amiodarone drip but still in a flutter. Plan for cardioversion. He is n.p.o. for now. Restarted amiodarone drip his blood pressure was found to be systolic of 85. Will do 500 mL bolus x 1 and discontinue metoprolol. Follow-up cardiology recommendations. Still getting p.o. levofloxacin 750 mg every other day for COVID-19 infection. 04/02--He is s/p cardioversion,with a single shock of 120J of biphasic current in normal sinus rhythm. BP better, doing well with improved SOB. He was evaluated for home oxygen, he is 95% on room air and hence does not require oxygen. Will resume home dose of amiodarone and eliquis and will discharge home to be followed up in cardiology clinic in 1 week. Physical Exam Narrative: He is alert awake oriented x 3, not in acute distress Chest clear to auscultation bilaterally Cardiovascular normal heart sounds, tachycardic irregular pulse Abdomen soft nontender nondistended normal bowel sounds Extremities no edema noted bilateral lower extremities Discharge Data Studies Completed and Pending Completed Studies During Hospitalization Category Date Time Status CXRP [XR chest 1V portable [id number]] Stat Exams 03/30/24 13:55 Completed Pending at discharge Category Date Time Status Blood Culture Stat Lab 03/30/24 21:14 Results Streptococcus Culture Group A Routine Lab 03/30/24 22:06 Results Radiology Impressions Chest X-Ray 03/30/24 13:55 IMPRESSION: 1. No acute cardiopulmonary process. 2. Incidental/nonacute findings are listed in the report. Laboratory Results WBC 5.62 10^3/uL (3.29-11.43) 04/02/24 04:27 RBC 4.44 10^6/uL (3.85-5.65) 04/02/24 04:27 Hgb 12.60 g/dL (11.27-16.99) 04/02/24 04:27 Hct 40.0 % (37-53) 04/02/24 04:27 MCV 90.1 fl (82-101) 04/02/24 04:27 MCH 28.4 pg (27-33) 04/02/24 04:27 MCHC 31.5 g/dL (30-55) 04/02/24 04:27 RDW 14.5 % (12.1-15.1) 04/02/24 04:27 Plt Count 105 10^3/cmm (157-399) L 04/02/24 04:27 MPV 13.7 fL (7.4-10.4) H 04/02/24 04:27 Neut % (Auto) 67.8 % 04/02/24 04:27 Lymph % (Auto) 19.9 % 04/02/24 04:27 [place] % (Auto) 10.1 % 04/02/24 04:27 Eos % (Auto) 1.4 % 04/02/24 04:27 Baso % (Auto) 0.4 % 04/02/24 04:27 Neut # (Auto) 3.81 10^3/uL (1.8-7.7) 04/02/24 04:27 Lymph # (Auto) 1.1 10^3/uL (0.8-4.8) 04/02/24 04:27 [place] # (Auto) 0.6 10^3/uL (0.2-0.9) 04/02/24 04:27 Eos # (Auto) 0.1 10^3/uL (0.0-0.8) 04/02/24 04:27 Baso # (Auto) 0.0 10^3/uL (0.0-0.1) 04/02/24 04:27 Nucleated RBC % (auto) 0 % 04/02/24 04:27 Nucleated RBCs # 0.0 /100WBC 04/02/24 04:27 PT 27.50 SECONDS (12.1-14.9) H 04/01/24 18:30 INR 2.45 (0.8-1.2) H 04/01/24 18:30 Sodium 142 mmol/L (136-145) 04/02/24 04:27 Potassium 4.3 mmol/L (3.5-5.1) 04/02/24 04:27 Chloride 107 mmol/L (98-107) 04/02/24 04:27 Carbon Dioxide 25 mmol/L (22-29) 04/02/24 04:27 Anion Gap 14.3 (5-19) 04/02/24 04:27 BUN 31 mg/dL (8-23) H 04/02/24 04:27 Creatinine 1.8 mg/dL (0.7-1.2) H 04/02/24 04:27 GFR Calculation Not Reportable 04/02/24 04:27 Glucose 97 mg/dL (65-115) 04/02/24 04:27 Calculated Osmolality 300 mOsm/kg (285-295) H 04/02/24 04:27 Lactic Acid 2.8 mmol/L (0.5-2.2) H 03/30/24 21:14 Lactic Acid (Sepsis) 1.9 mmol/L (0.5-2.2) 03/31/24 00:21 Calcium 8.4 mg/dL (8.5-10.5) L 04/02/24 04:27 Phosphorus 3.5 mg/dL (2.5-4.5) 04/02/24 04:27 Magnesium 2.2 mg/dL (1.7-2.3) 04/02/24 04:27 Total Bilirubin 0.8 mg/dL (0.15-1.2) 03/30/24 14:10 AST 23 U/L (0-40) 03/30/24 14:10 ALT 14 U/L (0-41) 03/30/24 14:10 Alkaline Phosphatase 70 U/L (40-130) 03/30/24 14:10 Troponin T Baseline 108 ng/L (0-15) H* 03/30/24 14:10 Troponin T 120 Minute 105.4 ng/L (0-15) H 03/30/24 16:15 Delta Troponin T -2.6 ABS# (0-10) L 03/30/24 16:15 Troponin T Hi Sens 6Hr 113.8 ng/L (0-15) H 03/30/24 20:03 Troponin T Hi Sens 6Hr Delta 5.8 ng/L (0-12) 03/30/24 20:03 Total Protein 7.0 g/dL (6.6-8.7) 03/30/24 14:10 Albumin 4.5 g/dL (3.5-5.2) 03/30/24 14:10 Globulin 2.5 g/dL (1.3-4.6) 03/30/24 14:10 Urine Color Yellow (Yellow) 03/30/24 22:06 Urine Appearance Clear (CLEAR) 03/30/24 22:06 Urine pH 5.0 (5-7) 03/30/24 22:06 Ur Specific [place] 1.019 (1.005-1.030) 03/30/24 22:06 Urine Protein Negative (Negative) 03/30/24 22:06 Urine Glucose (UA) Negative (Normal) 03/30/24 22:06 Urine Ketones Trace (Negative) 03/30/24 22:06 Urine Blood Negative (Negative) 03/30/24 22:06 Urine Nitrate Negative (Negative) 03/30/24 22:06 Urine Bilirubin Negative (Negative) 03/30/24 22:06 Urine Urobilinogen 0.2 mg/dL (Negative) 03/30/24 22:06 Ur Leukocyte Esterase 1+ (Negative) A 03/30/24 22:06 Urine RBC 0-2 /hpf (0-2) 03/30/24 22:06 Urine WBC 0-5 /hpf (0-5) 03/30/24 22:06 Ur Squamous Epith Cells 0-5 /hpf (0-5) 03/30/24 22:06 Amorphous Sediment Not Reportable 03/30/24 22:06 Urine Bacteria None seen /hpf (NONE) 03/30/24 22:06 Hyaline Casts 5.36 /lpf 03/30/24 22:06 Coronavirus (PCR) Positive (Negative) A 03/30/24 22:07 Influenza A (PCR) Negative (Negative) 03/30/24 22:07 Influenza Type B (PCR) Negative (Negative) 03/30/24 22:07 RSV (PCR) Negative (Negative) 03/30/24 22:07 Group A Strep Rapid Negative (Negative) 03/30/24 22:06 Vitals Last Vital Signs Temp 97.8 F 04/02/24 08:00 Pulse 95 04/02/24 08:00 Resp 31 H 04/02/24 08:00 BP 143/100 04/02/24 08:00 Pulse Ox 99 04/02/24 08:05 O2 Del Method Room Air 04/02/24 08:04 O2 Flow Rate 2 03/31/24 16:00 Discharge Plan Discharge Patient Disposition: Home Condition: Stable Prescriptions: Continued tramadol 50 mg tablet 50 mg PO TID PRN (Reason: Pain) cetirizine 10 mg tablet 10 mg PO DAILY PRN (Reason: allergy symptoms) fluticasone propionate [Flonase Allergy Relief] 50 mcg/actuation spray,suspension 1 spray intranasal DAILY Rx Instructions: administer into each nostril terazosin 10 mg capsule 10 mg PO BID furosemide 40 mg tablet 80 mg PO DAILY Qty: 180 3RF Praluent Pen 150 mg/mL pen injector 150 mg SUBCUT Q14D Qty: 2 11RF Rx Instructions: inject into abdomen, thigh, or upper arm (deltoid muscle); rotate sites amiodarone 200 mg tablet See Rx Instructions .ROUTE .COMPLEX Qty: 90 1RF Dose Instruction: TAKE 1 TABLET BY MOUTH EVERY DAY Rx Instructions: TAKE 1 TABLET BY MOUTH EVERY DAY montelukast 10 mg tablet See Rx Instructions .ROUTE .COMPLEX Qty: 90 2RF Dose Instruction: TAKE 1 TABLET BY MOUTH EVERY DAY Rx Instructions: TAKE 1 TABLET BY MOUTH EVERY DAY Xarelto 15 mg tablet See Rx Instructions .ROUTE .COMPLEX Qty: 90 3RF Dose Instruction: TAKE 1 TABLET BY MOUTH EVERY DAY with evening meal Rx Instructions: TAKE 1 TABLET BY MOUTH EVERY DAY with evening meal potassium chloride 20 mEq tablet,ER particles/crystals See Rx Instructions .ROUTE .COMPLEX Qty: 180 1RF Dose Instruction: TAKE 1 TABLET BY MOUTH TWICE DAILY Rx Instructions: TAKE 1 TABLET BY MOUTH TWICE DAILY Discharge Orders: Discharge Order (Routine); Ordered 04/02/24 Ordered By: Nurys Smith Referrals: Laina Monreal FNP [Nurse Practitioner] - 04/09/24 3:30 am Priyank Karu DO [Primary Care Provider] - 04/07/24 1:00 pm Discharge Diet: Cardiac Discharge Activity: Increase activity as tolerated Patient Instructions: Opioid Safety Discharge Attestations Time Spent in Discharge Care*: less than 30 min Status at Discharge: Cognitive status at discharge: cognitively intact , Behavioral status at discharge: cooperative , Quality Metrics Clinical Quality Measures [ No reported AMI, CVA or VTE this stay] Coding Level of Care Code Acute Code for Chg Fwd Diagnoses Atrial fibrillation with RVR I48.91 Dyslipidemia E78.5 Atherosclerosis of coronary artery of [place] heart without angina pectoris, unspecified vessel or lesion type I25.10 Coronary Disease-Associated Artery/Lesion type: unspecified vessel or lesion type Ischemic cardiomyopathy I25.5 Mixed hyperlipidemia E78.2 Time Spent (min) 20
--- NOTE | 2024-04-02 11:01 | PC.SOCIAL ---
IMM Updated Updated pt on IMM. No questions voiced. Provided pt a copy. Initialed, dated, & timed a copy & placed in chart.
--- NOTE | 2024-04-02 11:26 | PC.NURSE ---
Patient discharged to home. Instruction provided regarding follow up needs. No changes to medications. Patient verbalized complete understanding. IVs removed prior to discharge. Both intact. Patient left ambulatory with family at side to private vehicle.
== END 2024-04-02 11:28 | disposition home or self-care (01) | DRG 308 ==
LOC: ER 14:59 → CSU 15:16
PROVIDERS: Internal Medicine; Admitting Provider Internal Medicine; Emergency Provider Emergency Medicine; PCP Electrodiagnostic Medicine; Visit Provider Internal Medicine
DX: I48.91 Unspecified atrial fibrillation (principal); I50.23 Acute on chronic systolic (congestive) heart failure; U07.1 COVID-19; I13.0 Hypertensive heart and chronic kidney disease with heart failure and stage 1 through stage 4 chronic kidney disease, or unspecified chronic kidney disease; N13.8 Other obstructive and reflux uropathy; E78.2 Mixed hyperlipidemia; I25.10 Atherosclerotic heart disease of native coronary artery without angina pectoris; I25.5 Ischemic cardiomyopathy; N18.30 Chronic kidney disease, stage 3 unspecified; N40.1 Benign prostatic hyperplasia with lower urinary tract symptoms; I95.9 Hypotension, unspecified; F41.9 Anxiety disorder, unspecified; Z79.01 Long term (current) use of anticoagulants; Z95.1 Presence of aortocoronary bypass graft
CPT/HCPCS: 0241U; 36415; 51798; 71045; 80048; 80053; 81001; 83605; 83735; 84100; 84484; 85025; 85610; 87040; 87081; 87880; 93005; 94640; 94664; 94760; 96365; 96375; 96376; 99285; A4222; J0248; J0283; J1160; J3490; J7030; J7040; J7050

== ENCOUNTER → 2024-04-09 15:40 | Outpatient (BNVA) | payer MEDICARE, OTHER, SELFPAY | PROVIDERS: PCP Electrodiagnostic Medicine; Visit Provider Nurse Practitioner Family | DX: I48.0 Paroxysmal atrial fibrillation (principal) | CPT/HCPCS: 93005 ==

== ENCOUNTER 2024-04-16 14:22 | Inpatient (IN) | payer MEDICARE, OTHER, SELFPAY ==
[2024-04-16] VITALS (35 sets, daily range): BP systolic 73–143; BP diastolic 45–79; PULSE 87–117; RESP 9–29; TEMP 36.4–36.6; O2SAT 91–99; BMI 29.5; BMI 29.7
--- NOTE | 2024-04-16 14:26 | ECG_ITS ---
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 Measurements Intervals [place] Rate: 113 P: 0 AR: 0 QRS: 88 QRSD: 125 T: -28 QT: 361 QTc: 496 Interpretive Statements ATRIAL FLUTTER/fibrillation WITH RAPID VENTRICULAR RESPONSE MODERATE INTRAVENTRICULAR CONDUCTION DELAY [110+ ms QRS DURATION] NONSPECIFIC ST & T-WAVE ABNORMALITY Compared to ECG 04/09/2024 15:42:05 T-wave abnormality now present Ventricular premature complex(es) no longer present Aberrant conduction of supraventricular beat(s) no longer present Electronically Signed On 04-16-2024 16:44:41 CDT by Jose Nj M.D. [email or web address]
--- NOTE | 2024-04-16 14:26 | XR_ITS ---
WS: [id number] Portable AP upright chest, 04/16/2024 Clinical Data: sob Comparison: Portable chest, 03/30/2024 Findings: No nodules, masses or effusions are seen. The heart is normal. The pulmonary vascularity is not increased. No pneumonia or pneumothorax is seen. Midline sternotomy sutures are present. There a re monitor leads on the chest wall. There is a reverse right total shoulder arthroplasty. The aortic arch shows mild tortuosity. XR/XR chest 1V portable [id number] Impression: Atherosclerosis.
[2024-04-16 15:02] LABS: Basophils % 0.5 %; Eosinophils # 0.1 10^3/uL (0.0-0.8); Eosinophils % 0.9 %; Lymphocytes # 0.9 10^3/uL (0.8-4.8); Lymphocytes % 10.9 %; Mean Corpuscular HGB Conc 32.2 g/dL (30-55); Mean Corpuscular Hemoglobin 28.7 pg (27-33); Mean Corpuscular Volume 89.1 fl (82-101); Mean Platelet Volume 12.5 fL (7.4-10.4); Monocytes # 0.5 10^3/uL (0.2-0.9); Monocytes % 6.7 %; Neutrophils # 6.28 10^3/uL (1.8-7.7); Neutrophils % 80.6 %; Nucleated Red Blood Cells % 0 %; Platelet Count 163 10^3/cmm (157-399); Red Cell Distribution Width 13.9 % (12.1-15.1); White Blood Count 7.79 10^3/uL (3.29-11.43)
--- NOTE | 2024-04-16 15:15 | ED_ITS ---
HPI - Chest Pain 2 General: Chief Complaint: Chest Pain Stated Complaint: Fast HB, SOB - dr nj sent over Time Seen by Provider: 04/16/24 14:45 History of Present Illness: 73-year-[facility] of rapid heart rate. Patient is a known history of A-fib flutter couple weeks ago the patient was admitted and had cardioversion. Afterwards she had been started on albuterol started having episodes of rapid heart rate again he was changed to leave albuterol but despite this he remained in A-fib flutter and he was started on amiodarone. The amiodarone did not control the rate so was recently increased. He had seen Dr. Nj today and despite the titration up on the amiodarone his heart rate remains elevated. While at rest in the bed in the emergency room his heart rate will be around 1 10-1 15 but when he sits up it immediately goes into the upper 120s. He has had some mild chest discomfort he has also had noticeable orthopnea. Patient has a known history of coronary artery disease with a previous bypass. In April 2021 patient had a angiography which showed an EF of 25% patient had occlusion of the venous graft to the PDA and to the up to an obtuse marginal. Mild to moderate diffuse disease in the left main. Total occlusion of the LAD and circumflex arteries at the ostium. Associated symptoms: Reports palpitations; Deny abdominal pain, dyspnea or fever(s) Related Data Home Medications Medication Instructions Recorded Confirmed cetirizine 10 mg tablet 10 mg PO DAILY PRN allergy symptoms 06/29/20 04/09/24 fluticasone propionate 50 1 spray intranasal DAILY 06/29/20 04/09/24 mcg/actuation nasal spray,suspension (Flonase Allergy Relief) tramadol 50 mg tablet 50 mg PO TID PRN Pain 06/29/20 04/09/24 terazosin 10 mg capsule 10 mg PO BID 11/02/20 04/09/24 Previous Rx's Medication Instructions Recorded alirocumab 150 mg/mL subcutaneous 150 mg SUBCUT Q14D #2 mL 08/06/23 pen injector (Praluent Pen) montelukast 10 mg tablet See Rx Instructions .Route 10/12/23 .COMPLEX #90 tabs rivaroxaban 15 mg tablet (Xarelto) See Rx Instructions .Route 11/27/23 .COMPLEX #90 tabs potassium chloride 20 mEq See Rx Instructions .Route 01/01/24 tablet,extended release(part/cryst) .COMPLEX #180 tabs furosemide 40 mg tablet See Rx Instructions .Route 04/07/24 .COMPLEX #180 tabs amiodarone 200 mg tablet 200 mg PO BID #180 tabs 04/09/24 Allergies Allergy/AdvReac Type Severity Reaction Status Date / Time Penicillins Allergy Unknown Unknown Verified 04/09/24 15:13 Ggswfjc-HVG-SeN Reductase Allergy couldn't Verified 04/09/24 15:13 Inhibitor function [Firmmzt-Oys-Jvr Reductase Inhibitor] metoprolol AdvReac low bp Verified 04/09/24 15:13 Review of Systems 2 Const: Denies: fever(s) or chills Card: Reports: palpitations and irregular heart rhythm; Denies: chest pain Resp: Denies: dyspnea GI: Denies: abdominal pain : Denies: dysuria, urinary frequency or urinary urgency Musc: Denies: neck pain or back pain Skin/Breast: Denies: rash PFSH ED 2 PFSH: Medical History Dyslipidemia Congestive heart failure CKD (chronic kidney disease) stage 3, GFR 30-59 ml/min Hyperuricemia Polyarthralgia Sepsis Cardiogenic shock Moderate to severe mitral regurgitation Acute on chronic systolic heart failure Elevated liver enzymes Metabolic acidosis, increased anion gap COVID-19 Mar 2021 Atrial flutter Hyperkalemia Hepatorenal syndrome Acute renal failure (ARF) Atrial fibrillation with rapid ventricular response Traumatic tear of right rotator cuff 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 Radiation therapy. Slowly rising PSA with benign RALPH. 6.June. BPH loc w urin obs/LUTS Hypercholesterolemia Ischemic heart disease Elevated PSA Nocturia Urinary hesitancy Surgical History History of tonsillectomy and adenoidectomy Hx of coronary artery bypass graft H/O total knee replacement RIGHT H/O shoulder surgery LEFT History of back surgery History of carpal tunnel release BILATERAL Family History Father , AT AGE 91 Bowel obstruction Mother , AT AGE 84 Heart attack CAD (coronary artery disease) Hypertension Diabetes Brother Cancer Family/Other Cancer Son Chronic kidney disease (CKD) Cancer Grandfather Stroke Denies family history of Clotting disorder Dementia Suicide Anesthesia complication Bleeding disorder Lung disease Social History Smoking and tobacco/nicotine status: never used tobacco/nicotine Alcohol intake: never Substance/Drug Use: never Marital status: Current occupational status: employed Physical Exam 2 Const: GENERAL APPEARANCE: cooperative ORIENTATION/CONSCIOUSNESS: Yes awake, Yes oriented to person, Yes oriented to place and Yes oriented to time HENMT: COMMON NORMALS: normocephalic, atraumatic and hearing grossly normal bilaterally HEAD & SCALP: normocephalic and atraumatic Resp: COMMON NORMALS: normal respiratory effort, No retractions, No use of accessory muscles and clear to auscultation bilaterally AUSCULTATION: clear to auscultation bilaterally Cardio: COMMON NORMALS: No murmurs present (Cardio) RATE: tachycardic R HYTHM: abnormal rhythm irregularly irregular GI: COMMON NORMALS: Soft to palpation and No hepatosplenomegaly present A USCULTATION: Yes normoactive bowel sounds PALPATION: Yes Soft to palpation, No Tenderness to palpation present (GI), No Guarding due to palpation present (GI) and Yes No hepatosplenomegaly present Extremity: COMMON NORMALS: normal to inspection, capillary refill normal, no clubbing, cyanosis or edema, no calf tenderness and no pedal edema Neuro: SENSORIUM/ORIENTATION: Yes oriented to person, Yes oriented to place and Yes oriented to time Skin: COMMON NORMALS: no rashes or lesions noted GENERAL SKIN EXAM: no rashes or lesions noted Course 2 Vital Signs: Vital signs: Vital Signs Temperature 97.6 F 04/16/24 14:45 Pulse Rate 87 04/16/24 16:46 Respiratory Rate 29 H 04/16/24 16:46 Blood Pressure 100/62 04/16/24 16:46 Pulse Oximetry 98 04/16/24 16:46 Oxygen Delivery Me thod Room Air 04/16/24 14:45 MDM - Chest Pain Medical Decision Making Persistent A-fib flutter. While at rest patient's rate will stay around the 100 slightly above but with minimal exertion just sitting up in bed his heart rate shoots up to 120s and 130s. He does have mild decompensation of heart failure as well as BNP is slightly elevated. Blood pressure has been on the lower side from the 96-[address] Nj will admit the patient to hospitalist consult Dr. Nj to work on his rate control. Medical Records I reviewed the patient's medical records. Lab Data I reviewed the patient's lab results. 04/16/24 14:50 04/16/24 14:50 Radiology Impressions Chest X-Ray 04/16/24 14:26 Impression: Atherosclerosis. Laboratory Results WBC 7.79 10^3/uL (3.29-11.43) 04/16/24 14:50 RBC 4.60 10^6/uL (3.85-5.65) 04/16/24 14:50 Hgb 13.20 g/dL (11.27-16.99) 04/16/24 14:50 Hct 41.0 % (37-53) 04/16/24 14:50 MCV 89.1 fl (82-101) 04/16/24 14:50 MCH 28.7 pg (27-33) 04/16/24 14:50 MCHC 32.2 g/dL (30-55) 04/16/24 14:50 RDW 13.9 % (12.1-15.1) 04/16/24 14:50 Plt Count 163 10^3/cmm (157-399) 04/16/24 14:50 MPV 12.5 fL (7.4-10.4) H 04/16/24 14:50 Neut % (Auto) 80.6 % 04/16/24 14:50 Lymph % (Auto) 10.9 % 04/16/24 14:50 [place] % (Auto) 6.7 % 04/16/24 14:50 Eos % (Auto) 0.9 % 04/16/24 14:50 Baso % (Auto) 0.5 % 04/16/24 14:50 Neut # (Auto) 6.28 10^3/uL (1.8-7.7) 04/16/24 14:50 Lymph # (Auto) 0.9 10^3/uL (0.8-4.8) 04/16/24 14:50 [place] # (Auto) 0.5 10^3/uL (0.2-0.9) 04/16/24 14:50 Eos # (Auto) 0.1 10^3/uL (0.0-0.8) 04/16/24 14:50 Baso # (Auto) 0.0 10^3/uL (0.0-0.1) 04/16/24 14:50 Nucleated RBC % (auto) 0 % 04/16/24 14:50 Nucleated RBCs # 0.0 /100WBC 04/16/24 14:50 Sodium 138 mmol/L (136-145) 04/16/24 14:50 Potassium 4.6 mmol/L (3.5-5.1) 04/16/24 14:50 Chloride 102 mmol/L (98-107) 04/16/24 14:50 Carbon Dioxide 22 mmol/L (22-29) 04/16/24 14:50 Anion Gap 18.6 (5-19) 04/16/24 14:50 BUN 30 mg/dL (8-23) H 04/16/24 14:50 Creatinine 1.9 mg/dL (0.7-1.2) H 04/16/24 14:50 GFR Calculation Not Reportable 04/16/24 14:50 Glucose 152 mg/dL (65-115) H 04/16/24 14:50 Calculated Osmolality 295 mOsm/kg (285-295) 04/16/24 14:50 Calcium 9.3 mg/dL (8.5-10.5) 04/16/24 14:50 Total Bilirubin 1.0 mg/dL (0.15-1.2) 04/16/24 14:50 AST 21 U/L (0-40) 04/16/24 14:50 ALT 14 U/L (0-41) 04/16/24 14:50 Alkaline Phosphatase 78 U/L (40-130) 04/16/24 14:50 Troponin T Baseline 51 ng/L (0-15) H 04/16/24 14:50 NT-Pro-B Natriuret Pep 6832 pg/mL (0-125) H 04/16/24 14:50 Total Protein 6.8 g/dL (6.6-8.7) 04/16/24 14:50 Albumin 4.8 g/dL (3.5-5.2) 04/16/24 14:50 Globulin 2.0 g/dL (1.3-4.6) 04/16/24 14:50 All radiology interpretation(s) finalized by discharge Discharge Plan Discharge Patient Disposition: Admitted As Inpatient Admit Provider: Vadim Dominguez Clinical Impression: Intermittent atrial fibrillation, Congestive heart failure Condition: Stable Coding Level of Care Code ED Surgical Rn for Luis Carlos De Paz
[2024-04-16 15:21] LABS: Troponin(5th) Baseline 51 ng/L (0-15)
[2024-04-16 15:37] LABS: Alanine Aminotransferase 14 U/L (0-41); Albumin Level 4.8 g/dL (3.5-5.2); Alkaline Phosphatase 78 U/L (40-130); Anion Gap 18.6 (5-19); Aspartate Amino Transferase 21 U/L (0-40); Blood Urea Nitrogen 30 mg/dL (8-23); Calcium 9.3 mg/dL (8.5-10.5); Carbon Dioxide 22 mmol/L (22-29); Chloride 102 mmol/L (98-107); Creatinine Clr Calc Pharmacy 39.6988; Glucose 152 mg/dL (65-115); NT Pro B Type Natriuretic Pept 6832 pg/mL (0-125); Osmolality Calculated 295 mOsm/kg (285-295); Potassium 4.6 mmol/L (3.5-5.1); Sodium 138 mmol/L (136-145); Total Protein 6.8 g/dL (6.6-8.7)
--- NOTE | 2024-04-16 16:34 | P.CONIM_ITS ---
Providers/Reason For Consult 2 Consulting Physician/Specialty*: COLT Nj MD/cardiology Reason for Consult*: Patient with recurrent atrial fibrillation, multiple cardioversions Requesting Physician: Dr. hollins Attending Physician: Vadim Dominguez MD Primary Care Provider: Priyank Kaur DO History of Present Illness History of Present Illness Italo Cummings is a 73 year old male with a history of atherosclerotic heart diseas, ischemic cardiomyopathy, recurrent atrial fibrillation with rapid ventricular rate, recurrent decompensated heart failure, especially with complaints of palpitation, shortness of breath, dizziness and weakness. He was found to be atrial fibrillation with rapid ventricular rate. Cardiology consult is requested for further cardiac evaluation recommendations. This patient was recently discharged from the hospital where he was admitted with features of congestive heart failure, atrial fibrillation rapid ventricular rate. He had to be electrically cardioverted. He was given IV amiodarone, total of 1 g. He was placed back on the amiodarone 200 mg p.o. daily. The heart failure was treated with diuretics and other symptomatic measures. He was discharged home in stable condition. 4 days after discharge, he apparently had some worsening shortness of breath, for which he was seen by the primary care provider. He was placed on albuterol inhaler. After couple of dose of the albuterol inhaler, he started having palpitations again. Considering the possibility of the albuterol induced arrhythmia, the inhaler was changed. But the patient continued to be in atrial fibrillation rapid ventricular rate. He been getting more short of breath and having generalized weakness. His symptoms are more or less similar to what he had in the past with a similar episodes. Denies any chest pain. No fever or chills. No abdominal pain or dysuria. No other specific complaints. He had a Myocardial perfusion imaging in 2020 which revealed areas of fixed defect with a small areas of reversible defect. The cardiac colorization in April of the same year revealed no significant revascularizable lesions. Based on the angiogram findings, it was opted to treat him medically. Review of Systems 2 Narrative: CONSTITUTIONAL: No fever or chills. [] EYES: No blurring of vision or other visual disturbances lately. [] ENT: No hoarseness of voice, auditory disturbances or sore throat. [] CARDIOVASCULAR: As mentioned above. [] RESPIRATORY: Patient has reactive airway disease GASTROINTESTINAL: No hematemesis or melena. [] GENITOURINARY: No dysuria or hematuria. [] INTEGUMENTARY: No skin rashes or history of skin cancer. [] NEURO: No transient ischemic attacks or amaurosis. [] PSYCHIATRIC: No history of psychosis or major depression. [] HEMATOLOGIC: No bleeding disorders or significant anemia. [] ENDOCRINE: No history of polyuria or polydipsia. [] MUSCULOSKELETAL: No recent joint pain or swelling. [] ALLERGY/IMMUNOLOGY: As mentioned above. [] Medications/Allergies Home Medications Medication Instructions Recorded Confirmed Last Taken Type cetirizine 10 mg tablet 10 mg PO DAILY PRN allergy symptoms 06/29/20 04/09/24 03/30/24 History fluticasone propionate 50 1 spray intranasal DAILY 06/29/20 04/09/24 03/30/24 History mcg/actuation nasal spray,suspension (Flonase Allergy Relief) tramadol 50 mg tablet 50 mg PO TID PRN Pain 06/29/20 04/09/24 03/30/24 History terazosin 10 mg capsule 10 mg PO BID 11/02/20 04/09/24 03/30/24 History alirocumab 150 mg/mL subcutaneous 150 mg SUBCUT Q14D #2 mL 08/06/23 04/09/24 03/22/24 Rx pen injector (Praluent Pen) montelukast 10 mg tablet See Rx Instructions .Route 10/12/23 04/09/24 03/30/24 Rx .COMPLEX #90 tabs rivaroxaban 15 mg tablet (Xarelto) See Rx Instructions .Route 11/27/23 04/09/24 03/30/24 Rx .COMPLEX #90 tabs potassium chloride 20 mEq See Rx Instructions .Route 01/01/24 04/09/24 03/30/24 Rx tablet,extended release(part/cryst) .COMPLEX #180 tabs furosemide 40 mg tablet See Rx Instructions .Route 04/07/24 04/09/24 Unknown Rx .COMPLEX #180 tabs amiodarone 200 mg tablet 200 mg PO BID #180 tabs 04/09/24 04/09/24 Unknown Rx Allergies Allergy/AdvReac Type Severity Reaction Status Date / Time Penicillins Allergy Unknown Unknown Verified 04/09/24 15:13 Zhljkmx-EJK-QqA Reductase Allergy couldn't Verified 04/09/24 15:13 Inhibitor function [Brqgqpa-Ote-Mjo Reductase Inhibitor] metoprolol AdvReac low bp Verified 04/09/24 15:13 PFSH Acute 2 PFSH: Medical History (Updated 04/16/24 @ 20:51 by Jose Nj MD) Atherosclerosis of coronary artery of [place] heart without angina pectoris Heart failure, left, with LVEF <=30% CKD (chronic kidney disease) stage 3, GFR 30-59 ml/min Ischemic cardiomyopathy Dyslipidemia Congestive heart failure Hyperuricemia Polyarthralgia Sepsis Cardiogenic shock Moderate to severe mitral regurgitation Acute on chronic systolic heart failure Elevated liver enzymes Metabolic acidosis, increased anion gap COVID-20 Mar 2021 Atrial flutter Hyperkalemia Hepatorenal syndrome Acute renal failure (ARF) Atrial fibrillation with rapid ventricular response Traumatic tear of right rotator cuff 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 Radiation therapy. Slowly rising PSA with benign RALPH. 6.June. BPH loc w urin obs/LUTS Hypercholesterolemia Ischemic heart disease Elevated PSA Nocturia Urinary hesitancy Surgical History History of tonsillectomy and adenoidectomy Hx of coronary artery bypass graft H/O total knee replacement RIGHT H/O shoulder surgery LEFT History of back surgery History of carpal tunnel release BILATERAL Family History Father , AT AGE 91 Bowel obstruction Mother , AT AGE 84 Heart attack CAD (coronary artery disease) Hypertension Diabetes Brother Cancer Family/Other Cancer Son Chronic kidney disease (CKD) Cancer Grandfather Stroke Denies family history of Clotting disorder Dementia Suicide Anesthesia complication Bleeding disorder Lung disease Social History Smoking and tobacco/nicotine status: never used tobacco/nicotine Alcohol intake: never Substance/Drug Use: never Marital status: Current occupational status: employed Vitals/I&O/Wt Last Vital Signs Temp 97.6 F 04/16/24 14:45 Pulse 102 H 04/16/24 15:46 Resp 21 H 04/16/24 15:46 BP 101/77 04/16/24 15:46 Pulse Ox 96 04/16/24 15:46 O2 Del Method Room Air 04/16/24 14:45 Weight last 48 hrs Weight 200 lb Physical Exam 2 Narrative: GENERAL: The patient is alert and oriented times three. Not in any acute distress. HEENT: No significant pallor, icterus or lymphadenopathy.Oral cavity: There are no mucous membrane lesions. NECK: Trachea appears to be central. No masses noted. No JVD or thyromegaly appreciated. RESPIRATORY: Chest is symmetrical. No intercostals muscle retraction or any accessory muscle activation. There is no chest wall tenderness. Breath sounds are heard bilaterally. No rales or rhonchi heard. No evidence of any consolidation. Few fine Rales in the bases. BREASTS: Deferred. HEART: The heart sounds are normal. No S3 or S4. Short systolic murmur at the left heart border. No diastolic murmurs.. No pericardial rub ABDOMEN: No vessel pulsations or distention. No tenderness. No organomegaly appreciated. Bowel sounds are normally heard. : Deferred. RECTAL: Deferred. LYMPHATIC: No lymphadenopathy noted in the neck. EXTREMITIES: Trace edema with no cyanosis. MUSCULOSKELETAL: No acute joint deformities or swelling SKIN: There are no significant rashes or ecchymosis NEUROPSYCHIATRIC: The patient is alert and oriented x3. Appears to be in a good mood. No tremors or rigidity noted. Data 04/16/24 14:50 04/16/24 14:50 Other Labs: Laboratory Last Values WBC 7.79 10^3/uL (3.29-11.43) 04/16/24 14:50 RBC 4.60 10^6/uL (3.85-5.65) 04/16/24 14:50 Hgb 13.20 g/dL (11.27-16.99) 04/16/24 14:50 Hct 41.0 % (37-53) 04/16/24 14:50 MCV 89.1 fl (82-101) 04/16/24 14:50 MCH 28.7 pg (27-33) 04/16/24 14:50 MCHC 32.2 g/dL (30-55) 04/16/24 14:50 RDW 13.9 % (12.1-15.1) 04/16/24 14:50 Plt Count 163 10^3/cmm (157-399) 04/16/24 14:50 MPV 12.5 fL (7.4-10.4) H 04/16/24 14:50 Neut % (Auto) 80.6 % 04/16/24 14:50 Lymph % (Auto) 10.9 % 04/16/24 14:50 [place] % (Auto) 6.7 % 04/16/24 14:50 Eos % (Auto) 0.9 % 04/16/24 14:50 Baso % (Auto) 0.5 % 04/16/24 14:50 Neut # (Auto) 6.28 10^3/uL (1.8-7.7) 04/16/24 14:50 Lymph # (Auto) 0.9 10^3/uL (0.8-4.8) 04/16/24 14:50 [place] # (Auto) 0.5 10^3/uL (0.2-0.9) 04/16/24 14:50 Eos # (Auto) 0.1 10^3/uL (0.0-0.8) 04/16/24 14:50 Baso # (Auto) 0.0 10^3/uL (0.0-0.1) 04/16/24 14:50 Nucleated RBC % (auto) 0 % 04/16/24 14:50 Nucleated RBCs # 0.0 /100WBC 04/16/24 14:50 D-Dimer 1.47 ug/mLFEU (0-0.59) H 04/16/24 14:50 Sodium 138 mmol/L (136-145) 04/16/24 14:50 Potassium 4.6 mmol/L (3.5-5.1) 04/16/24 14:50 Chloride 102 mmol/L (98-107) 04/16/24 14:50 Carbon Dioxide 22 mmol/L (22-29) 04/16/24 14:50 Anion Gap 18.6 (5-19) 04/16/24 14:50 BUN 30 mg/dL (8-23) H 04/16/24 14:50 Creatinine 1.9 mg/dL (0.7-1.2) H 04/16/24 14:50 GFR Calculation Not Reportable 04/16/24 14:50 Glucose 152 mg/dL (65-115) H 04/16/24 14:50 Calculated Osmolality 295 mOsm/kg (285-295) 04/16/24 14:50 Calcium 9.3 mg/dL (8.5-10.5) 04/16/24 14:50 Iron 26 ug/dL (59-158) L 04/16/24 17:28 TIBC 358 mcg/dl 04/16/24 17: % Saturation 7.2 % (20-50) L 04/16/24 17:28 Unsat Iron Binding 332 ug/dL (112-347) 04/16/24 17:28 Total Bilirubin 1.0 mg/dL (0.15-1.2) 04/16/24 14:50 AST 21 U/L (0-40) 04/16/24 14:50 ALT 14 U/L (0-41) 04/16/24 14:50 Alkaline Phosphatase 78 U/L (40-130) 04/16/24 14:50 Troponin T Baseline 51 ng/L (0-15) H 04/16/24 14:50 Troponin T 120 Minute 55.53 ng/L (0-15) H 04/16/24 17:28 Delta Troponin T 4.53 ABS# (0-10) 04/16/24 17:28 NT-Pro-B Natriuret Pep 6832 pg/mL (0-125) H 04/16/24 14:50 Total Protein 6.8 g/dL (6.6-8.7) 04/16/24 14:50 Albumin 4.8 g/dL (3.5-5.2) 04/16/24 14:50 Globulin 2.0 g/dL (1.3-4.6) 04/16/24 14:50 Vitamin B12 784 pg/mL (232-1245) 04/16/24 17:28 Procalcitonin 0.06 ng/mL (0-0.5) 04/16/24 17:28 TSH 3.17 uIU/mL (0.27-4.20) 04/16/24 17:28 Urine Color Yellow (Yellow) 04/16/24 17:32 Urine Appearance Clear (CLEAR) 04/16/24 17:32 Urine pH 5.0 (5-7) 04/16/24 17:32 Ur Specific [place] 1.013 (1.005-1.030) 04/16/24 17:32 Urine Protein Negative (Negative) 04/16/24 17:32 Urine Glucose (UA) Negative (Normal) 04/16/24 17:32 Urine Ketones Negative (Negative) 04/16/24 17:32 Urine Blood Negative (Negative) 04/16/24 17:32 Urine Nitrate Negative (Negative) 04/16/24 17:32 Urine Bilirubin Negative (Negative) 04/16/24 17:32 Urine Urobilinogen 0.2 mg/dL (Negative) 04/16/24 17:32 Ur Leukocyte Esterase Trace (Negative) A 04/16/24 17:32 Urine RBC 0-2 /hpf (0-2) 04/16/24 17:32 Urine WBC 0-5 /hpf (0-5) 04/16/24 17:32 Ur Squamous Epith Cells 0-5 /hpf (0-5) 04/16/24 17:32 Amorphous Sediment Not Reportable 04/16/24 17: Urine Bacteria None seen /hpf (NONE) 04/16/24 17:32 Hyaline Casts 14.47 /lpf 04/16/24 17:32 Other data: Echocardiogram on 07/05/2023 Mildly dilated left-ventricular with a moderately depressed ejection fraction of 34%. Multiple wall motion normalities as mentioned above. Mildly increased left atrial size. Moderate mitral valve regurgitation. Estimated pulmonary artery peak systolic pressure of 25 mmHg There is no pericardial effusion. There are no intracardiac masses. Compared to the study from 06/22/2022, the LV systolic function has slightly decreased Cardiac catheterization on 04/27/2021 Diagnostic Findings * Left main is a medium caliber vessel with a mild to moderate diffusedisease. * The left anterior descending artery appears to be totally occluded at theostium. * The left circumflex artery appears to be totally occluded at the ostium. * A small intermedius artery is present which was found to be bifurcatingproximally. Diffuse disease was noted in this vessel. * The right coronary artery was found to have mild to moderate diffusedisease proximally. Right after the first RV branch, the artery appears to be totally occluded. * The saphenous venous graft to the PDA branches found to be totallyoccluded. * The saphenous venous graft to the obtuse marginal artery appears to betotally occluded proximally. * The saphenous venous graft to the diagonal artery was found to be widelypatent. It appears to give left to left collaterals to the obtuse marginal arteries. Retrograde filling of the first diagonal moderate to severe ostialstenosis noted in these vessels. The mid LAD also was found to have severe diffuse disease.. * The DELANEY to the LAD was found to be patent. The distal LAD was found tohave mild diffuse disease. Myocardial perfusion imaging on 12/16/2020 1. Myocardial perfusion may revealing moderate area of persistent decreased tracer uptake in the inferior and inferolateral regions, suggestive of myocardial scarring the distribution of the right coronary artery and circumflex artery. There is a slightly decreased tracer uptake in the anterolateral, apical lateral , apical anterior and LV apex with giulia reversibility, suggestive of myocardial scarring with small areas of octaviano- infarction ischemia in the distribution of the circumflex artery and distal left anterior descending artery.(Total area of fixed defect was 24% ; ischemic burden was 6%) 2. Moderately diminished LV ejection fraction of 31%. 3. LV wall motion normalities as mentioned above. 4. Moderately dilated LV cavity with an end-systolic volume of 171 ml. No similar previous studies are available for comparison A&P Assessment and plan (1) Atrial fibrillation with rapid ventricular response: Patient may be continued on the amiodarone. Apparently the AV myah medication did not help the arrhythmia in the past. Because of relatively low blood pressure, we may go ahead with electrical cardioversion to further manage his condition. In the meanwhile, we may treat his heart failure with IV diuretics and other symptomatic measures. (2) CKD (chronic kidney disease) stage 3, GFR 30-59 ml/min: Your kidney function appears to be stable. May continue on the current measures. Qualifiers: Chronic kidney disease stage 3 subtype: stage 3a (GFR 45-59) Qualified Code(s): N18.31 - Chronic kidney disease, stage 3a (3) Ischemic cardiomyopathy: Patient had an LV ejection fraction of 34% by echocardiogram in July of this year. I may go ahead and do a limited 2D echocardiogram, to reevaluate LV function and to rule out any other pathology. Patient apparently could not take any beta-blockers in the past. He could not afford Entresto. He was on Jardiance for a while. He stopped taking the medicine for some unknown reason. Will try to optimize the GDMT (4) Acute on chronic systolic heart failure: Will be carefully treated with IV diuretics. (5) Atherosclerosis of coronary artery of [place] heart without angina pectoris: Had the cardiac catheterization in 2020. The results are as mentioned above. Qualifiers: Coronary Disease-Associated Artery/Lesion type: unspecified vessel or lesion type Qualified Code(s): I25.10 - Atherosclerotic heart disease of [place] coronary artery without angina pectoris Plan Because of the patient's symptomatic atrial fibrillation with the relatively low blood pressure, not responding to medical treatment, we may go ahead and do an electrical cardioversion tomorrow. Will try to optimize his heart failure treatment today. I may go ahead and gave an extra dose of amiodarone 200 mg p.o. today. Also may do a limited 2D echocardiogram to evaluate LV function and rule out any other pathology. Based on the clinical progress and the results of the above, further recommendations will be made. Thank you for the opportunity to evaluate this patient and make these recommendations I also discussed the patient's condition with Dr. Lama, the senior category manager at the [facility]. This patient may benefit from a catheter-based ablation. Since it is no to an emergency procedure, after the cardioversion, patient may be discharged home and make an appointment with Dr. Lama at the [facility] to arrange for the ablation procedure. These issues were discussed with the patient and his family in detail which they understood well and consented to proceed. Consult Attestations 2 Medical Necessity Statement: Limited 2D echo Coding Level of Care Code 12285 Diagnoses Atrial fibrillation with rapid ventricular response I48.91 Stage 3a chronic kidney disease N18.31 Chronic kidney disease stage 3 subtype: stage 3a (GFR 45-59) Ischemic cardiomyopathy I25.5 Acute on chronic systolic heart failure I50.23 Atherosclerosis of coronary artery of [place]aviat[place] heart without angina pectoris, unspecified vessel or lesion type I25.10 Coronary Disease-Associated Artery/Lesion type: unspecified vessel or lesion type
--- NOTE | 2024-04-16 16:48 | ECG_ITS ---
[facility] Test Date: 2024-04-16 Pat Name: Italo Cummings Department: Room: [facility] Gender: Male Sap Bobj Developer: : [id number] Requested By: Diane Gaines Order Number: [id number] Reading MD: Jose Nj M.D. Measurements Intervals [place] Rate: 104 P: 0 UT: 0 QRS: 61 QRSD: 153 T: 33 QT: 406 QTc: 536 Interpretive Statements ATRIAL FLUTTER/TACHYCARDIA WITH RAPID VENTRICULAR RESPONSE INTRAVENTRICULAR CONDUCTION DELAY [130+ ms QRS DURATION] Compared to ECG 04/16/2024 14:34:11 Atrial fibrillation no longer present T-wave abnormality no longer present Electronically Signed On 04-17-2024 01:06:27 CDT by Jose Nj M.D. [email or web address]
--- NOTE | 2024-04-16 17:22 | P.HP_ITS ---
Providers/Chief Complaint 2 Admitting Physician: Vadim Dominguez MD Primary Care Provider: Priyank Kaur DO Chief Complaint: Fast HB, SOB - dr nj sent over History of Present Illness Italo Cummings is a 73 year old male with past medical history of ischemic cardiomyopathy with last known EF of from 35%, history of CABG, atrial fibrillation on Eliquis, CKD who recently underwent cardiac cardioversion for atrial fibrillation on 04/02, recent COVID-19. He was discharged on 04/02. Patient was seen in cardiology office on 04/09 with concerns for recurrent episode of persistent tachycardia especially on exertion or after consumption of Monster energy drink associated with shortness of breath and orthopnea. Patient was having soft blood pressures at home because of which she stopped taking his home dose of metoprolol. His amiodarone dose was increased to 200 mg twice daily and event monitor was placed on 04/09. 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 Despite uptitrating the dose of amiodarone he continued to have tachycardia especially on minimal exertion hence he was directed to present to the ER for admission. Currently on examination his heart rate is 100 bpm, resting comfortably in bed saturating well on room air though complaining of orthopnea, blood pressure of 90 systolic. Cardiology has been consulted. Review of Systems 2 General: Reports: 10 or more systems reviewed and unremarkable except in HPI and below Const: Denies: fever(s), chills, body aches, change in appetite, change in weight, malaise, night sweats, diaphoresis, change in sleep pattern, daytime sleepiness or snoring Eyes: Denies: change in vision, blurry vision, photophobia, eye discomfort or eye discharge ENMT: Denies: throat pain, enlarged tonsils, hoarseness, mouth pain, oral sores, dry mouth, tinnitus, nasal congestion or post nasal drip Card: Denies: chest pain, palpitations, irregular heart rhythm, edema, swelling of feet/ankles, lightheadedness, syncope, pre-syncope, dyspnea on exertion, orthopnea, leg pain with exertion or acrocyanosis Resp: Denies: dyspnea, productive cough, non-productive cough, wheezing, stridor, pain on inspiration, change in phlegm color, hemoptysis or chest congestion GI: Denies: abdominal pain, nausea, vomiting, hematemesis, coffee ground emesis, dysphagia, heartburn, diarrhea, constipation, bloating, GI cramping, change in bowel habits, pain on defecation, hematochezia or melena : Denies: flank pain, difficulty urinating, dysuria, urinary frequency, urinary urgency, urinary hesitancy, urinary dribbling, difficulty starting urination, change in urine stream, nocturia or hematuria Musc: Denies: neck pain, back pain, extremity pain, joint pain, joint swelling, joint redness, joint stiffness or limited range of motion Neuro: Denies: headache(s), numbness in extremities, weakness in extremities, sensory changes, lack of coordination, difficulty walking, frequent falls, dizziness, vertigo, confusion, Slurred speech present, difficulty communicating thoughts or seizure-like activity Psych: Denies: anxiety, depression, mood swings, panic attacks, hopelessness or irritability Endo: Denies: polyuria, polydipsia, tired all the time, cold intolerance, excessive sweating, flushing or heat intolerance Butch/Lymph: Denies: easy bruising or easy bleeding All/Imm: Denies: tongue swelling, facial swelling or acute wheezing Medications/Allergies Home Medications Medication Instructions Recorded Confirmed Last Taken Type fluticasone propionate 50 1 spray intranasal DAILY 06/29/20 04/17/24 04/16/24 History mcg/actuation nasal spray,suspension (Flonase Allergy Relief) tramadol 50 mg tablet 50 mg PO TID PRN Pain 06/29/20 04/17/24 04/16/24 History terazosin 10 mg capsule 10 mg PO BID 11/02/20 04/17/24 04/16/24 History alirocumab 150 mg/mL subcutaneous 150 mg SUBCUT Q14D #2 mL 08/06/23 04/17/24 04/12/24 Rx pen injector (Praluent Pen) rivaroxaban 15 mg tablet (Xarelto) See Rx Instructions .Route 11/27/23 04/17/24 04/16/24 Rx .COMPLEX #90 tabs amiodarone 200 mg tablet 200 mg PO BID #180 tabs 04/09/24 04/17/2424 Rx furosemide 40 mg tablet 80 mg PO DAILY 04/17/24 04/17/24 04/16/24 History montelukast 10 mg tablet 10 mg PO DAILY 04/17/24 04/17/24 04/16/24 History potassium chloride 20 mEq 20 meq PO BID 04/17/24 04/17/24 04/16/24 History tablet,extended release(part/cryst) Allergies Allergy/AdvReac Type Severity Reaction Status Date / Time Penicillins Allergy Unknown Unknown Verified 04/09/24 15:13 Rqwmozv-IBG-XhN Reductase Allergy couldn't Verified 04/09/24 15:13 Inhibitor function [Qxfookz-Fdz-Czy Reductase Inhibitor] metoprolol AdvReac low bp Verified 04/09/24 15:13 PFSH Acute 2 PFSH: Medical History (Updated 04/17/24 @ 13:01 by Vadim Dominguez MD) Atherosclerosis of coronary artery of [place] heart without angina pectoris Heart failure, left, with LVEF <=30% CKD (chronic kidney disease) stage 3, GFR 30-59 ml/min Ischemic cardiomyopathy Dyslipidemia Congestive heart failure Hyperuricemia Polyarthralgia Sepsis Cardiogenic shock Moderate to severe mitral regurgitation Acute on chronic systolic heart failure Elevated liver enzymes Metabolic acidosis, increased anion gap COVID-20 Mar 2021 Atrial flutter Hyperkalemia Hepatorenal syndrome Acute renal failure (ARF) Atrial fibrillation with rapid ventricular response Traumatic tear of right rotator cuff 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 Radiation therapy. Slowly rising PSA with benign RALPH. 6.June. BPH loc w urin obs/LUTS Hypercholesterolemia Ischemic heart disease Elevated PSA Nocturia Urinary hesitancy Surgical History History of tonsillectomy and adenoidectomy Hx of coronary artery bypass graft H/O total knee replacement RIGHT H/O shoulder surgery LEFT History of back surgery History of carpal tunnel release BILATERAL Family History Father , AT AGE 91 Bowel obstruction Mother , AT AGE 84 Heart attack CAD (coronary artery disease) Hypertension Diabetes Brother Cancer Family/Other Cancer Son Chronic kidney disease (CKD) Cancer Grandfather Stroke Denies family history of Clotting disorder Dementia Suicide Anesthesia complication Bleeding disorder Lung disease Social History Smoking and tobacco/nicotine status: never used tobacco/nicotine Alcohol intake: never Substance/Drug Use: never Marital status: Current occupational status: employed Vitals/I&O/Wt Last Vital Signs Temp 97.6 F 04/16/24 14:45 Pulse 100 04/16/24 17:19 Resp 22 H 04/16/24 17:15 BP 91/55 04/16/24 17:19 Pulse Ox 95 04/16/24 17:19 O2 Del Method Room Air 04/16/24 14:45 Weight last 48 hrs Weight 90.718 kg Physical Exam 2 Narrative: General: No acute distress, AO x3 HEENT: PERRLA, pupils bilaterally equal and reactive Chest: Normal vesicular breath sounds, no added sounds, equal good air entry bilaterally CVS: S1-S2 regular, no murmurs, no tachycardia, no gallops, no rubs Abdomen: Soft, nontender, no organomegaly, bowel sounds present Neuro: No focal deficits, no facial deformity, AO x3, power 5/5 in all limbs Data 04/17/24 03:00 04/17/24 03:00 A&P Assessment and plan (1) Atrial fibrillation with rapid ventricular response: With episodes of rapid ventricular response especially on exertion. Post cardioversion recently within the last 2 weeks. Amiodarone uptitrated as an outpatient to help with heart rate though not helping. Cardiology has been consulted from the ER. Continue with amiodarone 200 mg twice daily along with Xarelto. If continues to have tachycardia can plan to start patient with digoxin load while monitoring his kidney functions. Patient already had echocardiogram in July. Check TSH. Check D-dimer, urine drug screen. (2) Congestive heart failure: Last echocardiogram from July 25 showed an EF of 30%, grade 1 diastolic function, moderate aortic stenosis, PASP of 25 mmHg. Appreciate proBNP. Patient concerning for orthopnea and PND especially with tachycardia. Strict input output charting, daily weights. Fluid restriction to less than 1500 cc. IV Lasix 60 mg one-time. Will redose Lasix depending on fluid status and next only 4 hours. (3) Ischemic cardiomyopathy: (4) CKD (chronic kidney disease) stage 3, GFR 30-59 ml/min: Baseline creatinine 1.5-1.9. Currently creatinine at baseline. Has gone up to 2.5 within the last 2 years. Medical reconciliation done for nephrotoxic drugs. Continue to monitor BMP daily. (5) Failure of outpatient treatment: Plan Shortness of breath: Most likely in setting of congestive heart failure along with recent diagnosis of COVID-19. Appreciate chest x-ray. Oxygen supplementation keeping saturation over 90%. Ipratropium, Xopenex every 6 hourly as needed. Cardiac diet Protonix for PUD prophylaxis Xarelto will be sufficient for DVT prophylaxis Admit to CSU. Attestations 2 Medical Necessity Statement*: Admission lower than 2 midnights for management of shortness of breath in setting of congestive heart failure, recent COVID, persistent A-fib with RVR with failure to outpatient treatment, recent cardioversion Diagnoses Atrial fibrillation with rapid ventricular response I48.91 Congestive heart failure I50.9 Ischemic cardiomyopathy I25.5 CKD (chronic kidney disease) stage 3, GFR 30-59 ml/min N18.30 Failure of outpatient treatment Z78.9
[2024-04-16 17:46] LABS: Bilirubin Urine Negative (Negative); Blood Urine Negative (Negative); Glucose Urine UA Negative (Normal); Ketones Urine Negative (Negative); Leukocyte Esterase Urine Trace (Negative); Nitrate Urine Negative (Negative); Protein Urine Negative (Negative); Specific Gravity, Urine 1.013 (1.005-1.030); Urine Appearance Clear (CLEAR); Urine Color Yellow (Yellow); Urobilinogen Urine 0.2 mg/dL (Negative)
--- NOTE | 2024-04-16 17:47 | CTR_ITS ---
PROCEDURE INFORMATION: Exam: CT Chest Without Contrast; Diagnostic Exam date and time: 04/16/2024 6:24 PM Age: 73 years old Clinical indication: Shortness of breath; Additional info: Copd/pna TECHNIQUE: Imaging protocol: Diagnostic computed tomography of the chest without contrast. Radiation optimization: All CT scans at this facility use at least one of these dose optimization techniques: automated exposure control; mA and/or kV adjustment per patient size (includes targeted exams where dose is matched to clinical indication); or iterative reconstruction. COMPARISON: CR XR chest 1V portable [id number] 04/16/2024 3:00 PM RADIATION DOSE METRICS: Total DLP (mGy-cm): 653 FINDINGS: Lungs: See Lymph nodes finding. Pleural spaces: Mild bilateral pleural fluid collections. Heart: Unremarkable. No cardiomegaly. No pericardial effusion. Coronary arteries: Stable CABG procedure. Lymph nodes: Calcified left hilar nodes and/or mediastinal nodes and/or lung granulomas consistent with old granulomatous disease. Vasculature: Normal variant common origin of the left common carotid artery and innominate artery consistent with bovine arch. Calcification of the abdominal aorta and/or iliac arteries consistent with atherosclerotic vessel disease. Spleen: Calcified splenic granulomas. Kidneys: One or more nonobstructing left renal calyceal stones. Intestine: Periampullary duodenal diverticulum. Bones/joints: Stable total right shoulder replacement. Severe left primary glenohumeral osteoarthritis. Moderate thoracic spondylosis. Soft tissues: Unremarkable. CT/CT chest wo con [id number] IMPRESSION: 1. Stable CABG procedure. 2. Mild bilateral pleural fluid collections.
[2024-04-16 17:51] LABS: Add Urine Microscopic? YES; Bacteria Urine None Seen /hpf; Hyaline Casts Urine 14.47 /lpf; RBC Urine 0-2 /hpf (0-2); Squamous Epithelial Cell Urine 0-5 /hpf (0-5); WBC Urine 0-5 /hpf (0-5)
[2024-04-16] MEDS: FUROsemide 10 mg/mL SDV 4mL 40 MG IVP (17:51)
[2024-04-16] MEDS: rivaroxaban 10 mg Tablet 15 MG PO (17:52)
[2024-04-16] MEDS: amiodarone 200 mg Tablet PO (17:52)
[2024-04-16] MEDS: famotidine 20 mg Tablet PO (17:52)
[2024-04-16] MEDS: methylPREDNISolone sod succ 40 mg/mL INJ IVP ×2 (18:00→23:39)
[2024-04-16 18:01] LABS: D Dimer 1.47 ug/mLFEU (0-0.59)
[2024-04-16 18:04] LABS: Troponin 5 2HR 55.53 ng/L (0-15); Troponin 5 2HR Delta 4.53 ABS# (0-10)
[2024-04-16 18:43] LABS: Procalcitonin 0.06 ng/mL (0-0.5); Thyroid Stimulating Hormone 3.17 uIU/mL (0.27-4.20); Vitamin B12 784 pg/mL (232-1245)
[2024-04-16 18:48] LABS: Add Urine Culture? No; UA Slide Review UA Slide Review Perf
[2024-04-16 18:54] LABS: Iron 26 ug/dL (59-158); Percent Saturation 7.2 % (20-50); Total Iron Binding Capacity 358 mcg/dl; Unsaturated Iron Binding 332 ug/dL (112-347)
--- NOTE | 2024-04-16 20:00 | PC.NURSE ---
Dr. Nj to bedside, order given for cardioversion at bedside tomorrow with anesthesia. Notified Jana nursing supervisor floor assembly to schedule. Verified that patient is receiving xaralto 15mg as ordered.
[2024-04-16] MEDS: levalbuterol 0.63 mg/3 mL Neb INHALATION (20:15)
[2024-04-16] MEDS: ipratropium 0.5 mg/2.5 mL Neb INHALATION (20:15)
[2024-04-16] MEDS: budesonide 0.5 mg/2 mL Neb INHALATION (20:15)
--- NOTE | 2024-04-16 20:26 | ECG_ITS ---
[facility] Date: 2024-04-16 Pat Name: Italo Cummings Department: Room: [facility] Gender: Male Nuclear Radiologist: : 1950 Requested By: Diane Gaines Order Number: [id number] Reddy MD: Jose Nj M.D. Measurements Intervals [place] Rate: 107 P: 251 AR: 175 QRS: 72 QRSD: 126 T: 0 QT: 269 QTc: 360 Interpretive Statements Possible atrial flutter with variable MODERATE INTRAVENTRICULAR CONDUCTION DELAY [110+ ms QRS DURATION] NONSPECIFIC T-WAVE ABNORMALITY ABNORMAL RHYTHM ECG Compared to ECG 04/16/2024 16:48:20 T-wave abnormality now present Atrial flutter no longer present Electronically Signed On 04-17-2024 01:07:06 CDT by Jsoe Nj M.D. [email or web address]
--- NOTE | 2024-04-16 20:36 | USCV_ITS ---
Italo Cummings Age: 73 Gender: M : 1950 Exam Date: 04/16/2024 21:50 Ordering Phys: Jose Nj MD ([email or web address]) Technologist: [email or web address] Exam Location: [facility] [place] Indication: CHF/AFIB BP: 112 / 72 HR: 102 Rhythm: Atrial fibrillation Technical Quality: Adequate MEASUREMENTS (Male / Female) Normal Values 2D ECHO LV Diastolic Diameter PLAX 6.1 cm 4.2 - 5.9 / 3.9 - 5.3 cm IVS Diastolic Thickness 1.3 cm 0.6 - 1.0 / 0.6 - 0.9 cm IVS Systolic Thickness 1.4 cm LVPW Diastolic Thickness 1.0 cm 0.6 - 1.0 / 0.6 - 0.9 cm LVPW Systolic Thickness 1.1 cm LVOT Diameter 1.9 cm LV Ejection Fraction 2D Teich 13.3 % LV Ejection Fraction MOD 4C 30.0 % LV Ejection Fraction MOD 2C 24.4 % LV Ejection Fraction 2C AL 23.5 % LA Diameter 6.1 cm LA Sys Volume AL 120.0 cm cubed LA Sys Volume Index AL 56.4 cm cubed/m squared Aorta at Sinotubular Diameter 3.0 cm IVC Diameter 2.5 cm M-MODE LA Ao Ratio MM 1.8 AV Cusp Separation MM 0.6 cm DOPPLER AV Peak Velocity 312.0 cm/s LVOT Peak Velocity 47.0 cm/s AV Area Cont Eq vti 0.6 cm squared AV Area Cont Eq pk 0.4 cm squared MV Peak Velocity 172.0 cm/s MV Area PHT 6.0 cm squared Mitral E to A Ratio 0.0 TR Peak Velocity 223.0 cm/s TR Peak Gradient 19.9 mmHg TV Peak E Velocity 36.0 cm/s Right Atrial Pressure 10.0 mmHg Pulmonary Artery Systolic Pressu 29.9 mmHg PV Peak Velocity 56.0 cm/s FINDINGS Left Ventricle Diffuse hypokinesis of left ventricle, more so of the inferolateral wall segment. The LV ejection fraction was around 30%. Right Ventricle The right ventricle appears to be of normal size and ejection fraction. Right Atrium Moderately dilated Left Atrium Moderately dilated Mitral Valve Thickened mitral valve with severe mitral regurgitation. Appears to have reversal of flow in the pulmonic vein Aortic Valve Severe low-grade aortic valve stenosis, mean gradient 16.9 mmHg, GIOVANNA 0.61 cm squared. Peak velocity of 3.12 m/s Tricuspid Valve Mild tricuspid valve regurgitation. Estimated pulmonary artery peak systolic pressure 30 mmHg Pulmonic Valve No gross abnormalities noted Pericardium No pericardial effusion. Aorta Normal aortic annulus size. IVC Normal IVC dimension with <50% respiratory change of the inferior vena cava. CONCLUSIONS Diffuse hypokinesis of left ventricle, more so of the inferolateral wall segment. The LV ejection fraction was around 30%. Thickened mitral valve with severe mitral regurgitation. Appears to have reversal of flow in the pulmonic vein. Moderate biatrial enlargement. Severe low-grade aortic valve stenosis, mean gradient 16.9 mmHg, GIOVANNA 0.61 cm squared. Peak velocity of 3.12 m/s. Mild tricuspid valve regurgitation. Estimated pulmonary artery peak systolic pressure 30 mmHg. There is no pericardial effusion. There are no intracardiac masses. Compared to the study from 07/05/2023, there is worsening of the mitral regurgitation and aortic valve stenosis Dr Jose Nj MD FAC (Electronically Signed) Final Date: 17 April 2024 09:54 S
[2024-04-16] MEDS: terazosin 5 mg Capsule 10 MG PO (20:40)
[2024-04-16 20:49] LABS: Estmated Average Glucose 137; Hemoglobin A1C 6.4 % (4.0-6.0)
[2024-04-16] MEDS: potassium chloride ER 20 mEq Tablet PO (21:06)
[2024-04-16 23:01] LABS: Troponin 5 6HR 43.36 ng/L (0-15)
[2024-04-16 23:07] LABS: Troponin 5 6HR Delta -7.64 ng/L (0-12)
[2024-04-17] VITALS (17 sets, daily range): BP systolic 99–136; BP diastolic 61–91; PULSE 60–144; RESP 15–95; TEMP 36.4–36.7; O2SAT 86–98; BMI 29.7
[2024-04-17 03:26] LABS: Basophils % 0.2 %; Hematocrit 43.3 % (37-53); Lymphocytes # 0.3 10^3/uL (0.8-4.8); Lymphocytes % 5.2 %; Mean Corpuscular HGB Conc 31.2 g/dL (30-55); Mean Corpuscular Hemoglobin 27.4 pg (27-33); Mean Platelet Volume 13.2 fL (7.4-10.4); Monocytes # 0.1 10^3/uL (0.2-0.9); Monocytes % 1.2 %; Neutrophils # 5.57 10^3/uL (1.8-7.7); Neutrophils % 93.1 %; Nucleated Red Blood Cells % 0 %; Platelet Count 169 10^3/cmm (157-399); Red Blood Count 4.92 10^6/uL (3.85-5.65); Red Cell Distribution Width 13.9 % (12.1-15.1); White Blood Count 5.98 10^3/uL (3.29-11.43)
[2024-04-17 03:40] LABS: INR 2.79 (0.8-1.2)
[2024-04-17 03:44] LABS: Alanine Aminotransferase 17 U/L (0-41); Albumin Level 4.4 g/dL (3.5-5.2); Alkaline Phosphatase 72 U/L (40-130); Anion Gap 18.2 (5-19); Aspartate Amino Transferase 24 U/L (0-40); Blood Urea Nitrogen 34 mg/dL (8-23); Calcium 9.1 mg/dL (8.5-10.5); Carbon Dioxide 23 mmol/L (22-29); Chloride 104 mmol/L (98-107); Creatinine Clr Calc Pharmacy 37.8638; Globulin 2.5 g/dL (1.3-4.6); Glucose 182 mg/dL (65-115); Magnesium 2.2 mg/dL (1.7-2.3); Osmolality Calculated 302 mOsm/kg (285-295); Phosphorus 3.8 mg/dL (2.5-4.5); Potassium 5.2 mmol/L (3.5-5.1); Sodium 140 mmol/L (136-145); Total Bilirubin 0.7 mg/dL (0.15-1.2); Total Protein 6.9 g/dL (6.6-8.7)
[2024-04-17 03:45] LABS: Chol HDL Ratio 2.29 mg/dL (1.0-5.00); Cholesterol 112 mg/dL (0-200); HDL Cholesterol 49 mg/dL (60-100); LDL Cholesterol Calculated 54 mg/dL (50-129); Triglycerides 44 mg/dL (0-150)
[2024-04-17] MEDS: FUROsemide 10 mg/mL SDV 4mL 40 MG IVP ×2 (06:35→11:19)
[2024-04-17] MEDS: methylPREDNISolone sod succ 40 mg/mL INJ IVP ×3 (06:36→17:03)
--- NOTE | 2024-04-17 07:56 | ANES.PREANE2 ---
Pre-Anesthetic Assessment Height/Weight: Height 5 ft 9 in Weight 201 lb 11.567 oz Temp Pulse Resp BP Pulse Ox O2 Del Method 98.0 F 60 16 105/78 95 Room Air 04/17/24 04:00 04/17/24 06:00 04/17/24 04:00 04/17/24 04:00 04/17/24 04:00 04/17/24 04:00 Preop Diagnosis: Atrial flutter Was Beta Terrance taken within 24 hours: N/A Was Clonidine taken within 24 hours: N/A Social No alcohol and No tobacco Exam alert, oriented x 3 and clear to auscultation bilaterally Atrial flutter on EKG strip Airway Submandibular: within normal limits Cervical ROM: within normal limits Mallampati: Class III Dentition: full Anesthetic Plan ASA status: 3 Anesthesia: MAC Other: No prior issues with anesthesia Patient recently had a cardioversion on 04/02 for atrial fibrillation which was successful at that time. Patient tolerated anesthetic fine at that time Upon follow-up in clinic patient was tachycardic and hypotensive and in atrial flutter. S/p CABG, echo 2023 showing EF 34% with diastolic dysfunction. Moderate aortic stenosis at that time aortic valve area 1.1. PA pressures of 25 Labs 04/17/2024 reviewed acceptable for procedure CKD stage III, creatinine 2.0 today METs greater than 4 Plan for MAC anesthesia Medications/Allergies Home Medications Medication Instructions Recorded Confirmed Last Taken Type fluticasone propionate 50 1 spray intranasal DAILY 06/29/20 04/17/24 04/16/24 History mcg/actuation nasal spray,suspension (Flonase Allergy Relief) tramadol 50 mg tablet 50 mg PO TID PRN Pain 06/29/20 04/17/24 04/16/24 History terazosin 10 mg capsule 10 mg PO BID 11/02/20 04/17/24 04/16/24 History alirocumab 150 mg/mL subcutaneous 150 mg SUBCUT Q14D #2 mL 08/06/23 04/17/24 04/12/24 Rx pen injector (Praluent Pen) rivaroxaban 15 mg tablet (Xarelto) See Rx Instructions .Route 11/27/23 04/17/24 04/16/24 Rx .COMPLEX #90 tabs amiodarone 200 mg tablet 200 mg PO BID #180 tabs 04/09/24 04/17/24 04/16/24 Rx furosemide 40 mg tablet 80 mg PO DAILY 04/17/24 04/17/24 04/16/24 History montelukast 10 mg tablet 10 mg PO DAILY 04/17/24 04/17/24 04/16/24 History potassium chloride 20 mEq 20 meq PO BID 04/17/24 04/17/24 04/16/24 History tablet,extended release(part/cryst) Allergies Allergy/AdvReac Type Severity Reaction Status Date / Time Penicillins Allergy Unknown Unknown Verified 04/09/24 15:13 Fdoyach-QCA-WgJ Reductase Allergy couldn't Verified 04/09/24 15:13 Inhibitor function [Gkzkdon-Doc-Yhv Reductase Inhibitor] metoprolol AdvReac low bp Verified 04/09/24 15:13 Current Medications Generic Name Dose Route Start Last Admin Trade Name Freq PRN Reason Stop Dose Admin Amiodarone HCl 200 mg 04/16/24 18:00 04/16/24 17:52 Amiodarone 200 Mg Tablet PO 200 mg BID LYNNE Administration Budesonide 0.5 mg 04/16/24 20:00 04/16/24 20:15 Budesonide 0.5 Mg/2 Ml Neb INHALATION 0.5 mg BID.RESPIRATORY LYNNE Administration Famotidine 20 mg 04/16/24 18:00 04/16/24 17:52 Famotidine 20 Mg Tablet PO 20 mg BID LYNNE Administration Furosemide 40 mg 04/17/24 06:00 04/17/24 06:35 Furosemide 10 Mg/Ml Sdv 4ml IVP 40 mg ONCE LYNNE Administration Ipratropium [place] 0.5 mg 04/16/24 20:00 04/17/24 05:15 Ipratropium 0.5 Mg/2.5 Ml Neb INHALATION Not Given Q6H.RESP LYNNE Levalbuterol HCl 0.63 mg 04/16/24 20:00 04/17/24 05:15 Levalbuterol 0.63 Mg/3 Ml Neb INHALATION Not Given Q6H.RESP LYNNE Methylprednisolone Sodium Succinate 40 mg 04/16/24 17:45 04/17/24 06:36 Methylprednisolone Sod Succ 40 Mg/Ml Inj IVP 40 mg Q6H LYNNE Administration Rivaroxaban 15 mg 04/16/24 18:00 04/16/24 17:52 Rivaroxaban 10 Mg Tablet PO 15 mg QPM LYNNE Administration Terazosin HCl 10 mg 04/16/24 21:00 04/16/24 20:40 Terazosin 5 Mg Capsule PO 10 mg BID LNYNE Administration [facility] Anesthesia Medical History (Updated 04/16/24 @ 20:51 by Jose Nj MD) Atherosclerosis of coronary artery of [place] heart without angina pectoris Heart failure, left, with LVEF <=30% CKD (chronic kidney disease) stage 3, GFR 30-59 ml/min Ischemic cardiomyopathy Dyslipidemia Congestive heart failure Hyperuricemia Polyarthralgia Sepsis Cardiogenic shock Moderate to severe mitral regurgitation Acute on chronic systolic heart failure Elevated liver enzymes Metabolic acidosis, increased anion gap COVID-19 Mar 2021 Atrial flutter Hyperkalemia Hepatorenal syndrome Acute renal failure (ARF) Atrial fibrillation with rapid ventricular response Traumatic tear of right rotator cuff 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 Radiation therapy. Slowly rising PSA with benign RALPH. 6.June. BPH loc w urin obs/LUTS Hypercholesterolemia Ischemic heart disease Elevated PSA Nocturia Urinary hesitancy Surgical History History of tonsillectomy and adenoidectomy Hx of coronary artery bypass graft H/O total knee replacement RIGHT H/O shoulder surgery LEFT History of back surgery History of carpal tunnel release BILATERAL Family History Father , AT AGE 91 Bowel obstruction Mother , AT AGE 84 Heart attack CAD (coronary artery disease) Hypertension Diabetes Brother Cancer Family/Other Cancer Son Chronic kidney disease (CKD) Cancer Grandfather Stroke Denies family history of Clotting disorder Dementia Suicide Anesthesia complication Bleeding disorder Lung disease Social History Smoking and tobacco/nicotine status: never used tobacco/nicotine Alcohol intake: never Substance/Drug Use: never Marital status: Current occupational status: employed Data Anesthesia 04/17/24 03:00 04/17/24 03:00 Short CBC 04/16/24 04/17/24 Range/Units 14:50 03:00 WBC 7.79 5.98 (3.29-11.43) 10^3/uL Hgb 13.20 13.50 (11.27-16.99) g/dL Hct 41.0 43.3 (37-53) % MCV 89.1 88.0 (82-101) fl Plt Count 163 169 (157-399) 10^3/cmm Neut % (Auto) 80.6 93.1 % Neut # (Auto) 6.28 5.57 (1.8-7.7) 10^3/uL BMP 04/16/24 04/17/24 14:50 03:00 Sodium 138 140 Potassium 4.6 5.2 H Chloride 102 104 Carbon Dioxide 22 23 BUN 30 H 34 H Creatinine 1.9 H 2.0 H Glucose 152 H 182 H Calcium 9.3 9.1 Cardiac Enzymes 04/16/24 04/16/24 04/16/24 Range/Units 14:50 17:28 22:40 Troponin T Baseline 51 H (0-15) ng/L Troponin T 120 Minute 55.53 H (0-15) ng/L Delta Troponin T 4.53 (0-10) ABS# Troponin T Hi Sens 6Hr 43.36 H (0-15) ng/L Troponin T Hi Sens 6Hr Delta -7.64 L (0-12) ng/L NT-Pro-B Natriuret Pep 6832 H (0-125) pg/mL Liver Function 04/16/24 04/17/24 Range/Units 14:50 03:00 Total Bilirubin 1.0 0.7 (0.15-1.2) mg/dL AST 21 24 (0-40) U/L ALT 14 17 (0-41) U/L Alkaline Phosphatase 78 72 (40-130) U/L Albumin 4.8 4.4 (3.5-5.2) g/dL Urine 04/16/24 Range/Units 17:32 Urine Color Yellow (Yellow) Urine Appearance Clear (CLEAR) Urine pH 5.0 (5-7) Ur Specific [place] 1.013 (1.005-1.030) Urine Protein Negative (Negative) Urine Glucose (UA) Negative (Normal) Urine Ketones Negative (Negative) Urine Nitrate Negative (Negative) Urine Bilirubin Negative (Negative) Ur Leukocyte Esterase Trace A (Negative) Urine RBC 0-2 (0-2) /hpf Urine WBC 0-5 (0-5) /hpf Coags 04/16/24 04/17/24 14:50 03:00 PT 30.50 H INR 2.79 H D-Dimer 1.47 H Cardiac Studies: Echocardiogram 07/05/23 Echocardiogram Ultrasound 09/14/20 Transesophageal Echocardiogram 04/25/21 Sestamibi Stress Test (Cardiology) 12/16/20 Cardiac Event Monitor 04/20/21
--- NOTE | 2024-04-17 08:17 | USCV_ITS ---
Emiliano Italo Age: 73 Gender: M : 1950 Exam Date: 04/17/2024 08:28 Ordering Phys: Jose Nj MD ([email or web address]) Technologist: [place] [facility] [place]: ? thrombus BP: / HR: Rhythm: Sinus Technical Quality: Adequate MEASUREMENTS (Male / Female) Normal Values DOPPLER MV Peak Velocity 208.0 cm/s Medications IV propofol was administered by the anesthesia service Complications None. Proc. Components The AMERICA probe was passed into the posterior pharynx , mid- esophagus, distal esophagus, and gastric fundus. FINDINGS Left Ventricle Left-ventricular appears to be dilated with a moderate diffuse hypokinesia Right Ventricle Possibly normal size ejection fraction Right Atrium Mildly dilated right atrium Left Atrium Moderately dilated left atrium . LA Appendage Appears to have normal size and contractility. Reversal of flow was noted in the pulmonary vein during systole IA Septum The interatrial septum appears to be intact with no evidence of any ASD or PFO by color-flow Doppler examination Mitral Valve Severe mitral regurgitation with a regurgitant volume of 71.76 mL. The MR ERO was 0.78 cm squared. The regurgitant jet was found to be filling of the whole left atrium. Aortic Valve The aortic valve was found to be thickened and stenotic - possibly severe stenosis Tricuspid Valve Mild tricuspid regurgitation Pulmonic Valve No gross abnormalities noted Pericardium No pericardial effusion. Aorta Aortic root was of normal size CONCLUSIONS Severe mitral regurgitation with a regurgitant volume of 71.76 mL. The MR ERO was 0.78 cm squared. The regurgitant jet was found to be filling of the whole left atrium. The left atrial appendage was of normal size and contractility. Reversal of flow was noted in the pulmonary vein during systole The aortic valve was found to be thickened and stenotic - possibly severe stenosis. Left-ventricular appears to be dilated with a moderate diffuse hypokinesia. Moderately dilated left atrium . Mildly dilated right atrium. Intact interatrial septum with no evidence of ASD or PFO by color-flow Doppler examination Dr Jose Nj MD [facility] (Electronically Signed) Final Date: 17 April 2024 22:05 S
[2024-04-17] MEDS: sodium chloride 0.9% 250 ML 10 ML IV (09:12)
--- NOTE | 2024-04-17 09:36 | PC.NURSE ---
Doctor Nj tried cardioverting the patient three times. After the second time he ordered for bolus of amiodarone to be given. Anesthesia was at bedside and patient was successfully cardioverted after the third time.
[2024-04-17] MEDS: SODIUM CHLORIDE 0.9% IV (09:39)
[2024-04-17] MEDS: AMIODARONE IV (09:39)
--- NOTE | 2024-04-17 09:56 | W.PM.OPSUD ---
Surgery/Procedure H&P Update DATE OF PROCEDURE: April 17, 2024 DATE H&P PERFORMED: 04/16/24 H&P UPDATE INFORMATION: I have reviewed H&P completed within last 30 days, I have examined patient prior to procedure and No changes to prior documentation PREOP DIAGNOSIS: Symptomatic atrial fibrillation/low blood pressure PRIMARY INDICATION FOR PROCEDURE: . As mentioned above PLANNED PROCEDURE: AMERICA cardioversion
--- NOTE | 2024-04-17 09:58 | P.PN_ITS ---
Subjective 2 Subjective: Patient continues to be in atrial fibrillation. The blood pressure is in the 90s. He was found to have severe mitral regurgitation and severe low gradient aortic valve stenosis by transthoracic echocardiogram. Medications: Medication Review Details: Current Medications Acetaminophen (Acetaminophen 325 Mg Tablet) 650 mg PO Q6H PRN PRN Reason: Mild/Mod Pain Or Temp >/= 101 Amiodarone HCl (Amiodarone 200 Mg Tablet) 200 mg PO BID LYNNE Last Admin: 04/17/24 10:33 Dose: 200 mg Bisacodyl (Bisacodyl 5 Mg Tablet) 10 mg PO DAILY PRN; Protocol PRN Reason: Constipation (see protocol) Budesonide (Budesonide 0.5 Mg/2 Ml Neb) 0.5 mg INHALATION BID.RESPIRATORY LYNNE Last Admin: 04/17/24 08:36 Dose: Not Given Famotidine (Famotidine 20 Mg Tablet) 20 mg PO BID LYNNE Last Admin: 04/17/24 10:33 Dose: 20 mg Furosemide (Furosemide 10 Mg/Ml Sdv 4ml) 40 mg IVP ONCE LYNNE Last Admin: 04/17/24 06:35 Dose: 40 mg Glucagon (Glucagon 1 Mg/Ml Kit 1 Ml) 1 mg IM ONCE PRN; Protocol PRN Reason: Adult Acute Hypoglycemia Nursing Prot. Dextrose (D10w) 250 mls @ 1,000 mls/hr IV PRN PRN PRN Reason: HYPOGLYCEMIA Dextrose (D5w) 500 mls @ 0 mls/hr IV ONCE PRN; Protocol PRN Reason: Adult Acute Hypoglycemia Prot Dextrose (D10w) 125 mls @ 750 mls/hr IV PRN PRN; Protocol PRN Reason: Adult Acute Hypoglycemia Nursing Protocol Last Infusion: 04/17/24 13:22 Dose: Infused Dextrose (D10w) 250 mls @ 1,000 mls/hr IV PRN PRN; Protocol PRN Reason: Adult Acute Hypoglycemia Nursing Protocol Insulin Human Lispro (Insulin Lispro 100 Unit/1 Ml) 0 unit SUBCUT WM&BEDTIME LYNNE; Protocol Last Admin: 04/17/24 11:18 Dose: 8 unit Ipratropium [place] (Ipratropium 0.5 Mg/2.5 Ml Neb) 0.5 mg INHALATION Q6H.RESP LYNNE Last Admin: 04/17/24 13:28 Dose: 0.5 mg Lactulose (Lactulose Oral Liq 20 Gm/30 Ml Udc) 10 gm PO DAILY PRN; Protocol PRN Reason: Constipation (see protocol) Levalbuterol HCl (Levalbuterol 0.63 Mg/3 Ml Neb) 0.63 mg INHALATION Q6H.RESP [facility] Last Admin: 04/17/24 13:28 Dose: 0.63 mg Magnesium Hydroxide (Magnesium Hydroxide 30 Ml Udc) 30 ml PO DAILY PRN; Protocol PRN Reason: Constipation (see protocol) Methylprednisolone Sodium Succinate (Methylprednisolone Sod Succ 40 Mg/Ml Inj) 40 mg IVP Q12H LYNNE Morphine Sulfate (Morphine 4 Mg/Ml Sdv 1 Ml) 2 mg IVP Q4H PRN PRN Reason: SEVERE PAIN Ondansetron HCl (Ondansetron 2 Mg/Ml Sdv 2 Ml) 4 mg IVP Q8H PRN PRN Reason: vomiting, or N/V if npo Rivaroxaban (Rivaroxaban 10 Mg Tablet) 15 mg PO QPM [facility] Last Admin: 04/16/24 17:52 Dose: 15 mg Terazosin HCl (Terazosin 5 Mg Capsule) 10 mg PO BID [facility] Last Admin: 04/17/24 10:32 Dose: 10 mg Tramadol HCl (Tramadol 50 Mg Tablet) 50 mg PO TID PRN PRN Reason: Pain Vitals/I&O/Wt Last Vital Signs Temp 98.0 F 04/17/24 04:00 Pulse 116 H 04/17/24 09:00 Resp 16 04/17/24 09:00 BP 105/75 04/17/24 09:00 Pulse Ox 97 04/17/24 09:00 O2 Del Method Oxymask 04/17/24 09:00 O2 Flow Rate 6 04/17/24 09:00 04/16/24 04/17/24 04/17/24 22:59 06:59 14:59 Intake Total 100 / 100 Output Total 550 / 550 450 / 1000 Balance -450 / -450 -450 / -900 Weight last 48 hrs Weight 201 lb 11.567 oz Weight 200 lb Physical Exam 2 Narrative: GENERAL: The patient is alert and oriented times three. Not in any acute distress. HEENT: No significant pallor, icterus or lymphadenopathy.Oral cavity: There are no mucous membrane lesions. NECK: Trachea appears to be central. No masses noted. No JVD or thyromegaly appreciated. RESPIRATORY: Chest is symmetrical. No intercostals muscle retraction or any accessory muscle activation. There is no chest wall tenderness. Breath sounds are heard bilaterally. No rales or rhonchi heard. No evidence of any consolidation. Few fine Rales in the bases. BREASTS: Deferred. HEART: The heart sounds are normal. No S3 or S4. Systolic murmur grade 4/6 at the left heart border. Ejection systolic murmur grade 3 or 6 in the aortic area. No diastolic murmurs.. No pericardial rub ABDOMEN: No vessel pulsations or distention. No tenderness. No organomegaly appreciated. Bowel sounds are normally heard. : Deferred. RECTAL: Deferred. LYMPHATIC: No lymphadenopathy noted in the neck. EXTREMITIES: Trace edema with no cyanosis. MUSCULOSKELETAL: No acute joint deformities or swelling SKIN: There are no significant rashes or ecchymosis NEUROPSYCHIATRIC: The patient is alert and oriented x3. Appears to be in a good mood. No tremors or rigidity noted. Data 04/17/24 03:00 04/17/24 03:00 Other Labs: Laboratory Last Values WBC 5.98 10^3/uL (3.29-11.43) 04/17/24 03:00 RBC 4.92 10^6/uL (3.85-5.65) 04/17/24 03:00 Hgb 13.50 g/dL (11.27-16.99) 04/17/24 03:00 Hct 43.3 % (37-53) 04/17/24 03:00 MCV 88.0 fl (82-101) 04/17/24 03:00 MCH 27.4 pg (27-33) 04/17/24 03:00 MCHC 31.2 g/dL (30-55) 04/17/24 03:00 RDW 13.9 % (12.1-15.1) 04/17/24 03:00 Plt Count 169 10^3/cmm (157-399) 04/17/24 03:00 MPV 13.2 fL (7.4-10.4) H 04/17/24 03:00 Neut % (Auto) 93.1 % 04/17/24 03:00 Lymph % (Auto) 5.2 % 04/17/24 03:00 [place] % (Auto) 1.2 % 04/17/24 03:00 Eos % (Auto) 0.0 % 04/17/24 03:00 Baso % (Auto) 0.2 % 04/17/24 03:00 Neut # (Auto) 5.57 10^3/uL (1.8-7.7) 04/17/24 03:00 Lymph # (Auto) 0.3 10^3/uL (0.8-4.8) L 04/17/24 03:00 [place] # (Auto) 0.1 10^3/uL (0.2-0.9) L 04/17/24 03:00 Eos # (Auto) 0.0 10^3/uL (0.0-0.8) 04/17/24 03:00 Baso # (Auto) 0.0 10^3/uL (0.0-0.1) 04/17/24 03:00 Nucleated RBC % (auto) 0 % 04/17/24 03:00 Nucleated RBCs # 0.0 /100WBC 04/17/24 03:00 PT 30.50 SECONDS (12.1-14.9) H 04/17/24 03:00 INR 2.79 (0.8-1.2) H 04/17/24 03:00 D-Dimer 1.47 ug/mLFEU (0-0.59) H 04/16/24 14:50 Sodium 140 mmol/L (136-145) 04/17/24 03:00 Potassium 5.2 mmol/L (3.5-5.1) H 04/17/24 03:00 Chloride 104 mmol/L (98-107) 04/17/24 03:00 Carbon Dioxide 23 mmol/L (22-29) 04/17/24 03:00 Anion Gap 18.2 (5-19) 04/17/24 03:00 BUN 34 mg/dL (8-23) H 04/17/24 03:00 Creatinine 2.0 mg/dL (0.7-1.2) H 04/17/24 03:00 GFR Calculation Not Reportable 04/17/24 03:00 Glucose 182 mg/dL (65-115) H 04/17/24 03:00 Estimat Average Glucose 137 04/16/24 14:50 Hemoglobin A1c 6.4 % (4.0-6.0) H 04/16/24 14:50 Calculated Osmolality 302 mOsm/kg (285-295) H 04/17/24 03:00 Calcium 9.1 mg/dL (8.5-10.5) 04/17/24 03:00 Phosphorus 3.8 mg/dL (2.5-4.5) 04/17/24 03:00 Magnesium 2.2 mg/dL (1.7-2.3) 04/17/24 03:00 Iron 26 ug/dL (59-158) L 04/16/24 17:28 TIBC 358 mcg/dl 04/16/24 17:28 % Saturation 7.2 % (20-50) L 04/16/24 17:28 Unsat Iron Binding 332 ug/dL (112-347) 04/16/24 17:28 Total Bilirubin 0.7 mg/dL (0.15-1.2) 04/17/24 03:00 AST 24 U/L (0-40) 04/17/24 03:00 ALT 17 U/L (0-41) 04/17/24 03:00 Alkaline Phosphatase 72 U/L (40-130) 04/17/24 03:00 Troponin T Baseline 51 ng/L (0-15) H 04/16/24 14:50 Troponin T 120 Minute 55.53 ng/L (0-15) H 04/16/24 17:28 Delta Troponin T 4.53 ABS# (0-10) 04/16/24 17:28 Troponin T Hi Sens 6Hr 43.36 ng/L (0-15) H 04/16/24 22:40 Troponin T Hi Sens 6Hr Delta -7.64 ng/L (0-12) L 04/16/24 22:40 NT-Pro-B Natriuret Pep 6832 pg/mL (0-125) H 04/16/24 14:50 Total Protein 6.9 g/dL (6.6-8.7) 04/17/24 03:00 Albumin 4.4 g/dL (3.5-5.2) 04/17/24 03:00 Globulin 2.5 g/dL (1.3-4.6) 04/17/24 03:00 Triglycerides 44 mg/dL (0-150) 04/17/24 03:00 Cholesterol 112 mg/dL (0-200) 04/17/24 03:00 LDL Cholesterol, Calc 54 mg/dL (50-129) 04/17/24 03:00 HDL Cholesterol 49 mg/dL (60-100) L 04/17/24 03:00 LDL/HDL Ratio 1.10 RATIO (0.00-3.22) 04/17/24 03:00 Cholesterol/HDL Ratio 2.29 mg/dL (1.0-5.00) 04/17/24 03:00 Vitamin B12 784 pg/mL (232-1245) 04/16/24 17:28 Folate 12.0 ng/mL (4.5-32.2) 04/17/24 03:00 Procalcitonin 0.06 ng/mL (0-0.5) 04/16/24 17: TSH 3.17 uIU/mL (0.27-4.20) 04/16/24 17:28 Urine Color Yellow (Yellow) 04/16/24 17:32 Urine Appearance Clear (CLEAR) 04/16/24 17:32 Urine pH 5.0 (5-7) 04/16/24 17:32 Ur Specific [place] 1.013 (1.005-1.030) 04/16/24 17:32 Urine Protein Negative (Negative) 04/16/24 17:32 Urine Glucose (UA) Negative (Normal) 04/16/24 17:32 Urine Ketones Negative (Negative) 04/16/24 17: Urine Blood Negative (Negative) 04/16/24 17:32 Urine Nitrate Negative (Negative) 04/16/24 17: Urine Bilirubin Negative (Negative) 04/16/24 17: Urine Urobilinogen 0.2 mg/dL (Negative) 04/16/24 17:32 Ur Leukocyte Esterase Trace (Negative) A 04/16/24 17:32 Urine RBC 0-2 /hpf (0-2) 04/16/24 17:32 Urine WBC 0-5 /hpf (0-5) 04/16/24 17:32 Ur Squamous Epith Cells 0-5 /hpf (0-5) 04/16/24 17:32 Amorphous Sediment Not Reportable 04/16/24 17:32 Urine Bacteria None seen /hpf (NONE) 04/16/24 17:32 Hyaline Casts 14.47 /lpf 04/16/24 17:32 A&P Assessment and plan (1) Atrial fibrillation with rapid ventricular response: We attempted cardioversion with the 125 and with the 150 J of biphasic current. After he shock, he goes into sinus rhythm for a minute or so and then goes back into fibrillation. After the second shock, he was given IV infusion of 150 mg of amiodarone. This was followed by cardioversion with 200 J of biphasic current. This time, he appeared to be staying in the sinus rhythm. (2) CKD (chronic kidney disease) stage 3, GFR 30-59 ml/min: Your kidney function appears to be stable. May continue on the current measures. Qualifiers: Chronic kidney disease stage 3 subtype: stage 3a (GFR 45-59) Qualified Code(s): N18.31 - Chronic kidney disease, stage 3a (3) Ischemic cardiomyopathy: Patient refused defibrillator in the past. He also could not afford the Entresto. He will be discharged on losartan 25 mg p.o. daily. Will monitor the kidney function closely. The LV ejection fraction was found to be around 30% by echocardiogram (4) Acute on chronic systolic heart failure: Will be carefully treated with IV diuretics. (5) Atherosclerosis of coronary artery of [place] heart without angina pectoris: Had the cardiac catheterization in 2020. The results are as mentioned above.. Patient was found to have no revascularizable lesion at that time Qualifiers: Coronary Disease-Associated Artery/Lesion type: unspecified vessel or lesion type Qualified Code(s): I25.10 - Atherosclerotic heart disease of [place] coronary artery without angina pectoris (6) Severe mitral regurgitation: Patient was found to have severe mitral irritation with the reversal of flow in the pulmonic vein (7) Severe aortic valve stenosis: This patient has severe low gradient aortic valve stenosis. This may need to be intervened. Plan Patient underwent electrical cardioversion with the 200 J of biphasic current. He was given a loading dose of IV amiodarone prior to this. He is converted to sinus rhythm. Currently he is staying in the sinus. Patient requires valve intervention. I discussed this with Dr. Newsome at the [facility] in [place]. If the patient remained stable, he may be discharged home tomorrow. Dr. Anton will see him possibly on Sunday in the office and we will arrange for further evaluation and management of his valve disease. Patient may require a cardiac catheterization before the intervention. This also could be done in [place] Patient may go home with amiodarone 400 mg p.o. daily for a week followed by 200 mg p.o. day Attestations 2 Medical Necessity Statement*: He patient requires continued hospital stay for close monitoring and further management Coding Level of Care Code 88871 Diagnoses Atrial fibrillation with rapid ventricular response I48.91 Stage 3a chronic kidney disease N18.31 Chronic kidney disease stage 3 subtype: stage 3a (GFR 45-59) Ischemic cardiomyopathy I25.5 Acute on chronic systolic heart failure I50.23 Atherosclerosis of coronary artery of [place] heart without angina pectoris, unspecified vessel or lesion type I25.10 Coronary Disease-Associated Artery/Lesion type: unspecified vessel or lesion type Severe mitral regurgitation I34.0 Severe aortic valve stenosis I35.0 Time Spent (min) 55
[2024-04-17] MEDS: terazosin 5 mg Capsule 10 MG PO ×2 (10:32→17:02)
[2024-04-17] MEDS: famotidine 20 mg Tablet PO ×2 (10:33→17:02)
[2024-04-17] MEDS: amiodarone 200 mg Tablet PO ×2 (10:33→17:02)
[2024-04-17] MEDS: insulin regular-human 10 UNIT in SYRINGE 1 EACH IVP (10:33)
[2024-04-17] MEDS: dextrose 10% 125 ML 750 ML IV (10:34)
[2024-04-17 11:01] LABS: Glucose Point of Care 262 mg/dL (70-110)
[2024-04-17] MEDS: insulin lispro 100 unit/1 mL SUBCUT ×3 (11:18→20:50)
--- NOTE | 2024-04-17 13:01 | P.PN_ITS ---
Subjective 2 Subjective: No acute events overnight. Today morning patient underwent cardioversion. Patient had to be cardioverted 3 times as he kept reverting back into A-fib. When seen again later in the day post cardioversion he was sitting up in bed with family at bedside. States he is feeling better with breathing improving but still not where he would like her to be. Patient is back in sinus rhythm. Denies any nausea, vomiting, headache, chest pain. Vitals/I&O/Wt Last Vital Signs Temp 98.0 F 04/17/24 04:00 Pulse 91 04/17/24 12:00 Resp 16 04/17/24 09:00 BP 99/82 04/17/24 11:00 Pulse Ox 95 04/17/24 12:00 O2 Del Method Room Air 04/17/24 11:00 O2 Flow Rate 6 04/17/24 09:00 04/16/24 04/17/24 04/17/24 22:59 06:59 14:59 Intake Total 100 / 100 15.667 / 15.667 Output Total 550 / 550 450 / 1000 1050 / 1050 Balance -450 / -450 -450 / -900 -1034.333 / -1034.333 Weight last 48 hrs Weight 91.5 kg Weight 91.5 kg Weight 90.718 kg Physical Exam 2 Narrative: General: No acute distress, AO x3 HEENT: PERRLA, pupils bilaterally equal and reactive Chest: Normal vesicular breath sounds, no added sounds, equal good air entry bilaterally CVS: S1-S2 regular, no murmurs, no tachycardia, no gallops, no rubs Abdomen: Soft, nontender, no organomegaly, bowel sounds present Neuro: No focal deficits, no facial deformity, AO x3, power 5/5 in all limbs Data 04/17/24 03:00 04/17/24 03:00 Micro: Microbiology 04/16/24 17:32 Bacterial Antigens - Final Urine Kidney A&P Assessment and plan (1) Atrial fibrillation with rapid ventricular response: With episodes of rapid ventricular response especially on exertion. Post cardioversion recently within the last 2 weeks. Amiodarone uptitrated as an outpatient to help with heart rate though not helping. Appreciate cardiology recommendations. Post cardioversion on 04/17 x 3. Continue to monitor heart rate for now. Appreciate TSH, D-dimer Continue with amiodarone 200 mg twice daily along with Xarelto. Echocardiogram done shows EF of 30%, severe MR, biatrial enlargement, severe low gradient aortic valve stenosis with aortic valve area of 0.61, mild TR with PASP of 30 mmHg with normal IVC with less than 50% change in IVC (2) Congestive heart failure: Echocardiogram as above. Appreciate proBNP. Patient concerning for orthopnea and PND especially with tachycardia. Strict input output charting, daily weights. Fluid restriction to less than 1500 cc. Received IV Lasix 40 mg in the morning. Continue to monitor fluid status and renal functions. Will redose Lasix accordingly. (3) Ischemic cardiomyopathy: EF of around 30%. Blood pressures soft right now. Continue with amiodarone. Will plan to add ALEXYS/ARB gradually given CKD. Will discuss with cardiology regarding beta- makenna. Patient in the past had refused REGULATORY AFFAIRS SPEC-D. (4) CKD (chronic kidney disease) stage 3, GFR 30-59 ml/min: Baseline creatinine 1.5-1.9. Currently creatinine at baseline. Has gone up to 2.5 within the last 2 years. Medical reconciliation done for nephrotoxic drugs. Continue to monitor BMP daily. Qualifiers: Chronic kidney disease stage 3 subtype: stage 3a (GFR 45-59) Qualified Code(s): N18.31 - Chronic kidney disease, stage 3a (5) Failure of outpatient treatment: Plan Shortness of breath: Most likely in setting of congestive heart failure along with recent diagnosis of COVID-19 leading to reactive airway disease. Appreciate CT chest results. Treatment of CHF above. Oxygen supplementation keeping saturation over 90%. Ipratropium, Xopenex every 6 hourly as needed. Pulmicort twice daily Aggressive pulmonary toilet with I-S and Acapella. Wean Solu-Medrol to 40 mg every 12 hourly. Off COVID-19 isolation precautions. Tested positive on 03/30/2024. Cardiac diet Protonix for PUD prophylaxis Xarelto will be sufficient for DVT prophylaxis Attestations 2 Medical Necessity Statement*: Requires further hospitalization for management of persistent A-fib with RVR, ischemic cardiomyopathy with congestive heart failure, shortness of breath in setting of reactive airway disease and congestive heart failure in a patient with recent COVID-19. Diagnoses Atrial fibrillation with rapid ventricular response I48.91 Congestive heart failure I50.9 Ischemic cardiomyopathy I25.5 Stage 3a chronic kidney disease N18.31 Chronic kidney disease stage 3 subtype: stage 3a (GFR 45-59) Failure of outpatient treatment Z78.9
[2024-04-17] MEDS: ipratropium 0.5 mg/2.5 mL Neb INHALATION ×2 (13:28→21:04)
[2024-04-17] MEDS: levalbuterol 0.63 mg/3 mL Neb INHALATION ×2 (13:28→21:04)
--- NOTE | 2024-04-17 13:59 | PM.OP ---
Operative Report Date of procedure: April 17, 2024 Surgeon: Jose jN MD Procedure: Electrical cardioversion report Preprocedure diagnoses: Atrial fibrillation/hypotension. Brief history: 73-year-old with ischemic cardiomyopathy and intermittent atrial fibrillation, admitted with atrial fibrillation rapid ventricular rate. His blood pressure was running soft in the 90s and low 100. He was very symptomatic with the arrhythmia. For further management of his condition electrical cardioversion was recommended Location of the procedure: ICU #4 Electrode application: 4 anterior posterior Electrical energy applied:. 125, 150 and 200. Patient apparently converted to sinus rhythm after the 125 and 150 J for a minute or so and then went back into fibrillation. He was given IV amiodarone bolus of 150 mg before the 200 J application. Number of shocks: Total of 3 Final rhythm: Normal sinus rhythm with PACs Final blood pressure: This 98/50 Complications: None Recommendation(s): Continue p.o. amiodarone 40 mg p.o. daily for a total of 1 week followed by 200 mg p.o. daily
--- NOTE | 2024-04-17 14:01 | PC.NURSE ---
Patient was successfully transferred to the [facility] floor without any complications.
[2024-04-17 16:14] LABS: Anion Gap 19.9 (5-19); Blood Urea Nitrogen 36 mg/dL (8-23); Calcium 8.7 mg/dL (8.5-10.5); Carbon Dioxide 20 mmol/L (22-29); Chloride 104 mmol/L (98-107); Glucose 208 mg/dL (65-115); Osmolality Calculated 304 mOsm/kg (285-295); Potassium 3.9 mmol/L (3.5-5.1); Sodium 140 mmol/L (136-145)
[2024-04-17] MEDS: rivaroxaban 10 mg Tablet 15 MG PO (17:02)
[2024-04-17 17:03] LABS: Glucose Point of Care 203 mg/dL (70-110)
[2024-04-17 20:20] LABS: Glucose Point of Care 171 mg/dL (70-110)
[2024-04-17] MEDS: trazodone 50 mg Tablet PO (21:00)
[2024-04-17] MEDS: budesonide 0.5 mg/2 mL Neb INHALATION (21:05)
[2024-04-18] VITALS (10 sets, daily range): BP systolic 93–113; BP diastolic 59–77; PULSE 89–102; RESP 16–18; TEMP 36.6–37; O2SAT 94–97
[2024-04-18] MEDS: ipratropium 0.5 mg/2.5 mL Neb INHALATION ×3 (04:12→13:01)
[2024-04-18] MEDS: levalbuterol 0.63 mg/3 mL Neb INHALATION ×2 (04:13→13:01)
[2024-04-18 04:18] LABS: Basophils % 0.1 %; Hematocrit 39.4 % (37-53); Lymphocytes # 0.4 10^3/uL (0.8-4.8); Lymphocytes % 2.7 %; Mean Corpuscular Hemoglobin 27.6 pg (27-33); Mean Corpuscular Volume 89.1 fl (82-101); Monocytes # 0.4 10^3/uL (0.2-0.9); Monocytes % 2.4 %; Neutrophils # 13.97 10^3/uL (1.8-7.7); Neutrophils % 93.7 %; Nucleated Red Blood Cells % 0 %; Platelet Count 169 10^3/cmm (157-399); Red Blood Count 4.42 10^6/uL (3.85-5.65); Red Cell Distribution Width 14.3 % (12.1-15.1); White Blood Count 14.89 10^3/uL (3.29-11.43)
[2024-04-18 04:42] LABS: Alanine Aminotransferase 13 U/L (0-41); Albumin Level 4.1 g/dL (3.5-5.2); Alkaline Phosphatase 63 U/L (40-130); Anion Gap 18.1 (5-19); Aspartate Amino Transferase 19 U/L (0-40); Blood Urea Nitrogen 41 mg/dL (8-23); Calcium 8.7 mg/dL (8.5-10.5); Carbon Dioxide 24 mmol/L (22-29); Chloride 107 mmol/L (98-107); Creatinine Clr Calc Pharmacy 36.0607; Globulin 2.3 g/dL (1.3-4.6); Glucose 174 mg/dL (65-115); Osmolality Calculated 314 mOsm/kg (285-295); Potassium 4.1 mmol/L (3.5-5.1); Sodium 145 mmol/L (136-145); Total Bilirubin 0.7 mg/dL (0.15-1.2); Total Protein 6.4 g/dL (6.6-8.7)
[2024-04-18] MEDS: methylPREDNISolone sod succ 40 mg/mL INJ IVP (06:23)
[2024-04-18 06:35] LABS: Glucose Point of Care 178 mg/dL (70-110)
[2024-04-18] MEDS: budesonide 0.5 mg/2 mL Neb INHALATION (07:46)
[2024-04-18] MEDS: insulin lispro 100 unit/1 mL SUBCUT ×2 (08:00→11:10)
[2024-04-18] MEDS: famotidine 20 mg Tablet PO (08:01)
[2024-04-18] MEDS: losartan 50 mg Tablet 25 MG PO (08:01)
[2024-04-18] MEDS: amiodarone 200 mg Tablet PO (08:01)
[2024-04-18] MEDS: terazosin 5 mg Capsule 10 MG PO (08:02)
[2024-04-18 10:56] LABS: Glucose Point of Care 177 mg/dL (70-110)
[2024-04-18] MEDS: bumetanide 1 mg Tablet PO (11:10)
--- NOTE | 2024-04-18 11:12 | PC.SOCIAL ---
IMM Update Pg. 2 of IMM updated and reviewed with patient, who verbalized understanding. Copy provided.
--- NOTE | 2024-04-18 11:38 | P.DS_ITS ---
Discharge Providers Date of Admission: 04/16/24 16:15 Date of Discharge: April 18, 2024 Attending Provider at Admission: Vadim Dominguez MD Attending Provider at Discharge: Vadim Dominguez MD Primary Care Provider: Priyank Kaur DO Diagnoses at Discharge Discharge Diagnosis (1) Atrial fibrillation with rapid ventricular response: Status: Acute (2) Congestive heart failure: Status: Acute (3) Ischemic cardiomyopathy: Status: Acute (4) CKD (chronic kidney disease) stage 3, GFR 30-59 ml/min: Status: Acute Qualifiers: Chronic kidney disease stage 3 subtype: stage 3a (GFR 45-59) Qualified Code(s): N18.31 - Chronic kidney disease, stage 3a (5) Failure of outpatient treatment: Status: Acute (6) 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: Status: Acute Qualifiers: Coronary Disease-Associated Artery/Lesion type: unspecified vessel or lesion type Qualified Code(s): I25.10 - Atherosclerotic heart disease of seminole coronary artery without angina pectoris (7) Acute on chronic systolic heart failure: Status: Acute (8) Severe mitral regurgitation: Status: Acute (9) Severe aortic valve stenosis: Status: Acute Reason for Visit Reason for Visit: Manuelito STEIN, NATASHA - dr nj sent over Hospital Course Hospital Course Italo Cummings is a 73 year old male with past medical history of ischemic cardiomyopathy with last known EF of from 35%, history of CABG, atrial fibrillation on Eliquis, CKD who recently underwent cardiac cardioversion for atrial fibrillation on 04/02, recent COVID-19. He was discharged on 04/02. Patient was seen in cardiology office on 04/09 with concerns for recurrent episode of persistent tachycardia especially on exertion or after consumption of Monster energy drink associated with shortness of breath and orthopnea. Patient was having soft blood pressures at home because of which she stopped taking his home dose of metoprolol. His amiodarone dose was increased to 200 mg twice daily and event monitor was placed on 04/09. 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 Despite uptitrating the dose of amiodarone he continued to have tachycardia especially on minimal exertion hence he was directed to present to the ER for admission. Currently on examination his heart rate is 100 bpm, resting comfortably in bed saturating well on room air though complaining of orthopnea, blood pressure of 90 systolic. Patient was admitted to the hospital further evaluation and management of persistent A-fib with RVR with failure to outpatient treatment, shortness of breath in setting of congestive heart failure, reactive airway disease to recent COVID-19. He was started on IV diuretics along with inhalation treatment and steroids. Cardiology was consulted. He underwent cardioversion with 200 J to convert him to normal sinus rhythm. Since then he has remained in normal sinus rhythm for now. Echocardiogram was done which showed an EF of 30%, thickened mitral valve with severe MR, possible reversal of flow in pulmonary vein, moderate biatrial enlargement, severe low gradient aortic valve stenosis with mean gradient of 16.9 mmHg, mild TR with PASP of 30 mmHg. Patient is able to ambulate without any difficulty breathing currently. Has remained stable on room air. He has been discharged in stable condition on oral amiodarone 400 mg once daily for the next 7 days followed by 200 mg daily, Bumex 1 mg twice daily along with 1 mg as needed for swelling or increasing body weight for 5 pounds along with inhalers for next 1 month and dexamethasone for 10 days. He is to follow-up with Dr. Newsome at [facility] in [place] for further evaluation and management of her valve disease. Physical Exam Narrative: General: No acute distress, AO x3 HEENT: PERRLA, pupils bilaterally equal and reactive Chest: Normal vesicular breath sounds, no added sounds, equal good air entry bilaterally CVS: S1-S2 regular, no murmurs, no tachycardia, no gallops, no rubs Abdomen: Soft, nontender, no organomegaly, bowel sounds present Neuro: No focal deficits, no facial deformity, AO x3, power 5/5 in all limbs Discharge Data Studies Completed and Pending Completed Studies During Hospitalization Category Date Time Status CT chest wo con [id number] Urgent Cat Scan 04/16/24 17:47 Completed XR chest 1V portable [id number] Stat Exams 04/16/24 14:26 [place] [id number] Routine Ultrasound 04/17/24 08:17 Completed CV. echo complete* [id number] Routine Ultrasound 04/16/24 20:36 Completed Radiology Impressions Chest X-Ray 04/16/24 14:26 Impression: Atherosclerosis. Chest CT 04/16/24 17:47 IMPRESSION: 1. Stable CABG procedure. 2. Mild bilateral pleural fluid collections. Echocardiogram: CONCLUSIONS Diffuse hypokinesis of left ventricle, more so of the inferolateral wall segment. The LV ejection fraction was around 30%. Thickened mitral valve with severe mitral regurgitation. Appears to have reversal of flow in the pulmonic vein. Moderate biatrial enlargement. Severe low-grade aortic valve stenosis, mean gradient 16.9 mmHg, GIOVANNA 0.61 cm squared. Peak velocity of 3.12 m/s. Mild tricuspid valve regurgitation. Estimated pulmonary artery peak systolic pressure 30 mmHg. There is no pericardial effusion. There are no intracardiac masses. Compared to the study from 07/05/2023, there is worsening of the mitral regurgitation and aortic valve stenosis Dr Jose Nj MD [facility] (Electronically Signed) Final Date: 17 April 2024 [place]: CONCLUSIONS Severe mitral regurgitation with a regurgitant volume of 71.76 mL. The MR ERO was 0.78 cm squared. The regurgitant jet was found to be filling of the whole left atrium. The left atrial appendage was of normal size and contractility. Reversal of flow was noted in the pulmonary vein during systole The aortic valve was found to be thickened and stenotic - possibly severe stenosis. Left-ventricular appears to be dilated with a moderate diffuse hypokinesia. Moderately dilated left atrium . Mildly dilated right atrium. Intact interatrial septum with no evidence of ASD or PFO by color-flow Doppler examination Dr Jose Nj MD [facility] (Electronically Signed) Final Date: 17 April 2024 22:05 Laboratory Results WBC 14.89 10^3/uL (3.29-11.43) H 04/18/24 03:54 RBC 4.42 10^6/uL (3.85-5.65) 04/18/24 03:54 Hgb 12.20 g/dL (11.27-16.99) 04/18/24 03:54 Hct 39.4 % (37-53) 04/18/24 03:54 MCV 89.1 fl (82-101) 04/18/24 03:54 MCH 27.6 pg (27-33) 04/18/24 03:54 MCHC 31.0 g/dL (30-55) 04/18/24 03:54 RDW 14.3 % (12.1-15.1) 04/18/24 03:54 Plt Count 169 10^3/cmm (157-399) 04/18/24 03:54 MPV 13.0 fL (7.4-10.4) H 04/18/24 03:54 Neut % (Auto) 93.7 % 04/18/24 03:54 Lymph % (Auto) 2.7 % 04/18/24 03:54 [place] % (Auto) 2.4 % 04/18/24 03:54 Eos % (Auto) 0.0 % 04/18/24 03:54 Baso % (Auto) 0.1 % 04/18/24 03:54 Neut # (Auto) 13.97 10^3/uL (1.8-7.7) H 04/18/24 03:54 Lymph # (Auto) 0.4 10^3/uL (0.8-4.8) L 04/18/24 03:54 Atlantic # (Auto) 0.4 10^3/uL (0.2-0.9) 04/18/24 03:54 Eos # (Auto) 0.0 10^3/uL (0.0-0.8) 04/18/24 03:54 Baso # (Auto) 0.0 10^3/uL (0.0-0.1) 04/18/24 03:54 Nucleated RBC % (auto) 0 % 04/18/24 03:54 Nucleated RBCs # 0.0 /100WBC 04/18/24 03:54 PT 30.50 SECONDS (12.1-14.9) H 04/17/24 03:00 INR 2.79 (0.8-1.2) H 04/17/24 03:00 D-Dimer 1.47 ug/mLFEU (0-0.59) H 04/16/24 14:50 Sodium 145 mmol/L (136-145) 04/18/24 03:54 Potassium 4.1 mmol/L (3.5-5.1) 04/18/24 03:54 Chloride 107 mmol/L (98-107) 04/18/24 03:54 Carbon Dioxide 24 mmol/L (22-29) 04/18/24 03:54 Anion Gap 18.1 (5-19) 04/18/24 03:54 BUN 41 mg/dL (8-23) H 04/18/24 03:54 Creatinine 2.1 mg/dL (0.7-1.2) H 04/18/24 03:54 GFR Calculation Not Reportable 04/18/24 03:54 Glucose 174 mg/dL (65-115) H 04/18/24 03:54 POC Glucose 177 mg/dL (70-110) H 04/18/24 10:53 Estimat Average Glucose 137 04/16/24 14:50 Hemoglobin A1c 6.4 % (4.0-6.0) H 04/16/24 14:50 Calculated Osmolality 314 mOsm/kg (285-295) H 04/18/24 03:54 Calcium 8.7 mg/dL (8.5-10.5) 04/18/24 03:54 Phosphorus 3.8 mg/dL (2.5-4.5) 04/17/24 03:00 Magnesium 2.2 mg/dL (1.7-2.3) 04/17/24 03:00 Iron 26 ug/dL (59-158) L 04/16/24 17:28 TIBC 358 mcg/dl 04/16/24 17:28 % Saturation 7.2 % (20-50) L 04/16/24 17:28 Unsat Iron Binding 332 ug/dL (112-347) 04/16/24 17:28 Total Bilirubin 0.7 mg/dL (0.15-1.2) 04/18/24 03:54 AST 19 U/L (0-40) 04/18/24 03:54 ALT 13 U/L (0-41) 04/18/24 03:54 Alkaline Phosphatase 63 U/L (40-130) 04/18/24 03:54 Troponin T Baseline 51 ng/L (0-15) H 04/16/24 14:50 Troponin T 120 Minute 55.53 ng/L (0-15) H 04/16/24 17:28 Delta Troponin T 4.53 ABS# (0-10) 04/16/24 17:28 Troponin T Hi Sens 6Hr 43.36 ng/L (0-15) H 04/16/24 22:40 Troponin T Hi Sens 6Hr Delta -7.64 ng/L (0-12) L 04/16/24 22:40 NT-Pro-B Natriuret Pep 6832 pg/mL (0-125) H 04/16/24 14:50 Total Protein 6.4 g/dL (6.6-8.7) L 04/18/24 03:54 Albumin 4.1 g/dL (3.5-5.2) 04/18/24 03:54 Globulin 2.3 g/dL (1.3-4.6) 04/18/24 03:54 Triglycerides 44 mg/dL (0-150) 04/17/24 03:00 Cholesterol 112 mg/dL (0-200) 04/17/24 03:00 LDL Cholesterol, Calc 54 mg/dL (50-129) 04/17/24 03:00 HDL Cholesterol 49 mg/dL (60-100) L 04/17/24 03:00 LDL/HDL Ratio 1.10 RATIO (0.00-3.22) 04/17/24 03:00 Cholesterol/HDL Ratio 2.29 mg/dL (1.0-5.00) 04/17/24 03:00 Vitamin B12 784 pg/mL (232-1245) 04/16/24 17:28 Folate 12.0 ng/mL (4.5-32.2) 04/17/24 03:00 Procalcitonin 0.06 ng/mL (0-0.5) 04/16/24 17:28 TSH 3.17 uIU/mL (0.27-4.20) 04/16/24 17:28 Urine Color Yellow (Yellow) 04/16/24 17: Urine Appearance Clear (CLEAR) 04/16/24 17:32 Urine pH 5.0 (5-7) 04/16/24 17:32 Ur Specific [place] 1.013 (1.005-1.030) 04/16/24 17: Urine Protein Negative (Negative) 04/16/24 17: Urine Glucose (UA) Negative (Normal) 04/16/24 17:32 Urine Ketones Negative (Negative) 04/16/24 17: Urine Blood Negative (Negative) 04/16/24 17:32 Urine Nitrate Negative (Negative) 04/16/24 17: Urine Bilirubin Negative (Negative) 04/16/24 17: Urine Urobilinogen 0.2 mg/dL (Negative) 04/16/24 17:32 Ur Leukocyte Esterase Trace (Negative) A 04/16/24 17:32 Urine RBC 0-2 /hpf (0-2) 04/16/24 17:32 Urine WBC 0-5 /hpf (0-5) 04/16/24 17:32 Ur Squamous Epith Cells 0-5 /hpf (0-5) 04/16/24 17:32 Amorphous Sediment Not Reportable 04/16/24 17:32 Urine Bacteria None seen /hpf (NONE) 04/16/24 17:32 Hyaline Casts 14.47 /lpf 04/16/24 17:32 Vitals Last Vital Signs Temp 98.6 F 04/18/24 07:49 Pulse 92 04/18/24 07:49 Resp 16 04/18/24 07:47 BP 113/73 04/18/24 08:01 Pulse Ox 96 04/18/24 07:49 O2 Del Method Room Air 04/18/24 07:49 O2 Flow Rate 6 04/17/24 09:00 Discharge Plan Discharge Patient Disposition: Home Condition: Stable Prescriptions: New losartan 50 mg Tablet 25 mg PO DAILY 30 Days Qty: 30 0RF dexamethasone 6 mg tablet 6 mg PO Q24H Qty: 10 0RF Rx Instructions: for up to 10 days tiotropium bromide [Spiriva with HandiHaler] 18 mcg capsule, w/inhalation device 1 cap inhalation DAILY Qty: 30 0RF Rx Instructions: puncture 1 cap using device; one dose = 2 inhalations bumetanide 1 mg Tablet 1 mg PO BID Qty: 60 0RF fluticasone furoate-vilanterol [Breo Ellipta] 100-25 mcg/dose blister with device 1 inh inhalation DAILY Qty: 60 0RF Continued tramadol 50 mg tablet 50 mg PO TID PRN (Reason: Pain) fluticasone propionate [Flonase Allergy Relief] 50 mcg/actuation spray,suspension 1 spray intranasal DAILY Rx Instructions: administer into each nostril terazosin 10 mg capsule 10 mg PO BID Praluent Pen 150 mg/mL pen injector 150 mg SUBCUT Q14D Qty: 2 11RF Rx Instructions: inject into abdomen, thigh, or upper arm (deltoid muscle); rotate sites Xarelto 15 mg tablet See Rx Instructions .ROUTE .COMPLEX Qty: 90 3RF Dose Instruction: TAKE 1 TABLET BY MOUTH EVERY DAY with evening meal Rx Instructions: TAKE 1 TABLET BY MOUTH EVERY DAY with evening meal montelukast 10 mg tablet 10 mg PO DAILY Changed amiodarone 200 mg tablet 200 mg PO DAILY Qty: 180 1RF Rx Instructions: Take 400 mg for next 7 days followed by 200 mg daily potassium chloride 20 mEq tablet,ER particles/crystals 20 meq PO DAILY Qty: 7 0RF Discontinued furosemide 40 mg tablet 80 mg PO DAILY Rx Instructions: = Discharge Orders: Discharge Order (Routine); Ordered 04/18/24 Ordered By: Vadim Dominguez Other Ambulatory Orders: DME: Nebulizer with Neb Kit (Order) Location: None Selected Ordered By: Vadim Dominguez Referrals: Priyank Kaur DO [Primary Care Provider] - 04/24/24 9:50 am Patient Instructions: Atrial Fibrillation, Bumetanide (By mouth), Losartan (By mouth), Fluticasone (By breathing), Dexamethasone (By mouth), Tiotropium (By breathing), Heart Failure (DC), Aortic Stenosis (DC), Opioid Safety Activity Restrictions/Additional Instructions: Restrict fluid intake to less than 1500 cc, salt intake to less than 2 g daily. Advised to check his weight daily at home. Is advised that weight today would be the dry weight and if body weight increases by around 5 pounds, patient is to take an extra dose of Bumex daily till body weight comes down to weight today. If not able to come down to dry body weight in 1 week, then is to call cardiology office for further recommendations. Patient was counseled in detail to take medications regularly as prescribed. Take amiodarone 400 mg daily for next 7 days followed by 200 mg daily. Follow-up with cardiology appointment in [place] on Sunday. Continue steroid as directed for next 10 days Continue with inhalers for next 2 weeks to 1 month. Discharge Attestations Time Spent in Discharge Care*: greater than 30 min Specific Discharge Activities: educating patient, educating and/or supporting family/caregiver, discussing with pcp/other providers, discussing with casey saw operator/social workers/dc planners, documenting/other paperwork and evaluating patient/reviewing data Status at Discharge: Cognitive status at discharge: cognitively intact , Behavioral status at discharge: cooperative , Functional status at discharge: independent ambulation , Overall status at discharge: patient is back to baseline Quality Metrics Clinical Quality Measures [ No reported AMI, CVA or VTE this stay] Coding Level of Care Code 86907 Total time (in minutes) for Discharge: 60 Diagnoses Atrial fibrillation with rapid ventricular response I48.91 Congestive heart failure I50.9 Ischemic cardiomyopathy I25.5 Stage 3a chronic kidney disease N18.31 Chronic kidney disease stage 3 subtype: stage 3a (GFR 45-59) Failure of outpatient treatment Z78.9 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, unspecified vessel or lesion type I25.10 Coronary Disease-Associated Artery/Lesion type: unspecified vessel or lesion type Acute on chronic systolic heart failure I50.23 Severe mitral regurgitation I34.0 Severe aortic valve stenosis I35.0
--- NOTE | 2024-04-18 13:45 | PC.NURSE ---
All D/C instructions educated to patient and at bedside, no concerns expressed. IV dc, transported home by
== END 2024-04-18 13:48 | disposition home or self-care (01) | DRG 308 ==
LOC: ER 15:17 → ICU 16:15 → CSU 04-17 13:22
PROVIDERS: Emergency Medicine; Admitting Provider Student in an Organized Health Care Education/Training Program; Emergency Provider Family Medicine; PCP Electrodiagnostic Medicine; Visit Provider Student in an Organized Health Care Education/Training Program
DX: I48.91 Unspecified atrial fibrillation (principal); I50.23 Acute on chronic systolic (congestive) heart failure; I25.5 Ischemic cardiomyopathy; N18.30 Chronic kidney disease, stage 3 unspecified; I25.10 Atherosclerotic heart disease of native coronary artery without angina pectoris; I34.0 Nonrheumatic mitral (valve) insufficiency; I35.0 Nonrheumatic aortic (valve) stenosis; J45.909 Unspecified asthma, uncomplicated; U09.9 Post COVID-19 condition, unspecified; E78.5 Hyperlipidemia, unspecified; N40.0 Benign prostatic hyperplasia without lower urinary tract symptoms; I95.9 Hypotension, unspecified; Z95.1 Presence of aortocoronary bypass graft; Z79.01 Long term (current) use of anticoagulants
CPT/HCPCS: 36415; 36416; 71045; 71250; 80048; 80053; 80061; 81001; 82607; 82746; 82962; 83036; 83540; 83550; 83735; 83880; 84100; 84145; 84443; 84484; 85025; 85378; 85610; 86403; 93005; 93306; 93308; 93312; 93320; 93325; 94640; 94664; 96372; 96374; 96376; 99285; A4222; J0282; J1815; J1940; J2371; J2704; J2919; J7050; J7614; J7626; J7644; J7799

== ENCOUNTER 2024-05-09 09:37 | Outpatient (CLI) | payer MEDICARE, OTHER, SELFPAY ==
--- NOTE | 2024-05-09 | ECG_ITS ---
[facility] Test Date: 2024-05-09 Pat Name: Italo Cummings Department: Room: Gender: Male Bell Maker: : 1950 Requested By: Jose Nj Order Number: [id number] Reddy MD: Jose Nj M.D. Interpretive Statements Lung unchanged pre/post procedure; Intraprocedure shortess of breath; Symptoms resoled by discharge PROCEDURE: At the baseline, the EKG revealed atrial flutter/fibrillation with some nonspecific T wave changes. Nonspecific IVCD. The baseline heart was 87 bpm with a blood pressue of 107/64 mm of Hg Lexiscan was infused over a period of 20 seconds. A total of 0.4 milligrams of Lexiscan was infused. The stress phase was continued for a total of 5 minutes. Heart rate at the end of the stress phase was 88 bpm with a blood pressure 99/54 mm of Hg. The EKG at the peak infusion revealed some nonspecific T wave changes. Patient also was found to be slightly tachycardic Sestamibi was injected 20 seconds after the Lexiscan infusion. Heart rate at the end of the recovery phase was 109 bpm with a blood pressure of 93/77 mm of Hg. CONCLUSION: 1. Nonspecific EKG changes with the LexiScan infusion 2. No LexiScan induced chest pain or new cardiac arrhythmia 3. Normal blood pressure and heart rate response 4. Sestamibi/sestamibi perfusion scan pending; see separate report. Electronically Signed On 05-10-2024 11:06:27 CERTIFIED PEER SPECIALIST by Jose Nj M.D. [email or web address]
[2024-05-09 09:56] VITALS: BMI 28.6
--- NOTE | 2024-05-09 09:59 | NMCV_ITS ---
NM vandana perf SPECT r/s* [id number] Italo Cummings Age: 73 Gender: M : 1950 Exam Date: 05/09/2024 09:59 Ordering Phys: Jose Nj MD ([email or web address]) Technologist: CARLA Hill Exam Location: [facility] Indications: PRE OP CLEARANCE STRESS TEST [facility] IMAGE PROTOCOL Rest/Stress 1 Lexiscan Day Radiopharmaceutical Dose (mCi) Administration Site Administered by Rest: Tc-99m 9.2 IV CARLA Carbajal Sestamibi Stress:Tc-99m 30.1 IV CARLA Hill Sestamibi Rest: 09-May-2024 60 Discovery 630 Stress: 09-May-2024 30 Discovery 630 0.4mg Lexiscan. Images obtained in supine and prone position. SPECT RESULTS Technical Quality: Good Raw Data Analysis: Adequate Image Corrections: No attenuation or motion correction applied Summed Stress Score: 17 Summed Rest Score: 17 Summed Difference Score: 6 PERFUSION FINDINGS Moderately large area of moderate to severely decreased tracer uptake involving the anterior inferior, basal and mid inferolateral, basal inferoseptal regions. Some reversibility was noted in all this regions. FUNCTIONAL RESULTS (calculated via Gated SPECT) Stress Image LV EF (%): 26 Stress EDV (mL):256 TID: 1 Stress ESV (mL):189 FUNCTIONAL FINDINGS: Segmental wall motion analysis revealed a severe diffuse hypokinesia of the left ventricle. Markedly dilated LV cavity with an end-systolic volume of 189 mL. IMPRESSIONS 1. Myocardial perfusion imaging revealing moderate to large area of moderate to severely decreased tracer uptake involving the inferior, inferolateral and inferoseptal regions with a slight reversibility suggesting in all the segments suggesting extensive myocardial scarring involving the distribution of the right coronary/circumflex artery with significant octaviano-infarction ischemia. (The summed stress score of 17 and summed difference of 6 ) 2. Diminished LV ejection fraction 26% 3. Severe diffuse hypokinesis of the left ventricle. 4. Markedly dilated LV cavity with an end-systolic volume of 189 mL Compared to the study from 12/16/2020, there is an increase in the ischemic burden with slight worsening of the LV ejection fraction. Dr Jose Nj MD [facility] (Electronically Signed) Final Date: 09 May 2024 14:48 S
[2024-05-09] MEDS: regadenoson 0.4 Mg/5 ml Syringe IVP (11:01)
[2024-05-09 11:43] VITALS: BP 93/77; PULSE 99
== END 2024-05-09 09:38 | disposition home or self-care (01) ==
PROVIDERS: PCP Electrodiagnostic Medicine; Visit Provider Internal Medicine Cardiovascular Disease
DX: I25.5 Ischemic cardiomyopathy (principal); R94.39 Abnormal result of other cardiovascular function study; I50.1 Left ventricular failure, unspecified
CPT/HCPCS: 36415; 78452; 93017; 96374; A9500; J2785

== ENCOUNTER 2025-05-11 10:37 | Outpatient (CLI) | payer MEDICARE, OTHER, SELFPAY ==
[2025-05-11 11:29] LABS: Hematocrit 37.9 % (37-53); Hemoglobin 12.10 g/dL (11.27-16.99); Mean Corpuscular HGB Conc 31.9 g/dL (30-55); Mean Corpuscular Hemoglobin 27.8 pg (27-33); Mean Corpuscular Volume 87.1 fl (82-101); Nucleated Red Blood Cells % 0 %; Platelet Count 165 10^3/cmm (157-399); Red Blood Count 4.35 10^6/uL (3.85-5.65); White Blood Count 10.48 10^3/uL (3.29-11.43)
[2025-05-11 11:42] LABS: Alanine Aminotransferase 20 U/L (0-41); Albumin Level 3.8 g/dL (3.5-5.2); Alkaline Phosphatase 58 U/L (40-130); Anion Gap 16.3 (5-19); Aspartate Amino Transferase 30 U/L (0-40); Blood Urea Nitrogen 26 mg/dL (8-23); Calcium 8.6 mg/dL (8.5-10.5); Carbon Dioxide 23 mmol/L (22-29); Chloride 106 mmol/L (98-107); Globulin 2.1 g/dL (1.3-4.6); Glucose 132 mg/dL (65-115); Osmolality Calculated 299 mOsm/kg (285-295); Potassium 4.3 mmol/L (3.5-5.1); Sodium 141 mmol/L (136-145); Total Protein 5.9 g/dL (6.6-8.7)
== END 2025-05-11 10:38 | disposition home or self-care (01) ==
LOC: LAB 10:39
PROVIDERS: PCP Electrodiagnostic Medicine; Visit Provider Hospitalist
DX: B37.6 Candidal endocarditis (principal); B37.7 Candidal sepsis
CPT/HCPCS: 80053; 85025; 86140

== ENCOUNTER 2025-05-18 12:01 | Outpatient (CLI) | payer MEDICARE, OTHER, SELFPAY ==
[2025-05-18 12:31] LABS: Hematocrit 37.6 % (37-53); Hemoglobin 12.40 g/dL (11.27-16.99); Mean Corpuscular HGB Conc 33.0 g/dL (30-55); Mean Corpuscular Hemoglobin 28.5 pg (27-33); Mean Corpuscular Volume 86.4 fl (82-101); Platelet Count 153 10^3/cmm (157-399); Red Blood Count 4.35 10^6/uL (3.85-5.65); White Blood Count 12.19 10^3/uL (3.29-11.43)
[2025-05-18 12:50] LABS: Total Cells Counted 100 (0-100)
[2025-05-18 12:54] LABS: Absolute Segmented Neutrophil 8.9 10/cmm (1.6-7.1); Atypical Lymphs 2.0 % (0-5); Band Neutrophils Absolute 0.0 10^3/cmm (0.0-1.2)
[2025-05-18 12:55] LABS: Anisocytosis 1+; Giant Platelets Trace; Polychromasia Trace
[2025-05-18 13:02] LABS: Alanine Aminotransferase 17 U/L (0-41); Albumin Level 4.0 g/dL (3.5-5.2); Alkaline Phosphatase 62 U/L (40-130); Anion Gap 16.5 (5-19); Aspartate Amino Transferase 30 U/L (0-40); Blood Urea Nitrogen 29 mg/dL (8-23); Calcium 9.2 mg/dL (8.5-10.5); Carbon Dioxide 24 mmol/L (22-29); Chloride 101 mmol/L (98-107); Globulin 2.4 g/dL (1.3-4.6); Glucose 127 mg/dL (65-115); Osmolality Calculated 291 mOsm/kg (285-295); Potassium 4.5 mmol/L (3.5-5.1); Sodium 137 mmol/L (136-145); Total Protein 6.4 g/dL (6.6-8.7)
== END 2025-05-18 12:02 | disposition home or self-care (01) ==
LOC: LAB 12:01
PROVIDERS: PCP Electrodiagnostic Medicine; Visit Provider Hospitalist
DX: B37.6 Candidal endocarditis (principal)
CPT/HCPCS: 80053; 85007; 85027; 86140

== ENCOUNTER 2025-05-25 10:44 | Outpatient (CLI) | payer MEDICARE, OTHER, SELFPAY ==
[2025-05-25 11:13] LABS: Hematocrit 40.6 % (37-53); Hemoglobin 12.90 g/dL (11.27-16.99); Mean Corpuscular HGB Conc 31.8 g/dL (30-55); Mean Corpuscular Hemoglobin 27.5 pg (27-33); Mean Corpuscular Volume 86.6 fl (82-101); Nucleated Red Blood Cells % 0 %; Platelet Count 179 10^3/cmm (157-399); Red Blood Count 4.69 10^6/uL (3.85-5.65); White Blood Count 9.30 10^3/uL (3.29-11.43)
[2025-05-25 11:26] LABS: Alanine Aminotransferase 26 U/L (0-41); Albumin Level 4.0 g/dL (3.5-5.2); Alkaline Phosphatase 62 U/L (40-130); Anion Gap 17.1 (5-19); Aspartate Amino Transferase 31 U/L (0-40); Blood Urea Nitrogen 28 mg/dL (8-23); Calcium 9.3 mg/dL (8.5-10.5); Carbon Dioxide 22 mmol/L (22-29); Chloride 102 mmol/L (98-107); Globulin 2.5 g/dL (1.3-4.6); Glucose 154 mg/dL (65-115); Osmolality Calculated 293 mOsm/kg (285-295); Potassium 4.1 mmol/L (3.5-5.1); Sodium 137 mmol/L (136-145); Total Protein 6.5 g/dL (6.6-8.7)
[2025-05-25 11:27] LABS: Slide Review Slide Review Perform
== END 2025-05-25 10:45 | disposition home or self-care (01) ==
LOC: LAB 10:52
PROVIDERS: PCP Electrodiagnostic Medicine; Visit Provider Hospitalist
DX: B37.6 Candidal endocarditis (principal); B37.7 Candidal sepsis
CPT/HCPCS: 80053; 85025; 86140

== ENCOUNTER 2025-06-01 09:32 | Outpatient (CLI) | payer MEDICARE, OTHER, SELFPAY ==
[2025-06-01 09:44] LABS: Hematocrit 38.6 % (37-53); Hemoglobin 12.70 g/dL (11.27-16.99); Mean Corpuscular HGB Conc 32.9 g/dL (30-55); Mean Corpuscular Hemoglobin 28.5 pg (27-33); Mean Corpuscular Volume 86.5 fl (82-101); Nucleated Red Blood Cells % 0 %; Platelet Count 185 10^3/cmm (157-399); Red Blood Count 4.46 10^6/uL (3.85-5.65); White Blood Count 9.94 10^3/uL (3.29-11.43)
[2025-06-01 10:06] LABS: Alanine Aminotransferase 22 U/L (0-41); Albumin Level 3.9 g/dL (3.5-5.2); Alkaline Phosphatase 62 U/L (40-130); Anion Gap 17.5 (5-19); Aspartate Amino Transferase 28 U/L (0-40); Blood Urea Nitrogen 28 mg/dL (8-23); Calcium 8.6 mg/dL (8.5-10.5); Carbon Dioxide 21 mmol/L (22-29); Chloride 102 mmol/L (98-107); Globulin 2.0 g/dL (1.3-4.6); Glucose 175 mg/dL (65-115); Osmolality Calculated 294 mOsm/kg (285-295); Potassium 3.5 mmol/L (3.5-5.1); Sodium 137 mmol/L (136-145); Total Protein 5.9 g/dL (6.6-8.7)
== END 2025-06-01 09:33 | disposition home or self-care (01) ==
PROVIDERS: PCP Electrodiagnostic Medicine; Visit Provider Hospitalist
DX: B37.6 Candidal endocarditis (principal); B37.7 Candidal sepsis
CPT/HCPCS: 80053; 85025; 86140

== ENCOUNTER 2025-06-09 05:32 | Emergency (ER) | payer MEDICARE, OTHER, SELFPAY ==
[2025-06-09] VITALS (9 sets, daily range): BP systolic 90–105; BP diastolic 59–86; PULSE 102–117; RESP 16–30; TEMP 36.2; O2SAT 93–98; BMI 25.7
--- OUTSIDE RECORDS SUMMARY | 2025-06-09 05:38 | XMS_ITS | Data Portability ---
Author Organization [facility], .L.CMely, [facility] Address [address] [facility] [address] [place] [address] Care Team Providers Care House Visitor Name Role Phone IMANI MOORE Primary Care Provider Unavailabl e Assessment Encounter Date Assessment Date Assessment LastModified by Organization Details LastModified Time 03/18/2025 03/18/2025 Document scribed by Piper Glynn. I was present during interview and exam. I have reviewed and agree with above documentation. Dr. mIani Moore. [email or web address] Not available 03/18/2025 12:46:07 03/26/2025 03/26/2025 Document scribed by Piper Glynn. I was present during interview and exam. I have reviewed and agree with above documentation. Dr. Imani Moore. [email or web address] Not available 03/26/2025 09:36:57 05/11/2025 05/11/2025 Pt has been contacted by nursing/staff within 2 days of hospital discharge. I reviewed hospital records prior to seeing the patient today. I have reviewed tests/procedur es and diagnoses during hospital stay. I have reviewed and noted medications prior to admission as well as medication changes post admission. I have updated and reconciled medications post discharge today and meds are updated in EMR. I have also educated patient about medication changes and current medications. Please see hpi above and chart for detailed records. I have addressed all patient questions today. They express verbal understanding. Document scribed by Piper Glynn. I was present during interview and exam. I have reviewed and agree with above documentation. Dr. Imani Moore. [email or web address] Not available 05/11/2025 16:07:50 Plan of Treatment Reminders Order Date Submit Date Provider Last Modified By Organization Details Last Modified Time Details Appointments None recorded. Lab C reactive protein, QN, serum or plasma 2024 025 [email or web address], [address] [facility] [address], [address], [place], [address], 13:38:02 ESR (erythrocyt e sedimentati on rate), blood [id number] ([facility]), [address] [facility], [place], [address], 19:16:04 CMP, serum or plasma 2024 [address] [facility] [address], [address] [place] [address], [facility] 1, [place], [address], 19:16:04 CBC 2024 [address] [facility] [address], [address] [place] [address], [facility] 1, [place], [address], 19:16:04 magnesium, serum or plasma 2024 025 [email or web address] [facility], [address] [place] [address], [address], [place], [address], 08:46:16 BMP, serum or plasma [address] [facility] [facility], [address] [facility], [facility] 1, [place], [address], 14:21:31 uric acid, serum or plasma 2024 025 [email or web address] [facility], [address] [place] [address], [address], [place], [address], 12:45:43 Referral None recorded. Procedures None recorded. Surgeries None recorded. Imaging XR, chest, 2 view 2024 [email or web address] [facility] ([facility]), [address] [place], [address], 09:28:01 Medication Orders prednisone 20 mg tablet 2024 025 [email or web address] [facility], [address] [place] [address], [address], 15:47:51 colchicine 0.6 mg tablet 2024 025 [facility], [address] [place] [address], [address], 16:46:10 fluticasone propionate 50 mcg/actuati on nasal spray,suspe nsion 2024 025 [facility], [address] [place] [address], [address], 13:20:09 Patient TargetsNo targets recorded. Patient InstructionsNo instructions recorded. Reason for Referral None Reported. Results Created Date Observation Date Name Description Value Unit Range Abnormal Flag Note LastModifiedBy Organization Detail LastModifiedTime 10/11/1910/10/2024 CBC WBC 9.0 x10 4.5-10 .5 Not Available [facility] [address] [facility] [address], [place], [address], 10/10/2024 11:41:14 10/11/1910/10/2024 CBC RBC 4.71 x10 4.30-5 .90 Not Available [facility] [address] [facility] [address], [place], [address], 10/10/2024 11:41:14 10/11/1910/10/2024 CBC HGB 13.4 g/dL 13.5-1 8.0 low Not Available [facility] [address] Ingrid Britton [facility] 1, [place], [address], 10/10/2024 11:41:14 10/11/19 25 10/10/2024 CBC HCT 41.4 % 35.0-6 0.0 Not Available [facility] [address] [facility] 1, [place], [address], 10/10/2024 11:41:14 10/11/19 25 10/10/2024 CBC MCV 87.8 fL 80.0-9 9.9 Not Available [facility] [address] In[address] [facility] 1, [place], [address], 10/10/2024 11:41:14 10/11/19 25 10/10/2024 CBC MCH 28.5 pg 27.0-3 2.0 Not Available [facility] [address] [facility] 1, [place], [address], 10/10/2024 11:41:14 10/11/19 25 10/10/2024 CBC MCHC 32.4 g/dL 32.0-3 6.0 Not Available [facility] [address] [facility] 1, [place], [address], 10/10/2024 11:41:14 10/11/19 25 10/10/2024 CBC RDW 16.0 % 11.5-1 4.5 high Not Available [facility] [address] [facility] 1, [place], [address], 10/10/2024 11:41:14 10/11/19 25 10/10/2024 CBC plt 155.1 x10 150.0- 451.0 Not Available [facility] [address] Britt[address] [facility] 1, [place], [address], 10/10/2024 11:41:14 10/11/19 25 10/10/2024 CBC lymphocytes % 14.0 % 20.0-5 0.0 low Not Available [facility] [address] [facility] 1, [place], [address], 10/10/2024 11:41:14 10/11/19 25 10/10/2024 CBC granulcytes % 77.1 % 30.0-7 0.0 high Not Available [facility] [address] [facility] 1, [place], [address], 10/10/2024 11:41:14 10/11/19 25 10/10/2024 CBC monocytes % 6.9 % 2.0-16 .0 Not Available [facility] [address] [facility] 1, [place], [address], 10/10/2024 11:41:14 10/11/19 25 10/10/2024 CBC granulcytes# 6.9 x10 Not Stella ilable [facility] [address] [address], [place], [address], 10/10/2024 11:41:14 10/11/1910/10/2024 CBC lymphocytes # 1.3 x10 Not Available [facility] [address] [address], [place], [address], 10/10/2024 11:41:14 10/11/1910/10/2024 CBC monocytes # 0.6 x10 Not Avai lable [facility] [address] [address], [place], [address], 10/10/2024 11:41:14 10/11/1910/10/2024 CMP (MALE ) glucose 144.0 mg/dL 60.0-9 9.0 high Not Available [facility] [address] [address], [place], [address], 10/10/2024 12:32:33 10/11/19 25 10/10/2024 CMP (MALE ) BUN (blood urea nitrogen) 22.0 mg/dL 10.0-2 6.0 Not Available [facility] [facility], [place], [address], 10/10/2024 12:32:33 10/11/19 25 10/10/2024 CMP (MALE ) creatinine (serum) 1.5 mg/dL 0.4-1. 5 Not Available [facility] [address] [facility] 1, [place], [address], 10/10/2024 12:32:33 10/11/19 25 10/10/2024 CMP (MALE ) BUN/creatini ne ratio 14.67 ratio Not Available [address] [address], [place], [address], 10/10/2024 12:32:33 10/11/19 25 10/10/2024 CMP (MALE ) eGFR calculated 48.9 Not Available [facility] [address] [address], [place], [address], 10/10/2024 12:32:33 10/11/19 25 10/10/2024 CMP (MALE ) total protein 7.0 g/dL 6.0-8. 5 Not Available [facility] [address] [address], [place], [address], 10/10/2024 12:32:33 10/11/19 25 10/10/2024 CMP (MALE ) total bilirubin 1.3 mg/dL 0.2-1. 3 Not Available [facility] [address] [address], [place], [address], 10/10/2024 12:32:33 10/11/19 25 10/10/2024 CMP (MALE ) albumin 4.6 g/dL 3.5-5. 5 Not Available [facility] [address] [facility] 1, [place], [address], 10/10/2024 12:32:33 10/11/19 25 10/10/2024 CMP (MALE ) globulin 2.4 calc Not Available [facility] [address] [facility], [place], [address], 10/10/2024 12:32:33 10/11/19 25 10/10/2024 CMP (MALE ) AST (SGOT) 41.0 U/L 0.0-46 .0 Not Available [facility] [address] [place] [address] [facility] 1, [place], [address], 10/10/2024 12:32:33 10/11/19 25 10/10/2024 CMP (MALE ) altv (SGPT) 22.0 U/L 13.0-6 9.0 normal Not Available [facility] [address] [facility] 1, [place], [address], 10/10/2024 12:32:33 10/11/19 25 10/10/2024 CMP (MALE ) A/G ratio 1.9 ratio Not Available [facility] [address] [place] [address] [facility] 1, [place], [address], 10/10/2024 12:32:33 10/11/19 25 10/10/2024 CMP (MALE ) ALP phos 71.0 U/L 30.0-1 40.0 normal Not Available [facility] [address] [place] [address] [facility] 1, [place], [address], 10/10/2024 12:32:33 10/11/19 25 10/10/2024 CMP (MALE ) calcium 9.5 mg/dL 8.4-10 .5 Not Available [facility] [address] [facility] 1, [place], [address], 10/10/2024 12:32:33 10/11/19 25 10/10/2024 CMP (MALE ) sodium 141.0 mmol/ L 136.0- 145.0 Not Available [facility] [address] [facility] 1, [place], [address], 10/10/2024 12:32:33 10/11/19 25 10/10/2024 CMP (MALE ) potassium 4.5 mmol/ L 3.5-5. 1 Not Available [facility] [address] [facility] 1, [place], [address], 10/10/2024 12:32:33 10/11/19 25 10/10/2024 CMP (MALE ) chloride 106.0 mmol/ L 98.0-1 10.0 normal Not Available [facility] [address] [facility] 1, [place], [address], 10/10/2024 12:32:33 10/11/19 25 10/10/2024 CMP (MALE ) C02 27.0 mmol/ L 22.0-3 1.0 Not Available [facility] [address] [facility] 1, [place], [address], 10/10/2024 12:32:33 10/11/19 25 10/10/2024 CMP (MALE ) anion gap 8.0 calc Not Available [facility] [address] [facility] 1, [place], [address], 10/10/2024 12:32:33 10/11/1910/10/2024 CMP (MALE ) osmolality 296.5 calc Not Available [facility] [address] [facility] 1, [place], [address], 10/10/2024 12:32:33 10/14/19 25 10/14/2024 URIC ACID uric acid 8.9 mg/dL 4.0-8. 0 high Thera peuti c targe t for gout patie nts: <6.0 mg/dL Not Available [email or web address] [address] [place], [address], 10/14/2024 12:45:42 12/11/19 25 12/10/2024 BMP (MALE ) glucose 134.0 mg/dL 60.0-9 9.0 high Not Available [facility] [address] [facility] 1, [place], [address], 12/10/2024 14:21:30 12/11/19 25 12/10/2024 BMP (MALE ) BUN (blood urea nitrogen) 20.0 mg/dL 10.0-2 6.0 Not Available [facility] [address] [facility] 1, [place], [address], 12/10/2024 14:21:30 12/11/19 25 12/10/2024 BMP (MALE ) creatinine (serum) 1.8 mg/dL 0.4-1. 5 high Not Available [facility] [address] [facility] 1, [place], [address], 12/10/2024 14:21:30 12/11/19 25 12/10/2024 BMP (MALE ) BUN/creatini ne ratio 11.11 ratio Not Available [facility] [address] [address], [place], [address], 12/10/2024 14:21:30 12/11/19 25 12/10/2024 BMP (MALE ) calcium 9.9 mg/dL 8.4-10 .5 Not Available [facility] [address] [facility] 1, [place], [address], 12/10/2024 14:21:30 12/11/19 25 12/10/2024 BMP (MALE ) sodium 139.0 mmol/ L 136.0- 145.0 Not Available [facility] [address] [address], [place], [address], 12/10/2024 14:21:30 12/11/19 25 12/10/2024 BMP (MALE ) potassium 4.4 mmol/ L 3.5-5. 1 Not Available [facility] [address] [facility] 1, [place], [address], 12/10/2024 14:21:30 12/11/1912/10/2024 BMP (MALE ) chloride 106.0 mmol/ L 98.0-1 10.0 normal Not Available [facility] [address] [facility] 1, [place], [address], 12/10/2024 14:21:30 12/11/1912/10/2024 BMP (MALE ) C02 25.0 mmol/ L 22.0-3 1.0 Not Available [facility] [address] [facility] 1, [place], [address], 12/10/2024 14:21:30 03/26/2003/26/2025 CBC WBC 9.1 x10 4.5-10 .5 Not Available [facility] [address] [facility] 1, [place], [address], 03/26/2025 10:19:41 03/26/2003/26/2025 CBC RBC 5.10 x10 4.30-5 .90 Not Available [facility] [address] [facility] 1, [place], [address], 03/26/2025 10:19:41 03/26/2003/26/2025 CBC HGB 14.5 g/dL 13.5-1 8.0 Not Available [facility] [facility] 1, [place], [address], 03/26/2025 10:19:41 03/26/2003/26/2025 CBC HCT 46.1 % 35.0-6 0.0 Not Available [facility] [address] [facility] [facility] [facility] 1, [place], [address], 03/26/2025 10:19:41 03/26/2003/26/2025 CBC MCV 90.3 fL 80.0-9 9.9 Not Available [facility] [address] [facility] 1, [place], [address], 03/26/2025 10:19:41 03/26/2003/26/2025 CBC MCH 28.4 pg 27.0-3 2.0 Not Available [facility] [address] [facility] 1, [place], [address], 03/26/2025 10:19:41 03/26/2003/26/2025 CBC MCHC 31.4 g/dL 32.0-3 6.0 low Not Available [facility] [address] [facility] 1, [place], [address], 03/26/2025 10:19:41 03/26/2003/26/2025 CBC RDW 14.6 % 11.5-1 4.5 high Not Available [facility] [address] [facility] 1, [place], [address], 03/26/2025 10:19:41 03/26/2003/26/2025 CBC plt 127.5 x10 150.0- 451.0 low Not Available [facility] [address] [facility] 1, [place], [address], 03/26/2025 10:19:41 03/26/2003/26/2025 CBC lymphocytes % 15.1 % 20.0-5 0.0 low Not Available [facility] [address] [facility] 1, [place], [address], 03/26/2025 10:19:41 03/26/2003/26/2025 CBC granulcytes % 75.3 % 30.0-7 0.0 high Not Available [facility] [address] [facility], [place], [address], 03/26/2025 10:19:41 03/26/2003/26/2025 CBC monocytes % 7.8 % 2.0-16 .0 Not Available [facility] [address] [facility] 1, [place], [address], 03/26/2025 10:19:41 03/26/2003/26/2025 CBC granulcytes# 6.8 x10 Not Stella ilable [facility] [address] [facility] 1, [place], [address], 03/26/2025 10:19:41 03/26/2003/26/2025 CBC lymphocytes # 1.4 x10 Not Available [facility] [address] [address], [place], [address], 03/26/2025 10:19:41 03/26/2003/26/2025 CBC monocytes # 0.7 x10 Not Avai lable [facility] [address] [address], [place], [address], 03/26/2025 10:19:41 03/26/2003/26/2025 CMP (MALE ) glucose 152.0 mg/dL 60.0-9 9.0 high Not Available [facility] [address] [address], [place], [address], 03/26/2025 10:32:46 03/26/2003/26/2025 CMP (MALE ) BUN (blood urea nitrogen) 28.0 mg/dL 10.0-2 6.0 high Not Available [facility] [address] [address], [place], [address], 03/26/2025 10:32:46 03/26/20 25 03/26/2025 CMP (MALE ) creatinine (serum) 1.9 mg/dL 0.4-1. 5 high Not Available [facility] [address] [facility], [place], [address], 03/26/2025 10:32:46 03/26/20 25 03/26/2025 CMP (MALE ) BUN/creatini ne ratio 14.74 ratio Not Available [facility] [address] [facility], [place], [address], 03/26/2025 10:32:46 03/26/20 25 03/26/2025 CMP (MALE ) eGFR calculated 37.2 Not Available [facility] [facility], [place], [address], 03/26/2025 10:32:46 03/26/20 25 03/26/2025 CMP (MALE ) total protein 7.3 g/dL 6.0-8. 5 Not Available [facility] [address] [facility], [place], [address], 03/26/2025 10:32:46 03/26/20 25 03/26/2025 CMP (MALE ) total bilirubin 1.5 mg/dL 0.2-1. 3 high Not Available [facility] [address] [facility], [place], [address], 03/26/2025 10:32:46 03/26/20 25 03/26/2025 CMP (MALE ) albumin 5.0 g/dL 3.5-5. 5 Not Available [facility] [address] [facility], [place], [address], 03/26/2025 10:32:46 03/26/20 25 03/26/2025 CMP (MALE ) globulin 2.3 calc Not Available [facility] [address] [facility] 1, [place], [address], 03/26/2025 10:32:46 03/26/2003/26/2025 CMP (MALE ) AST (SGOT) 38.0 U/L 0.0-46 .0 Not Available [facility] [address] [facility] 1, [place], [address], 03/26/2025 10:32:46 03/26/20 25 03/26/2025 CMP (MALE ) altv (SGPT) 23.0 U/L 13.0-6 9.0 normal Not Available [facility] [address] [facility] 1, [place], [address], 03/26/2025 10:32:46 03/26/20 25 03/26/2025 CMP (MALE ) A/G ratio 2.2 ratio Not Available [facility] [address] [facility] 1, [place], [address], 03/26/2025 10:32:46 03/26/2003/26/2025 CMP (MALE ) ALP phos 57.0 U/L 30.0-1 40.0 normal Not Available [facility] [address] [facility] 1, [place], [address], 03/26/2025 10:32:46 03/26/2003/26/2025 CMP (MALE ) calcium 10.1 mg/dL 8.4-10 .5 Not Available [facility] [address] [facility] 1, [place], [address], 03/26/2025 10:32:46 03/26/20 25 03/26/2025 CMP (MALE ) sodium 143.0 mmol/ L 136.0- 145.0 Not Available [facility] 805 [facility] 1, [place], [address], 03/26/2025 10:32:46 03/26/20 25 03/26/2025 CMP (MALE ) potassium 4.3 mmol/ L 3.5-5. 1 Not Available [facility] [address] [facility] 1, [place], [address], 03/26/2025 10:32:46 03/26/2003/26/2025 CMP (MALE ) chloride 106.0 mmol/ L 98.0-1 10.0 normal Not Available [facility] [address] [facility] 1, [place], [address], 03/26/2025 10:32:46 03/26/2003/26/2025 CMP (MALE ) C02 27.0 mmol/ L 22.0-3 1.0 Not Available [facility] [address] [facility] 1, [place], [address], 03/26/2025 10:32:46 03/26/20 25 03/26/2025 CMP (MALE ) anion gap 10.0 calc Not Available [facility] [address] [facility] 1, [place], [address], 03/26/2025 10:32:46 03/26/2003/26/2025 CMP (MALE ) osmolality 302.9 calc Not Available [facility] 5 [facility] 1, [place], [address], 03/26/2025 10:32:46 03/26/2003/27/2025 MAGNE SIUM magnesium 2.4 mg/dL 1.5-2. 5 normal Not Available [employer] [facility] [address] , [place], [address], 03/27/2025 08:46:16 03/26/2003/27/2025 C-VICTOR HUGO CTIVE PROTE IN C-reactive protein 4.0 mg/L <8.0 normal Not Available [employer] [facility] [address] [place], [address], 03/27/2025 08:46:16 03/26/20 25 03/26/2025 ESR (eryt hrocy te sedim entat ion rate) , blood SedRate 2 Not Available [facility] ([facility]) [address] [place], [address], 03/26/2025 09:43:50 05/25/2005/25/2025 CMP, serum or plasm a Unknown Analyte Not Available [facility] [address] [place], [address], 05/25/2025 14:09:08 03/26/20 25 03/26/2025 XR, chest , 2 view No observ ation record ed. [facility] ([facility]) [address] [place], [address], 03/30/2025 08:43:04 Result Notes None recorded. 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 5 16:41:09 History of heart disorder 223285193 Active Amalia Day [facility] 5 16:41:09 Ischemic myocardia l dysfuncti on 054626587 Active Amalia Day [facility] 5 16:41:09 Pain of multiple joints 62180659 [facility] Amalia Day [facility] 5 16:41:09 Hyperuric emia 37354948 [facility] Amalia Day [facility] 5 16:41:09 Irregular heart beat 763934743 [facility] Amalia Day [facility] 5 16:41:10 Device used 336209186 [facility] Amalia Day [facility] 5 16:41:10 Prostate specific antigen above reference range 497761256 [facility] Amalia Day [facility] 5 16:41:10 Coronary atheroscl erosis 254349054 [facility] Amalia Day [facility] 5 16:41:10 Low blood pressure 92191291 [facility] Amaliayady De La Cruze [facility] 5 16:41:10 Essential hypertens ion 75909022 [facility] Amalia Day [facility] 5 16:41:10 Fracture of scapula 7417619 [facility] Amalia Day [facility] 5 16:41:10 Dyslipide pasquale 075092966 [facility] 16:41:10 Malignant neoplasm of prostate 200793826 Active 2021 Prostate Cancer [facility] 5 16:41:10 Chronic ischemic heart disease 419747742 Active 2021 Amalia brown, [facility] 5 16:41:10 Gout 24812565 Active 2022 [facility] 5 16:41:10 Chronic pain syndrome 085064998 Active 2022 [facility] 5 16:41:10 Osteoarth ritis 093890908 Active 2022 Amalia Day [facility] 5 16:41:10 Benign prostatic hyperplas ia 917012875 Active 2022 Amalia Day [facility] 5 16:41:09 Chronic kidney disease stage 3B 685919762 Active 2022 Amalia Day [facility] 5 16:41:10 Chronic combined systolic and diastolic heart failure 354125691590 100 Active 2022 [facility] 5 16:41:09 History of coronary artery bypass grafting 419660521 Active 2022 Amalia Day [facility] 5 16:41:10 Diverticu litis of sigmoid colon 957496078 Active 2022 Amalia brown, [facility] 5 16:41:10 Vesicocol ic fistula 89566451 Active 2022 Amalia Day [facility], [facility] 5 16:41:09 Calculus of kidney and ureter 605747663 Active 2022 Amalia Day [facility], [facility] 5 16:41:09 Donovan hematuria 681848738 Active 2022 Amalia De La Cruze [facility] 5 16:41:09 Hyperlipi demia 99667783 Active 2023 Amalia Day [facility] 5 16:41:10 Secondary hyperaldo steronism 52369599 Active 2023 Amalia Day [facility] 5 16:41:10 Hypertens jaime heart AND chronic kidney disease with congestiv e heart failure [id number] 07 Active 2023 Amalia Day [facility] 5 16:41:09 Allergic rhinitis 64122881 Active 2024 Amalia Day [facility], [facility] 5 15:29:57 Seasonal allergic rhinitis 314252745 Active 2024 Imani Moore DO [address] [place] [address], [phone], [facility] 5 16:11:08 Acute on chronic combined systolic and diastolic heart failure [id number] 103 Active 2024 Imani Moore DO [address] [place] [address], [phone], [facility] 5 09:31:13 Acute infective endocardi tis 273124208 Active 2024 Renaldo brown, [facility] 16:09:58 Notes:Some problems listed i n Documents: #[id number], #[id number], #[id number], #[id number] could not be added to this patient's chart. Please review these documents and add these problems to the patient's chart manually as needed. Problem Notes None recorded. Procedures Surgical History Date Name Laterality Status Provider Name and Address Organization Details Recorded Time procedure on knee completed [facility] 09/15/2024 16:36:26 total knee replacement completed [facility] 09/15/2024 16:36:38 procedure on shoulder completed [facility] 09/15/2024 16:37:50 arthroplasty of left shoulder completed [facility] 09/15/2024 16:38:15 total shoulder replacement completed [facility] 09/15/2024 16:38:04 tonsillectomy completed [facility] 09/15/2024 16:38:23 procedure on back completed [facility] 09/15/2024 16:38:38 coronary artery bypass grafts x 4 completed [facility] 09/15/2024 16:38:51 replacement of aortic valve completed [facility] 09/15/2024 16:39:09 excision of neoplasm completed [facility], [place] 09/15/2024 16:39:43 procedure on wrist completed [facility] gurvinder [facility], [place] 09/15/2024 16:40:03 operation on testis completed [facility], [place] 09/15/2024 16:40:24 excision of colon completed [facility], [place] 09/15/2024 16:40:45 Imaging Results None recorded. Procedure Notes None recorded. Medical Equipment None Reported. Allergies Allergen ID Allergen Name Allergen Category Reaction Reaction Severity Criticality Documentation Date Start Date Code Code System Note Provider Name and Address Organization Details Recorded Time 32979 Product containin g penicilli n (product) medicatio n Not available Not available Not available 01/27/2023 06832 8001 SNOMED Jaelyn Maradiaga [facility], [place] 4 13:57:25 34271 metoprolo l Not available Not available Not available Not available 04/07/20242023 6918 RxNorm [facility], [place] 4 14:01:34 73952 Product containin g 3-hydroxy -3-methyl glutaryl- coenzyme A reductase inhibitor (product) medicatio n Not available Not available unabletoasse ss 05/26/20252022 10919 009 SNOMED unrec ogniz ed react ion (text : Delir ium (diso rder) , code: 97297 00) (from exter nal sour e) Not Available andrés - External Data Service - prod 5 07:23:26 Medications Name Sig Start Date Stop Date Status Note LastModified by Organization Details LastModified Time losartan 50 mg tablet TAKE 1 TABLET BY MOUTH EVERY DAY FOR BLOOD PRESSURE 09/15 completed Not Available Not Available Not Available celecoxib 200 mg capsule take 1 capsule BY MOUTH EVERY DAY 06/27 completed Not Available Not Available Not Available furosemid e 40 mg tablet TAKE 2 TABLETS BY MOUTH EVERY DAY 05/15 completed Not Available Not Available Not Available BD Alcohol Swabs TO USE DIRECTED WITH INJECTIO NS active Not Available Not Available No t Available bumetanid e 2 mg tablet TAKE 1 TABLET BY MOUTH EVERY DAY 2024 active Not Available Not Available Not Avai lable cetirizin e 10 mg tablet daily 09/15 completed Not Available Not Available Not Available azithromy violet 250 mg tablet TAKE 2 TABLETS BY MOUTH TODAY, THEN TAKE 1 TABLET DAILY ON DAYS 2-5 07/15 completed Not Available Not Available Not Available amiodaron e 200 mg tablet TAKE 1 TABLET BY MOUTH EVERY DAY active Not Available Not Available No t Available metoprolo l succinate ER 50 mg tablet,ex tended release 24 hr TAKE 1 TABLET BY MOUTH EVERY DAY active Not Available Not Available No t Available hydrocodo ne 5 mg-acetam inophen 325 mg tablet 12/13 completed Not Available Not Available Not Available ondansetr on HCl 4 mg tablet TAKE 1 TABLET BY MOUTH EVERY 8 HOURS NEEDED FOR NAUSEA AND VOMITING active Not Available Not Available No t Available prednison e 20 mg tablet TAKE 2 TABLETS BY MOUTH EVERY MORNING FOR 7 DAYS 05/11 completed Not Available Not Available Not Available prednison e 5 mg tablet TAKE 1 TABLET BY MOUTH DAILY 12/13 completed Not Available Not Available Not Available clobetaso l 0.05 % topical cream APPLY TO THE AFFECTED AREA TWICE DAILY 06/27 completed Not Available Not Available Not Available metronida zole 500 mg tablet TAKE 1 TABLET BY MOUTH THREE TIMES DAILY FOR THREE DAYS 10/30 completed Not Available Not Available Not Available allopurin ol 100 mg tablet TAKE 1 TABLET BY MOUTH EVERY DAY FOR gout preventi on 10/13 completed Not Available Not Available Not Available ciproflox acin 500 mg tablet TAKE 1 TABLET BY MOUTH TWICE DAILY 10/30 completed Not Available Not Available Not Available leflunomi de 20 mg tablet TAKE ONE TABLET BY MOUTH DAILY IN THE MORNING FOR FIVE DAYS THEN NEEDED 12/13 completed Not Available Not Available Not Available tramadol 50 mg tablet TAKE 2 TABLETS BY MOUTH THREE TIMES DAILY FOR 30 DAYS active Not Available Not Available No t Available ceftriaxo ne 1 gram solution for injection Take 1 g every day by injectio n route as directed for 1 day. 06/27 completed Not Available Not Available Not Available potassium chloride 20 mEq oral packet two times daily 10/30 completed 0; Recorded 03/29/20 22 1:22PM by Gudelia Clement, Office Visit; Not Available Not Available Not Available potassium chloride ER 20 mEq tablet,ex tended release(p art/cryst ) TAKE 1 TABLET BY MOUTH DAILY 05/11 completed Not Available Not Available Not Available famotidin e 20 mg tablet 06/27 completed Not Available Not Available Not Available tamsulosi n 0.4 mg capsule take 1 capsule BY MOUTH AT BEDTIME active Not Available Not Available No t Available furosemid e 80 mg tablet 12/13 completed Not Available Not Available Not Available hydrocodo ne 7.5 mg-acetam inophen 325 mg tablet 10/30 completed Not Available Not Available Not Available dexametha sone 4 mg tablet TAKE 1 & 1/2 TABLETS BY MOUTH EVERY 24 HOURS FOR UP TO 10 DAYS 07/15 completed Not Available Not Available Not Available losartan 25 mg tablet TAKE 1 TABLET BY MOUTH EVERY DAY 05/11 completed Not Available Not Available Not Available niacin ER 250 mg tablet,ex tended release 500 mg by oral route. 2020 active Not Available Not Available Not Avai lable bumetanid e 1 mg tablet TAKE 1 TABLET BY MOUTH TWICE DAILY active Not Available Not Available No t Available monteluka st 10 mg tablet TAKE 1 TABLET BY MOUTH DAILY FOR allergie s active Not Available Not Available No t Available furosemid e 20 mg tablet TAKE 3 TABLETS BY MOUTH EVERY DAY 06/27 completed Not Available Not Available Not Available metoprolo l succinate ER 25 mg tablet,ex tended release 24 hr TAKE 1 TABLET BY MOUTH EVERY DAY 05/11 completed Not Available Not Available Not Available neomycin 500 mg tablet 07/30 completed Not Available Not Available Not Available albuterol sulfate HFA 90 mcg/actua tion aerosol inhaler INHALE TWO PUFFS EVERY 4 HOURS NEEDED active Not Available Not Available No t Available colchicin e 0.6 mg tablet TAKE 2 TABLETS BY MOUTH x ONE DOSE THEN ONE tablet one hour LATER active Not Available Not Available No t Available ondansetr on 4 mg disintegr ating tablet 10/30 completed Not Available Not Available Not Available fluticaso ne propionat e 50 mcg/actua tion nasal spray,sharri pension USE 1 SPRAY IN EACH NOSTRIL EVERY DAY active Not Available Not Available No t Available terazosin 10 mg capsule take 1 capsule BY MOUTH TWICE DAILY 05/11 completed Not Available Not Available Not Available finasteri de 5 mg tablet TAKE 1 TABLET BY MOUTH EVERY DAY 05/11 completed Not Available Not Available Not Available oxycodone 5 mg tablet 12/13 completed Not Available Not Available Not Available valsartan 40 mg tablet TAKE 1 TABLET BY MOUTH EVERY DAY 06/27 completed Not Available Not Available Not Available Spiriva with HandiH[employer] r 18 mcg and inhalatio n capsules use 2 inhalati ons to inhale contents of 1 capsule per handihal er once daily 09/15 completed Not Available Not Available Not Available levalbute rol HFA 45 mcg/actua tion aerosol inhaler INHALE TWO PUFFS EVERY 6 HOURS NEEDED FOR SHORTNES S OF BREATH or cough active Not Available Not Available No t Available tramadol three times daily, as needed for severe pain 07/30 completed Recorded 09/15/19 23 10:04AM by Imani Moore DO, Refill Request; Refill Quantity : 0; Not Available Not Available Not Available amiodaron e daily 07/30 completed 0; Recorded 03/29/20 22 1:19PM by Gudelia Clement, Office Visit; Not Available Not Available Not Available furosemid e three times daily, as needed 07/30 completed 0; Recorded 03/29/20 22 1:16PM by Gudelia Clement, Office Visit; Not Available Not Available Not Available ciproflox acin 07/30 completed Not Available Not Available Not Available budesonid e-formote rol HFA 160 mcg-4.5 mcg/actua tion aerosol inhaler INHALE TWO PUFFS BY MOUTH TWICE DAILY DIRECTED active Not Available Not Available No t Available Suprep Bowel Prep Kit 17.5 gram-3.13 gram-1.6 gram oral solution 10/30 completed Not Available Not Available Not Available Xarelto 10 mg tablet daily 06/27 completed 0; Recorded 03/29/20 22 1:24PM by Gudelia Clement, Office Visit; Not Available Not Available Not Available Xarelto 15 mg tablet TAKE 1 TABLET BY MOUTH EVERY EVENING active Not Available Not Available No t Available potassium chloride ER 20 mEq tablet,ex tended release TAKE 1 TABLET BY MOUTH EVERY TWELVE HOURS active Not Available Not Available No t Available Entresto two times daily 07/30 completed 0; Recorded 03/29/20 22 1:21PM by Gudelia Clement, Office Visit; Not Available Not Available Not Available Praluent Pen 150 mg/mL subcutane ous pen injector every two weeks active Not Available Not Available No t Available naloxone 4 mg/actuat ion nasal spray CALL 911, USE 1 SPRAY IN ONE NOSTRIL. MAY REPEAT IN ALTERNAT E NOSTRILS EVERY 3 MINUTES NEEDED IF NO OR MINIMAL RESPONSE . 10/30 completed Not Available Not Available Not Available Vitals Date Recorded Body height Body mass index (BMI) Body weight Heart rate Oxygen saturation Respiratory rate Systolic And Diastolic Provider Name and Address Organization Details Last Updated DateTime 5 176.53 cm 30.7 kg/m2 26338.3 9 g 108 /min 99 % 18 /min 110/60 mm[Hg] Amalia Day [facility] 5 15:29:38 Date Recorded Body height Body mass index (BMI) Body weight Oxygen saturation Heart rate Respiratory rate Body temperature Systolic And Diastolic Provider Name and Address Organization Details Last Updated DateTime 5 176.53 cm 30.5 kg/m2 27717.9 6 g 97 % 63 /min 20 /min 98.3 [degF] 120/78 mm[Hg] Amalia Day [facility] 5 12:36:40 Date Recorded Body height Body mass index (BMI) Body weight Oxygen saturation Heart rate Respiratory rate Systolic And Diastolic Provider Name and Address Organization Details Last Updated DateTime 5 176.53 cm 29.1 kg/m2 20521.4 7 g 96 % 49 /min 22 /min 140/88 mm[Hg] GUDELIA CLEMENT [facility] 5 09:20:20 Date Recorded Body height Body mass index (BMI) Body weight Oxygen saturation Heart rate Respiratory rate Systolic And Diastolic Provider Name and Address Organization Details Last Updated DateTime 5 176.53 cm 27.5 kg/m2 41190.6 6 g 97 % 93 /min 20 /min 120/62 mm[Hg] Amalia Day [facility], [facility] 5 15:51:10 Social History None recorded. Functional Status None recorded. Mental Status None recorded. Family History Nothing Reported Notes:Mother: Heart Disease Prostate Cancer Medical History No medical history recorded. Past Encounters Encounter ID Performer Location Encounter Start Date Encounter Closed Date Diagnosis/Indication Diagnosis SNOMED-CT Code Diagnosis ICD10 Code Diagnosis IMO Codes Diagnosis Note Imani MooreDO [facility] ([facility]) [address] [place] [address] 12/13/2022 14:33:41 12/13/2022 20:31:41 Osteoarthritis 052237553 M19.90 continue celecoxib and tramadol. stable. Benign pro static hyperplasia 535558593 N40.1 stable. continue terazosin. Atrial fibrillation 4943 [address]004 [address]48[address] Nj, cardiology . continue amiodarone , Xarelto, will check TSH Chronic pain syndrome 37 6843251 G89.4 continue tramadol. Gout 43086875 M10.9 off allopurino l. taking milk thistle. Chronic ki dney disease stage 3B 114611300 N18.32 counseled on dx, and need for regular monitoring , will get labs prior to next visit in [facility].I reviewed labs from [facility] from 11/17/22 with cr of 1.7 and GFR of 47 Chronic co mbined systolic and diastolic heart failure 5185732053 [address] Nj. no longer on entresto. remains on lasix 60-80mg daily.last echo: 06/22/22.C ONCLUSIONS Diffuse hypokinesi a of the left ventricle with an ejectionfr action of 40%.Mildly increased left atrial size.Thick ened mitral valve. Mild-moder ate mitral valveregur gitation.T race to mild tricuspid valve regurgitat ion.Thicke daxa aortic valve.Mild ly dilated LV cavity.The re is no pericardia l effusion.T here are no intracardi ac masses.Com pared to the study from 07/19/2021, there may not besignific ant change History of coronary artery bypass grafting 408307155 Z95.1 continue with cardiology . allergy to statin, continue praluent [id number] Imani Moore DO [facility] ([facility]) [address] [place] [phone] 03/13/2023 14:41:46 03/13/2023 16:05:06 Chronic combined systolic and diastolic heart failure 1879640071 [address] Nj. no longer on entresto. remains on lasix 60-80mg daily.last echo: 06/22/22.C ONCLUSIONS Diffuse hypokinesi a of the left ventricle with an ejectionfr action of 40%.Mildly increased left atrial size.Thick ened mitral valve. Mild-moder ate mitral valveregur gitation.T race to mild tricuspid valve regurgitat ion.Thicke daxa aortic valve.Mild ly dilated LV cavity.The re is no pericardia l effusion.T here are no intracardi ac masses.Com pared to the study from 07/19/2021, there may not besignific ant change Chronic ki dney disease stage 3B 638725064 N18.32 counseled on dx, and need for regular monitoring , repeat labs stable. no med changes.I reviewed labs from [facility] from 11/17/22 with cr of 1.7 and GFR of 47 Atrial fibrillation 4943 6004 I48.[address] Nj, cardiology . continue amiodarone , Xarelto, will check TSH Hypercholesterolemia 136 11955 E78.00 On praluent, tolerating well. labs much imrpoved. on changes. counseled Gout 70583491 M10.9 off allopurino l. taking milk thistle. uric ac 11.1 but no recent flairs. no need for allopurino l at this time. [id number] KATHIA OWEN PA-C [facility] ([facility]) [address] [place] [phone] 06/22/2023 16:02:47 06/22/2023 18:17:11 Blood in urine 81373597 R31.9 Acute urin demar tract infection 848597300 N39.0 Donovan hematuria 01599064 5 R31.0 Acute pyelonephritis 366 40298 N10 strict instructio ns if fever persists, worsening weakness, dizzyness, drop in BP, increasing abd pain then to the ER. 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 Gutierrez at [facility] on 08/09/23. he is medically cleared for surgery. ok to stop Xarelto 3 days prior and restart the day after. History of coronary artery bypass grafting 477573217 Z95.1 continue with cardiology . allergy to statin, continue praluent Chronic ki dney disease stage 3B 240901665 N18.32 counseled on dx, and need for regular monitoring , repeat labs stable. no med changes.I reviewed labs from [facility] from 11/17/22 with cr of 1.7 and GFR of 47 Chronic co mbined systolic and diastolic heart failure 8430171920 [address] Nj. no longer on entresto. remains on lasix 60-80mg daily.last echo: 06/22/22.C ONCLUSIONS Diffuse hypokinesi a of the left ventricle with an ejectionfr action of 40%.Mildly increased left atrial size.Thick ened mitral valve. Mild-moder ate mitral valveregur gitation.T race to mild tricuspid valve regurgitat ion.Thicke daxa aortic valve.Mild ly dilated LV cavity.The re is no pericardia l effusion.T here are no intracardi ac masses.Com pared to the study from 07/19/2021, there may not besignific ant change Atrial fibrillation 4943 6004 I48.[address] Nj, cardiology . continue amiodarone , Xarelto. Benign pro static hyperplasia 326905595 N40.1 stable. continue terazosin. Calculus o f kidney and ureter 275903543 N20.2 hx of. no current symptoms. counseled on diet. Gout 78883367 M10.9 off allopurino l. taking milk thistle. uric ac 11.1 but no recent flairs. no need for allopurino l at this time. Hyperlipidemia 21128975 E78.5 Patient has muscle weakness and pain secondary to statins. He is currently on Praluent. Continue this. Counseled on diet and exercise Chronic pain syndrome 37 3505802 G89.4 continue tramadol. Hypertensi ve heart AND chronic kidney disease with congestive heart failure 7431914370 9107 I13.0 continue care with cardiology . will continue to monitor renal function and limit high risk medication s Secondary hyperaldosteronism 22830093 E26.1 2/2 CHF and loop diuretics. continue care with cardiology [id number] Imani Moore DO [facility] ([facility]) [address] [place] [phone] 10/31/2023 14:01:00 10/31/2023 17:09:44 Vesicocolic fistula 30073385 N32.1 10/31/23- resolved, s/p partial colon resection with Dr. Conner [facility], 08/09/23, recovered well. Chronic is chemic heart disease 104807784 I25.9 Continue following with Cardiology . [id number] Imani Moore DO [facility] ([facility]) [address] [place] [phone] 03/05/2024 14:13:17 03/05/2024 17:47:15 Atrial fibrillation 49764019 I48.91 Lab today, pt to get appt with Dr. Nj. Continues Amiodarone and Xarelto. [id number] Imani Moore DO [facility] ([facility]) [address] [place] [phone] 03/26/2024 17:00:08 04/01/2024 11:32:20 Atrial fibrillation 59383202 I48.91 03/26/24: pt to d/w Dr. Nj changing Amiodarone d/t renal function. Chronic ki dney disease stage 3B 042319309 N18.32 03/26/24: Reviewed and discussed recent lab, counseled on kidney health, pt to d/w Dr. Nj changing Amiodarone . F/u 3 months, lab prior. [id number] Imani Moore DO [facility] ([facility]) [address] [place] [phone] 04/07/2024 13:53:06 04/07/2024 17:57:41 COVID-19 704083791 U07.1 reviewed records as above. will start albuteral inh prn and symbicort bid for the next few wks.Return to office with no improvemen t or any problems. Go to ER with severe worsening or severe problems. [id number] Imani Moore DO [facility]) [address] [place] [phone] 05/15/2024 09:43:07 05/15/2024 13:14:39 Atrial fibrillation with rapid ventricular response 4069327107 45569 I48.91 updated meds. counseled on need to monitor HR and CP. keep f/u with cardiology Acute bact erial bronchitis 104389807 J20.9 will start abx due to high risk. Return to office with no improvemen t or any problems. Go to ER with severe worsening or severe problems. [id number] Imani Moore DO [facility] ([facility]) [address] [place] [phone] 07/15/2024 12:31:09 07/16/2024 11:10:01 Mixed hyperlipidemia 093464088 E78.2 Lab today. Aortic valve stenosis 60 912344 I35.0 07/15/24: S/p TAVR at [facility]. Recovered well. Continues anticoagul ation, is aware he will be taking this ongoing now. Atrial fib rillation with rapid ventricular response 5015910462 47466 I48.91 updated meds. counseled on need to monitor HR and CP. keep f/u with cardiology [id number] Imani Moore DO [facility] ([facility]) [address] [place] [address] 07/28/2024 15:04:39 07/28/2024 16:27:41 Gout 53684670 M10.9 acute flair. will confirm with labs, start prednisone . he continues on milk thistle. [id number] Imani MooreDO [facility] ([facility]) [address] [place] [address] 09/15/2024 15:29:53 09/23/2024 14:13:30 Gout 08207272 M10.9 Recurrent flairs, counseled on recent labs, will start low dose allopurino l, and repeat labs in 4 wks with appt. counseled on diet and supplement s. Allergic rhinitis 995495 04 J30.9 Chronic ki dney disease stage 3B 239436921 N18.32 03/26/24: Reviewed and discussed recent lab, counseled on kidney health, pt to d/w Dr. Nj changing Amiodarone . F/u 3 months, lab prior. Essential hypertension 08361127 I10 stable. Hypertensi ve heart AND chronic kidney disease with congestive heart failure 5289911146 9107 I13.0 continue care with cardiology . will continue to monitor renal function and limit high risk medication s Hyperlipidemia 53566048 E78.5 Patient has muscle weakness and pain secondary to statins. He is currently on Praluent. Continue this. Counseled on diet and exercise Chronic pain syndrome 37 5658817 G89.4 continue tramadol. Chronic co mbined systolic and diastolic heart failure 4889371691 [address] jN. no longer on entresto. remains on lasix 60-80mg daily.last echo: 06/22/22.C ONCLUSIONS Diffuse hypokinesi a of the left ventricle with an ejectionfr action of 40%.Mildly increased left atrial size.Thick ened mitral valve. Mild-moder ate mitral valveregur gitation.T race to mild tricuspid valve regurgitat ion.Thicke daxa aortic valve.Mild ly dilated LV cavity.The re is no pericardia l effusion.T here are no intracardi ac masses.Com pared to the study from 07/19/2021, there may not besignific ant change Osteoarthritis 514686690 M19.90 Stable. Atrial fib rillation with rapid ventricular response 9228491418 62168 I48.91 Continue Xarelto. counseled on need to monitor HR and CP. keep f/u with cardiology Cardiomyopathy 81818389 I42.9 Following with Cardiology . [id number] Imani Moore DO [facility] ([facility]) [address] [place] [address] 10/10/2024 11:09:55 10/10/2024 13:51:22 Essential hypertension 02384396 I10 stable. [id number] Imani Moore DO [facility]) [address] [place] [phone] 10/13/2024 14:53:06 10/14/2024 21:47:12 Seasonal allergic rhinitis 678694927 J30.2 counseled on nasal washes and flonase. continue antihistam ine Gout 51437817 M10.9 not tolerating the allopurino l, stop it, will give rx for prn cochicine. counseled on mediation, side effects. check uric acid levels today [id number] Imani Moore DO [facility] ([facility]) [address] [place] [phone] 5 12/10/2024 13:27:27 12/11/2024 09:44:34 Chronic combined systolic and diastolic heart failure 1485918499 89318 I50.[id number] Nj. no longer on entresto. remains on lasix 60-80mg daily.last echo: 06/22/22.C ONCLUSIONS Diffuse hypokinesi a of the left ventricle with an ejectionfr action of 40%.Mildly increased left atrial size.Thick ened mitral valve. Mild-moder ate mitral valveregur gitation.T race to mild tricuspid valve regurgitat ion.Thicke daxa aortic valve.Mild ly dilated LV cavity.The re is no pericardia l effusion.T here are no intracardi ac masses.Com pared to the study from 07/19/2021, there may not besignific ant change [id number] Imani Moore DO [facility] ([facility]) [address] [place] [address] 03/18/2025 12:06:17 03/31/2025 10:01:41 Acute on chronic combined systolic and diastolic heart failure [id number] 35524 I50.43 [id number] 03/18/25: Acute exacerbati on. Counseled increase Bumetanide to BID for 5 days, then decrease back to 1 daily, also take Potassium BID when Bumetanide is increased, then return to 1 daily. Expect to be significan tly better within 5 days, if not, let us know, consider CXR, imaging.Co unseled update Celaya on his recent fluid overload when he goes up for his Echo in April. Muscle weakness [id number] M62.81 [id number] 03/18/25: Counseled RTC if not improving. [id number] Imani Moore DO [facility] ([facility]) [address] [place] [address] 03/26/2025 08:59:07 03/27/2025 09:28:01 Bite of scorpion [id number] T63.2X1A [id number] 03/26/25: Counseled this sting likely brought about some of his symptoms, then inflammati on worsened his SOB and pain symptoms. Will treat with Prednisone to help calm his immune system down. Expect to see improvemen t in the next 2 days. Acute on c hronic combined systolic and diastolic heart failure [id number] 13281 I50.43 [id number] 03/18/25: Acute exacerbati on. Counseled increase Bumetanide to BID for 5 days, then decrease back to 1 daily, also take Potassium BID when Bumetanide is increased, then return to 1 daily. Expect to be significan tly better within 5 days, if not, let us know, consider CXR, imaging.Co unseled update Yomi on his recent fluid overload when he goes up for his Echo in April. 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 in Apr, on mitral valve, if health improves they would like to take him to surgery to care for this, right now on IV abx. F/u with ID scheduled end of May. Kidney stone [id number] N2 0.0 33753 05/11/25: removed during recent hospital stay at [facility]. Health Concerns Section Related Observation LastModified by Organization Detai ls LastModified Time None Recorded Concern Status LastModified by Organization Details LastModified Time None Recorded Advance Directives Directive None Recorded Payers Insurance Date Sequence Insurance Name Policy Number Policy Grey Covered Member ID Grey Member ID Guarantor Name 06/02/2025 1 [place]: [place] Italo Cummings [id number] Italo Cummings 03/25/2025 2 [employer] (MEDICARE SUPPLEMENT) Italo Cummings [id number] Italo Cummings 06/02/2025 [place] - [place] A - [facility] (MEDICARE) Italo Cummings [id number] Italo Cummings Notes Date Note Type Note Provider Name and Address Organization Details Recorded Time 10/13/2024 text/html ROS as noted in the HPI Pt present for recheck on gout and f/u on sore muscles and heart valve replacement. We started on allopurinol a couple months ago, but joints and muscles with more sorenass and weakness since starting. This happened the last time we started allopurinol. We tried this med again due to recent recurrent gout attacks. He c/o all over pain and muscle pain/soreness that is still present for a monthHe did his labs on 10/10/24 glucose 144, Hgb 13.4 He has leaking around new valve that the are going to see if closes by April and if not they will go in and fix it with a plug into the hole Imani Moore, DO [address] [place] [address], [phone], [facility], [place]iana 10/14/2024 13:10:43 03/18/2025 text/html ROS as noted in the HPI Pt presents for recheck He c/o increased SOB for 1-2 weeks.This is worsened with exertion and laying flat.He continues to use his Symbicort inhaler and helps for approximately 2-3 hours.He admits that he does have a productive cough, white with dark spots in color Taking Bumetanide daily with Potassium.Continues Xarelto.Wasn't able to use Entresto d/t cost. Scheduled for Echo with Yomi in Apr, regarding his valve, if leakage not closed off they plan to intervene. BP has been good at home, 120/78 in clinic this am, reports it runs about this at home.HR running 70-80's at home at rest, up to 120's when at exertion, improves when he sits down to rest. He has muscle weakness and numbness to hands and feet for 1 week Imani Moore, DO [address] [place], [address], [facility], [place] 03/26/2025 09:32:02 03/26/2025 text/html ROS as noted in the HPI Pt presents for recheck 8 days, SOB. Plan at last visit:Acute on chronic combined systolic and diastolic congestive heart failure03/18/25: Acute exacerbation. Counseled increase Bumetanide to BID for 5 days, then decrease back to 1 daily, also take Potassium BID when Bumetanide is increased, then return to 1 daily. Expect to be significantly better within 5 days, if not, let us know, consider CXR, imaging.Counseled update Yomi on his recent fluid overload when he goes up for his Echo in April. ======== He reports he was doing better, until 3 days ago. He stepped on and was stung by a scorpion in the house, unsure if this is r/t SOB returning or not.Now with continued increased SOB, worsened with exertion and laying flat.2 nights ago he was unable to sleep laying flat, had to sleep sitting up. Since increase in Bumetanide to BID pt c/o BLE muscle cramping, BUE numbness and cramping. States sx were improving, now worsened again.He had been taking Magnesium, hasn't the last 1-2 days d/t current symptoms.His weight is down 9lbs today. H/o CKD with Cr 1.8 on 12/10/24. C/o 5/10 pain, states it is all over joint pain, severe fatigue, having trouble walking Imani Moore, DO [address] [place], [address], [facility] [place] 03/26/2025 11:16:36 05/11/2025 text/html ROS as noted in the HPI Pt presents for hospital f/u Recently admitted to [facility]. He had a f/u appt with Dr. Escobedo and was out of rhythm. He was direct admitted from there. He had cardioversion after IV diuretics. He also had a kidney stone that was removed and stent placed.He was admitted for approximately 15 days at [facility] He feels better now. When they placed the ureteral stent he contracted elizabeth infection. He is receiving daily IV infusions. He will continue those for 6 weeks then change to oral abt tx for the rest of his life, unless he has open heart surgery, however they are concerned he won't get strong enough to do that. They were told they could see fungus on the leaflet of the valve.They are hoping that he will gain strength enough so they can place clip on mitral valve His sob has improved since having IV diuretics, he lost from 195lb to 175lb while at the hospital He also admits that he still has numbness to his arms/hands and was told this was d/t his heart problems and poor circulation [facility] labs this am and BUN 26, CR1.6, glucose 132, CA 299, CRP wnl, no Anemia. F/u with ID scheduled at the end of May. Imani Moore, DO [address] [place] [address], [phone], [facility] [place] Hamilton 06/01/2025 18:38:58
--- OUTSIDE RECORDS SUMMARY | 2025-06-09 05:39 | XMS_ITS | Encounter Summary ---
Author Organization [facility] Address [address] [place] [address] Care Team Providers Care Vac Press Operator Name Role Phone Priyank Kaur Primary Care Provider [phone] Encounter Details Date Type Department Care Team (Latest Contact Info) Description 04/19/2020 Ancillary Orders [facility] Orthopedics - Orthopedic [facility] [address] [place] [phone] Jaime Young, PA-C [address] [place] [phone] History of total left knee replacement Social History Tobacco Use Types Packs/Day Years Used Date Smoking Tobacco: Never Smokeless Tobacco: Never Alcohol Use Standard Drinks/Week Comments No 0 (1 standard drink = 0.6 oz pur e alcohol) Sex and Gender Information Value Date Recorded Sex Assigned at Not on file Legal 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 No / Unsure 04/19/2020 9:10 AM CDT documented as of this encounter Plan of Treatment Not on file documented as of this encounter Results * XR KNEE 3 VW LEFT (04/19/2020 10:14 AM CDT) Anatomical Region Laterality Modality Lower Extremity Computed Radiogr aphy Narrative 05/31/2020 1:09 PM OIL CHANGER No radiographic complications noted. Total knee arthroplasty components in excellent position with no evidence of loosening or wear. us Jaime Young PA-C DIAGNOSTIC IMAGING ORDERAB LES Final Result documented in this encounter Visit Diagnoses Diagnosis History of total left knee replacement History of total left knee replacement documented in this encounter Care Teams Vac Press Operator Relationship Specialty Start Date End Date Priyank Kaur DO PCP - General Family Practice 10/07/15 documented as of this encounter
--- OUTSIDE RECORDS SUMMARY | 2025-06-09 05:39 | XMS_ITS | Continuity of Care Document ---
Author Organization [facility] Alfonso, L[place]a, [facility] ([facility]) Address [address] [place] [address] Care Team Providers Care Fruit Cutter Name Role Phone IMANI KAUR Primary Care Provider Unavailabl e Assessment Encounter Date Assessment Date Assessment LastModified by Organization Details LastModified Time 05/11/2025 05/11/2025 Pt has been contacted by [...] They express verbal understanding. Document scribed by Renaldo Souza Claims Adjustor. I was present during interview and exam. I have reviewed and agree with above documentation. Dr. Imani Kaur. dkiest Not available 05/11/2025 16:07:50 Plan of Treatment Reminders Order Date Submit Date Provider Last Modified By Organization Details Last Modified Time Details Appointments None record ed. Lab None record ed. Referral None record ed. Procedures None record ed. Surgeries None record ed. Imaging None record ed. Medication Orders None record ed. Patient TargetsNo targets recorded. Patient InstructionsNo instructions recorded. Reason for Referral None Reported. Results Created Date Observation Date Name Description Value Unit Range Abnormal Flag Note LastModifiedBy Organization Detail LastModifiedTime Result Notes None recorded. Problems Name Problem SNOMED Code Status Onset Date Resolution Date Notes Provider Name and Address Organization Details Recorded Time Edema of lower extremity [id number] [facility] 16:41:09 Traumatic right rotator cuff tear Active Amalia Day [facility] 5 16:41:09 Atrial fibrillat ion with rapid ventricul ar response [id number] 109 [facility] Amalia Day [facility] 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 5 16:41:09 Dyspnea 183576008 [facility] Amalia Day [facility] 5 16:41:09 Mixed hyperlipi demia 242680024 [facility] Amalia Day [facility] 5 16:41:09 History of heart disorder 595892772 [facility] Amalia Day [facility] 5 16:41:09 Ischemic myocardia l dysfuncti on 047044071 [facility] Amalia Day [facility] 5 16:41:09 Pain of multiple joints 53434129 [facility] Amalia Day [facility] 5 16:41:09 Hyperuric emia 26502169 [facility] Amalia Day [facility] 5 16:41:09 Irregular heart beat 372833261 [facility] Amalia Day [facility] 5 16:41:10 Device used 233290620 [facility] Amalia Day [facility] 5 16:41:10 Prostate specific antigen above reference range 188361329 Active Amalia Day [facility] 5 16:41:10 Coronary atheroscl erosis 111560794 Active Amalia Day [facility] 5 16:41:10 Low blood pressure 86503764 Active Amalia Day [facility] 5 16:41:10 Essential hypertens ion 51006045 [facility] Amalia Day [facility] 5 16:41:10 Fracture of scapula 8909097 [facility] Amalia Day [facility] 5 16:41:10 Dyslipide pasquale 769450210 [facility] Amalia Day [facility] 5 16:41:10 Malignant neoplasm of prostate 004617467 Active 2021 Prostate Cancer Amalia Day [facility] 5 16:41:10 Chronic ischemic heart disease 401770608 Active 2021 Amalia Day [facility] 5 16:41:10 Gout 41142025 Active 2022 Amalia Day [facility] 5 16:41:10 Chronic pain syndrome 413192724 Active 2022 Amalia Day [facility] 5 16:41:10 Osteoarth ritis 477475060 Active 2022 Amalia Day [facility] 5 16:41:10 Benign prostatic hyperplas ia 842214767 Active 2022 Amalia brown, [facility] 5 16:41:09 Chronic kidney disease stage 3B 254136335 Active 2022 [facility] 16:41:10 Chronic combined systolic and diastolic heart failure 357505937466 100 Active 2022 Amalia brown, [facility] 5 16:41:09 History of coronary artery bypass grafting 709815729 Active 2022 [facility] 5 16:41:10 Diverticu litis of sigmoid colon 884177233 Active 2022 Amalialeslie De La Cruzgardenia [facility] 5 16:41:10 Vesicocol ic fistula 45361160 Active 2022 Amalia Day [facility] 5 16:41:09 Calculus of kidney and ureter 386371477 Active 2022 Amalia Day [facility] 5 16:41:09 Donovan hematuria 899666363 Active 2022 Amalialeslie Day kevin, [facility] 5 16:41:09 Hyperlipi demia 35039671 Active 2023 Amalialeslie De La Cruze [facility] 5 16:41:10 Secondary hyperaldo steronism 97389966 Active 2023 Amalia [facility] 5 16:41:10 Hypertens jaime heart AND chronic kidney disease with congestiv e heart failure 028101654195 07 Active 2023 Amalia brown [facility] 16:41:09 Allergic rhinitis 75528458 Active 2024 [facility] 15:29:57 Seasonal allergic rhinitis 565741394 Active [address], [address], [facility] 5 16:11:08 Acute on chronic combined systolic and diastolic heart failure 522846532263 103 Active [address], [address], [facility] 09:31:13 Acute infective endocardi tis 704864319 Active 2024 Renaldo brown [facility] 16:09:58 Notes:Some problems listed i n Documents: #[id number], #[id number], #[id number], #[id number] could not be added to this patient's chart. Please review these documents and add these problems to the patient's chart manually as needed. Problem Notes None recorded. Procedures Surgical History Date Name Laterality Status Provider Name and Address Organization Details Recorded Time procedure on knee completed Amalialeslie De La Cruze [facility] 09/15/2024 16:36:26 total knee replacement completed Amalia Day [facility] 09/15/2024 16:36:38 procedure on shoulder completed Amalia Day [facility] 09/15/2024 16:37:50 arthroplasty of left shoulder completed Amalia Day [facility] 09/15/2024 16:38:15 total shoulder replacement completed [facility] 09/15/2024 16:38:04 tonsillectomy completed [facility] 09/15/2024 16:38:23 procedure on back completed [facility] 09/15/2024 16:38:38 coronary artery bypass grafts x 4 completed [facility] 09/15/2024 16:38:51 replacement of aortic valve completed [facility] 09/15/2024 16:39:09 excision of neoplasm completed [facility] 09/15/2024 16:39:43 procedure on wrist completed [facility] 09/15/2024 16:40:03 operation on testis completed [facility] 09/15/2024 16:40:24 excision of colon completed [facility] 09/15/2024 16:40:45 Imaging Results None recorded. Procedure Notes None recorded. Medical Equipment None Reported. Allergies Allergen ID Allergen Name Allergen Category Reaction Reaction Severity Criticality Documentation Date Start Date Code Code System Note Provider Name and Address Organization Details Recorded Time 01617 Product containin g penicilli n (product) medicatio n Not available Not available Not available 01/27/2023 61820 8001 SNOMED Jaelyn Plsrinath [facility] 13:57:25 33747 metoprolo l Not available Not available Not available Not available 04/07/20242023 6918 [facility] LM[facility].CMely 14:01:34 00680 Product containin g 3-hydroxy -3-methyl glutaryl- coenzyme A reductase inhibitor (product) medicatio n Not available Not available unabletoasse ss 05/26/20252022 24136 009 SNOMED unrec ogniz ed react ion (text : Delir ium (diso rder) , code: 30730 00) [facility] Not Available [facility] - External Data Service - prod 07:23:26 Medications Name Sig Start Date Stop [...] times daily 10/30 completed 0; Recorded 03/29/20 1:22PM by Gudelia Clement, Office Visit; Not [...] completed Recorded 09/15/19 23 10:04AM by Imani Kaur DO, Refill Request; Refill Quantity : 0; Not Available Not Available Not Available amiodaron e daily 07/30 completed 0; Recorded 03/29/20 22 1:19PM by Gudelia Racquel, Office Visit; Not Available Not Available Not [...] Updated DateTime 5 176.53 cm 27.5 kg/m2 44297.6 6 g 97 % 93 /min 20 /min 120/62 mm[Hg] Amalia Day [facility], [facility] 5 15:51:10 Social History None recorded. Functional Status None recorded. Mental Status None recorded. Family History Nothing Reported Notes:Mother: Heart Disease Prostate Cancer Medical History No medical history recorded. Past Encounters Encounter ID Performer Location Encounter Start Date Encounter Closed Date Diagnosis/Indication Diagnosis SNOMED-CT Code Diagnosis ICD10 Code Diagnosis IMO Codes Diagnosis Note [id number] Imani Kaur [facility] ([facility]) [address] [place] [address] 05/11/2025 14:35:48 06/02/2025 10:30:25 Acute infective endocarditis 754984849 B37.6 [id number] 05/11/25: Found during hospital stay at [facility] in Apr, on mitral valve, if health improves they would like to take him to surgery to care for this, right now on IV abx. F/u with ID scheduled end of May. Kidney stone 21716835 N2 0.0 [id number] 05/11/25: removed during recent hospital stay at [facility]. Health Concerns Section Related Observation LastModified by Organization Detai ls LastModified Time None Recorded Concern Status LastModified by Organization Details LastModified Time None Recorded Payers Encounter Date Sequence Insurance Name Policy Number Policy Grey Covered Member ID Grey Member ID Guarantor Name 05/11/2025 1 [place]: [place] Italo Cummings [id number] Italo Cummings 05/11/2025 2 [employer] (MEDICARE SUPPLEMENT) Italo Cummings [id number] Italo Cummings Notes Date Note Type Note Provider Name and Address Organization Details Recorded Time 05/11/2025 text/html ROS as noted in the HPI Pt presents for hospital f/u Recently admitted to [facility]. He had a f/u appt with Dr. Escobedo and was out of rhythm. He was direct admitted from there. He had cardioversion after IV diuretics. He also had a kidney stone that was removed and stent placed.He was admitted for approximately 15 days at [facility] He feels better now. When they placed [...] scheduled at the end of May. Imani Kaur, [address], [address], [facility] 06/01/2025 18:38:58
--- OUTSIDE RECORDS SUMMARY | 2025-06-09 05:39 | XMS_ITS | Encounter Summary ---
Author Organization [facility] Address [address] [place] [address] Care Team Providers Care Cat Skinner Name Role Phone Priyank Kaur Primary Care Provider [phone] Encounter Details Date Type Department Care Team (Latest Contact Info) Description 03/16/2020 Ancillary Orders [facility] Orthopedics - Orthopedic [facility] [address] [place] [address] Lio Dunbar MD [address] [place] [address] History of total left knee replacement Social History Tobacco Use Types Packs/Day Years Used Date Smoking Tobacco: Never Smokeless Tobacco: Never Alcohol Use Standard Drinks/Week Comments No 0 (1 standard drink = 0.6 oz pur e alcohol) Sex and Gender Information Value Date Recorded Sex Assigned at Not on file 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 No / Unsure 03/16/2020 10:28 AM CDT documented as of this encounter Plan of Treatment Not on file documented as of this encounter Results * XR KNEE 1 OR 2 VW LEFT (03/16/2020 10:38 AM CDT) Anatomical Region Laterality Modality Lower Extremity Computed Radiogr aphy Narrative 03/19/2020 12:10 PM CDT No radiographic complications noted. Total knee arthroplasty components in excellent position with no evidence of loosening or wear. us Lio Dunbar MD DIAGNOSTIC IMAGING [place]UDDY ST[place] Final Result documented in this encounter Visit Diagnoses Diagnosis History of total left knee replacement History of total left knee replacement documented in this encounter Care Teams Cat Skinner Relationship Specialty Start Date End Date Priyank Kaur DO PCP - General Family Practice 10/07/15 documented as of this encounter
--- OUTSIDE RECORDS SUMMARY | 2025-06-09 05:39 | XMS_ITS | Continuity of Care Document ---
Author Organization SUSAN Pilo [facility] Alfonso, Viviana, [facility] ([facility]) Address [address] [place] [address] Care Team Providers Care Bow Maker Production Name Role Phone IMANI MOORE Primary Care Provider Unavailabl e Assessment Encounter Date Assessment Date Assessment LastModified by Organization Details LastModified Time 03/26/2025 03/26/2025 Document scribed by Renaldo Souza Roller Leveler Operator. I was present during interview and exam. I have reviewed and agree with above documentation . Dr. Imani Moore. [email or web address] Not available 03/26/2025 09:36:57 Plan of Treatment Reminders Order Date Submit Date Provider Last Modified By Organization Details Last Modified Time Details Appointments None recorded. Lab C reactive protein, QN, serum or plasma 2024 025 [email or web address] [facility], [address] [place] [address], [address] [place], [address], 13:38:02 ESR (erythrocyt e sedimentati on rate), blood 2024 025 [email or web address] 47 [facility] ([facility]), [address] [place], [address], 19:16:04 CMP, serum or plasma 2024 025 [email or web address] 47 [facility], [address], [facility], [place], [address], 19:16:04 CBC 2024 025 [email or web address] 47 [facility], [address] [facility], [facility], [place], [address], 19:16:04 magnesium, serum or plasma 2024 025 [facility], [address] [address], [address] [place], [address], 08:46:16 Referral None recorded. Procedures None recorded. Surgeries None recorded. Imaging XR, chest, 2 view 2024 025 [email or web address] [facility] ([facility]), [address] [place], [address], 09:28:01 Medication Orders prednisone 20 mg tablet 2024 025 [email or web address] [facility] [place], [address] [place], [address], 15:47:51 Patient TargetsNo targets recorded. Patient InstructionsNo instructions recorded. Reason for Referral None Reported. Results Created Date Observation Date Name Description Value Unit Range Abnormal Flag Note LastModifiedBy Organization Detail LastModifiedTime 03/26/2003/26/2025 CBC WBC 9.1 x10 4.5-10 .5 Not Available [facility] [address] [facility] [address], [place], [address], 03/26/2025 10:19:41 03/26/2003/26/2025 CBC RBC 5.10 x10 4.30-5 .90 Not Available [facility] [address] [facility] [address], [place], [address], 03/26/2025 10:19:41 03/26/2003/26/2025 CBC HGB 14.5 g/dL 13.5-1 8.0 Not Available [facility] [address], [place], [address], 03/26/2025 10:19:41 03/26/2003/26/2025 CBC HCT 46.1 % 35.0-6 0.0 Not Available [facility] [address] [facility], [place], [address], 03/26/2025 10:19:41 03/26/2003/26/2025 CBC MCV 90.3 fL 80.0-9 9.9 Not Available [facility] [address] [facility], [place], [address], 03/26/2025 10:19:41 03/26/2003/26/2025 CBC MCH 28.4 pg 27.0-3 2.0 Not Available [facility] [address] [facility], [place], [address], 03/26/2025 10:19:41 03/26/2003/26/2025 CBC MCHC 31.4 g/dL 32.0-3 6.0 low Not Available [facility] [address] [facility], [place], [address], 03/26/2025 10:19:41 03/26/2003/26/2025 CBC RDW 14.6 % 11.5-1 4.5 high Not Available [facility] [address] [facility], [place], [address], 03/26/2025 10:19:41 03/26/2003/26/2025 CBC plt 127.5 x10 150.0- 451.0 low Not Available [facility] [address] [facility], [place], [address], 03/26/2025 10:19:41 03/26/2003/26/2025 CBC lymphocytes % 15.1 % 20.0-5 0.0 low Not Available [facility] [address] [facility], [place], [address], 03/26/2025 10:19:41 03/26/2003/26/2025 CBC granulcytes % 75.3 % 30.0-7 0.0 high Not Available [facility] [address] [facility], [place], [address], 03/26/2025 10:19:41 03/26/2003/26/2025 CBC monocytes % 7.8 % 2.0-16 .0 Not Available [facility] [address] [facility], [place], [address], 03/26/2025 10:19:41 03/26/2003/26/2025 CBC granulcytes# 6.8 x10 Not Stella ilable [facility] [address] [facility], [place], [address], 03/26/2025 10:19:41 03/26/2003/26/2025 CBC lymphocytes # 1.4 x10 Not Available [facility] [address] [facility] [address], [place], [address], 03/26/2025 10:19:41 03/26/2003/26/2025 CBC monocytes # 0.7 x10 Not Avai lable [facility] [address] [facility] [address], [place], [address], 03/26/2025 10:19:41 03/26/2003/26/2025 CMP (MALE ) glucose 152.0 mg/dL 60.0-9 9.0 high Not Available [facility] [address] [place] [address] [address], [place], [address], 03/26/2025 10:32:46 03/26/2003/26/2025 CMP (MALE ) BUN (blood urea nitrogen) 28.0 mg/dL 10.0-2 6.0 high Not Available [facility] [address] [facility], [place], [address], 03/26/2025 10:32:46 03/26/2003/26/2025 CMP (MALE ) creatinine (serum) 1.9 mg/dL 0.4-1. 5 high Not Available [facility] [address] [facility] [address], [place], [address], 03/26/2025 10:32:46 03/26/2003/26/2025 CMP (MALE ) BUN/creatini ne ratio 14.74 ratio Not Available [facility] [address] [facility], [place], [address], 03/26/2025 10:32:46 03/26/20 25 03/26/2025 CMP (MALE ) eGFR calculated 37.2 Not Available [facility] [address] [place] [facility], [place], [address], 03/26/2025 10:32:46 03/26/20 25 03/26/2025 CMP (MALE ) total protein 7.3 g/dL 6.0-8. 5 Not Available [facility] [address] [facility], [place], [address], 03/26/2025 10:32:46 03/26/20 25 03/26/2025 CMP (MALE ) total bilirubin 1.5 mg/dL 0.2-1. 3 high Not Available [facility] [address] [facility], [place], [address], 03/26/2025 10:32:46 03/26/20 25 03/26/2025 CMP (MALE ) albumin 5.0 g/dL 3.5-5. 5 Not Available [facility] [address] [facility], [place], [address], 03/26/2025 10:32:46 03/26/2003/26/2025 CMP (MALE ) globulin 2.3 calc Not Available [facility] [address] [place] [facility], [place], [address], 03/26/2025 10:32:46 03/26/20 25 03/26/2025 CMP (MALE ) AST (SGOT) 38.0 U/L 0.0-46 .0 Not Available [facility] [address] [facility], [place], [address], 03/26/2025 10:32:46 03/26/20 25 03/26/2025 CMP (MALE ) altv (SGPT) 23.0 U/L 13.0-6 9.0 normal Not Available [facility] [address] [facility], [place], [address], 03/26/2025 10:32:46 03/26/20 25 03/26/2025 CMP (MALE ) A/G ratio 2.2 ratio Not Available [facility] [address] [place] [facility], [place], [address], 03/26/2025 10:32:46 03/26/20 25 03/26/2025 CMP (MALE ) ALP phos 57.0 U/L 30.0-1 40.0 normal Not Available [facility] [address] [facility], [place], [address], 03/26/2025 10:32:46 03/26/20 25 03/26/2025 CMP (MALE ) calcium 10.1 mg/dL 8.4-10 .5 Not Available [facility] [address] [place] [facility], [place], [address], 03/26/2025 10:32:46 03/26/20 25 03/26/2025 CMP (MALE ) sodium 143.0 mmol/ L 136.0- 145.0 Not Available [facility] [address] [facility], [place], [address], 03/26/2025 10:32:46 03/26/2003/26/2025 CMP (MALE ) potassium 4.3 mmol/ L 3.5-5. 1 Not Available [facility] [address] [facility], [place], [address], 03/26/2025 10:32:46 03/26/2003/26/2025 CMP (MALE ) chloride 106.0 mmol/ L 98.0-1 10.0 normal Not Available [facility] [address] [facility] 1, [place], [address], 03/26/2025 10:32:46 03/26/20 25 03/26/2025 CMP (MALE ) C02 27.0 mmol/ L 22.0-3 1.0 Not Available [facility] [address] [facility], [place], [address], 03/26/2025 10:32:46 03/26/2003/26/2025 CMP (MALE ) anion gap 10.0 calc Not Available [facility] [address] [facility], [place], [address], 03/26/2025 10:32:46 03/26/2003/26/2025 CMP (MALE ) osmolality 302.9 calc Not Available [facility] [address] [facility], [place], [address], 03/26/2025 10:32:46 03/26/2003/27/2025 MAGNE SIUM magnesium 2.4 mg/dL 1.5-2. 5 normal Not Available [employer] [facility] [address] [place], [address], 03/27/2025 08:46:16 03/26/2003/27/2025 C-VICTOR HUGO CTIVE PROTE IN C-reactive protein 4.0 mg/L <8.0 normal Not Available [facility] [address] [place], [address], 03/27/2025 08:46:16 03/26/2003/26/2025 ESR (eryt hrocy te sedim entat ion rate) , blood SedRate 2 Not Available [facility]) [address] [place] [address], [address], 03/26/2025 09:43:50 03/26/2003/26/2025 XR, chest , 2 view No observ ation record ed. [facility] ([facility]) [address] [place] [address], [address], 03/30/2025 08:43:04 Result Notes None recorded. Problems Name Problem SNOMED Code Status Onset Date Resolution Date Notes Provider Name and Address Organization Details Recorded Time Edema of lower extremity 562676957 Jan brown [facility] 5 16:41:09 Traumatic right rotator cuff tear Active Amalia brown [facility] 5 16:41:09 Atrial fibrillat ion with rapid ventricul ar response 573073795213 109 Active Amalia brown [facility] 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 5 16:41:09 Mixed hyperlipi demia 323887990 [facility] Amalia Day [facility] 5 16:41:09 History of heart disorder 794128531 Active Amalia Day [facility] 5 16:41:09 Ischemic myocardia l dysfuncti on 000374367 [facility] Amalia Day [facility] 5 16:41:09 Pain of multiple joints 44438227 [facility] Amalia Day [facility] 5 16:41:09 Hyperuric emia 55527155 [facility] Amalia Day [facility] 5 16:41:09 Irregular heart beat 272428592 [facility] Amalia Day [facility] 5 16:41:10 Device used 433885789 [facility] Amalia Day [facility] 5 16:41:10 Prostate specific antigen above reference range 744555415 [facility] Amalia Day [facility] 5 16:41:10 Coronary atheroscl erosis 560247855 [facility] Amalia Day [facility] 5 16:41:10 Low blood pressure 37462929 [facility] Amalia Day [facility] 5 16:41:10 Essential hypertens ion 75090060 [facility] Amalia Day [facility] 5 16:41:10 Fracture of scapula 4999851 [facility] Amalia Day [facility] 5 16:41:10 Dyslipide pasquale 903036726 Active Amalia brown, [facility] 5 16:41:10 Malignant neoplasm of prostate 780052760 Active 2021 Prostate Cancer Amalia brown, [facility] 5 16:41:10 Chronic ischemic heart disease 290182136 Active 2021 Amalia brown, [facility] 5 16:41:10 Gout 38251312 [facility] 2022 [facility] 16:41:10 Chronic pain syndrome 483411973 Active 2022 [facility] 16:41:10 Osteoarth ritis 869630336 Active 2022 [facility] 16:41:10 Benign prostatic hyperplas ia 911338985 Active 2022 [facility] 16:41:09 Chronic kidney disease stage 3B 589792923 Active 2022 Amalia brown, [facility] 5 16:41:10 Chronic combined systolic and diastolic heart failure 592294840071 100 Active 2022 Amalia brown, [facility] 5 16:41:09 History of coronary artery bypass grafting 935215422 Active 2022 Amalia brown, [facility] 5 16:41:10 Diverticu litis of sigmoid colon 988185526 Active 2022 Amalia brown, [facility] 5 16:41:10 Vesicocol ic fistula 82692515 Active 2022 Amalia brown, [facility] 5 16:41:09 Calculus of kidney and ureter 347114016 Active 2022 Amalia brown, [facility] 5 16:41:09 Donovan hematuria 479840005 Active 2022 Amalia Day [facility] 5 16:41:09 Hyperlipi demia 14142296 Active 2023 Amalia Day [facility] 5 16:41:10 Secondary hyperaldo steronism 16195703 Active 2023 Amalia Day [facility] 5 16:41:10 Hypertens jaime heart AND chronic kidney disease with congestiv e heart failure 587128109370 07 Active 2023 Amalia Day [facility] 5 16:41:09 Allergic rhinitis 64784941 Active 2024 Amalia Day [facility] 5 15:29:57 Seasonal allergic rhinitis 540763027 Active 2024 Imani Moore DO [address] [place] [address], [address], [facility] 5 16:11:08 Acute on chronic combined systolic and diastolic heart failure 710052962101 103 Active 2024 Imani Moore DO [address] [place] [address], [address], [facility] 5 09:31:13 Acute infective endocardi tis 150945347 Active 2024 Renaldo brown [facility] 5 16:09:58 Notes:Some problems listed i n Documents: #[id number], #[id number], #[id number], #[id number] could not be added to this patient's chart. Please review these documents and add these problems to the patient's chart manually as needed. Problem Notes None recorded. Procedures Surgical History Date Name Laterality Status Provider Name and Address Organization Details Recorded Time procedure on knee completed [facility] 09/15/2024 16:36:26 total knee replacement completed [facility] 09/15/2024 16:36:38 procedure on shoulder completed [facility] 09/15/2024 16:37:50 arthroplasty of left shoulder completed [facility] 09/15/2024 16:38:15 total shoulder replacement completed [facility] 09/15/2024 16:38:04 tonsillectomy completed [facility] 09/15/2024 16:38:23 procedure on back completed [facility] 09/15/2024 16:38:38 coronary artery bypass grafts x 4 completed [facility] 09/15/2024 16:38:51 replacement of aortic valve completed [facility] 09/15/2024 16:39:09 excision of neoplasm completed [facility] 09/15/2024 16:39:43 procedure on wrist completed Yadi gurvinder [facility], [place] 09/15/2024 16:40:03 operation on testis completed [facility] [place] 09/15/2024 16:40:24 excision of colon completed [facility] [place] 09/15/2024 16:40:45 Imaging Results None recorded. Procedure Notes None recorded. Medical Equipment None Reported. Allergies Allergen ID Allergen Name Allergen Category Reaction Reaction Severity Criticality Documentation Date Start Date Code Code System Note Provider Name and Address Organization Details Recorded Time 77381 Product containin g penicilli n (product) medicatio n Not available Not available Not available 01/27/2023 77886 8001 SNOMED Jaelyn Maradiaga [facility], [place] 4 13:57:25 86105 metoprolo l Not available Not available Not available Not available 04/07/20242023 6918 RxNorm [facility], DonnLMelyCMely 4 14:01:34 90495 Product containin g 3-hydroxy -3-methyl glutaryl- coenzyme A reductase inhibitor (product) medicatio n Not available Not available unabletoasse ss 05/26/20252022 62729 009 SNOMED unrec ogniz ed react ion (text : Delir ium (diso rder) , code: 06590 00) (from [facility] e) Not Available andrés - External Data [...] Updated DateTime 5 176.53 cm 29.1 kg/m2 37378.4 7 g 96 % 49 /min 22 /min 140/88 mm[Hg] GUDELIA CLEMENT [facility], [facility] 5 09:20:20 Social History None recorded. Functional Status None recorded. Mental Status None recorded. Family History Nothing Reported Notes:Mother: Heart Disease Prostate Cancer Medical History No medical history recorded. Past Encounters Encounter ID Performer Location Encounter Start Date Encounter Closed Date Diagnosis/Indication Diagnosis SNOMED-CT Code Diagnosis ICD10 Code Diagnosis IMO Codes Diagnosis Note [id number] Imani Moore DO [facility] ([facility]) [address] [place] [phone] 03/18/2025 12:06:17 03/31/2025 10:01:41 Acute on chronic combined systolic and diastolic heart failure 5387128817 35642 I50.43 [id number] 03/18/25: Acute exacerbati on. Counseled increase Bumetanide [...] for his Echo in April. Muscle weakness 51629834 M62.81 [id number] 03/18/25: Counseled RTC if not improving. [id number] Imani Moore DO [facility] ([facility]) [address] [place] [address] 03/26/2025 08:59:07 03/27/2025 09:28:01 Bite of scorpion 2466223786 T63.2X1A [id number] 03/26/25: Counseled this sting likely brought about some of his symptoms, then inflammati on worsened his SOB and pain symptoms. Will treat with Prednisone to help calm his immune system down. Expect to see improvemen t in the next 2 days. Acute on c hronic combined systolic and diastolic heart failure 8698130775 35863 I50.43 [id number] 03/18/25: Acute exacerbati on. Counseled increase Bumetanide [...] goes up for his Echo in April. Health Concerns Section Related Observation LastModified by Organization Detai ls LastModified Time None Recorded Concern Status LastModified by Organization Details LastModified Time None Recorded Payers Encounter Date Sequence Insurance Name Policy Number Policy Grey Covered Member ID Grey Member ID Guarantor Name 03/26/2025 1 MEDICARE [place]: [facility] Italo Cummings [id number] Italo Cummings 03/26/2025 2 [employer] (MEDICARE SUPPLEMENT) Italo Cummings [id number] Italo Cummings Notes Date Note Type Note Provider Name and Address Organization Details Recorded Time 03/26/2025 text/html ROS as noted in the [...] let us know, consider CXR, imaging.Counseled update Celaya on his recent fluid overload [...] fatigue, having trouble walking Imani Moore, DO [address] [place] [address], [phone], [facility] 03/26/2025 11:16:36
--- OUTSIDE RECORDS SUMMARY | 2025-06-09 05:39 | XMS_ITS | Clinical Summary ---
Author Organization [facility] Address [address] [facility] Attn: [place] [address] Care Team Providers Care Mainframe Consultant Name Role Phone Priyank Kaur Primary Care Provider [phone] Allergies Active Allergy Reactions Criticality Noted Date Comments Metoprolol Other (See Comments) 11/30/2021 Low BP Penicillins Other (See Comments) Medium 10/07/2015 Numbness/Tingling - Whole Body - As A Child Ihwxreo-Ngt-Dsu Reductase Inhibitors Delirium Medium 07/19/2022 Unclassified Drug Rash,Other (See Comments) Low 08/22/2022 Dermabond dressings Medications Praluent Pen 150 mg/mL Pen Injector Inject 150 mg by subcutaneous injection every 2 weeks. 2 Active amiodarone (CORDARONE) 200 mg tablet Take 200 mg by mouth daily. 2 Active furosemide (LASIX) 20 mg tablet Take 80 mg by mouth daily in the morning. 2 Active potassium chloride (KLOR-CON) 20 mEq Extended Release tablet Take 20 mEq by mouth 2 times daily. 2 Active terazosin (HYTRIN) 10 mg capsule Take 10 mg by mouth 2 times daily. 0 Active cetirizine (ZyrTEC) 10 mg tablet Take 10 mg by mouth daily. 6 Active sennosides-docu sate sodium (SENNA-S) 8.6-50 mg tablet Take 1 Tablet by mouth 2 times daily. Take only when taking narcotics 30 Tablet 2 08/08/2022 10:00 AM RAG WASHER 3 Active Additional Information Patient taking differently:1 Tablet OralTWO TIMES DAILY PRN, Constipation, Take only when taking narcotics, Reported on 03/23/2025 fluticasone propionate (FLONASE) 50 mcg/spray Recluse, Suspension nasal inhaler Administer 1 Recluse in each nostril 1 time daily as needed for Allergies. 3 Active clobetasoL (TEMOVATE) 0.05 % CreamIndication s:Status post total shoulder arthroplasty, right Apply to affected area 2 times daily. 15 Gram 3 Active Additional Information Patient taking differently:TopicalTWO TIMES DAILY PRN, Other (See Comment), rash, Reported on 03/23/2025 rivaroxaban (Xarelto) 10 mg Tablet Take 1 Tablet (10 mg) by mouth daily. 14 Tablet 3 Active traMADoL (ULTRAM) 50 mg tabletIndicatio ns:S/P revision of total knee, right Take 1 Tablet (50 mg) by mouth every 6 hours as needed for Pain. 28 Tablet 11/17/2022 10:43 AM CDT 3 Active ciprofloxacin HCl (CIPRO) 500 mg tablet Take 500 mg by mouth 2 times daily. Taking off and on since Jun 2023 Active naloxone (NARCAN) 4 mg/spray Recluse, Non-Aerosol EMERGENCY USE ONLY: Administer 1 spray (4 mg) in one nostril one time. May repeat in alternating nostrils every 2-3 min until responsive or EMS arrives. 2 Each 3 4 Active HYDROcodone-juan carlos taminophen (NORCO) 7.5-325 mg TabletIndicatio ns:Diverticulit is Take 1-2 Tablets by mouth every 6 hours as needed for Pain. Max Daily Amount: 8 Tablets 30 Tablet 08/11/2023 2:52 PM RAG WASHER 4 Active albuterol sulfate HFA 90 mcg/actuation aerosol inhaler INHALE TWO PUFFS EVERY 4 HOURS NEEDED Active budesonide-form oteroL (SYMBICORT) 160-4.5 mcg/actuation HFA Aerosol Inhaler INHALE TWO PUFFS BY MOUTH TWICE DAILY DIRECTED Active bumetanide (BUMEX) 1 mg tablet Take 1 mg by mouth daily. 4 Active celecoxib (CeleBREX) 200 mg capsule Take 1 Capsule by mouth daily. Active colchicine (COLCRYS) 0.6 mg tablet TAKE 2 TABLETS BY MOUTH x ONE DOSE THEN ONE tablet one hour LATER Active famotidine (PEPCID) 20 mg tablet Active levalbuterol HFA (XOPENEX HFA) 45 mcg/Actuation HFA Aerosol Inhaler INHALE TWO PUFFS EVERY 6 HOURS NEEDED FOR SHORTNESS OF BREATH or cough Active losartan (COZAAR) 25 mg tablet Take 25 mg by mouth daily. Active metoprolol succinate (TOPROL XL) 25 mg Extended Release 24 hour tablet Take 25 mg by mouth daily. Active montelukast (SINGULAIR) 10 mg tablet Take 10 mg by mouth daily. for allergies Active sacubitril/vals leny (ENTRESTO ORAL) two times daily Acti ve sodium, potassium and magnesium SULFATES (SUPREP) 17.5-3.13-1.6 gram Recon Soln Acti ve valsartan (DIOVAN) 40 mg tablet Take 1 Tablet by mouth daily. Active Active Problems Problem Noted Date Diagnosed Date s/p lap sigmoid colectomy 08/09/2023 for diverticulitis/colovesical fistula 08/09/2023 S/P revision of total knee, right 11/16/2022 Failed total knee, right 11/14/2022 Elevated glucose 11/02/2022 Pre-diabetes 11/02/2022 Right rotator cuff tear 07/19/2022 Hx of repair of right rotator cuff 06/08/2022 S/P revision of total knee, left 03/03/2020 History of prostate cancer 02/18/2020 Benign prostatic hyperplasia with lower urinary tract symptoms 02/18/2020 Allergic rhinitis 02/18/2020 Obesity (BMI 30.0-34.9) 02/18/2020 Thrombocytopenia 02/18/2020 Chronic kidney disease, stage 3 02/18/2020 Atrial fibrillation 10/12/2015 Non-rheumatic mitral regurgitation 10/11/2015 Status post coronary artery bypass grafting 09/30 Atherosclerosis of [place] coronary artery of [place] heart 10/07/2015 Essential hypertension 10/07/2015 Resolved Problems Problem Noted Date Diagnosed Date Resolved Date Instability of left knee joint 03/02/2020 03/09/2020 Primary osteoarthritis of left knee 02/18/2020 03/09/2020 Preop general physical exam 02/18/2020 11/16/2022 Encounters Date Type Department Care Team Description 05/19/2025 External Device Data [facility] ABSTRACTION Provider, Abstract 04/21/2025 External Device Data [facility] ABSTRACTION Provider, Abstract 03/23/2025 2:00 PM CDT Office Visit [facility] [address] [place] [address] Lio Dunbar MD History of total left knee replacement (Primary Dx) 03/23/2025 1:35 PM CDT Ancillary Procedure [facility] [address] [place] [address] Lio Dunbar MD History of total left knee replacement 03/23/2025 Chart Note [facility] [address] [place] [address] Emerald Jerome RN Research (DSJ-2016-02 ATTUNE) 03/23/2025 Research Encounter [facility] [address] [place] [address] Emerald Jerome RN from Last 3 Months Family History Medical History Relation Name Comments Prostate Cancer Brother 1 Prostate Cancer Brother 2 No Known Problems Brother 3 No Known Problems Daughter 1 No Known Problems Daughter 2 No Known Problems Father Heart Disease Mother No Known Problems Sister 1 No Known Problems Sister 2 No Known Problems Son 1 No Known Problems Son 2 Hypertension Son 3 Kidney Cancer Son 4 Metastatic to Spine Relation Name Status Comments Brother 1 (Age 76) Brother 2 (Age 82) Brother 3 (Age 85) Daughter 1 Alive Daughter 2 Alive Father (Age 91) Mother (Age 84) Sister 1 Alive Sister 2 Alive Son 1 Alive Son 2 Alive Son 3 Alive Son 4 Alive Son 5 (Age 4) Accident Social History Tobacco Use Types Packs/Day Years Used Date Smoking Tobacco: Never Smokeless Tobacco: Never Tobacco Cessation:Counseling Given: Not Answered Alcohol Use Standard Drinks/Week Comments No 0 (1 standard drink = 0.6 oz pur e alcohol) Feeling Safe Answer Date Recorded Are you in a relationship wi th someone who hurts you emotionally and/or physically? No 08/09/2023 Food Insecurity Answer Date Recorded Social/Environmental Concerns No concerns Transportation Needs Answer Date Record ed Social/Environmental Concerns No concerns Housing Stability Answer Date Recorded Social/Environmental Concerns No concerns Utility Needs Answer Date Recorded Social/Environmental Concerns No concerns Sex and Gender Information Value Date Recorded Sex Assigned at Not on file Legal Sex Male 12:48 AM RAG WASHER Gender Identity Not on file Sexual Orientation Not on file Last Filed Vital Signs Vital Sign Reading Time Taken Comments Blood Pressure 116/78 03/23/2025 2:23 PM CDT Pulse 113 08/21/2023 10:15 AM RAG WASHER Temperature 36.4 C (97.5 F) 08/21/2023 10:15 AM RAG WASHER Respiratory Rate 18 08/11/2023 11:53 AM RAG WASHER Oxygen Saturation 99% 08/21/2023 10:15 AM RAG WASHER Inhaled Oxygen Concentration - - Weight 91.6 kg (202 lb) 03/23/2025 2:23 PM CDT Height 177.8 cm (5' 10 ) 03/23/2025 2:23 PM CDT Body Mass Index 28.98 03/23/2025 2:23 PM CDT Plan of Treatment Health Maintenance Due Date Last Done Comments DTAP/TDAP/TD VACCINES (1 - Tdap) 1971 PNEUMOCOCCAL VACCINE 50+ YEARS (1 of 2 - PCV) 05/12/19 71 COLORECTAL SCREENING 1997 Colorectal Cancer Screening 1997 FIT-DNA Q 3 years 1997 FIT/FOBT Q 1 year 1997 Flex Sig/CT Colonography Q 5 years 1997 RSV VACCINE (60+ or ) (1 - Risk 50-74 years 1-dose series) 2002 ZOSTER VACCINE (1 of 2) 2002 INFLUENZA VACCINE (#1) 2025 Medical Devices Implanted Type Area Grants Assistant Device Identifier Shelf Expiration Date Model / Serial / Lot Cement Simplex Hvisc 6194-1-010 - [id number] Implanted:Qty : 1 on 03/03/2020 by Lio Dunbar MD Cement Left: Knee [employer] [id number] 03/31/2021 6194-1-010 / / [id number] Cement Simplex Hvisc 6194-1-010 - [id number] Implanted:Qty : 1 on 03/03/2020 by Lio Dunbar MD Cement Left: Knee [employer] [id number] 03/31/2021 6194-1-010 / / [id number] Cement Palacos Mv Zirconium Dioxide St Lf Disp 6686756 - [id number] Implanted:Qty : 1 on 11/16/2022 by Lio Dunbar MD at [facility] Cement Right: Knee [employer] [id number] 05/01/2027 [id number] / / [id number] Cement Palacos Mv Zirconium Dioxide St Lf Disp 2332149 - [id number] Implanted:Qty : 1 on 11/16/2022 by Lio Dunbar MD at [facility] Cement Right: Knee [employer] [id number] 05/01/2027 [id number] / / [id number] [place] Ptfe Thck 1.6mmx2.5x10. 2cm 979510 - [id number] Implanted:Qty : 1 on 10/08/2015 by Aparna Wilkinson MD Graft CR BARD- [employer] 05/29/2020 [id number] / / [id number] Hemostatic Gelfoam Lg Sz 110 [id number] - Csc - [id number] Implanted:Qty : 1 on 10/08/2015 by Aparna Wilkinson MD Hemostatic Chest PFIZER- PHARM [id number] / / [id number] Augment Fem Attune Dist Sz8 4mm 1547-08-001 - [id number] Implanted:Qty : 1 on 03/03/2020 by Lio Dunbar MD Knee Left: Knee [employer] [id number] 05/01/2028 [id number] / / [id number] Augment Fem Attune Dist Sz8 4mm 1547-08-001 - [id number] Implanted:Qty : 1 on 03/03/2020 by Lio Dunbar MD Knee Left: Knee [employer] [id number] 05/01/2028 [id number] / / [id number] Augment Fem Attune Post Sz8 8mm 1549-08-002 - [id number] Implanted:Qty : 1 on 03/03/2020 by Lio Dunbar MD Knee Left: Knee [employer] [id number] 03/01/2029 [id number] / / [id number] Baseplate Tib Attune Rev Sz7 1506-60-007 - [id number] Implanted:Qty : 1 on 03/03/2020 by Lio Dunbar MD Knee Left: Knee [employer] [id number] 09/29/2029 1506-60-007 / / [id number] Comp Fem Attune Rev Sz8 Lt 1504-40-108 - [id number] Implanted:Qty : 1 on 03/03/2020 by Lio Dunbar MD Knee Left: Knee [employer] [id number] 11/29/2029 [id number] / / [id number] Sleeve Fem Attune Full Por 45mm - [id number] Implanted:Qty : 1 on 03/03/2020 by Lio Dunbar MD Knee Left: Knee [employer] [id number] 05/01/2029 / / [id number] Sleeve Fem Attune Rev 40mm - [id number] Implanted:Qty : 1 on 03/03/2020 by Lio Dunbar MD Knee Left: Knee [employer] [id number] 05/01/2028 / / [id number] Stem Fem Attune 60x66ne Pf 1513-16-060 - [id number] Implanted:Qty : 1 on 03/03/2020 by Lio Dunbar MD Knee Left: Knee [employer] [id number] 01/29/2030 15116-060 / / [id number] Stem Fem Attune 18m56xe - [id number] Implanted:Qty : 1 on 03/03/2020 by Lio Dunbar MD Knee Left: Knee [employer] [id number] 12/29/2029 [id number] / / [id number] Stem Fem Attune 18w95oo Rev Pressfit - [id number] Implanted:Qty : 1 on 11/16/2022 by Lio Dunbar MD at [facility] Knee Right: Knee [employer] [id number] 08/29/2032 15109-14-060 / / [id number] Baseplate Tib Attune Rev Sz8 1506-60-008 - [id number] Implanted:Qty : 1 on 11/16/2022 by Lio Dunbar MD at [facility] Knee Right: Knee [employer] [id number] 08/01/2032 [id number] / / [id number] Sleeve Tib Attune Rev 45mm - [id number] Implanted:Qty : 1 on 11/16/2022 by Lio Dunbar MD at [facility] Knee Right: Knee [employer] [id number] 05/31/2032 / / [id number] Stem Fem Attune 40s61iq Rev Pressfit - - [id number] Implanted:Qty : 1 on 11/16/2022 by Lio Dunbar MD at [facility] Knee Right: Knee [employer] [id number] 05/31/2032 [id number] / / [id number] Comp Fem Attune Rev Crs Sz 8 Rt Cmntd 1504-40-208 - [id number] Implanted:Qty : 1 on 11/16/2022 by Lio Dunbar MD at [facility] Knee Right: Knee [employer] [id number] 09/29/2032 [id number] / / [id number] Augment Fem Attune Post Sz8 4mm Rev 1549- - [id number] Implanted:Qty : 1 on 11/16/2022 by Lio Dunbar MD at [facility] Knee Right: Knee [employer] [id number] 03/01/2032 [id number] / / [id number] Augment Fem Attune Post Sz8 4mm Rev 1549 - [id number] Implanted:Qty : 1 on 11/16/2022 by Lio Dunbar MD at [facility] Knee Right: Knee [employer] [id number] 03/01/2032 [id number] / / [id number] Sleeve Fem Attune Rev 40mm 1511- - [id number] Implanted:Qty : 1 on 11/16/2022 by Lio Dunbar MD at [facility] Knee Right: Knee [employer] [id number] 08/29/2032 1511-01-204 / / [id number] Patella Attune Dome 41mm 1518-20-041 - [id number] Implanted:Qty : 1 on 11/16/2022 by Lio Dunbar MD at [facility] Knee Right: Knee [employer] [id number] 07/01/2027 [id number] / / [id number] Screw Glenoid Baseplate 5x34mm Jws448 - [id number] Implanted:Qty : 1 on 08/07/2022 by Kanu Honeycutt III, MD at [facility] Screw Right: Shoulder [employer] 08/07/2023 [id number] / / [id number] Augment Wedge Glenoid Baseplate Full 29mm Ykj545 - [id number] Implanted:Qty : 1 on 08/07/2022 by Kanu Honeycutt III, MD at [facility] Shoulder Right: Shoulder [employer] 04/25/2027 [id number] / / [id number] Glenoid Baseplate Aequalis 15mm Knk067 - [id number] Implanted:Qty : 1 on 08/07/2022 by Kanu Honeycutt III, MD at [facility] Shoulder Right: Shoulder [employer] 03/27/2027 AMW314 / / [id number] Wireguide Aequalis Perform 2.6v260ig Kif441 - [id number] Implanted:Qty : 1 on 08/07/2022 by Kanu Honeycutt III, MD at [facility] Wire Right: Shoulder [employer] 06/01/2027 SEP486 / / [id number] [id number] Rotat Platform Implanted:Qty : 1 on 03/03/2020 by Lio Dunbar MD Left: Knee 08/01/2022 DEPUY - 1517-10-810 / / [id number] Fem Augment Implanted:Qty : 1 on 03/03/2020 by Lio Dunbar MD Left: Knee 03/31/2027 DEPUY - 1549-08-003 / / [id number] 39meccentric: +3mm Implanted:Qty : 1 on 08/07/2022 by Kanu Honeycutt III, MD at [facility] Right: Shoulder FABIAN-TORN IER-HGO09521 02 / / [id number] Superior Implanted:Qty : 1 on 08/07/2022 by Kanu Honeycutt III, MD at [facility] Right: Shoulder 08/07/2023 [id number] / / [id number] Ve 10 Degree Reversed Insert Implanted:Qty : 1 on 08/07/2022 by Kanu Honeycutt III, MD at [facility] Right: Shoulder 08/07/2023 TORNIER-DWT2 396 / / [id number] Humeral Stem, Size 4 Implanted:Qty : 1 on 08/07/2022 by Kanu Honeycutt III, MD at [facility] Right: Shoulder 01/25/2027 TORNIER-DWX4 SS / / [id number] Ins Tib Attune Sz8 8mm Implanted:Qty : 1 on 11/16/2022 by Lio Dunbar MD at [facility] Right: Knee [id number] 03/31/2024 [id number] / / [id number] Explanted Type Area Grants Assistant Device Identifier Shelf Expiration Date Model / Serial / Lot Right Knee Tibial Component Explanted:Qty: 1 on 11/16/2022 by Lio Dunbar MD at [facility] Right: Knee Right Knee Patella Component Explanted:Qty: 1 on 11/16/2022 by Lio Dunbar MD at [facility] Right: Knee Right Knee Polyethlyene Spacer Explanted:Qty: 1 on 11/16/2022 at [facility] Right: Knee Right Knee Femoral Component Explanted:Qty: 1 on 11/16/2022 by Lio Dunbar MD at [facility] Right: Knee Procedures Procedure Name Priority Date/Time Associated Diagnosis Comments XR KNEE 3 VW LEFT Routine 03/23/2025 1:3 9 PM CDT History of total left knee replacement from Last 3 Months Results * XR KNEE 3 VW LEFT (03/23/2025 1:39 PM CDT) Anatomical Region Laterality Modality Lower Extremity Computed Radiogr aphy Narrative 03/31/2025 7:02 AM CDT AP, lateral and sunrise view radiographs are taken today and demonstrate revision left total knee replacement components in excellent alignment. No evidence of subsidence, fracture, loosening, or leg length discrepancy. No radiographic complications noted. Lio Dunbar MD DIAGNOSTIC IMAGING [facility] Final Result from Last 3 Months Insurance MEDICARE PART A AND B [employer] * Guarantor: ITALO CUMMINGS Account Type Relation to Patient Date of Phone Billing Address Personal/Family [id number] [place] [address] [employer] Medicare Part D Advance Directives For more information, please contact: [phone] * Full Code (Latest Code Status on File) Date Activated Date Inactivated Comments 08/09/2023 6:07 PM 08/11/2023 5:13 PM * Full Code Date Activated Date Inactivated Comments 08/09/2023 9:30 AM 08/09/2023 6:07 PM Care Teams Mainframe Consultant Relationship Specialty Start Date End Date Priyank Kaur DO PCP - General Family Practice 10/07/15
--- OUTSIDE RECORDS SUMMARY | 2025-06-09 05:39 | XMS_ITS | Clinical Summary ---
Author Organization [facility] Address [address] [place] [address] Phone Care Team Providers Care Patient Registration Representative Name Role Phone Priyank Kaur Primary Care Provider [phone] Allergies Active Allergy Reactions Criticality Noted Date Comments Penicillins Other (See Comments) 10/07/2015 Numbness and tingling Medications montelukast (SINGULAIR) 10 mg tablet Take 10 mg by mouth daily. Active cetirizine (ZYRTEC) 10 mg tablet Take 10 mg by mouth daily. Active metoprolol tartrate (LOPRESSOR) 25 mg tablet Take 1 Tablet (25 mg) by mouth 2 times daily. 60 Tablet 1 10/12/2015 Active terazosin (HYTRIN) 10 mg capsule Take 10 mg by mouth 2 times daily. 11/19/2019 Active coenzyme Q10 100 mg Capsule Take 100 mg by mouth daily. Active polyethylene glycol 3350 (Miralax) 17 gram/dose Powder Take 1 SCOOP (17 Grams) by mouth daily. Dissolve in 8 ounces of fluid and drink entire liquid 510 Gram 03/05/2020 10:18 AM CDT 03/03/2020 Active traMADoL (ULTRAM) 50 mg tabletIndicatio ns:S/P revision of total knee, left Take 1 Tablet (50 mg) by mouth every 6 hours as needed for Pain. 28 Tablet 03/05/2020 10:18 AM CDT 03/03/2020 Active Active Problems Problem Noted Date Diagnosed Date S/P revision of total knee, left 03/03/2020 History of prostate cancer 02/18/2020 Benign prostatic hyperplasia with lower urinary tract symptoms 02/18/2020 Allergic rhinitis 02/18/2020 Obesity (BMI 30.0-34.9) 02/18/2020 Thrombocytopenia 02/18/2020 Chronic kidney disease, stage 3 02/18/2020 Atrial fibrillation 10/12/2015 Status post coronary artery bypass grafting 09/30 Non-rheumatic mitral regurgitation 10/11/2015 Atherosclerosis of [place] coronary artery of [place] heart 10/07/2015 Essential hypertension 10/07/2015 Resolved Problems Problem Noted Date Diagnosed Date Resolved Date Instability of left knee joint 03/02/2020 03/09/2020 Preoperative general physical examination 02/18/2020 03/02/2020 Primary osteoarthritis of left knee 02/18/2020 03/09/2020 Family History Medical History Relation Name Comments No Known Problems Brother 1 Cancer Brother 2 Prostate Cancer Brother 3 Prostate No Known Problems Daughter 1 No Known Problems Daughter 2 No Known Problems Father Heart Disease Mother No Known Problems Sister 1 No Known Problems Sister 2 Cancer Son 2 Kidney mets to spine Hypertension Son 3 No Known Problems Son 4 No Known Problems Son 5 Relation Name Status Comments Brother 1 (Age 85) Brother 2 (Age 82) Brother 3 (Age 76) Daughter 1 Alive Daughter 2 Alive Father (Age 91) Mother (Age 84) Sister 1 Alive Sister 2 Alive Son 1 (Age 4) Accident Son 2 Alive Son 3 Alive Son 4 Alive Son 5 Alive Social History Tobacco Use Types Packs/Day Years Used Date Smoking Tobacco: Never Smokeless Tobacco: Never Alcohol Use Standard Drinks/Week Comments No 0 (1 standard drink = 0.6 oz pur e alcohol) Sex and Gender Information Value Date Recorded Sex Assigned at Not on file 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 Gender Identity Not on file Sexual Orientation Not on file Last Filed Vital Signs Vital Sign Reading Time Taken Comments Blood Pressure 145/96 04/19/2020 9:51 AM CDT Pulse 97 04/19/2020 9:51 AM CDT Temperature 37.2 C (98.9 F) 03/05/2020 8:30 AM CDT Respiratory Rate 18 03/05/2020 8:30 AM CDT Oxygen Saturation 94% 03/05/2020 8:30 AM CDT Inhaled Oxygen Concentration - - Weight 97.5 kg (215 lb) 04/19/2020 9:51 AM CDT Height 176.5 cm (5' 9.5 ) 04/19/2020 9:51 AM CDT Body Mass Index 31.29 04/19/2020 9:51 AM CDT Plan of Treatment Health Maintenance Due Date Last Done Comments DTAP/TDAP/TD VACCINES (1 - Tdap) 1971 COLORECTAL SCREENING 1997 Colorectal Cancer Screening 1997 FIT-DNA Q 3 years 1997 FIT/FOBT Q 1 year 1997 Flex Sig/CT Colonography Q 5 years 1997 PNEUMOCOCCAL VACCINE 50+ YEARS (1 of 1 - PCV) 05/12/20 02 RSV VACCINE (60+ or ) (1 - Risk 50-74 years 1-dose series) 2002 ZOSTER VACCINE (1 of 2) 2002 INFLUENZA VACCINE (#1) 2025 Medical Devices Implanted Type Area Ore Fielder Device Identifier Shelf Expiration Date Model / Serial / Lot Cement Simplex Hvisc 6194-1-010 - [id number] Implanted:Qty : 1 on 03/03/2020 by Lio Dunbar MD at [facility] Cement Left: Knee FABIAN- [employer] [id number] 03/31/2021 6194-1-010 / / [id number] Cement Simplex Hvisc 6194-1-010 - [id number] Implanted:Qty : 1 on 03/03/2020 by Lio Dunbar MD at [facility] Cement Left: Knee FABIAN- [employer] [id number] 03/31/2021 6194-1-010 / / [id number] Imperial Ptfe Thck 1.6mmx2.5x10. 2cm 830262 - [id number] Implanted:Qty : 1 on 10/08/2015 by Aparna Wilkinson MD at [facility] Graft CR BARD- BREANNA VASC INC 05/29/2020 [id number] / / [id number] Hemostatic Gelfoam Lg Sz 080 [id number] - Csc - [id number] Implanted:Qty : 1 on 10/08/2015 by Aaprna Wilkinson MD at [facility] Hemostatic Chest PFIZER- PHARM [id number] 1 / / [id number] Stem Fem Attune 42x43dy 1513-18-060 - [id number] Implanted:Qty : 1 on 03/03/2020 by Lio Dunbar MD at [facility] Knee Left: Knee J[employer]J- [employer] [id number] 12/29/2029 [id number] / / [id number] Comp Fem Attune Rev Sz8 Lt 1504-40-108 - [id number] Implanted:Qty : 1 on 03/03/2020 by Lio Dunbar MD at [facility] Knee Left: Knee [employer]- [employer] [id number] 11/29/2029 [id number] / / [id number] Baseplate Tib Attune Rev Sz7 1506-60-007 - [id number] Implanted:Qty : 1 on 03/03/2020 by Lio Dunbar MD at [facility] Knee Left: Knee J[employer]J- [employer] [id number] 09/29/2029 1506-60-007 / / [id number] Sleeve Fem Attune Rev 40mm 151-204 - [id number] Implanted:Qty : 1 on 03/03/2020 by Lio Dunbar MD at [facility] Knee Left: Knee J[employer] [id number] 05/01/2028 151 / / [id number] Augment Fem Attune Dist Sz8 4mm 1547-08-001 - [id number] Implanted:Qty : 1 on 03/03/2020 by Lio Dunbar MD at [facility] Knee Left: Knee J[employer]- [employer] [id number] 05/01/2028 [id number] / / [id number] Augment Fem Attune Dist Sz8 4mm 1547-08-001 - [id number] Implanted:Qty : 1 on 03/03/2020 by Lio Dunbar MD at [facility] Knee Left: Knee J[employer] [id number] 05/01/2028 [id number] / / [id number] Stem Fem Attune 78f14xy Pf 151 - [id number] Implanted:Qty : 1 on 03/03/2020 by Lio Dunbar MD at [facility] Knee Left: Knee J[employer]J- [employer] [id number] 01/29/2030 151 / / [id number] Sleeve Fem Attune Full Por 45mm - [id number] Implanted:Qty : 1 on 03/03/2020 by Lio Dunbar MD at [facility] Knee Left: Knee J[employer] [id number] 05/01/2029 / / [id number] Augment Fem Attune Post Sz8 8mm 1549-08-002 - [id number] Implanted:Qty : 1 on 03/03/2020 by Lio Dunbar MD at [facility] Knee Left: Knee J&J- [employer] [id number] 03/01/2029 [id number] / / [id number] Crs Rotat Platform Implanted:Qty : 1 on 03/03/2020 by Lio Dunbar MD at [facility] Left: Knee 08/01/2022 DEPUY - 1517-10-810 / / [id number] Fem Augment Implanted:Qty : 1 on 03/03/2020 by Lio Dunbar MD at [facility] Left: Knee 03/31/2027 DEPUY - 1549-08-003 / / [id number] Insurance Member Subscriber Plan / Payer (Ef fective 2017-Present) Name:Effie Cummings Relation to Subscriber:Self Name:Effie Cummings Payer ID:Not on file Type:[facility] Address: [place] [address] MEDICARE PART A AND B RX [facility] [employer] Advance Directives For more information, please contact: [phone] * Full Code (Latest Code Status on File) Date Activated Date Inactivated Comments 03/03/2020 6:45 PM 03/05/2020 1:43 PM * Full Code Date Activated Date Inactivated Comments 03/03/2020 1:07 PM 03/03/2020 6:45 PM * Full Code Date Activated Date Inactivated Comments 03/03/2020 11:25 AM 03/03/2020 1:07 PM * Full Code Date Activated Date Inactivated Comments 10/08/2015 5:25 PM 10/12/2015 3:54 PM * Full Code Date Activated Date Inactivated Comments 10/08/2015 8:56 AM 10/08/2015 5:25 PM Care Teams Patient Registration Representative Relationship Specialty Start Date End Date Priyank Kaur DO PCP - General Family Practice 10/07/15
--- OUTSIDE RECORDS SUMMARY | 2025-06-09 05:39 | XMS_ITS | Continuity of Care Document ---
Author Organization [facility] Alfonso, L.L.CMely, [facility] ([facility]) Address [address] [place] [address] Care Team Providers Care Cashiers Supervisor Name Role Phone IMANI KAUR Primary Care Provider Unavailabl e Assessment Encounter Date Assessment Date Assessment LastModified by Organization Details LastModified Time 03/18/2025 03/18/2025 Document scribed by Renaldo Souza Ingredient Handler. I was present during interview and exam. I have reviewed and agree with above documentation . Dr. Imani Kaur. [email or web address] Not available 03/18/2025 12:46:07 Plan of Treatment Reminders Order Date Submit [...] Abnormal Flag Note LastModifiedBy Organization Detail LastModifiedTime 03/26/20 25 03/26/2025 XR, chest , 2 view No observ ation record ed. [facility] ([facility]) [address] [place], [address], 03/30/2025 08:43:04 Result Notes None recorded. Problems Name Problem SNOMED Code Status Onset Date Resolution Date Notes Provider Name and Address Organization Details Recorded Time Edema of lower extremity 139890169 Active Amalia brown [facility] L[facility] 03/17/202 5 16:41:09 Traumatic right rotator cuff tear Active Amalia Day [facility] 5 16:41:09 Atrial fibrillat ion with rapid ventricul ar response 839961191949 109 [facility] 16:41:09 Traumatic arthropat hy of the shoulder region 677089359 [facility] Amalia Day [facility] 5 16:41:09 Dyspnea 344891773 [facility] Amalia Day [facility] 5 16:41:09 Mixed hyperlipi demia 656624706 [facility] Amalia Day [facility] 5 16:41:09 History of heart disorder 004653524 [facility] Amalia Day [facility] 5 16:41:09 Ischemic myocardia l dysfuncti on 392734657 [facility] Amalia Day [facility] 5 16:41:09 Pain of multiple joints 25847236 [facility] Amalia Day [facility] 5 16:41:09 Hyperuric emia 91337091 [facility] Amalia Day [facility] 5 16:41:09 Irregular heart beat 949323386 [facility] Amalia Day [facility] 5 16:41:10 Device used 483119514 Active Amalia Day [facility] 5 16:41:10 Prostate specific antigen above reference range 316473504 [facility] Amalia Day [facility] 5 16:41:10 Coronary atheroscl erosis 445511085 Active Amalia Day [facility] 5 16:41:10 Low blood pressure 40254356 Active Amalia Day [facility] 5 16:41:10 Essential hypertens ion 64609236 Active Amalia Day [facility] 5 16:41:10 Fracture of scapula 4270991 Active Amalia Day [facility] 5 16:41:10 Dyslipide pasquale 036114033 Active Amalia Day [facility] 5 16:41:10 Malignant neoplasm of prostate 165981199 Active 2021 Prostate Cancer Amalia Day [facility] 5 16:41:10 Chronic ischemic heart disease 820455921 Active 2021 Amalialeslie Day [facility] 5 16:41:10 Gout 08008323 Active 2022 Amalialeslie Day [facility] 5 16:41:10 Chronic pain syndrome 270224785 Active 2022 Amalia Day [facility] 5 16:41:10 Osteoarth ritis 505900936 Active 2022 Amalia Day null, [facility] 5 16:41:10 Benign prostatic hyperplas ia 026674848 Active 2022 Amalia Day [facility] 5 16:41:09 Chronic kidney disease stage 3B 778985723 Active 2022 [facility] 5 16:41:10 Chronic combined systolic and diastolic heart failure 221448010250 100 Active 2022 [facility] 5 16:41:09 History of coronary artery bypass grafting 995351294 Active 2022 [facility] 5 16:41:10 Diverticu litis of sigmoid colon 405292297 Active 2022 Amalia De La Cruze [facility] 5 16:41:10 Vesicocol ic fistula 63183932 Active 2022 Amalialeslie Day [facility] 5 16:41:09 Calculus of kidney and ureter 522703977 Active 2022 Amalialeslie Day [facility] 5 16:41:09 Donovan hematuria 589117906 Active 2022 Amalialeslie De La Cruze [facility] 5 16:41:09 Hyperlipi demia 06645839 Active 2023 Amalia Day [facility] 5 16:41:10 Secondary hyperaldo steronism 54460845 Active 2023 Amalialeslie Day [facility] 5 16:41:10 Hypertens jaime heart AND chronic kidney disease with congestiv e heart failure 056092641178 07 Active 2023 Amalialeslie De La Cruzgardenia [facility] 16:41:09 Allergic rhinitis 17511855 Active 2024 Amalia brown [facility], [place] 15:29:57 Seasonal allergic rhinitis 373657655 Active [address], [address], [facility], [place] 16:11:08 Acute on chronic combined systolic and diastolic heart failure 239212800882 103 Active [address], [address], [facility], [place] 09:31:13 Acute infective endocardi tis 167592007 Active 2024 Renaldo brown [facility], [place] 16:09:58 Notes:Some problems listed i n Documents: #[id number], #[id number], #[id number], #[id number] could not be added to this patient's chart. Please review these documents and add these problems to the patient's chart manually as needed. Problem Notes None recorded. Procedures Surgical History Date Name Laterality Status Provider Name and Address Organization Details Recorded Time procedure on knee completed Amalia Day [facility], [place] 09/15/2024 16:36:26 total knee replacement completed Amalia Day [facility], [place] 09/15/2024 16:36:38 procedure on shoulder completed Amalia Day [facility], [place] 09/15/2024 16:37:50 arthroplasty of left shoulder completed Amalia Day [facility], [place] 09/15/2024 16:38:15 total shoulder replacement completed Amalia Day [facility], [place] 09/15/2024 16:38:04 tonsillectomy completed [facility] 09/15/2024 16:38:23 procedure on back completed [facility] 09/15/2024 16:38:38 coronary artery bypass grafts x 4 completed [facility] 09/15/2024 16:38:51 replacement of aortic valve completed [facility] 09/15/2024 16:39:09 excision of neoplasm completed [facility] 09/15/2024 16:39:43 procedure on wrist completed [facility] 09/15/2024 16:40:03 operation on testis completed [facility] 09/15/2024 16:40:24 excision of colon completed [facility] 09/15/2024 16:40:45 Imaging Results None recorded. Procedure Notes None recorded. Medical Equipment None Reported. Allergies Allergen ID Allergen Name Allergen Category Reaction Reaction Severity Criticality Documentation Date Start Date Code Code System Note Provider Name and Address Organization Details Recorded Time 16548 Product containin g penicilli n (product) medicatio n Not available Not available Not available 01/27/2023 37240 8001 SNOMED Jaelyn Plsrinath [facility] 4 13:57:25 06869 metoprolo l Not available Not available Not available Not available 04/07/20242023 6918 [facility] 14:01:34 54699 Product containin g 3-hydroxy -3-methyl glutaryl- coenzyme A reductase inhibitor (product) medicatio n Not available Not available unabletoasse ss 05/26/20252022 07443 009 SNOMED unrec ogniz ed react ion (text : Delir ium (diso rder) , code: 68957 00) (from [facility]) Not Available [place] - External Data Service - prod 07:23:26 [...] completed 0; Recorded 03/29/20 1:22PM by Gudelia Rodríguez, Office Visit; Not Available Not Available Not [...] 0; Recorded 03/29/20 22 1:19PM by Gudelia Rodríguez, Office Visit; Not Available Not Available Not Available furosemid e three times daily, as needed 07/30 completed 0; Recorded 03/29/20 1:16PM by Gudelia Rodríguez, Office Visit; Not Available Not Available Not [...] tablet daily 06/27 completed 0; Recorded 03/29/20 1:24PM by Gudelia Rodríguez, Office Visit; Not Available Not Available Not Available Xarelto 15 mg tablet TAKE 1 TABLET BY MOUTH EVERY EVENING active Not Available Not Available No t Available potassium chloride ER 20 mEq tablet,ex tended release TAKE 1 TABLET BY MOUTH EVERY TWELVE HOURS active Not Available Not Available No t Available Entresto two times daily 07/30 completed 0; Recorded 03/29/20 1:21PM by Gudelia Rodríguez, Office Visit; Not Available Not Available Not [...] Updated DateTime 5 176.53 cm 30.5 kg/m2 89097.9 6 g 97 % 63 /min 20 /min 98.3 [degF] 120/78 mm[Hg] Amalia Day [facility], [facility] 5 12:36:40 Date Recorded Body height Body mass index (BMI) Body weight Oxygen saturation Heart rate Respiratory rate Systolic And Diastolic Provider Name and Address Organization Details Last Updated DateTime 5 176.53 cm 29.1 kg/m2 76887.4 7 g 96 % 49 /min 22 /min 140/88 mm[Hg] GUDELIA RODRÍGUEZ [facility] 5 09:20:20 Social History None recorded. Functional Status None recorded. Mental Status None recorded. Family History Nothing Reported Notes:Mother: Heart Disease Prostate Cancer Medical History No medical history recorded. Past Encounters Encounter ID Performer Location Encounter Start Date Encounter Closed Date Diagnosis/Indication Diagnosis SNOMED-CT Code Diagnosis ICD10 Code Diagnosis IMO Codes Diagnosis Note [id number] Imani Kaur DO [facility] ([facility]) [address] [place] [address] 03/18/2025 12:06:17 03/31/2025 10:01:41 Acute on chronic combined systolic and diastolic heart failure 4380360381 85323 I50.43 [id number] 03/18/25: Acute exacerbati on. Counseled increase Bumetanide [...] for his Echo in April. Muscle weakness 93169139 M62.81 [id number] 03/18/25: Counseled RTC if not improving. Health Concerns Section Related Observation LastModified by Organization Detai ls LastModified Time None Recorded Concern Status LastModified by Organization Details LastModified Time None Recorded Payers Encounter Date Sequence Insurance Name Policy Number Policy Grey Covered Member ID Grey Member ID Guarantor Name 03/18/2025 1 [place]: [employer] Italo Joan Cummings [id number] Italo Cummings 03/18/2025 2 [employer] (MEDICARE SUPPLEMENT) Italo Cummings [id number] Italo Cummings Notes Date Note Type Note Provider Name and Address Organization Details Recorded Time 03/18/2025 text/html ROS as noted in the [...] hands and feet for 1 week Imani Kaur DO [address] [place], [address], [facility], [place] 03/26/2025 09:32:02 03/26/2025 text/html ROS as [...] pain, severe fatigue, having trouble walking Imani Kaur DO [address] [place], [address], [facility] - [facility], [place] 03/26/2025 11:16:36
--- NOTE | 2025-06-09 05:41 | XRR_ITS ---
PROCEDURE INFORMATION: Exam: XR Chest Exam date and time: 06/09/2025 5:45 AM Age: 75 years old Clinical indication: Other: Weakness post fall TECHNIQUE: Imaging protocol: Radiologic exam of the chest. Views: 1 view. COMPARISON: CR XR chest 2V* [id number] 03/26/2025 8:55 AM FINDINGS: Lungs: Unremarkable. No consolidation. Pleural spaces: Unremarkable. No pleural effusion. No pneumothorax. Heart/Mediastinum: TAVR. Bones/joints: Right shoulder replacement. Status post median sternotomy. XR/XR chest 1V portable [id number] IMPRESSION: No acute findings.
--- NOTE | 2025-06-09 05:41 | CTR_ITS ---
PROCEDURE INFORMATION: Exam: CT Head Without Contrast Exam date and time: 06/09/2025 5:59 AM Age: 75 years old Clinical indication: Injury or trauma; Fall; Blunt trauma (contusions or hematomas) TECHNIQUE: Imaging protocol: Computed tomography of the head without contrast. Radiation optimization: All CT scans at this facility use at least one of these dose optimization techniques: automated exposure control; mA and/or kV adjustment per patient size (includes targeted exams where dose is matched to clinical indication); or iterative reconstruction. COMPARISON: No relevant prior studies available. RADIATION DOSE METRICS: Total DLP (mGy-cm): 1137.88 FINDINGS: Brain: No hemorrhage. Periventricular white matter lucency represents atherosclerotic encephalopathic changes. No mass effect. Cerebral ventricles: No ventriculomegaly. Mild ventricular prominence disproportionate to the degree of atrophy observed. Paranasal sinuses: Moderate mucosal thickening in the left maxillary and ethmoid air cells. Mild mucosal thickening in the right ethmoid air cells. Mastoid air cells: Visualized mastoid air cells are well aerated. Bones: Unremarkable. No acute fracture. Soft tissues: Unremarkable. CT/CT head wo con* [id number] IMPRESSION: No acute intracranial abnormality.
--- NOTE | 2025-06-09 05:42 | ECG_ITS ---
[facility] Test Date: 2025-06-09 Pat Name: Italo Cummings Department: Room: Gender: Male Senior Consultant: : 1950 Requested By: Diane Gaines Order Number: [id number] Reddy MD: Jose Nj M.D. 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 [email or web address]
--- NOTE | 2025-06-09 05:44 | W.ED.FALL ---
HPI - Fall General: Chief Complaint: Fall Stated Complaint: fall, hit head, weak Time Seen by Provider: 06/09/25 05:38 Source: patient Mode of arrival: ambulatory Limitations: no limitations History of Present Illness: 75-year-old male states that this morning had some generalized weakness with sat on the edge of his bed states that he fell asleep and fell forward. He did hit his head on the ground has abrasion to his head has a mild headache complains of some slight neck pain as well. He denies any fever denies any vomiting or diarrhea denies other injuries from the fall Related Data Home Medications ?Medication ?Instructions ?Recorded ?Confirmed fluticasone propionate 50 1 spray intranasal DAILY 06/29/20 04/17/24 mcg/actuation nasal spray,suspension (Flonase Allergy Relief) tramadol 50 mg tablet 50 mg PO TID PRN Pain 06/29/20 04/17/24 terazosin 10 mg capsule 10 mg PO BID 11/02/20 04/17/24 montelukast 10 mg tablet 10 mg PO DAILY 04/17/24 04/17/24 Previous Rx's ?Medication ?Instructions ?Recorded amiodarone 200 mg tablet 200 mg PO DAILY #180 tabs 04/18/24 bumetanide 1 mg tablet 1 mg PO BID #60 tabs 04/18/24 dexamethasone 6 mg tablet 6 mg PO Q24H #10 tabs 04/18/24 fluticasone furoate 100 1 inh inhalation DAILY #60 ea 04/18/24 mcg-vilanterol 25 mcg/dose inhalation powder (Breo Ellipta) tiotropium bromide 18 mcg capsule 1 cap inhalation DAILY #30 04/18/24 with inhalation device (Spiriva inhalations with HandiHaler) potassium chloride 20 mEq See Rx Instructions .Route 02/26/25 tablet,extended release(part/cryst) .COMPLEX #90 tabs rivaroxaban 15 mg tablet (Xarelto) See Rx Instructions .Route 03/10/25 .COMPLEX #90 tabs alirocumab 150 mg/mL subcutaneous 150 mg SUBCUT Q14D #2 mL 04/15/25 pen injector (Praluent Pen) Allergies Allergy/AdvReac Type Severity Reaction Status Date / Time Penicillins Allergy Unknown Unknown Verified 04/09/24 15:13 Oydmjiy-QXE-OjH Reductase Allergy couldn't Verified 04/09/24 15:13 Inhibitor (Midqnyn-Fkr-Cfm function Reductase Inhibitor) metoprolol AdvReac low bp Verified 04/09/24 15:13 PFSH ED PFSH: Medical History Atherosclerosis of coronary artery of [place] heart without angina pectoris Heart failure, left, with LVEF <=30% CKD (chronic kidney disease) stage 3, GFR 30-59 ml/min Ischemic cardiomyopathy Dyslipidemia Congestive heart failure Hyperuricemia Polyarthralgia Sepsis Cardiogenic shock Moderate to severe mitral regurgitation Acute on chronic systolic heart failure Elevated liver enzymes Metabolic acidosis, increased anion gap COVID-19 Mar 2021 Atrial flutter Hyperkalemia Hepatorenal syndrome Acute renal failure (ARF) Atrial fibrillation with rapid ventricular response Traumatic tear of right rotator cuff 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 Radiation therapy. Slowly rising PSA with benign RALPH. 6.June. BPH loc w urin obs/LUTS Hypercholesterolemia Ischemic heart disease Elevated PSA Nocturia Urinary hesitancy Surgical History History of tonsillectomy and adenoidectomy Hx of coronary artery bypass graft H/O total knee replacement RIGHT H/O shoulder surgery LEFT History of back surgery History of carpal tunnel release BILATERAL Family History Father , AT AGE 91 Bowel obstruction Mother , AT AGE 84 Heart attack CAD (coronary artery disease) Hypertension Diabetes Brother Cancer Family/Other Cancer Son Chronic kidney disease (CKD) Cancer Grandfather Stroke Denies family history of Clotting disorder Dementia Suicide Anesthesia complication Bleeding disorder Lung disease Social History Smoking and tobacco/nicotine status: never used tobacco/nicotine Alcohol intake: never Substance/Drug Use: never Marital status: Current occupational status: employed Physical Exam Const: COMMON NORMALS: patient oriented x3 HENMT: COMMON NORMALS: normocephalic HEAD & SCALP: normocephalic OTHER: abrasion to forehead Eye: COMMON NORMALS: Equal, round and reactive pupils present and EOMs intact bilaterally PUPIL: Yes Equal, round and reactive pupils present Neck/C-Spine: COMMON NORMALS: full ROM and supple Chest: COMMONS NORMALS: normal inspection of the chest and normal palpation of entire chest wall Resp: COMMON NORMALS: normal respiratory effort, No retractions, No use of accessory muscles and clear to auscultation bilaterally AUSCULTATION: clear to auscultation bilaterally Cardio: COMMON NORMALS: No murmurs present (Cardio) RATE: tachycardic RHYTHM: abnormal rhythm irregularly irregular GI: COMMON NORMALS: Normal to inspection, nondistended, normoactive bowel sounds present, Soft to palpation, non-tender and no masses PALPATION: Yes Soft to palpation Extremity: COMMON NORMALS: normal to inspection and full ROM Neuro: COMMON NORMALS: patient oriented x3, moves all extremities and no focal motor deficits Psych: COMMON NORMALS: mental status grossly normal, Normal thought process present and cooperative THOUGHT PROCESS: Normal thought process present Skin: COMMON NORMALS: no rashes or lesions noted and no wounds GENERAL SKIN EXAM: no rashes or lesions noted Course Vital Signs: Vital signs: Vital Signs Temperature 97.1 F L 06/09/25 05:41 Pulse Rate 112 H 06/09/25 09:00 Respiratory Rate 30 H 06/09/25 09:00 Blood Pressure 104/79 06/09/25 09:00 Pulse Oximetry 96 06/09/25 09:00 Oxygen Delivery Me thod Room Air 06/09/25 09:00 MDM - Fall Medical Decision Making Patient presents here with generalized weakness along with a fall with closed head injury. Patient here is found to be septic does have elevated white count along with elevated lactate. Patient recently diagnosed with endocarditis is on itraconazole for that. Differential includes endocarditis, intracerebral hemorrhage from his fall. Cervical spine fracture. His CT head and C-spine both were negative. Patient did receive IV antibiotics here did give him 1 L of fluids did not give him full sepsis bolus as he has a history of congestive heart failure along with cardiomyopathy and feel that full sepsis bolus would be more harmful. His heart rate and blood pressure here did improve with the fluids. I spoke to hospitalist along with infectious disease at [facility] and will transfer back to their facility for infectious disease. crtical care time 45 minutes The high probability of a clinically significant, sudden or life threatening deterioration of the patient's cv system(s) required my full and direct attention, intervention and personal management. The critical care time is as shown. This time is in addition to time spent performing any reported procedures but includes the following: [x] Data and vital sign review and interpretation [x] Patient assessment, examination and intervention [x] Documentation [x] Medication orders and management EKG interpreted by me at 1055 A-fib with RVR heart rate [address] elevation QRS 153 QTc 458 Medical Records I reviewed the patient's medical records. Lab Data 06/09/25 05:45 06/09/25 05:45 Radiology Impressions Chest X-Ray 06/09/25 05:41 IMPRESSION: No acute findings. Head CT 06/09/25 05:41 IMPRESSION: No acute intracranial abnormality. Cervical Spine CT 06/09/25 06:51 IMPRESSION: 1. No acute cervical spine fracture. 2. Spinal stenosis due to a partially calcified extruded/bulging disc at C3-C4. MRI recommended if clinically warranted. Abdomen/Pelvis CT 06/09/25 07:15 IMPRESSION: No acute process. Incidental and chronic findings Laboratory Results WBC 17.57 10^3/uL (3.29-11.43) H 06/09/25 05:45 RBC 5.63 10^6/uL (3.85-5.65) 06/09/25 05:45 Hgb 15.60 g/dL (11.27-16.99) 06/09/25 05:45 Hct 50.0 % (37-53) 06/09/25 05:45 MCV 88.8 fl (82-101) 06/09/25 05:45 MCH 27.7 pg (27-33) 06/09/25 05:45 MCHC 31.2 g/dL (30-55) 06/09/25 05:45 RDW 17.1 % (12.1-15.1) H 06/09/25 05:45 Plt Count 241 10^3/cmm (157-399) 06/09/25 05:45 MPV 13.2 fL (7.4-10.4) H 06/09/25 05:45 Neut % (Auto) 80.4 % 06/09/25 05:45 Lymph % (Auto) 9.3 % 06/09/25 05:45 [place] % (Auto) 6.8 % 06/09/25 05:45 Eos % (Auto) 0.3 % 06/09/25 05:45 Baso % (Auto) 0.6 % 06/09/25 05:45 Neut # (Auto) 14.13 10^3/uL (1.8-7.7) H 06/09/25 05:45 Lymph # (Auto) 1.6 10^3/uL (0.8-4.8) 06/09/25 05:45 [place] # (Auto) 1.2 10^3/uL (0.2-0.9) H 06/09/25 05:45 Eos # (Auto) 0.1 10^3/uL (0.0-0.8) 06/09/25 05:45 Baso # (Auto) 0.1 10^3/uL (0.0-0.1) 06/09/25 05:45 Nucleated RBC % (auto) 0.1 % 06/09/25 05:45 Nucleated RBCs # 0.0 /100WBC 06/09/25 05:45 PT 18.00 SECONDS (12.1-14.9) H 06/09/25 05:45 INR 1.39 (0.8-1.2) H 06/09/25 05:45 Sodium 137 mmol/L (136-145) 06/09/25 05:45 Potassium 5.7 mmol/L (3.5-5.1) H 06/09/25 05:45 Chloride 96 mmol/L (98-107) L 06/09/25 05:45 Carbon Dioxide 23 mmol/L (22-29) 06/09/25 05:45 Anion Gap 23.7 (5-19) H 06/09/25 05:45 BUN 51 mg/dL (8-23) H 06/09/25 05:45 Creatinine 2.5 mg/dL (0.7-1.2) H 06/09/25 05:45 GFR Calculation Not Reportable 06/09/25 05:45 Glucose 176 mg/dL (65-115) H 06/09/25 05:45 Calculated Osmolality 302 mOsm/kg (285-295) H 06/09/25 05:45 Lactic Acid 4.9 mmol/L (0.5-2.2) H* 06/09/25 05:45 Lactic Acid (Sepsis) 5.0 mmol/L (0.5-2.2) H* 06/09/25 08:47 Calcium 10.4 mg/dL (8.5-10.5) 06/09/25 05:45 Total Bilirubin 1.3 mg/dL (0.15-1.2) H 06/09/25 05:45 AST 283 U/L (0-40) H 06/09/25 05:45 ALT 238 U/L (0-41) H 06/09/25 05:45 Alkaline Phosphatase 79 U/L (40-130) 06/09/25 05:45 Total Protein 7.4 g/dL (6.6-8.7) 06/09/25 05:45 Albumin 4.8 g/dL (3.5-5.2) 06/09/25 05:45 Globulin 2.6 g/dL (1.3-4.6) 06/09/25 05:45 Urine Color Yellow (Yellow) 06/09/25 08:22 Urine Appearance Clear (CLEAR) 06/09/25 08:22 Urine pH 5.0 (5-7) 06/09/25 08:22 Ur Specific [place] 1.012 (1.005-1.030) 06/09/25 08:22 Urine Protein 1+ (Negative) A 06/09/25 08:22 Urine Glucose (UA) Negative (Normal) 06/09/25 08:22 Urine Ketones Negative (Negative) 06/09/25 08:22 Urine Blood Negative (Negative) 06/09/25 08:22 Urine Nitrate Negative (Negative) 06/09/25 08:22 Urine Bilirubin Negative (Negative) 06/09/25 08:22 Urine Urobilinogen 1.0 mg/dL (Negative) 06/09/25 08:22 Ur Leukocyte Esterase Trace (Negative) A 06/09/25 08:22 Urine RBC 0-2 /hpf (0-2) 06/09/25 08:22 Urine WBC 0-5 /hpf (0-5) 06/09/25 08:22 Ur Squamous Epith Cells 0-5 /hpf (0-5) 06/09/25 08:22 Amorphous Sediment 1+ /hpf 06/09/25 08:22 Urine Bacteria Trace /hpf (NONE) 06/09/25 08:22 Hyaline Casts 6.61 /lpf 06/09/25 08:22 All radiology interpretation(s) finalized by discharge Critical Care Time Critical Care Time: Critical Care Time: Yes Total Critical Care Time: 45 Attestation: The high probability of a clinically significant, sudden or life threatening deterioration of the patient's cv system(s) required my full and direct attention, intervention and personal management. The critical care time is as shown. This time is in addition to time spent performing any reported procedures but includes the following: [x] Data and vital sign review and interpretation [x] Patient assessment, examination and intervention [x] Documentation [x] Medication orders and management Discharge Plan Discharge Patient Disposition: Xfer Short-Term Hosp Clinical Impression: Atrial fibrillation with rapid ventricular response, Acute kidney injury, Endocarditis Sepsis Qualifiers: Sepsis type: sepsis due to unspecified organism Sepsis acute organ dysfunction status: without acute organ dysfunction Qualified Code(s): A41.9 - Sepsis, unspecified organism Condition: Stable Referrals: Priyank Kaur DO [Primary Care Provider, [facility]] Print Language: Kiswahili Coding Level of Care Code 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
[2025-06-09 06:07] LABS: Hematocrit 50.0 % (37-53); Hemoglobin 15.60 g/dL (11.27-16.99); Mean Corpuscular HGB Conc 31.2 g/dL (30-55); Mean Corpuscular Hemoglobin 27.7 pg (27-33); Mean Corpuscular Volume 88.8 fl (82-101); Nucleated Red Blood Cells % 0.1 %; Platelet Count 241 10^3/cmm (157-399); Red Blood Count 5.63 10^6/uL (3.85-5.65); White Blood Count 17.57 10^3/uL (3.29-11.43)
[2025-06-09 06:16] LABS: INR 1.39 (0.8-1.2); Prothrombin Time 18.00 SECONDS (12.1-14.9)
[2025-06-09 06:19] LABS: Alanine Aminotransferase 238 U/L (0-41); Albumin Level 4.8 g/dL (3.5-5.2); Alkaline Phosphatase 79 U/L (40-130); Anion Gap 23.7 (5-19); Aspartate Amino Transferase 283 U/L (0-40); Blood Urea Nitrogen 51 mg/dL (8-23); Calcium 10.4 mg/dL (8.5-10.5); Carbon Dioxide 23 mmol/L (22-29); Chloride 96 mmol/L (98-107); Globulin 2.6 g/dL (1.3-4.6); Glucose 176 mg/dL (65-115); Osmolality Calculated 302 mOsm/kg (285-295); Potassium 5.7 mmol/L (3.5-5.1); Sodium 137 mmol/L (136-145); Total Protein 7.4 g/dL (6.6-8.7)
--- NOTE | 2025-06-09 06:51 | CTR_ITS ---
PROCEDURE INFORMATION: Exam: CT Cervical Spine Without Contrast Exam date and time: 06/09/2025 7:13 AM Age: 75 years old Clinical indication: Injury or trauma; Fall TECHNIQUE: Imaging protocol: Computed tomography of the cervical spine without contrast. Radiation optimization: All CT scans at this facility use at least one of these dose optimization techniques: automated exposure control; mA and/or kV adjustment per patient size (includes targeted exams where dose is matched to clinical indication); or iterative reconstruction. COMPARISON: CT head wo con* [id number] 06/09/2025 5:59 AM RADIATION DOSE METRICS: Total DLP (mGy-cm): 176.6 FINDINGS: Bones: No acute fracture. Anatomic alignment. There is a large partially calcified apparently bulging or extruded disc causing marked spinal stenosis at the C3-C4 level. Moderate multilevel foraminal narrowing. Anterior spurring C2 through C7. Disc space narrowing C3 through C7. No fracture, lytic, or sclerotic bone lesions. Lungs: Lung apices are normal. Soft tissues: Unremarkable. CT/CT cervical spin wo con* [id number] IMPRESSION: 1. No acute cervical spine fracture. 2. Spinal stenosis due to a partially calcified extruded/bulging disc at C3-C4. MRI recommended if clinically warranted.
[2025-06-09 07:12] LABS: Lactic Sepsis W/Reflex 4.9 mmol/L (0.5-2.2)
--- NOTE | 2025-06-09 07:15 | CTR_ITS ---
PROCEDURE INFORMATION: Exam: CT Abdomen And Pelvis Without Contrast Exam date and time: 06/09/2025 7:16 AM Age: 75 years old Clinical indication: Pain; Other: Sepsis TECHNIQUE: Imaging protocol: Computed tomography of the abdomen and pelvis without contrast. Radiation optimization: All CT scans at this facility use at least one of these dose optimization techniques: automated exposure control; mA and/or kV adjustment per patient size (includes targeted exams where dose is matched to clinical indication); or iterative reconstruction. COMPARISON: CT kidney stone [id number] 06/26/2023 10:54 AM RADIATION DOSE METRICS: Total DLP (mGy-cm): 872.4 FINDINGS: Heart: Cardiomegaly. Liver: Normal. No mass. Gallbladder and biliary ducts: Cholelithiasis. Pancreas: Normal. No ductal dilation. Spleen: Sequela of chronic granulomatous disease involving spleen. Adrenal glands: Normal. No mass. Kidneys and ureters: Left-sided nonobstructing nephrolithiasis. No hydronephrosis. Stomach and bowel: The stomach is distended. Appendix: No evidence of appendicitis. Intraperitoneal space: Unremarkable. No free air. No significant fluid collection. Vasculature: Moderate abdominal aorta atherosclerosis. Lymph nodes: Unremarkable. No enlarged lymph nodes. Urinary bladder: Unremarkable as visualized. Reproductive: Unremarkable as visualized. Bones/joints: Severe degenerative changes of the visualized spine. Soft tissues: Unremarkable. CT/CT abdomen pelvis wo con [id number] IMPRESSION: No acute process. Incidental and chronic findings
[2025-06-09] MEDS: ondansetron 2 mg/ML SDV 2 mL 4 MG IVP ×2 (07:38→08:58)
[2025-06-09] MEDS: aztreonam 2,000 MG in sodium chloride 0.9% (plus) 100 ML 200 MG IV (07:43)
[2025-06-09 08:31] LABS: Glucose Urine UA Negative (Normal); Nitrate Urine Negative (Negative); Specific Gravity, Urine 1.012 (1.005-1.030)
[2025-06-09] MEDS: AMIODARONE HCL/D5W 900 MG/500 ML BAG 33.33 MG IV (08:33)
[2025-06-09 08:36] LABS: Add Urine Microscopic? YES
[2025-06-09 08:40] LABS: Reflex Lactate Order REFLEX LACTIC ORDERD
[2025-06-09 08:48] LABS: UA Slide Review UA Slide Review Perf
[2025-06-09 09:19] LABS: Lactic Acid level (Lactate) 5.0 mmol/L (0.5-2.2)
--- NOTE | 2025-06-09 09:30 | ECG_ITS ---
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 Measurements Intervals [place] Rate: 109 P: 0 NV: 0 QRS: 130 QRSD: 174 T: -19 QT: 387 QTc: 522 Interpretive Statements ATRIAL FIBRILLATION WITH RAPID VENTRICULAR RESPONSE WITH ABERRANT CONDUCTION OR VENTRICULAR PREMATURE COMPLEXES RIGHT AXIS DEVIATION [QRS AXIS > 100] INTRAVENTRICULAR CONDUCTION DELAY [130+ ms QRS DURATION] INTERPRETATION BASED ON A DEFAULT AGE OF 40 YEARS Compared to ECG 06/09/2025 05:55:24 Ventricular premature complex(es) now present Aberrant conduction of supraventricular beat(s) now present Electronically Signed On 06-11-2025 18:04:21 [employer] DAY CLASS TEACHER by Jose Nj M.D. [id number]
== END 2025-06-09 10:05 | disposition short-term general hospital (02) ==
PROVIDERS: Emergency Provider Emergency Medicine; PCP Electrodiagnostic Medicine
DX: I48.20 Chronic atrial fibrillation, unspecified (principal); N17.9 Acute kidney failure, unspecified; I38 Endocarditis, valve unspecified; A41.9 Sepsis, unspecified organism; I25.10 Atherosclerotic heart disease of native coronary artery without angina pectoris; E78.5 Hyperlipidemia, unspecified; Z85.46 Personal history of malignant neoplasm of prostate; E78.2 Mixed hyperlipidemia; I13.0 Hypertensive heart and chronic kidney disease with heart failure and stage 1 through stage 4 chronic kidney disease, or unspecified chronic kidney disease; I50.20 Unspecified systolic (congestive) heart failure; N18.30 Chronic kidney disease, stage 3 unspecified
CPT/HCPCS: 36415; 51701; 70450; 71045; 72125; 74176; 80053; 81001; 83605; 85025; 85610; 87040; 93005; 96365; 96367; 96375; 96376; 99285; A4222; J0282; J2405; J3373; J3490; J7030; J7050